=== PATIENT | female | born 1950 | race African-American/Black ===

== ENCOUNTER 2024-11-23 15:06 | Inpatient (IN) | payer MEDICARE, SELFPAY ==
[2024-11-23] VITALS (10 sets, daily range): BP systolic 123–164; BP diastolic 46–63; PULSE 91–103; RESP 17–24; TEMP 36.8–37.1; O2SAT 92–96
--- NOTE | ~2024-11-23 | XR_ITS ---
Portable chest x-ray Comparison: 11/30/2024 Clinical History: Pleural effusions Findings: Small left pleural effusion present. There is extensive hazy bibasilar and perihilar airsp micky disease bilaterally. Cardiomediastinal silhouette is stable. Bones and soft tissues are unremark able. Impression: Moderate pulmonary edema pattern versus bilateral pneumonia. Small left pleural effusion. Reviewed, dictated and finalized at [facility]. YSIS SPECIALIST Impression: Moderate pulmonary edema pattern versus bilateral pneumonia. Small left pleural effusion.
--- NOTE | ~2024-11-23 | XR_ITS ---
EXAMINATION: XR chest 1V portable Exam Date/Time: 11/23/2024 15:55 CUSTOMER SUPPORT TECHNICIAN HISTORY: Hypoxia, cough Comparison: None. RESULT: Lines, tubes, and devices: None. Lungs and pleura: Mild diffuse reticular opacities, mild cuffing, indistinct vessels. Segmental left medial lower lung airspace disease. Linear atelectasis/scar in the left lower lung. Cardiomediastinal silhouette: Unremarkable. Other: No acute osseous or upper abdominal finding. IMPRESSION: Segmental left lower lung atelectasis/consolidation, overlying a background of interstitial edema. Reviewed, dictated and finalized at location K. OMER SUPPORT TECHNICIAN
--- NOTE | ~2024-11-23 | XR_ITS ---
EXAMINATION: XR chest 1V portable DATE: 12/04/2024 05:54 INDICATION: Pneumonia. TECHNIQUE: A single frontal view of the chest was obtained. COMPARISON: Chest single view 12/01/2024, chest CT 11/27/2024 FINDINGS: There are airspace opacities in the mid and lower lung zones. No pleural effusion or pneumo thorax. The heart size is normal. IMPRESSION: 1. Airspace opacities in the mid and lower lung zones with improvement on the left, consistent with p neumonia. Reviewed, dictated and finalized at location A. /[employer]BN WEAPONS EQUIPMENT OPERATOR IMPRESSION: 1. Airspace opacities in the mid and lower lung zones with improvement on the l eft, consistent with pneumonia.
--- NOTE | ~2024-11-23 | XR_ITS ---
EXAMINATION: XR chest 1V portable DATE: 11/30/2024 10:58 INDICATION: Pneumonia. TECHNIQUE: A single frontal view of the chest was obtained. COMPARISON: Chest single view 11/26/2024, chest CT 11/27/2024 FINDINGS: There are airspace opacities in the mid and lower lung zones. There are small pleural effus ions. No pneumothorax. The heart size is normal. IMPRESSION: 1. Persistent airspace opacities in the mid and lower lung zones, consistent with pneumonia. 2. Stable small pleural effusions. Reviewed, dictated and finalized at location A. LE VALVE TESTER IMPRESSION: 1. Persistent airspace opacities in the mid and lower lung zones, consistent wi th pneumonia. 2. Stable small pleural effusions.
--- NOTE | ~2024-11-23 | US_ITS ---
EXAMINATION: US venous doppler [facility] DATE: 11/27/2024 09:59 INDICATION: Shortness of breath TECHNIQUE: Grayscale ultrasound images without and with compression and Doppler ultrasound images of the bilateral lower extremity veins were obtained. COMPARISON: None. FINDINGS: The visualized portions of right common femoral vein, profunda (deep) femoral vein, femoral vein, pop liteal vein, peroneal veins, posterior tibial veins, and greater saphenous vein outflow are patent. The visualized portions of left common femoral vein, profunda femoral vein, femoral vein, popliteal v ein, peroneal veins, posterior tibial veins, and greater saphenous vein outflow are patent. IMPRESSION: 1. No deep venous thrombosis. Reviewed, dictated and finalized at location A. T SALES MANAGER
--- NOTE | ~2024-11-23 | XR_ITS ---
XR chest 1V portable 11/26/2024 07:12 Indication: Pneumonia. Influenza. Shortness of breath. Procedure: AP portable chest Comparison: 11/23/2024 Findings: Heart size normal. Bilateral airspace disease is present which has progressed. Small pleura l effusions. No pneumothorax. Impression: 1: Extensive bilateral airspace disease has progressed, most likely edema versus pneumonia. Reviewed, dictated and finalized at location A. ATTENDANT Impression: 1: Extensive bilateral airspace disease has progressed, most likely edema versu s pneumonia.
--- NOTE | ~2024-11-23 | CT_ITS ---
CT diagnostic chest wo con Ordering provider: Devin Hayden MD History: 74 years Female with . CHF vs pneumonia . Comparison: None. Technique: CT chest without IV contrast. FINDINGS: VISUALIZED THORACIC INLET: Normal. MEDIASTINUM: Aorta/coronary arteries: Mild atheromatous disease. Heart/other: The heart is not enlarged. Lymph nodes: Lymphadenopathy is seen in the mediastinum with largest right paratracheal lymph node me asures 1.7 cm. Prevascular lymph nodes are noted with the largest measures 1.4 cm. Calcified subcarin al lymph nodes are noted. LUNGS: Bilateral basal pneumonia with pleural effusion more on the left side. Right upper lobe pneumo meghan is also noted. Focal pneumonia also seen in the middle lobe and lingula. No pulmonary nodules or masses. No pneumothorax. VISUALIZED UPPER ABDOMEN: Small sliding hiatus hernia. Left kidney cyst. Otherwise, the visualized up per abdomen is normal. MUSCULOSKELETAL: Soft tissues: The superficial soft tissues are normal. Bones: Age appropriate degenerative changes of the spine. Loss of volume of T12 which is most likely chronic. IMPRESSION: 1. Bilateral pneumonia involving the lower lobes, right upper lobe, middle lobe and lingula. 2. Mediastinal lymphadenopathy. 3. Bilateral pleural effusion. Reviewed, dictated and finalized at location A. ROAD SHOP INSPECTOR IMPRESSION: 1. Bilateral pneumonia involving the lower lobes, right upper lobe, middle lob e and lingula. 2. Mediastinal lymphadenopathy. 3. Bilateral pleural effusion.
--- NOTE | 2024-11-23 15:44 | ECG_ITS ---
Test Date: 2024-11-23 16:32:17 Measurements Intervals [place] Rate: 99 P: 46 AL: 163 QRS: -14 QRSD: 101 T: 86 QT: 317 QTc: 408 Interpretive Statements SINUS RHYTHM POSSIBLE LEFT ATRIAL ENLARGEMENT POSSIBLE ANTERIOR MYOCARDIAL INFARCTION , OF INDETERMINATE AGE CONSIDER INFERIOR INFARCT, AGE INDETERMINATE BORDERLINE ST-T WAVE ABNORMALITY- HIGH LATERAL LEADS ABNORMAL ECG No previous ECG available for comparison Electronically Signed On 11-23-2024 16:38:36 TECHNICAL OPERATIONS SPECIALIST by Eliseo Mahmood D.O.
[2024-11-23 16:03] LABS: Hematocrit 29.3 % (37.0-47.0); Hemoglobin 9.7 g/dL (12.0-15.0); Mean Corpuscular HGB Conc 33.1 g/dl (32-36); Mean Corpuscular Hemoglobin 30.4 pg (26-34); Mean Corpuscular Volume 91.8 fl (80-100); Mean Platelet Volume 11.4 fl (7.4-10.4); Platelet Count Result 165 k/mm3 (150-375); Red Blood Count 3.19 M/mm3 (4.2-5.4); Red Cell Distribution Width 12.7 % (11.5-14.5); White Blood Count 7.4 K/mm3 (4.5-10.0)
[2024-11-23] MEDS: IPRATROPIUM 0.5 MG/ALBUTEROL SULFATE 2.5 MG AMPUL.NEB 3 ML INHALATION (16:05)
[2024-11-23 16:10] LABS: Alveolar/Arterial O2 Gradient 163.3 mmHg; Base Excess ABG 2.6 mEq/l (+/-2.0); Fractional Inspired Oxygen 36 %; Oxygen Content ABG 16.6 %vol (16.0-22.0); Oxygen Saturation ABG 92.4 % (95.0-100.0); Oxyhemoglobin 90.3 % THb (90.0-100.0); PCO2 ABG 31.7 mmHg (35.0-45.0); PO2 ABG 56.6 mmHg (80.0-100.0); PO2 FiO2 Ratio Arterial Blood 1.57 %; Total Hemoglobin 13.1 g/dL (12.0-18.0)
[2024-11-23 16:11] LABS: Device NASAL CANNULA; Modified Allen's Test Pass; Site Drawn LEFT RADIAL; pH ABG 7.514 (7.350-7.450)
[2024-11-23 16:21] LABS: Alanine Aminotransferase 14 U/L (6-35); Albumin Level 3.6 g/dL (3.5-5.1); Alkaline Phosphatase 71 U/L (38-126); Anion Gap 13 mmol/L (4-12); Aspartate Amino Transferase 25 U/L (14-36); Bilirubin,Total 1.7 mg/dL (0.2-1.3); Blood Urea Nitrogen 32 mg/dL (7-17); Calcium 9.5 mg/dL (8.4-10.2); Carbon Dioxide 27 mmol/L (22-30); Chloride 87 mmol/L (98-107); Estimated CRCL calculation 31 ml/min; Estimated Glomerular Filt Rate 35; Glucose 392 mg/dL (65-110); Magnesium 1.7 mg/dL (1.6-2.3); Potassium 3.7 mmol/L (3.4-5.0); Sodium 127 mmol/L (137-145)
[2024-11-23 16:22] LABS: Lactic Acid Reflex 2.2 mmol/L (0.7-2.0)
[2024-11-23 16:25] LABS: Band Neutrophils Percent 7 % (0-6); Lymphocytes Absolute Manual 0.51 K/mm3 (1.1-4.5); Monocytes Absolute Manual 0.44 K/mm3 (0.1-0.90); Monocytes Percent Manual 6 % (3-9); Neutrophils Absolute Manual 6.43 K/mm3 (1.7-7.2); Neutrophils Percent Manual 80 % (46-73); Platelet Estimate Adequate (Adequate); Schistocytes None Seen; Total Cells Counted 100
[2024-11-23 16:33] LABS: NT Pro B Type Natriuretic Pept 237 pg/mL (19.9-100); Troponin I < 0.012 ng/mL (0.000-0.034)
[2024-11-23 16:44] LABS: Influenza A QL RT-PCR Positive (Negative); Influenza B QL RT-PCR Negative (Negative); RSV RNA, RT-PCR Negative (Negative); SARS-CoV-2 RNA PCR Negative (Negative)
--- NOTE | 2024-11-23 16:51 | ED_ITS ---
HPI - General Adult General Chief complaint: Shortness of Breath/Dyspnea Stated complaint: dyspnea Time Seen by Provider: 11/23/24 15:33 History of Present Illness HPI narrative: Patient 74-year-old female who presents emergency department chief complaint of shortness of breath. Patient had coughing congestion for the last week patient also has history diabetes and reports that she has had difficulty with her blood sugars being elevated. Patient was found to be hypoxic at Urgent Care started on oxygen and was transferred by EMS to our facility. Related Data Allergies Allergy/AdvReac Type Severity Reaction Status Date / Time No Known Allergies Allergy Verified 11/23/24 15:47 Review of Systems 2 Review of Systems: A 10 system review of systems was completed on the patient and is negative except for what is stated in the HPI. Nursing and ancillary documentation was reviewed. Exam 2 Narrative: GENERAL: Well-appearing, well-nourished, and in no acute distress. HEAD: Normocephalic, atraumatic. EYES: PERRLA and EOMI. ENT: Nares clear, no rhinorrhea or epistaxis. Mucous membranes moist. NECK: Supple. CHEST: Clear to auscultation. No respiratory distress. HEART: Regular rate and rhythm. No murmur heard. Normal peripheral pulses. ABDOMEN: Soft, nontender, nondistended, normal active bowel sounds. EXTREMITIES: Normal range of motion. No edema. SKIN: Warm, dry, no rash. NEURO: No focal deficits. Alert and oriented x3. PSYCH: Normal mood and affect. Course Vital Signs Vital signs: Vital Signs Temperature 37.1 C 11/23/24 15:21 Pulse Rate 91 11/23/24 15:21 Respiratory Rate 17 11/23/24 15:21 Blood Pressure 123/46 L 11/23/24 15:21 Pulse Oximetry 93 11/23/24 15:21 Temperature 37.1 C 11/23/24 15:21 Pulse Rate 100 11/23/24 16:15 Respiratory Rate 24 H 11/23/24 16:15 Blood Pressure 123/46 L 11/23/24 15:21 Pulse Oximetry 95 11/23/24 16:05 Oxygen Delivery Nasal Cannula 11/23/24 16:05 Oxygen Flow Rate 4 11/23/24 16:05 Fraction of Inspired Oxygen 36 11/23/24 16:05 Medical Decision Making [facility] Narrative Medical decision making narrative: Differential diagnosis includes pneumonia, influenza, COVID, RSV The patient was alkalotic on her blood gas and her PO2 was 56.6 on 4 L nasal cannula electrolytes showed a creatinine 1.48 patient did also have a mild abdomen blood sugar at 392 lactate was 2.2 troponin was negative BNP was 237 the patient was positive for influenza Chest x-ray did show evidence of infiltrate Blood cultures were obtained the patient started on Rocephin Zithromax the patient received IV fluids and the patient was started on Tamiflu and patient will be admitted to the hospitalist service Vital Signs Vital Signs: Vital Signs Temperature 37.1 C 11/23/24 15:21 Pulse Rate 91 11/23/24 15:21 Respiratory Rate 17 11/23/24 15:21 Blood Pressure 123/46 L 11/23/24 15:21 Pulse Oximetry 93 11/23/24 15:21 Temperature 37.1 C 11/23/24 15:21 Pulse Rate 100 11/23/24 16:15 Respiratory Rate 24 H 11/23/24 16:15 Blood Pressure 123/46 L 11/23/24 15:21 Pulse Oximetry 95 11/23/24 16:05 Oxygen Delivery Nasal Cannula 11/23/24 16:05 Oxygen Flow Rate 4 11/23/24 16:05 Fraction of Inspired Oxygen 36 11/23/24 16:05 Lab Data 11/23/24 15:57 11/23/24 15:57 Labs: Lab Results 11/23/24 Range/Units 15:57 WBC 7.4 (4.5-10.0) K/mm3 RBC 3.19 L (4.2-5.4) M/mm3 Hgb 9.7 L (12.0-15.0) g/dL Hct 29.3 L (37.0-47.0) % MCV 91.8 (80-100) fl MCH 30.4 (26-34) pg MCHC 33.1 (32-36) g/dl RDW 12.7 (11.5-14.5) % Plt Count 165 (150-375) k/mm3 MPV 11.4 H (7.4-10.4) fl Immature Gran % (Auto) Not Reportable Neut % (Auto) Not Reportable Lymph % (Auto) Not Reportable [place] % (Auto) Not Reportable Eos % (Auto) Not Reportable Baso % (Auto) Not Reportable Lymph # (Auto) Not Reportable [place] # (Auto) Not Reportable Eos # (Auto) Not Reportable Baso # (Auto) Not Reportable Abs Immat Gran (auto) Not Reportable Absolute Neuts (auto) Not Reportable Absolute Nucleated RBC Not Reportable Total Counted 100 Neutrophils % (Manual) 80 H (46-73) % Band Neutrophils % 7 H (0-6) % Lymphocytes % (Manual) 7.0 L (18-44) % Monocytes % (Manual) 6 (3-9) % Nucleated RBC % Not Reportable Abs Neuts (Manual) 6.43 (1.7-7.2) K/mm3 Abs Lymphs (Manual) 0.51 L (1.1-4.5) K/mm3 Abs Monocytes (Manual) 0.44 (0.1-0.90) K/mm3 Platelet Estimate Adequate (Adequate) Schistocytes None seen Sodium 127 L (137-145) mmol/L Potassium 3.7 (3.4-5.0) mmol/L Chloride 87 L (98-107) mmol/L Carbon Dioxide 27 (22-30) mmol/L Anion Gap 13 H (4-12) mmol/L BUN 32 H (7-17) mg/dL Creatinine 1.48 H (0.7-1.0) mg/dL Estim Creat Clear Calc 31 ml/min Estimated GFR 35 L (59 - ) Glucose 392 H (65-110) mg/dL Lactic Acid 2.2 H (0.7-2.0) mmol/L Calcium 9.5 (8.4-10.2) mg/dL Magnesium 1.7 (1.6-2.3) mg/dL Total Bilirubin 1.7 H (0.2-1.3) mg/dL AST 25 (14-36) U/L ALT 14 (6-35) U/L Alkaline Phosphatase 71 (38-126) U/L Troponin I < 0.012 (0.000-0.034) ng/mL NT-Pro-B Natriuret Pep 237 H (19.9-100) pg/mL Total Protein 7.0 (6.3-8.2) g/dL Albumin 3.6 (3.5-5.1) g/dL Procalcitonin Pending Influenza A (RT-PCR) Positive A (Negative) Influenza B (RT-PCR) Negative (Negative) RSV (RT-PCR) Negative (Negative) SARS-CoV-2 RNA (RT-PCR) Negative (Negative) ABG Data ABG results: 11/23/24 16:03 Puncture Site Left radial ABG pH 7.514 H* ABG pCO2 31.7 L ABG pO2 56.6 L ABG PO2/FiO2 Ratio 1.57 ABG HCO3 25.0 ABG O2 Saturation 92.4 L ABG O2 Content 16.6 ABG Base Excess 2.6 A-a Gradient 163.3 Oxyhemoglobin 90.3 Total Hemoglobin 13.1 O2 Delivery Device Nasal cannula O2 Liters/Min 4.0 FiO2 36 Discharge Plan Discharge Clinical Impression: Acute hypoxemic respiratory failure, Pneumonia, Influenza, Acute hyperglycemia, Acute kidney injury Patient Disposition: Still a Patient Condition: Stable Patient Language: [place] Follow-up/Referrals: PHYSICIAN NOT ON STAFF,NONSTAFF [Primary Care Provider] - Time of Disposition: 16:54
[2024-11-23 16:54] LABS: Procalcitonin 12.8 ng/mL
[2024-11-23 17:28] LABS: Add Urine Microscopic? YES; Appearance Urine Turbid (Clear); Bacteria Urine 1+ /hpf; Bilirubin Urine Negative (Negative); Blood Urine 2+ (Negative); Color Urine Dark Yellow (Yellow); Glucose Urine UA 3+ mg/dL (Negative); Ketones Urine Negative (Negative); Leukocyte Esterase Ur Negative LEU/UL (Negative); Need Manual Microscopic Reviewed; Nitrate Urine Negative (Negative); Protein Urine 3+ mg/dL (Negative); RBC Urine 0-2 /hpf (0-2); Specific Grav Ur 1.027 (1.001-1.035); Squamous Epithelial Cell Urine Moderate /hpf (Few); WBC Urine 0-5 /hpf (0-3); pH Urine 5.5 (5.0-9.0)
--- OUTSIDE RECORDS SUMMARY | 2024-11-23 17:42 | XMS_ITS | Patient Health Summary ---
Author Organization [facility] Address [address] [address] Care Team Providers Care Scoring Machine Operator Name Role Phone Feliberto Padilla DO Primary Care Provider [phone] Jojo Rea MD Unavailable [phone] Note from [facility],non-owned Affiliates and Associated Physician Practices is amultiple site organization consisting of ambulatory clinics and hospital sitesin [place], [place], [place] and [place]. This disclosure is being madepursuant to the Care Everywhere program and may not contain all information available regarding this patient. Last updated 18.[facility] [employer] Allergies No known active allergies Medications * Be aware that medications may not be up to date on this document. Alwaysverify current medications with the patient. * sitagliptin-metformin (JANUMET) 50-1000 MG tablet Take 1 Tab by mouth 2 times daily with breakfast and dinner. * lovastatin (MEVACOR) 40 MG tablet Take 40 mg by mouth once daily. * Insulin Detemir (LEVEMIR FLEXPEN SC) 85 Units once daily * FREESTYLE INSULINX TEST test strip(Started 06/10/2017) TEST TID 1 refill left * losartan-hydroCHLOROthiazide (HYZAAR) 100-25 MG tablet(Started 07/26/2017) TK 1 T PO QD 1 refill left * TRULICITY 1.5 MG/0.5ML injection(Started 03/11/2018) INJECT ONE PEN SUBCUTANEOUSLY WEEKLY 2 refills left * B-D UF III MINI PEN NEEDLES 31G X 5 MM needle(Started 12/09/2017) USE DIRECTED WITH INSULIN ADMINISTRATION Active Problems Problem Noted Date Diagnosed Date Abnormal mammogram 09/08/2013 Social History Tobacco Use Types Packs/Day Years Used Date Smoking Tobacco: Never Smokeless Tobacco: Never Alcohol Use Standard Drinks/Week Comments No 0 (1 standard drink = 0.6 oz pur e alcohol) Sex and Gender Information Value Date Recorded Sex Assigned at Not on file Gender Identity Not on file Sexual Orientation Not on file Last Filed Vital Signs Vital Sign Reading Time Taken Comments Blood Pressure 148/65 03/26/2018 3:42 PM CDT Pulse 77 01/19/2011 12:04 PM CDT Temperature 36.5 C (97.7 F) 01/19/2011 11:54 AM CDT Respiratory Rate 20 01/19/2011 12:04 PM CDT Oxygen Saturation 94% 01/19/2011 12:04 PM CDT Inhaled Oxygen Concentration - - Weight 93 kg (205 lb) 03/26/2018 3:42 PM CDT Height 162.6 cm (5' 4 ) 03/26/2018 3:42 PM CDT Body Mass Index 35.19 03/26/2018 3:42 PM CDT Procedures * MAMMO LEFT POST CLIP OR WIRE W ZACHARY(Performed 07/02/2023) Performed for Abnormal mammogram * MAMMO STEREOTACTIC LEFT BIOPSY(Performed 07/02/2023) Performed for Breast calcifications on mammogram * PATHOLOGY TISSUE EXAM (STL)(Performed 07/02/2023) Performed for Breast calcifications on mammogram * MAMMO LEFT DIAGNOSTIC W ZACHARY(Performed 06/27/2023) Performed for Abnormal mammogram * MAMMO BILAT SCREENING W ZACHARY(Performed 05/16/2023) Performed for Encounter for screening mammogram for malignant neoplasm of breast * MAMMO BILAT SCREENING W ZACHARY(Performed 09/06/2021) Performed for Encounter for screening mammogram for breast cancer * MAMMO BILAT SCREENING(Performed 09/05/2020) Performed for Encounter for screening mammogram for malignant neoplasm of breast * MAMMO BILAT SCREENING(Performed 01/26/2019) Performed for Screening mammogram, encounter for * MAMMO BILAT SCREENING(Performed 11/19/2017) Performed for Encounter for screening mammogram for breast cancer * MAMMO RIGHT DIAGNOSTIC(Performed 09/03/2017) Performed for Abnormal mammogram * MAMMO BILAT SCREENING(Performed 11/19/2016) Performed for Visit for screening mammogram * MAMMO BILAT SCREENING(Performed 11/09/2015) Performed for Visit for screening mammogram * MAMMO BILAT SCREENING(Performed 10/04/2014) Performed for Other screening mammogram * MAMMO LEFT DIAGNOSTIC(Performed 03/08/2014) Performed for Abnormal mammogram * MAMMOGRAPHY ORDER(Performed 08/25/2012) * ENDOSCOPY, COLON, SCREENING(Performed 01/19/2011) Results * MAMMO LEFT POST CLIP OR WIRE W ZACHARY (07/02/2023 11:47 AM CDT) Anatomical Region Laterality Modality Breast Left Mammography 07/02/2023 12:5 4 PM CDT Narrative 07/02/2023 12:54 PM CDT Please see the stereotactic guided biopsy report of the same date. > Interpreting Provider: Vanessa Edwards MD on 07/02/2023 12:54 PM Feliberto Padilla DO MAMMO ORDERABLES * MAMMO STEREOTACTIC LEFT BIOPSY (07/02/2023 10:36 AM CDT) Anatomical Region Laterality Modality Breast Left Mammography 07/02/2023 11:0 2 AM CDT Addenda Addendum by Vanessa Edwards MD on 07/05/2023 9:03 AM CDT Pathology is focal columnar cell change and microcalcifications. No evidence of atypia or malignancy. The pathology is benign and concordant with the imaging assessment. Annual screening mammography is recommended. Nurse Aura Valentine discussed the results and recommendations with the patient via telephone on 07/03/2023. > Interpreting Provider: Vanessa Edwards MD on 07/05/2023 9:01 AM Impressions 07/02/2023 11:36 AM CDT : Successful stereotactic core biopsy of calcifications in the upper outer left breast. A clip was placed at the site of biopsy. Multiple samples were sent to pathology. Report will be addended when pathology results are available for imaging/pathology concordance. Follow-up recommendations based on pathology report will be given in the addendum. > Interpreting Provider: Vanessa Edwards MD on 07/02/2023 11:36 AM Narrative 07/02/2023 11:36 AM CDT STEREOTACTIC GUIDED CORE BIOPSY - LEFT BREAST - clip placed LEFT BREAST POST-BIOPSY MAMMOGRAM DATE: 07/02/2023 HISTORY: 73-year-old referred for one site stereotactic guided biopsy of calcifications. COMPARISON: Left diagnostic mammography 06/27/2023. TECHNIQUE: The procedure was explained in detail to the patient, all questions were answered, and written informed consent was obtained. COVID consent also obtained. A pre-procedure time-out was performed using two patient identifiers, confirming patient identity and procedure to be performed. The correct side was marked. Using sterile technique, local anesthesia was achieved with lidocaine with epinephrine. Under stereotactic guidance via an approach from superior, a 10G vacuum-assisted biopsy device was used to obtain multiple core biopsies of the calcifications in the upper outer quadrant of the left breast; specimens were sent to pathology. Specimen radiograph confirms the presence of the calcifications in the tissue specimens. A mini cork clip was subsequently placed at the site of biopsy. The needle was then removed and hemostasis achieved. Post-procedure mammography demonstrates solar manufacturer's representative sampling of the calcifications and accurate deployment of the clip. There was minimal blood loss. The patient tolerated the procedure well with no immediate complications and was discharged to home with the standard post-core biopsy instruction sheet. Feliberto Padilla DO MAMMO ORDERABLES * PATHOLOGY TISSUE EXAM (STL) (07/02/2023 10:24 AM CDT) Case Report Surgical Pathology Report Case: [id number] Authorizing Provider: Feliberto Padilla DO Collected: 07/02/2023 10:24 AM Ordering Location: [facility] Received: 07/02/2023 01:48 PM [facility] Pathologist: Jose Guillen MD Specimen: Breast Core Biopsy, Calcifications, likely DCIS 07/03/2023 10:55 AM CDT [facility] Final Diagnosis Left breast, core biopsy: -- Focal columnar cell change and microcalcifications 07/03/2023 10:55 AM CDT [facility] Clinical History Calcifications, likely DCIS 07/03/2023 10:55 AM CDT [facility] Gross Description Received in formalin labeled with patient's name and left breast core biopsy fragments of yellow-swan soft tissue measuring 1 x 1 x 0.2 cm in aggregate. Submitted entirely in cassette A1. Specimen placed in formalin at 1031, July 02, 2023. The cold ischemic time is 7 minutes. 07/03/2023 10:55 AM CDT [facility] Microscopic Description Sections of the left breast core biopsy reveal fragments of breast tissue with focal columnar cell change and microcalcifications. There is no evidence of atypia or malignancy. 07/03/2023 10:55 AM CDT [facility] Disclaimer All histochemical and/or immunohistochemical results are interpreted with controls that demonstrate appropriate staining reactions before reporting results. Note on use of immunocytochemistry reagents: This test was developed and its performance characteristic determined by [facility], Department of Laboratory Medicine. It has not been cleared or approved by the U.S. Food and Drug Administration (FDA). The FDA has determined that such clearance or approval is not necessary. The test is used for clinical purpose. It should not be regarded as investigational or for research. This laboratory is certified to perform high complexity testing. The performance characteristics of the IHC/ALTAF assays have been validated on formalin-fixed paraffin embedded tissues only. The assays have not been validated on decalcified tissues. Results should be interpreted with caution. 07/03/2023 10:55 AM CDT [facility] Embedded Images 07/03/2023 10:55 AM CDT [facility] Pathology/Cytolo gy SPECIMEN FROM BREAST OBTAINED BY CORE NEEDLE BIOPSY / Unknown 07/02/2023 10:24 AM CDT 07/02/2023 1:48 PM CDT Feliberto Padilla DO LAB - PATHOLOGY/CYTO LOGY ORDERABLES Performing Organization Address City/State/[facility] Co de Phone Number [facility] [address] [place] [address] * (ABNORMAL) MAMMO LEFT DIAGNOSTIC W ZACHARY (06/27/2023 1:38 PM CDT) Anatomical Region Laterality Modality Breast Left Mammography 06/27/2023 1:43 PM CDT Impressions 06/27/2023 2:54 PM CDT :Indeterminate microcalcifications are seen in the left upper outer quadrant with the largest cluster measuring 6 mm. Stereotactic biopsy of these calcifications is recommended for tissue diagnosis. These results have been discussed with the patient by Dr. Selena Call. OVERALL FINAL ASSESSMENT: BI-RADS Category 4C: Suspicious. High suspicion for malignancy. Dr. Call discussed the above findings and recommendations with the patient. She will be scheduled to return to the [facility] for biopsy. > Interpreting Provider: Selena Call MD on 06/27/2023 2:54 PM Narrative 06/27/2023 2:54 PM CDT EXAMINATION: DIGITAL MAMMO LEFT DIAGNOSTIC W ZACHARY DATE: 06/27/2023 HISTORY: Abnormal screening mammogram. Recent screening mammogram showed microcalcifications in the upper outer quadrant of the left breast and focal asymmetry in the lower outer quadrant of the left breast. COMPARISON: 05/16/2023, 09/06/2021 TECHNIQUE: Full field digital mammographic views of the left breast were performed, including computer aided detection (CAD) and digital the left breast breast tomosynthesis (DBT). BREAST PARENCHYMAL COMPOSITION:Category A: The breasts are almost entirely fatty. MAMMOGRAM FINDINGS: Additional views reveal complete effacement of the asymmetry in the lower outer quadrant of the left breast. Additional magnification views reveal persistent clustered microcalcifications in the upper outer quadrant. The largest cluster measures approximately 6 mm without associated mass or architectural distortion. Some of the microcalcifications appear to be in a linear distribution. There are other sparse microcalcifications within the same segment of tissue. Feliberto Padilla DO MAMMO ORDERABLES * MAMMO BILAT SCREENING W ZACHARY (05/16/2023 9:58 AM CDT) Only the most recent of2 resultswithin the time period is included. Anatomical Region Laterality Modality Breast Bilateral Mammography 05/16/2023 11:2 6 AM CDT Narrative 05/16/2023 11:33 AM CDT EXAMINATION: Digital screening mammogram. Low-dose full-field digital breast tomosynthesis examination was performed with synthetic 2D images. Computer assisted detection was utilized. DATE: 05/16/2023 9:58 AM PRIOR: 09/06/2021 and prior mammograms dating back to 2016. BREAST PARENCHYMAL DENSITY: The breasts are almost entirely fatty. FINDINGS: Questioned calcifications in the upper outer anterior left breast. Questioned architectural distortion in the lower outer left breast at middle to posterior depth. No suspicious masses, areas of architectural distortion or microcalcifications are evident on synthetic 2D mammogram or tomosynthesis images of the right breast. ASSESSMENT: BIRADS Category 0: Incomplete - Needs additional imaging evaluation. RECOMMENDATION: Left breast diagnostic mammography and possible targeted ultrasound. > Interpreting Provider: Vanessa Edwards MD on 05/16/2023 11:33 AM Feliberto Padilla DO MAMMO ORDERABLES * MAMMO SCREENING DIGITAL IMAGE BILAT G0202 (09/05/2020 10:16 AM [facility]) Only the most recent of6 resultswithin the time period is included. Anatomical Region Laterality Modality Breast Bilateral Mammography 09/05/2020 11:0 0 AM [facility] Narrative 09/05/2020 11:30 AM [facility] DIGITAL BILATERAL SCREENING MAMMOGRAMS WITH CAD AND 3-D TOMOSYNTHESIS DATE: 09/05/2020, 9:42 AM PREVIOUS EXAM DATE: 01/26/2019, 11/19/2017 INDICATION: Screening TECHNIQUE: Bilateral craniocaudad (CC) and mediolateral oblique (MLO) views. Images were interpreted with the aid of CAD. 3-D tomosynthesis images were performed. TECHNOLOGIST: Vanessa Hickman, RT (R) (M) TISSUE DENSITY: Predominantly fatty. FINDINGS: Benign calcifications are seen in each breast. There is no mass nor microcalcification nor worrisome finding. ASSESSMENT: (BI-RADS 1) Negative. RECOMMENDATIONS: Continued annual screening mammography The above findings should be correlated with physical examination. A relatively nonspecific study should not preclude additional evaluation if suspicious findings are present clinically. An [employer]. [facility] Breast Centers utilize 9[employer] as a reminder system to notify patients of their next recommended mammograms. Edited by Lynsey Rodriguez on 09/05/2020 11:02 AM *Reading Radiologist: Callie Person on 09/05/2020 at 11:30 AM Feliberto Padilla DO MAMMO ORDERABLES * MAMMO DIAG DIRECT DIGITAL IMAGE UNIL RIGHT G0206 (09/03/2017 9:52 AM [facility]) Anatomical Region Laterality Modality Right Mammography 09/03/2017 9:56 AM [facility]PERATIONS [facility] Narrative 09/03/2017 10:25 AM [facility]ATIONS [facility] DIGITAL UNILATERAL RIGHT DIAGNOSTIC MAMMOGRAMS WITH CAD AND 3-D TOMOSYNTHESIS DATE: 09/03/2017 9:04 AM PREVIOUS EXAM DATE: 11/19/2016, 11/09/2015. INDICATION: Breast pain. TECHNIQUE: Bilateral craniocaudad (CC) and mediolateral oblique (MLO) views. Images were interpreted with the aid of CAD. 3-D tomosynthesis images were performed. TECHNOLOGIST: Vanessa Hickman, RT(R)(M) TISSUE DENSITY: Predominantly fatty. FINDINGS: There is no discrete abnormality. There is no mass nor microcalcification or significant new finding. There is no explanation for this patient's breast pain. These benign findings were shared with the patient, in person. ASSESSMENT: (BI-RADS category 2) Benign findings. RECOMMENDATIONS: Continued annual screening mammography. The above findings should be correlated with physical examination. A relatively nonspecific study should not preclude additional evaluation if suspicious findings are present clinically. An [employer] [facility]. [facility] Breast [facility] utilizes [employer] as a reminder system to notify patients of their next recommended mammograms. Edited by Nadine Avila on 09/03/2017 10:10 AM Raquel Piedra DO MAMMO ORDERABLES * MAMMO DIAG DIRECT DIGITAL IMAGE UNIL LEFT (03/08/2014 9:56 AM CDT) Anatomical Region Laterality Modality Left Mammography 03/08/2014 10:3 3 AM CDT Narrative 03/08/2014 11:26 AM CDT DIGITAL LEFT DIAGNOSTIC MAMMOGRAM WITH CAD DATE: 03/08/2014. PREVIOUS EXAM DATE: 09/03/2013 outside films from [facility]. INDICATION: Short-term followup microcalcifications left breast. TECHNIQUE: Left craniocaudad (CC) and mediolateral oblique (MLO), magnification views left breast CC and MLO. CAD was utilized. TECHNOLOGIST: Marilia Arevalo, RT (R)(M) TISSUE DENSITY: Average. FINDINGS: Biopsy clip is again demonstrated in the left breast. Microcalcifications in the left upper outer breast are taking on an increasingly spherical distribution consistent with calcification of an oil cyst. No suspicious new findings are seen. ASSESSMENT: (BI-RADS 2) Benign finding. RECOMMENDATIONS: Continue screening mammography on schedule. The above findings should be correlated with physical examination. A relatively nonspecific study should not preclude additional evaluation if suspicious findings are present clinically. An [employer] [facility] Breast Centers utilize EPIC as a reminder system to notify patients of their next recommended mammogram. Edited by Lynsey Rodriguez on 03/08/2014 10:43 AM Procedure Note Amarilys Paul MD - 03/08/2014 DIGITAL LEFT DIAGNOSTIC MAMMOGRAM WITH CAD DATE: 03/08/2014. PREVIOUS EXAM DATE: 09/03/2013 outside films from [facility]. INDICATION: Short-term followup microcalcifications left breast. TECHNIQUE: Left craniocaudad (CC) and mediolateral oblique (MLO), magnification views left breast CC and MLO. CAD was utilized. TECHNOLOGIST: Marilia Arevalo, (R)(M) TISSUE DENSITY: Average. FINDINGS: Biopsy clip is again demonstrated in the left breast. Microcalcifications in the left upper outer breast are taking on an increasingly spherical distribution consistent with calcification of an oil cyst. No suspicious new findings are seen. ASSESSMENT: (BI-RADS 2) Benign finding. RECOMMENDATIONS: Continue screening mammography on schedule. The above findings should be correlated with physical examination. A relatively nonspecific study should not preclude additional evaluation if suspicious findings are present clinically. An [employer] [facility] Breast Centers utilize EPIC as a reminder system to notify patients of their next recommended mammogram. Edited by Lynsey Rodriguez on 03/08/2014 10:43 AM Norma Carrera DO MAMMO ORDERABLES * MAMMOGRAPHY ORDER (08/25/2012) Anatomical Region Laterality Modality Other Norma W Bunting DO MAMMO ORDERABLES * ENDOSCOPY, COLON, SCREENING (01/19/2011) Coretta Morley MD GI PROCEDURE ORD ERABLES Care Teams Scoring Machine Operator Relationship Specialty Start Date End Date Feliberto Padilla DO [address] [address] PCP - General 01/19/11 Jojo Rea MD [address] [address] Referring Physician Obstetrics and Gynecology 09/08/13
--- OUTSIDE RECORDS SUMMARY | 2024-11-23 17:42 | XMS_ITS | Encounter Summary ---
Author Organization [facility] Address [address] [place] [address] Care Team Providers Care Evp Operations Name Role Phone Feliberto Padilla DO Primary Care Provider [phone] Jojo Rea MD Unavailable [phone] Encounter Details Date Type Department Care Team (Late st Contact Info) Description 09/08/2013 SS Outpatient Visit EXTERNAL NON-[facility] DEPT Norma Carrera DO [address] [facility] [address] [place] [id number] Social History Tobacco Use Types Packs/Day Years Used Date Smoking Tobacco: Never Smokeless Tobacco: Never Alcohol Use Standard Drinks/Week Comments No 0 (1 standard drink = 0.6 oz pur e alcohol) Sex and Gender Information Value Date Recorded Sex Assigned at Not on file Gender Identity Not on file Sexual Orientation Not on file documented as of this encounter Plan of Treatment Not on file documented as of this encounter Visit Diagnoses Not on filedocumented in this encounter Care Teams Evp Operations Relationship Specialty Start Date End Date Feliberto Padilla DO [address] [address] PCP - General 01/19/11 Jojo Rea MD [address] [address] Referring Physician Obstetrics and Gynecology 09/08/13 documented as of this encounter
--- OUTSIDE RECORDS SUMMARY | 2024-11-23 17:42 | XMS_ITS | Clinical Summary ---
Author Organization [facility] Address [address] [place] [address] Care Team Providers Care Cap Coverer Name Role Phone Feliberto Padilla DO Primary Care Provider [phone] Jojo Rea MD Unavailable [phone] Source Comments [facility],non-owned Affiliates and Associated Physician Practices is amultiple site organization consisting of ambulatory clinics and hospital sitesin [place], [place], [place]. This disclosure is being madepursuant to the Care Everywhere program and may not contain all information available regarding this patient. Last updated 18.[facility] Allergies No known active allergies Medications * Be aware that medications may not be up to date on this document. Alwaysverify current medications with the patient. Medication Sig Dispensed Refills Start Date End Date Status sitagliptin-metfor min (JANUMET) 50-1000 MG tablet Take 1 Tab by mouth 2 times daily with breakfast and dinner. Active lovastatin (MEVACOR) 40 MG tablet Take 40 mg by mouth once daily. Active Insulin Detemir (LEVEMIR FLEXPEN SC) 85 Units once daily Activ e FREESTYLE INSULINX TEST test strip TEST TID 1 06/10/2017 Active losartan-hydroCHLO ROthiazide (HYZAAR) 100-25 MG tablet TK 1 T PO QD 1 07/26/2017 Active TRULICITY 1.5 MG/0.5ML injection INJECT ONE PEN SUBCUTANEOUSLY WEEKLY 2 03/11/2018 Active B-D UF III MINI PEN NEEDLES 31G X 5 MM needle USE DIRECTED WITH INSULIN ADMINISTRATION 0 12/09/2017 Activ e Active Problems Problem Noted Date Diagnosed Date Abnormal mammogram 09/08/2013 Family History Medical History Relation Name Comments Cancer - Colon Father Diabetes Mother complications Cancer - Breast Other 1st cousin-m other's side Multiple Sclerosis Sister 2 Relation Name Status Comments Brother (Age 1979) Father Mother Other Sister 1 (Age 2008) MS Sister 2 Social History Tobacco Use Types Packs/Day Years [...] Mass Index 35.19 03/26/2018 3:42 PM CDT Plan of Treatment Health Maintenance Due Date Last Done Comments COLOGUARD (AGES 45-75) - COLON CA SCREENING 1950 CT COLONOGRAPHY - COLON CA SCREENING 1950 FIT - COLON CA SCREENING 1950 FLEX SIG - COLON CA SCREENING 1950 HEPATITIS C SCREENING 05/15/1969 DTAP/TDAP/TD VACCINES (1 - Tdap) 1970 PNEUMOCOCCAL VACCINE 50+ (1 of 1 - PCV) 2001 ZOSTER VACCINE (1 of 2) 2001 COLON MONITORING 01/19/2021 01/19/2011 COLONOSCOPY - COLON CA SCREENING 01/19/2021 01/19/2011 Colorectal Cancer Screening 01/19/2021 COVID-19 VACCINE ( season) 2024 08/07/2021, 11/11/2020 INFLUENZA VACCINE (#1) 2024 DEPRESSION SCREENING 09/30/2024 MEDICARE AWV CALENDAR YEAR 2024 MAMMOGRAM 05/16/2025 05/16/2023, 12/0 04/2021, 09/05/2020, Additional history exists Respiratory Syncytial Virus (RSV) Vaccine Pt: or over 60 yrs (1 - 1-dose 75+ series) 2026 BONE DENSITY TESTING Completed 07/08/2008 (Done Outside Per Report) HEPATITIS B VACCINE Aged Out No longe r eligible based on patient's age to complete this topic HIB VACCINE Aged Out No longer eligi ble based on patient's age to complete this topic HPV VACCINE Aged Out No longer eligi ble based on patient's age to complete this topic MENINGOCOCCAL (Group B) VACCINE Aged Out No longer eligible based on patient's age to complete this topic MENINGOCOCCAL VACCINE Aged Out No ramona kirsten eligible based on patient's age to complete this topic Procedures Procedure Name Priority Date/Time Associated Diagnosis Comments MAMMO BILAT SCREENING W ZACHARY Routine 05/16/2023 9:58 AM CDT Encounter for screening mammogram for malignant neoplasm of breast ENDOSCOPY, COLON, SCREENING Routine 01/19/2011 from Last 3 Months or Most Recently Relevant to Health Maintenance Results * MAMMO BILAT SCREENING W ZACHARY (05/16/2023 9:58 AM CDT) Anatomical Region Laterality Modality Breast Bilateral Mammography [...] AM Feliberto Padilla DO MAMMO ORDERABLES * ENDOSCOPY, COLON, SCREENING (01/19/2011) Coretta Morley MD GI PROCEDURE ORD ERABLES from Last 3 Months or Most Recently Relevant to Health Maintenance Care Teams Cap Coverer Relationship Specialty Start Date End Date Felibreto Padilla DO [address] [facility] [address] [place] [address] PCP - General 01/19/11 Jojo Rea MD [address] [place] [address] [address] [place] [address] Referring Physician Obstetrics and Gynecology 09/08/13
--- OUTSIDE RECORDS SUMMARY | 2024-11-23 17:42 | XMS_ITS | Referral Summary ---
Author Organization [facility] [employer] Address [address] [place] [address] Care Team Providers Care Stonemason Helper Name Role Phone Feliberto Padilla DO Primary Care Provider [phone] Jojo Rea MD Unavailable [phone] Source Comments [facility],non-owned Affiliates and Associated Physician Practices is amultiple site organization consisting of ambulatory clinics and hospital sitesin [place], [place], [place] and [place]. This disclosure is being madepursuant to the Care Everywhere program and may not contain all information available regarding this patient. Last updated 18.[facility] [employer] Allergies No known active allergies Medications * [...] 03/26/2018 3:42 PM CDT Plan of Treatment Not on file Procedures Procedure Name Priority Date/Time Associated Diagnosis [...] or Most Recently Relevant to Health Maintenance Insurance Payer Benefit Plan / Group Subscriber ID Effective Dates Phone Address Type MEDICARE MEDICARE PART A ONLY [id number] Effective for all dates [address] [place] [address] Medicare MEDICARE MEDICARE PART A ONLY [id number] 04/30/2016-Pres ent [id number] [address] [place] [address] Medicare [employer] UHC CHOICE/SELECT /CHOICE PLUS/ALL PAYORS [id number] Effective for all dates [address] [address] [place] [address] O [facility] MANAGED MEDICARE ADV [facility] COMPLETE CHOICE MEDICARE ADV PPO [id number] 03/30/2021-Pres ent [address] [address] [place] [address] Medicare-Man aged Care [place]ANS [place]AST [id number] 07/02/2023-Pre sent [phone] [address] [place] [address] /Michael pus [employer] OUT OF STATE PPO [id number] Effective for all dates [address] [place] [address] PPO Care Teams Stonemason Helper Relationship Specialty Start Date End Date Feliberto Padilla DO [address] [place] [address] PCP - General 01/19/11 Jojo Rea MD [address] [place] [address] Referring Physician Obstetrics and Gynecology 09/08/13
[2024-11-23] MEDS: SODIUM CHLORIDE 0.9% IV 1,000 ML 999 ML IV CONT (17:46)
[2024-11-23] MEDS: OSELTAMIVIR PHOSPHATE 75 MG CAPSULE PO (17:47)
[2024-11-23] MEDS: AZITHROMYCIN 500 MG/NS 250 ML 500 MG/250 ML BAG 250 MG IVPB (18:27)
--- OUTSIDE RECORDS SUMMARY | 2024-11-23 18:33 | XMS_ITS | Encounter Summary ---
Author Organization [facility] Address [address] [place] [address] Care Team Providers Care Avionics Systems Integration Specialist Name Role Phone Feliberto Padilla DO Primary Care Provider [phone] Jojo Rea MD Unavailable [phone] Encounter Details Date Type Department Care Team (Late st Contact Info) Description 09/08/2013 SS Outpatient Visit EXTERNAL NON-[facility] Norma Carrera DO [address] [facility] [address] [place] [id number] Social History Tobacco Use Types Packs/Day Years [...] on filedocumented in this encounter Care Teams Avionics Systems Integration Specialist Relationship Specialty Start Date End Date Feliberto Padilla DO [address] [address] PCP - General 01/19/11 Jojo Rea MD [address] [address] Referring Physician Obstetrics and Gynecology 09/08/13 documented as of this encounter
--- OUTSIDE RECORDS SUMMARY | 2024-11-23 18:33 | XMS_ITS | Patient Health Summary ---
Author Organization [facility] Address [address] [place] [address] Care Team Providers Care Complaint Investigator Name Role Phone Feliberto Padilla DO Primary Care Provider [phone] Jojo Rea MD Unavailable [phone] Note from [facility][note 2],non-owned Affiliates and Associated Physician Practices is amultiple site organization consisting of ambulatory clinics and hospital sitesin [place], [place], [place] and [place]. This disclosure is being madepursuant to the Care Everywhere program and may not contain all information available regarding this patient. Last updated 18.[facility] [employer] Allergies No known active allergies Medications * [...] removed and hemostasis achieved. Post-procedure mammography demonstrates sales representative electric service sampling of the calcifications and accurate deployment of the clip. There was minimal blood loss. The patient tolerated the procedure well with no immediate complications and was discharged to home with the standard post-core biopsy instruction sheet. Feliberto Padilla DO MAMMO ORDERABLES * PATHOLOGY TISSUE EXAM (STL) (07/02/2023 10:24 AM CDT) Case Report Surgical Pathology Report Case: [id number] Authorizing Provider: Feliberto Padilla DO Collected: 07/02/2023 10:24 AM Ordering Location: [facility] Received: 07/02/2023 01:48 PM [facility] Pathologist: Jose Guillen MD Specimen: Breast Core [...] is 7 minutes. 07/03/2023 10:55 AM CDT [facility] Microscopic Description Sections of the left breast core biopsy reveal fragments of breast tissue with focal columnar cell change and microcalcifications. There is no evidence of atypia or malignancy. 07/03/2023 10:55 AM CDT [facility] Disclaimer All histochemical and/or immunohistochemical results are interpreted with controls that demonstrate appropriate staining reactions before reporting results. Note on use of immunocytochemistry reagents: This test was developed and its performance characteristic determined by [facility], Department of Laboratory Medicine. It [...] interpreted with caution. 07/03/2023 10:55 AM CDT [facility] Embedded Images 07/03/2023 10:55 AM CDT [facility] Pathology/Cytolo gy SPECIMEN FROM BREAST OBTAINED BY CORE NEEDLE BIOPSY / Unknown 07/02/2023 10:24 AM CDT 07/02/2023 1:48 PM CDT Feliberto Padilla DO LAB - PATHOLOGY/CYTO LOGY ORDERABLES Performing Organization Address City/State/[facility] Co de Phone Number [facility] [address] [place] [address] * (ABNORMAL) MAMMO LEFT DIAGNOSTIC [...] be scheduled to return to the Breast [facility] for biopsy. > Interpreting Provider: [...] DIGITAL IMAGE BILAT [id number] (09/05/2020 10:16 AM MANAGER EMBALMER FUNERAL DIRECTOR) Only the most recent of6 resultswithin the time period is included. Anatomical Region Laterality Modality Breast Bilateral Mammography 09/05/2020 11:0 0 AM MANAGER EMBALMER FUNERAL DIRECTOR Narrative 09/05/2020 11:30 AM MANAGER EMBALMER FUNERAL DIRECTOR DIGITAL BILATERAL SCREENING MAMMOGRAMS WITH CAD AND [...] if suspicious findings are present clinically. An [employer] [place] [employer]. [facility] utilize [employer] as a reminder system to notify patients of their next recommended mammograms. Edited by Lynsey Rodriguez on 09/05/2020 11:02 AM *Reading Radiologist: Callie Person on 09/05/2020 at 11:30 AM Feliberto Padilla DO MAMMO ORDERABLES * MAMMO DIAG DIRECT DIGITAL IMAGE UNIL RIGHT [id number] (09/03/2017 9:52 AM MANAGER EMBALMER FUNERAL DIRECTOR) Anatomical Region Laterality Modality Right Mammography 09/03/2017 9:56 AM MANAGER EMBALMER FUNERAL DIRECTOR Narrative 09/03/2017 10:25 AM MANAGER EMBALMER FUNERAL DIRECTOR DIGITAL UNILATERAL RIGHT DIAGNOSTIC MAMMOGRAMS WITH CAD [...] if suspicious findings are present clinically. An [place] [employer]ified [employer]. [facility] Breast [facility] utilizes [employer] as a reminder system to notify patients [...] PREVIOUS EXAM DATE: 09/03/2013 outside films from [facility]. INDICATION: Short-term followup microcalcifications left breast. TECHNIQUE: [...] if suspicious findings are present clinically. An [place] [employer] [facility] utilize [employer] as a reminder system to notify patients of their next recommended mammogram. Edited by Lynsey Rodriguez on 03/08/2014 10:43 AM Procedure Note Amarilys Paul MD - 03/08/2014 DIGITAL LEFT DIAGNOSTIC MAMMOGRAM WITH CAD DATE: 03/08/2014. PREVIOUS EXAM DATE: 09/03/2013 outside films from [facility]. INDICATION: Short-term followup microcalcifications left breast. TECHNIQUE: [...] if suspicious findings are present clinically. An [place] [employer] [facility] utilize [employer] as a reminder system to notify patients of their next recommended mammogram. Edited by Lynsey Rodriguez on 03/08/2014 10:43 AM Norma Carrera DO MAMMO ORDERABLES * MAMMOGRAPHY ORDER (08/25/2012) Anatomical Region Laterality Modality Other Norma W Bunting DO MAMMO ORDERABLES * ENDOSCOPY, COLON, SCREENING (01/19/2011) Coretta Morley MD GI PROCEDURE ORD ERABLES Care Teams Complaint Investigator Relationship Specialty Start Date End Date Feliberto Padilla DO [address] [address] PCP - General 01/19/11 Jojo Rea MD [address] [address] Referring Physician Obstetrics and Gynecology 09/08/13
--- OUTSIDE RECORDS SUMMARY | 2024-11-23 18:33 | XMS_ITS | Clinical Summary ---
Author Organization [facility] [employer] Address [address] [facility] [address] [place] [address] Care Team Providers Care Shipping And Receiving Specialist Name Role Phone Feliberto Padilla DO Primary Care Provider [phone] Jojo Rea MD Unavailable [phone] Source Comments [facility],non-owned Affiliates and Associated Physician Practices is amultiple site organization consisting of ambulatory clinics and hospital sitesin [place], [place], [place] and [place]. This disclosure is being madepursuant to the Care Everywhere program and may not contain all information available regarding this patient. Last updated 18.[facility] [employer] Allergies No known active allergies Medications * [...] Recently Relevant to Health Maintenance Care Teams Shipping And Receiving Specialist Relationship Specialty Start Date End Date Feliberto Padilla DO [address] [facility] [address] [place] [address] PCP - General 01/19/11 Jojo Rea MD [address] [place] [address] [address] [place] [address] Referring Physician Obstetrics and Gynecology 09/08/13
--- OUTSIDE RECORDS SUMMARY | 2024-11-23 18:33 | XMS_ITS | Referral Summary ---
Author Organization [facility] [employer] Address [address] [facility] [place] [address] Care Team Providers Care System Operation Superintendent Name Role Phone Feliberto Padilla DO Primary Care Provider [phone] Jojo Rea MD Unavailable Source Comments [facility],non-owned Affiliates and Associated Physician Practices is amultiple site organization consisting of ambulatory clinics and hospital sitesin [place], [place], [place] and [place]. This disclosure is being madepursuant to the Care Everywhere program and may not contain all information available regarding this patient. Last updated 18.[facility] [employer] Allergies No known active allergies Medications * [...] Recently Relevant to Health Maintenance Care Teams System Operation Superintendent Relationship Specialty Start Date End Date Feliberto Padilla DO [address] [place] [address] PCP - General 01/19/11 Jojo Rea MD [address] [place] [address] Referring Physician Obstetrics and Gynecology 09/08/13
[2024-11-23 19:01] LABS: Reflex Lactic Acid Yes or No Add Lactic
[2024-11-23 19:36] LABS: Troponin I < 0.012 ng/mL (0.000-0.034)
[2024-11-23 20:12] LABS: Lactic Acid 2.1 mmol/L (0.7-2.0)
--- NOTE | 2024-11-23 21:00 | PM.IMHP ---
H&P: HPI History of Present Illness Date/Time: 11/23/24 21:00 Chief Complaint: Shortness of breath and hypoxia. Narrative: This is a 74-year-old female with insulin-dependent diabetes, hypertension, and hyperlipidemia who presented to the emergency care from a local urgent care for evaluation of shortness of breath and hypoxia. The patient provides the following history. She has not felt well for about a week with symptoms to include a nonproductive cough, sore throat, congestion, and shortness of breath. Chest x-ray at urgent care showed evidence of pneumonia. She was referred to the emergency department as she was found to be hypoxic with an SpO2 of 70% on room air. She denies chest pain, pleuritic pain, nausea, vomiting, diarrhea, lower extremity edema, and calf pain. In the ED: She was afebrile on arrival with an SpO2 of 93% on 4 L. labs are significant for WBC count of 7.4 with 7% bands, hemoglobin 9.7, sodium 127, chloride 87, BUN 32, creatinine 1.48, lactic acid 2.2, BUN 32, creatinine 1.48, glucose 392, proBNP 237, procalcitonin 12.8. Urinalysis was positive for 3+ protein, 3+ glucose, 2+ blood, 1+ bacteria. She tested positive for influenza A. Chest x-ray showed segmental left lower lung atelectasis/consolidation with an overlying background of interstitial edema. She was started on azithromycin, ceftriaxone, and oseltamivir and she is being admitted in this setting for further treatment. Review of Systems Review of Systems: 12 systems were reviewed and are negative except for as per HPI. [facility] Past Medical History Medical History (Updated 11/23/24 @ 22:56 by Isi Trejo PA-C) Hyperlipidemia Hypertension Insulin dependent diabetes mellitus Surgical History Surgical History (Updated 11/23/24 @ 22:56 by Isi Trejo PA-C) History of bilateral cataract extraction Family History Family History Father Colon cancer Mother Cerebrovascular accident Diabetes mellitus Son Hypertension Social History Social History (Updated 11/23/24 @ 22:57 by Isi Trejo PA-C) Social History: Surrogate medical decision maker: Denis Barbosa, son ([phone]). Code status: FULL CODE. Smoking status: Former smoker Alcohol intake: never Substance use: never Do You Feel Safe in your Home?: Yes Lack of Transportation: No Lack of Food: Never True Current Housing: I Have Housing Concerned About Future Housing: No Difficulty Paying Gas/Electric Bills: No Difficulty Paying for Meds: No Currently Unemployed: No Education: Bachelor's Degree Difficulty w/ Childcare or Family Care: No Additional living arrangements comments: Lives in her own home in [place]. Additional occupation/education comments: Retired but still works part-time for the [employer] in [place]. Spiritual care concerns: No Meds Home Medications and Allergies Home Medications ?Medication ?Instructions ?Recorded ?Confirmed ?Type ergocalciferol (vitamin D2) 1,250 1,250 mcg PO B8LYUSH 11/23/24 11/23/24 History mcg (50,000 unit) capsule insulin glargine 100 unit/mL 65 unit subcut QPM 11/23/24 11/23/24 History subcutaneous solution (Lantus U-100 Insulin) linagliptin 5 mg tablet (Tradjenta) 5 mg PO QAM 11/23/24 11/23/24 History losartan 100 1 tablet PO DAILY 11/23/24 11/23/24 History mg-hydrochlorothiazide 25 mg tablet (Hyzaar) lovastatin 40 mg tablet 40 mg PO DAILY 11/23/24 11/23/24 History metformin 500 mg tablet 500 mg PO BID 11/23/24 11/23/24 History Allergies Allergy/AdvReac Type Severity Reaction Status Date / Time No Known Allergies Allergy Verified 11/23/24 15:47 Vital Signs Vital Signs - 24 hr 11/23/24 15:21 11/23/24 15:44 11/23/24 15:46 Temperature 98.7 F Pulse Rate 91 94 Respiratory Rate 17 Blood Pressure 123/46 L Pulse Oximetry 93 95 Oxygen Delivery Nasal Cannula Oxygen Flow Rate 4 Fraction of Inspired Oxygen 11/23/24 16:05 11/23/24 16:05 11/23/24 16:15 Temperature Pulse Rate 91 100 Respiratory Rate 24 H 24 H Blood Pressure Pulse Oximetry 95 Oxygen Delivery Nasal Cannula Oxygen Flow Rate 4 Fraction of Inspired Oxygen 36 11/23/24 18:28 11/23/24 20:56 Temperature Pulse Rate 103 H 96 Respiratory Rate 20 21 H Blood Pressure 155/60 H 149/58 H Pulse Oximetry 95 96 Oxygen Delivery Oxygen Flow Rate Fraction of Inspired Oxygen Exam Narrative: General: Mildly ill-appearing female sitting up in bed in no acute distress. Weight: 81 kg. BMI: 30.7. HEENT: PERRL, EOMI. Sclera anicteric. Tacky mucous membranes. Oropharynx mildly edematous. No exudate. Neck: Supple. No JVD. Respiratory: Respirations are nonlabored. She is currently on 4 L nasal cannula. Coarse lung sounds heard at the bases, more so on the left. Cardiovascular: Regular rate and rhythm with S1-S2. Gastrointestinal: Abdomen is soft, nontender, and nondistended with positive bowel sounds. Skin: Warm and dry. No rash or lesions on limited exam. Extremities: No cyanosis, clubbing, or edema. Radial and pedal pulses intact. Negative Arian sign bilaterally. No palpable knots or cords. Neurological: Alert. Cranial nerves 2-12 are grossly intact. No gross focal deficits to casual conversation. Psychiatric: Pleasant and cooperative with normal mood and affect. Judgment and insight intact. H&P: Results Labs Labs: Short CBC 11/23/24 Range/Units 15:57 WBC 7.4 (4.5-10.0) K/mm3 Hgb 9.7 L (12.0-15.0) g/dL Hct 29.3 L (37.0-47.0) % Plt Count 165 (150-375) k/mm3 BMP 11/23/24 15:57 Sodium 127 L Potassium 3.7 Chloride 87 L Carbon Dioxide 27 BUN 32 H Creatinine 1.48 H Glucose 392 H Calcium 9.5 Cardiac Enzymes 11/23/24 11/23/24 Range/Units 15:57 19:03 Troponin I < 0.012 < 0.012 (0.000-0.034) ng/mL Liver Function 11/23/24 Range/Units 15:57 Total Bilirubin 1.7 H (0.2-1.3) mg/dL AST 25 (14-36) U/L ALT 14 (6-35) U/L Alkaline Phosphatase 71 (38-126) U/L Albumin 3.6 (3.5-5.1) g/dL Urine 11/23/24 Range/Units 17:01 Urine Color Dark yellow (Yellow) Urine Appearance Turbid H (Clear) Urine pH 5.5 (5.0-9.0) Ur Specific [place] 1.027 (1.001-1.035) Urine Protein 3+ H (Negative) mg/dL Urine Glucose (UA) 3+ H (Negative) mg/dL Impressions Chest X-Ray 11/23/24 16:03 IMPRESSION: Segmental left lower lung atelectasis/consolidation, overlying a background of interstitial edema. Assessment and Plan Assessment and plan (1) Influenza A: Code(s): J10.1 - Influenza due to other identified influenza virus with other respiratory manifestations Status: Acute (2) Pneumonia: Code(s): J18.9 - Pneumonia, unspecified organism Status: Acute (3) Acute hypoxic respiratory failure: Code(s): J96.01 - Acute respiratory failure with hypoxia Status: Acute (4) Acute kidney injury: Code(s): N17.9 - Acute kidney failure, unspecified Status: Acute (5) Insulin dependent diabetes mellitus: Status: Acute (6) Hypertension: Code(s): I10 - Essential (primary) hypertension Status: Acute Plan The patient presented to the emergency department from urgent care for evaluation after she was found to have pneumonia and hypoxia as detailed in HPI. Labs, imaging, EKG, and all reports were personally reviewed. She tested positive for influenza A and has been started on oseltamivir. X-ray shows finding of pneumonia in the left lower lobe and she has been started on antibiotics to cover bacterial pneumonia as her procalcitonin is 12.8. Continue scheduled bronchodilators. Sputum culture and MRSA nasal screen have been ordered. Wean oxygen as tolerated. Creatinine is elevated and she denies history of kidney disease thus presumably this is an acute kidney injury, likely due to decreased oral intake and dehydration. She will be hydrated overnight and if her renal function does not improve by morning, further workup can be pursued. Continue basal insulin. Initiate sliding scale insulin, Accu-Cheks, and hypoglycemic protocol. Check hemoglobin A1c. Blood pressures were reviewed and they are stable. The rest of her home medications will be reviewed and resumed as appropriate. Findings and treatment plan were discussed with the patient. Questions were solicited and answered to satisfaction. The patient's medical management will be taken over by the hospitalist team in a.m. Quality VTE Prophylaxis VTE prophylaxis: pharmacologic ordered The patient has been admitted under observation status. Hospitalist [facility] Advance Care Plan I have confirmed that the patient's Advanced Care Plan is present, code status is documented, or surrogate decision maker is listed in patient medical record.: Yes Medication Reconciliation I have utilized all available resources to obtain, update and review the patients current medications (includes all prescriptions, OTC, herbals, cannabis, and nutritional supplements).: Yes
[2024-11-23 21:45] LABS: Glucose Point of Care 374 mg/dl (65-105)
--- NOTE | 2024-11-23 21:45 | ADMGEN ---
This patient, Katheryn Barbosa, was admitted to Medical Room 252-. Patient/family oriented to hospital policies and general routines including ID bracelet, bed and alarms, visiting hours, pain management, procedures, bathroom and other care routines, personal items, smoking policy, room service/diet, and visiting hours. Information on how to activate the Rapid Response Team has been discussed. Patient/Family are encouraged to report perceived risks to care and to ask questions if they do not understand what they are told or what they should do.
[2024-11-23] MEDS: SODIUM CHLORIDE 0.9% IV 1,000 ML 125 ML IV CONT (21:56)
[2024-11-23] MEDS: VANCOMYCIN 1,250 MG/NS 250 ML 1,250 MG/250 ML BAG 166.67 MG IVPB (23:30)
[2024-11-23 23:35] LABS: MRSA (PCR) NOT DETECTED (NOT DETECTE)
[2024-11-24] VITALS (31 sets, daily range): BP systolic 83–144; BP diastolic 54–62; PULSE 80–188; RESP 16–20; TEMP 36.2–37.2; O2SAT 86–98
[2024-11-24 00:01] LABS: Strep Group A RT-PCR DETECTED (Negative)
[2024-11-24 02:24] LABS: Hemoglobin A1C 8.4 % (<5.7)
[2024-11-24 06:06] LABS: Hematocrit 28.3 % (37.0-47.0); Hemoglobin 9.2 g/dL (12.0-15.0); Mean Corpuscular HGB Conc 32.5 g/dl (32-36); Mean Corpuscular Hemoglobin 30.7 pg (26-34); Mean Corpuscular Volume 94.3 fl (80-100); Mean Platelet Volume 11.4 fl (7.4-10.4); Platelet Count Result 175 k/mm3 (150-375); Red Cell Distribution Width 12.8 % (11.5-14.5); White Blood Count 8.4 K/mm3 (4.5-10.0)
[2024-11-24 06:19] LABS: Alanine Aminotransferase 15 U/L (6-35); Albumin Level 3.4 g/dL (3.5-5.1); Alkaline Phosphatase 78 U/L (38-126); Anion Gap 12 mmol/L (4-12); Aspartate Amino Transferase 24 U/L (14-36); Bilirubin,Total 1.3 mg/dL (0.2-1.3); Blood Urea Nitrogen 30 mg/dL (7-17); Calcium 9.2 mg/dL (8.4-10.2); Carbon Dioxide 24 mmol/L (22-30); Chloride 93 mmol/L (98-107); Estimated CRCL calculation 32 ml/min; Estimated Glomerular Filt Rate 35; Glucose 318 mg/dL (65-110); Magnesium 1.9 mg/dL (1.6-2.3); Potassium 3.7 mmol/L (3.4-5.0); Sodium 129 mmol/L (137-145)
[2024-11-24 06:49] LABS: Thyroid Stimulating Hormone Reflex 0.479 uIU/mL (0.465-4.68)
[2024-11-24] MEDS: SODIUM CHLORIDE 0.9% IV 1,000 ML 100 ML IV CONT ×2 (07:13→20:09)
--- NOTE | 2024-11-24 07:39 | PM.IMPN ---
Progress Note: A&P Assessment and Plan (1) Acute hypoxic respiratory failure: Code(s): J96.01 - Acute respiratory failure with hypoxia Status: Acute Assessment and Plan: Patient sent to ED from urgent care for pneumonia with hypoxia spo2 70% on RA. In the ED spo2 93% on 4L NC. - Oxygen supplementation: 4L NC, baseline RA - Suspected cause: cocurrent pneumonia and flu - ABG on 4L NC showing respiratory alkalosis: pH 7.514, pCO2 31.7, pO2 56.6, HCO3 25 - Chest XR: Segmental left lower lung atelectasis/consolidation, overlying a background of interstitial edema. (2) Pneumonia: Code(s): J18.9 - Pneumonia, unspecified organism Status: Acute Assessment and Plan: - Chest XR: Segmental left lower lung atelectasis/consolidation, overlying a background of interstitial edema. - WBC WNL however procal 12.8, being treated for bacterial pneumonia - started on CAP tx: azithromycin ceftriaxone - Oxygen supplementation: 4L NC, baseline RA. Wean oxygen as tolerated. - Viral PCR: Flu - Sputum culture ordered - Legionella, mycoplasma, and pneumococcal ordered - MRSA negative - Continue scheduled bronchodilators. - Monitor vital signs, I&Os, neuro status and patient is a fall risk - Follow WBC, serum electrolytes, temperature curves and cultures (3) Influenza A: Code(s): J10.1 - Influenza due to other identified influenza virus with other respiratory manifestations Status: Acute Assessment and Plan: Viral panel: Flu A Tamiflu 11/23-11/28 (4) Acute kidney injury: Code(s): N17.9 - Acute kidney failure, unspecified Status: Acute Assessment and Plan: BUN/Cr 32/1.48 on admission, unknown baseline Denies history of kidney disease thus presumably this is an acute kidney injury, likely due to decreased oral intake and dehydration. - BUN/Cr 30/1.45 on am labs - NS 100 ml/hr - Holding losartan-HCTZ for FE, resume when appropriate - Renally dose medications - Avoid nephrotoxic medications - Monitor I/O (5) Insulin dependent diabetes mellitus: Status: Acute Assessment and Plan: Patient states that she has not taken her lantus 65 units in over week as she has not been eating. Will decrease her lantus to 30 units and continue to monitor and adjust according to glucose levels. - hypoglycemia protocol - POC blood glucose ACHS - home medication - lantus 65 units, tradjenta 5 mg, metformin 500 mg BID - correct regimen ordered - lantus 30 units, januvia, and SSI - A1C 8.4 (6) Hypertension: Code(s): I10 - Essential (primary) hypertension Status: Acute Assessment and Plan: chronic - losartan-HCTZ on hold for FE, resume when appropriate - blood pressures remain stable, continue to monitor Time Spent With Patient Time with patient: 25 - 35 minutes Subjective Date/time seen: 11/24/24 07:39 Interval history: 74-year-old female with insulin-dependent diabetes, hypertension, and hyperlipidemia who presented to the emergency care from a local urgent care for evaluation of shortness of breath and hypoxia. Patient is pleasant lying in bed. She states that her shortness of breath has slightly improved and continues to endorse an intermittently productive cough. She has no other complaints denying chest pain, palpitations, nausea / vomiting, no abdominal pain. Review of Systems Review of Systems: All systems reviewed & are unremarkable except as noted in HPI and below Exam Narrative: AF HR 93 RR 16 SPo2 98 4L NC BP 124/59 General: female in no acute respiratory distress who is nontoxic appearing, lying semi recumbent in bed. HEENT: Normocephalic. Atraumatic. Extraocular movement intact. Sclera clear and anicteric.No facial asymmetry. Chest: Lungs are coarse crackles to auscultation bilaterally, improves slightly with cough. No wheezes. CV: Heart was regular rate and rhythm. S1-S2. No murmurs, gallops, or rubs. Abd: Abdomen was soft. Nontender. Nondistended. Positive bowel sounds. No organomegaly or masses. Ext: No clubbing, cyanosis, or edema. 2+ DP pulses bilaterally. Neuro: Patient is alert. Speech is clear. Objective Data Vital Signs Vital Signs: Vital Signs - 24 hr 11/23/24 15:21 11/23/24 15:44 11/23/24 15:46 Temperature 98.7 F Pulse Rate 91 94 Respiratory Rate 17 Blood Pressure 123/46 L Pulse Oximetry 93 95 Oxygen Delivery Nasal Cannula Oxygen Flow Rate 4 Fraction of Inspired Oxygen 11/23/24 16:05 11/23/24 16:05 11/23/24 16:15 Temperature Pulse Rate 91 100 Respiratory Rate 24 H 24 H Blood Pressure Pulse Oximetry 95 Oxygen Delivery Nasal Cannula Oxygen Flow Rate 4 Fraction of Inspired Oxygen 36 11/23/24 18:28 11/23/24 20:56 11/23/24 21:30 Temperature 98.2 F Pulse Rate 103 H 96 100 Respiratory Rate 20 21 H 20 Blood Pressure 155/60 H 149/58 H 164/63 H Pulse Oximetry 95 96 92 Oxygen Delivery Oxygen Flow Rate Fraction of Inspired Oxygen 11/23/24 21:41 11/23/24 21:45 11/24/24 00:00 Temperature Pulse Rate 96 89 Respiratory Rate Blood Pressure Pulse Oximetry 92 Oxygen Delivery Nasal Cannula Oxygen Flow Rate 4 Fraction of Inspired Oxygen 11/24/24 04:00 11/24/24 05:11 Temperature 98.9 F Pulse Rate 88 89 Respiratory Rate 20 Blood Pressure 139/59 L Pulse Oximetry 98 Oxygen Delivery Oxygen Flow Rate Fraction of Inspired Oxygen Intake/Output Intake/Output: Intake & Output 11/21/24 11/22/24 11/23/24 11/24/24 23:59 23:59 23:59 23:59 Intake Total 1445.8 1344.2 Balance 1445.8 1344.2 Meds/Results Medications: Active Medications Generic Name Dose Route Start Last Admin Trade Name Freq PRN Reason Stop Dose Admin Acetaminophen 650 mg 11/23/24 16:54 Acetaminophen 325 Mg Tablet PO Q4H PRN Mild Pain (1-3) or Fever Albuterol/Ipratropium 3 ml 11/23/24 20:00 Ipratropium 0.5 Mg/Albuterol Sulfate 2.5 Mg Ampul.Neb 3 Ml INHALATION Q6HRT [facility] Benzocaine 1 lozenge 11/23/24 21:50 Benzocaine/Menthol (*Bkc) 18 Ea Lozenge PO PRN PRN Sore Throat Dextrose 12.5 gm 11/23/24 22:59 Dextrose 50% 25 Gm/50 Ml Syringe IV PUSH PRN PRN Hypoglycemia Protocol Enoxaparin Sodium 40 mg 11/24/24 09:00 Enoxaparin 40 Mg/0.4 Ml Syringe SUB-Q DAILY SUZI Glucagon 1 mg 11/23/24 22:59 Glucagon For Inj 1 Mg Vial IM PRN PRN Hypoglycemia Protocol Glucose 15 gm 11/23/24 22:59 Glucose Oral Gel 15 Gm Of Glucse In 37.5 Gm Tube PO PRN PRN Hypoglycemia Protocol Azithromycin 500 mg in 250 mls @ 250 mls/hr 11/24/24 12:00 Zithromax IVPB Q24H SUZI Ceftriaxone Sodium 1 gm in 50 mls @ 100 mls/hr 11/24/24 12:00 Rocephin 1 Gm/Ns 50 Ml IVPB Q24H SUZI Sodium Chloride 1,000 mls @ 100 mls/hr 11/23/24 16:55 11/24/24 07:13 Normal Saline Iv IV CONT 100 mls/hr .Q10H SUZI Administration Dextrose 1,000 mls @ 100 mls/hr 11/23/24 22:59 Dextrose 5% 1,000 Ml IVPB PRN PRN Hypoglycemia Protocol Insulin Aspart 3 - 6 units 11/24/24 08:00 Insulin Aspart (*Bkc) 100 Units/Ml SUB-Q TIDWM [facility] Protocol Insulin Aspart 1 - 3 units 11/24/24 21:00 Insulin Aspart (*Bkc) 100 Units/Ml SUB-Q HS [facility] Protocol Insulin Glargine 65 units 11/24/24 18:00 Insulin Glargine (*Bkc) 100 Units/Ml SUB-Q QPM [facility] Lovastatin 40 mg 11/24/24 09:00 Lovastatin 20 Mg Tablet PO DAILY [facility] Oseltamivir Phosphate 30 mg 11/23/24 21:00 11/23/24 21:46 Oseltamivir Phosphate 30 Mg Capsule PO 11/28/24 20:59 Not Given Q12HR [facility] Sitagliptin Phosphate 100 mg 11/24/24 09:00 Sitagliptin Phosphate 100 Mg Tablet PO QAM [facility] Vancomycin HCl 1 each 11/23/24 23:11 Vancomycin For Acute Kidney Injury IVPB PRN PRN Vancomycin Protocol Radiology Results: ITS Impressions Chest X-Ray 11/23/24 16:03 IMPRESSION: Segmental left lower lung atelectasis/consolidation, overlying a background of interstitial edema. Labs Labs: Laboratory Results - last 24 hr 11/23/24 11/23/24 11/23/24 15:57 16:03 17:01 WBC 7.4 RBC 3.19 L Hgb 9.7 L Hct 29.3 L MCV 91.8 MCH 30.4 MCHC 33.1 RDW 12.7 Plt Count 165 MPV 11.4 H Immature Gran % (Auto) Not Reportable Neut % (Auto) Not Reportable Lymph % (Auto) Not Reportable Jack % (Auto) Not Reportable Eos % (Auto) Not Reportable Baso % (Auto) Not Reportable Lymph # (Auto) Not Reportable Jack # (Auto) Not Reportable Eos # (Auto) Not Reportable Baso # (Auto) Not Reportable Abs Immat Gran (auto) Not Reportable Absolute Neuts (auto) Not Reportable Absolute Nucleated RBC Not Reportable Total Counted 100 Neutrophils % (Manual) 80 H Band Neutrophils % 7 H Lymphocytes % (Manual) 7.0 L Monocytes % (Manual) 6 Nucleated RBC % Not Reportable Abs Neuts (Manual) 6.43 Abs Lymphs (Manual) 0.51 L Abs Monocytes (Manual) 0.44 Platelet Estimate Adequate Schistocytes None seen Puncture Site Left radial ABG pH 7.514 H* ABG pCO2 31.7 L ABG pO2 56.6 L ABG PO2/FiO2 Ratio 1.57 ABG HCO3 25.0 ABG O2 Saturation 92.4 L ABG O2 Content 16.6 ABG Base Excess 2.6 A-a Gradient 163.3 Oxyhemoglobin 90.3 Total Hemoglobin 13.1 O2 Delivery Device Nasal cannula O2 Liters/Min 4.0 FiO2 36 Sodium 127 L Potassium 3.7 Chloride 87 L Carbon Dioxide 27 Anion Gap 13 H BUN 32 H Creatinine 1.48 H Estim Creat Clear Calc 31 Estimated GFR 35 L Glucose 392 H POC Capillary Glucose Hemoglobin A1c 8.4 H Lactic Acid 2.2 H Calcium 9.5 Magnesium 1.7 Total Bilirubin 1.7 H AST 25 ALT 14 Alkaline Phosphatase 71 Troponin I < 0.012 NT-Pro-B Natriuret Pep 237 H Total Protein 7.0 Albumin 3.6 Procalcitonin 12.8 TSH (Reflex) Urine Color Dark yellow Urine Appearance Turbid H Urine pH 5.5 Ur Specific [place] 1.027 Urine Protein 3+ H Urine Glucose (UA) 3+ H Urine Ketones Negative Ur Blood (Man) 2+ H Urine Nitrate Negative Urine Bilirubin Negative Urine Urobilinogen 1.0 Add Ur Microanalysis Reviewed Leukocyte Esterase Rfl Negative Urine RBC 0-2 Urine WBC 0-5 Ur Squamous Epith Cells Moderate Urine Bacteria 1+ H Urine Casts 3-5 Nasal MRSA (PCR) Influenza A (RT-PCR) Positive A Influenza B (RT-PCR) Negative RSV (RT-PCR) Negative SARS-CoV-2 RNA (RT-PCR) Negative Group A Strep (PCR) 11/23/24 11/23/24 11/23/24 19:03 19:14 21:36 WBC RBC Hgb Hct MCV MCH MCHC RDW Plt Count MPV Immature Gran % (Auto) Neut % (Auto) Lymph % (Auto) Jack % (Auto) Eos % (Auto) Baso % (Auto) Lymph # (Auto) Jack # (Auto) Eos # (Auto) Baso # (Auto) Abs Immat Gran (auto) Absolute Neuts (auto) Absolute Nucleated RBC Total Counted Neutrophils % (Manual) Band Neutrophils % Lymphocytes % (Manual) Monocytes % (Manual) Nucleated RBC % Abs Neuts (Manual) Abs Lymphs (Manual) Abs Monocytes (Manual) Platelet Estimate Schistocytes Puncture Site ABG pH ABG pCO2 ABG pO2 ABG PO2/FiO2 Ratio ABG HCO3 ABG O2 Saturation ABG O2 Content ABG Base Excess A-a Gradient Oxyhemoglobin Total Hemoglobin O2 Delivery Device O2 Liters/Min FiO2 Sodium Potassium Chloride Carbon Dioxide Anion Gap BUN Creatinine Estim Creat Clear Calc Estimated GFR Glucose POC Capillary Glucose 374 H Hemoglobin A1c Lactic Acid 2.1 H Calcium Magnesium Total Bilirubin AST ALT Alkaline Phosphatase Troponin I < 0.012 NT-Pro-B Natriuret Pep Total Protein Albumin Procalcitonin TSH (Reflex) Urine Color Urine Appearance Urine pH Ur Specific [place] Urine Protein Urine Glucose (UA) Urine Ketones Ur Blood (Man) Urine Nitrate Urine Bilirubin Urine Urobilinogen Add Ur Microanalysis Leukocyte Esterase Rfl Urine RBC Urine WBC Ur Squamous Epith Cells Urine Bacteria Urine Casts Nasal MRSA (PCR) Influenza A (RT-PCR) Influenza B (RT-PCR) RSV (RT-PCR) SARS-CoV-2 RNA (RT-PCR) Group A Strep (PCR) 11/23/24 11/23/24 11/24/24 22:01 23:34 05:12 WBC 8.4 RBC 3.00 L Hgb 9.2 L Hct 28.3 L MCV 94.3 MCH 30.7 MCHC 32.5 RDW 12.8 Plt Count 175 MPV 11.4 H Immature Gran % (Auto) Neut % (Auto) Lymph % (Auto) Jack % (Auto) Eos % (Auto) Baso % (Auto) Lymph # (Auto) Jack # (Auto) Eos # (Auto) Baso # (Auto) Abs Immat Gran (auto) Absolute Neuts (auto) Absolute Nucleated RBC Total Counted Neutrophils % (Manual) Band Neutrophils % Lymphocytes % (Manual) Monocytes % (Manual) Nucleated RBC % Abs Neuts (Manual) Abs Lymphs (Manual) Abs Monocytes (Manual) Platelet Estimate Schistocytes Puncture Site ABG pH ABG pCO2 ABG pO2 ABG PO2/FiO2 Ratio ABG HCO3 ABG O2 Saturation ABG O2 Content ABG Base Excess A-a Gradient Oxyhemoglobin Total Hemoglobin O2 Delivery Device O2 Liters/Min FiO2 Sodium 129 L Potassium 3.7 Chloride 93 L Carbon Dioxide 24 Anion Gap 12 BUN 30 H Creatinine 1.45 H Estim Creat Clear Calc 32 Estimated GFR 35 L Glucose 318 H POC Capillary Glucose Hemoglobin A1c Lactic Acid Calcium 9.2 Magnesium 1.9 Total Bilirubin 1.3 AST 24 ALT 15 Alkaline Phosphatase 78 Troponin I NT-Pro-B Natriuret Pep Total Protein 7.0 Albumin 3.4 L Procalcitonin TSH (Reflex) 0.479 Urine Color Urine Appearance Urine pH Ur Specific [place] Urine Protein Urine Glucose (UA) Urine Ketones Ur Blood (Man) Urine Nitrate Urine Bilirubin Urine Urobilinogen Add Ur Microanalysis Leukocyte Esterase Rfl Urine RBC Urine WBC Ur Squamous Epith Cells Urine Bacteria Urine Casts Nasal MRSA (PCR) Not detected Influenza A (RT-PCR) Influenza B (RT-PCR) RSV (RT-PCR) SARS-CoV-2 RNA (RT-PCR) Group A Strep (PCR) Detected A Quality VTE Prophylaxis VTE prophylaxis: pharmacologic ordered
[2024-11-24] MEDS: LOVASTATIN 20 MG TABLET 40 MG PO (08:28)
[2024-11-24] MEDS: OSELTAMIVIR PHOSPHATE 30 MG CAPSULE PO ×2 (08:29→20:08)
[2024-11-24] MEDS: SITagliptin PHOSPHATE 100 MG TABLET PO (08:29)
[2024-11-24] MEDS: ENOXAPARIN 40 MG/0.4 ML SYRINGE SUB-Q (08:31)
[2024-11-24 08:50] LABS: Glucose Point of Care 297 mg/dl (65-105)
[2024-11-24] MEDS: IPRATROPIUM 0.5 MG/ALBUTEROL SULFATE 2.5 MG AMPUL.NEB 3 ML INHALATION ×3 (09:08→21:05)
[2024-11-24] MEDS: INSULIN ASPART (*BKC) 100 UNITS/ML SUB-Q ×4 (09:15→20:14)
[2024-11-24] MEDS: AZITHROMYCIN 500 MG/NS 250 ML 500 MG/250 ML BAG 250 MG IVPB (11:10)
[2024-11-24 11:52] LABS: Glucose Point of Care 288 mg/dl (65-105)
[2024-11-24 17:19] LABS: Glucose Point of Care 255 mg/dl (65-105)
[2024-11-24] MEDS: INSULIN GLARGINE (*BKC) 100 UNITS/ML 30 UNITS SUB-Q (17:35)
[2024-11-24 20:27] LABS: Glucose Point of Care 309 mg/dl (65-105)
--- NOTE | 2024-11-24 21:58 | ECG_ITS ---
Test Date: 2024-11-24 22:04:17 Measurements Intervals [place] Rate: 191 P: 0 IN: 0 QRS: -42 QRSD: 133 T: 146 QT: 254 QTc: 453 Interpretive Statements WIDE COMPLEX TACHYCARDIA, PROBABLY SUPRAVENTRICULAR TACHYCARDIA LEFT AXIS DEVIATION LEFT BUNDLE BRANCH BLOCK BASELINE WANDER- II, III ABNORMAL ECG Compared to ECG 11/23/2024 16:32:17 Left-axis deviation now present Left bundle-branch block now present Sinus rhythm no longer present Electronically Signed On 11-25-2024 06:59:38 SENIOR LINUX ADMINISTRATOR by Eliseo Mahmood D.O.
[2024-11-24] MEDS: METOPROLOL TARTRATE INJ 5 MG/5 ML VIAL IV PUSH ×3 (22:10→22:30)
--- NOTE | 2024-11-24 22:18 | ECG_ITS ---
Test Date: 2024-11-24 22:27:27 Measurements Intervals [place] Rate: 145 P: 0 LA: 0 QRS: -24 QRSD: 117 T: 120 QT: 287 QTc: 447 Interpretive Statements SUPRAVENTRICULAR TACHYCARDIA POSSIBLE ANTERIOR MYOCARDIAL INFARCTION , OF INDETERMINATE AGE BORDERLINE ST-T WAVE ABNORMALITY- HIGH LATERAL LEADS BASELINE WANDER- I, AVR, AVL, AVF, V1, V4-V6 ABNORMAL ECG Compared to ECG 11/24/2024 22:26:39 No significant changes Electronically Signed On 11-25-2024 07:02:00 CHARGE ACCOUNT CLERK by Eliseo Mahmood D.O.
[2024-11-24 22:24] LABS: Glucose Point of Care 254 mg/dl (65-105)
--- NOTE | 2024-11-24 22:25 | ECG_ITS ---
Test Date: 2024-11-24 22:25:26 Measurements Intervals [place] Rate: 145 P: 0 MS: 0 QRS: -20 QRSD: 110 T: 106 QT: 277 QTc: 431 Interpretive Statements SUPRAVENTRICULAR TACHYCARDIA INTRAVENTRICULAR CONDUCTION DELAY POSSIBLE ANTERIOR MYOCARDIAL INFARCTION , OF INDETERMINATE AGE BORDERLINE ST-T WAVE ABNORMALITY- HIGH LATERAL LEADS BASELINE ARTIFACT- II, III, AVR, AVL, AVF, V1 ABNORMAL ECG Compared to ECG 11/24/2024 22:24:43 NO SIGNIFICANT CHANGE Electronically Signed On 11-25-2024 10:13:55 GUT PULLER by Eliseo Mahmood D.O.
--- NOTE | 2024-11-24 22:26 | ECG_ITS ---
Test Date: 2024-11-24 22:26:39 Measurements Intervals [place] Rate: 145 P: 0 ID: 0 QRS: -22 QRSD: 126 T: 105 QT: 280 QTc: 436 Interpretive Statements SUPRAVENTRICULAR TACHYCARDIA INTRAVENTRICULAR CONDUCTION DELAY CONSIDER ANTERIOR INFARCT, AGE INDETERMINATE CONSIDER INFERIOR INFARCT, AGE INDETERMINATE BORDERLINE ST-T WAVE ABNORMALITY- HIGH LATERAL LEADS BASELINE ARTIFACT- I, II, AVR, AVL, AVF ABNORMAL ECG Compared to ECG 11/24/2024 22:25:26 NO SIGNIFICANT CHANGE Electronically Signed On 11-25-2024 10:17:16 MILK RECEIVER TANK TRUCK by Eliseo Mahmood D.O.
--- NOTE | 2024-11-24 22:26 | PM.EVENT ---
Event Note Event Note Event Note: Rapid Response: The patient had just received a DuoNeb at 2100 when she developed significant tachycardia at 2158. HR on telemetry in the 180s. EKG obtained and appears to be a wide complex tachycardia versus SVT. Patient in no respiratory distress and mentating at baseline. Slight reduction in O2 saturation on 4L, 86-89%. Placed on 6L high-flow nasal cannula with improvement to 90-95%. Given metoprolol 5 IV x3 with reduction in rate to the 140s -> 80s. Patient is now converted into NSR, repeat EKG. Exchange DuoNeb for Xopenex/Atrovent. Patient Exam: , female, nontoxic appearance. Faint expiratory wheeze and mild tachypnea. No peripheral edema. HR irregular and tachycardic, no murmur. A&O x4. Critical Care Time: I personally spent 35 minutes of direct patient care including (but not limited to) the physical examination, decision-making, bedside evaluation, review of medical records, review of labs and imaging, discussion with nursing staff and other providers for collaborative, critical care management of this patient.
--- NOTE | 2024-11-24 23:10 | ECG_ITS ---
Test Date: 2024-11-24 22:24:43 Measurements Intervals [place] Rate: 144 P: 0 MD: 0 QRS: -24 QRSD: 138 T: 101 QT: 282 QTc: 438 Interpretive Statements SUPRAVENTRICULAR TACHYCARDIA INTRAVENTRICULAR CONDUCTION DELAY [130+ ms QRS DURATION] POSSIBLE ANTERIOR MYOCARDIAL INFARCTION , OF INDETERMINATE AGE CONSIDER INFERIOR INFARCT, AGE INDETERMINATE BORDERLINE ST-T WAVE ABNORMALITY- HIGH LATERAL LEADS BASELINE WANDER- I, II, III, AVL, AVF ABNORMAL ECG Compared to ECG 11/24/2024 22:04:17 Left-axis deviation no longer present Left bundle-branch block no longer present Electronically Signed On 11-25-2024 07:03:41 RESIDENTIAL SOLAR CONSULTANT by Eliseo Mahmood D.O.
[2024-11-25] VITALS (16 sets, daily range): BP systolic 114–171; BP diastolic 53–78; PULSE 80–98; RESP 18–20; TEMP 36.6–37; O2SAT 90–97
[2024-11-25] MEDS: IPRATROPIUM BR 0.02% INH SOLN 0.5 MG/2.5 ML VIAL INHALATION ×4 (02:20→20:33)
[2024-11-25] MEDS: LEVALBUTEROL NEB 1.25 MG/3 ML INHALATION ×4 (02:20→20:33)
[2024-11-25 04:29] LABS: Vancomycin Random < 5.0 ug/mL (10-20)
[2024-11-25] MEDS: VANCOMYCIN 1,250 MG/NS 250 ML 1,250 MG/250 ML BAG 166.67 MG IVPB (05:43)
[2024-11-25 06:24] LABS: Hematocrit 23.8 % (37.0-47.0); Hemoglobin 7.7 g/dL (12.0-15.0); Mean Corpuscular HGB Conc 32.4 g/dl (32-36); Mean Corpuscular Hemoglobin 30.2 pg (26-34); Mean Corpuscular Volume 93.3 fl (80-100); Mean Platelet Volume 10.9 fl (7.4-10.4); Platelet Count Result 179 k/mm3 (150-375); Red Blood Count 2.55 M/mm3 (4.2-5.4); Red Cell Distribution Width 12.9 % (11.5-14.5); White Blood Count 11.8 K/mm3 (4.5-10.0)
[2024-11-25 06:42] LABS: Anion Gap 9 mmol/L (4-12); Blood Urea Nitrogen 26 mg/dL (7-17); Calcium 8.5 mg/dL (8.4-10.2); Carbon Dioxide 25 mmol/L (22-30); Chloride 98 mmol/L (98-107); Estimated CRCL calculation 33 ml/min; Estimated Glomerular Filt Rate 37; Glucose 220 mg/dL (65-110); Potassium 3.3 mmol/L (3.4-5.0); Sodium 132 mmol/L (137-145)
[2024-11-25 08:11] LABS: Glucose Point of Care 222 mg/dl (65-105)
--- NOTE | 2024-11-25 08:38 | PM.IMPN ---
Progress Note: A&P Assessment and Plan (1) Acute hypoxic respiratory failure: Code(s): J96.01 - Acute respiratory failure with hypoxia Status: Acute Assessment and Plan: Patient sent to ED from urgent care for pneumonia with hypoxia spo2 70% on RA. In the ED spo2 93% on 4L NC. - Oxygen supplementation: 4L NC, baseline RA - Suspected cause: cocurrent pneumonia and flu - ABG on 4L NC showing respiratory alkalosis: pH 7.514, pCO2 31.7, pO2 56.6, HCO3 25 - Chest XR: Segmental left lower lung atelectasis/consolidation, overlying a background of interstitial edema. (2) Pneumonia: Code(s): J18.9 - Pneumonia, unspecified organism Status: Acute Assessment and Plan: - Chest XR: Segmental left lower lung atelectasis/consolidation, overlying a background of interstitial edema. - WBC WNL however procal 12.8, being treated for bacterial pneumonia - started on CAP tx: azithromycin ceftriaxone - Oxygen supplementation: 4L NC, baseline RA. Wean oxygen as tolerated. - Viral PCR: Flu - Sputum culture ordered - Legionella, mycoplasma, and pneumococcal ordered - MRSA negative - Continue scheduled bronchodilators. - Monitor vital signs, I&Os, neuro status and patient is a fall risk - Follow WBC, serum electrolytes, temperature curves and cultures (3) Influenza A: Code(s): J10.1 - Influenza due to other identified influenza virus with other respiratory manifestations Status: Acute Assessment and Plan: Viral panel: Flu A Tamiflu 11/23-11/28 (4) Acute kidney injury: Code(s): N17.9 - Acute kidney failure, unspecified Status: Acute Assessment and Plan: BUN/Cr 32/1.48 on admission, unknown baseline Denies history of kidney disease thus presumably this is an acute kidney injury, likely due to decreased oral intake and dehydration. - BUN/Cr 30/1.45 on am labs - NS 100 ml/hr - Holding losartan-HCTZ for FE, resume when appropriate - Renally dose medications - Avoid nephrotoxic medications - Monitor I/O (5) Insulin dependent diabetes mellitus: Status: Acute Assessment and Plan: Patient states that she has not taken her lantus 65 units in over week as she has not been eating. Will decrease her lantus to 30 units and continue to monitor and adjust according to glucose levels. - hypoglycemia protocol - POC blood glucose ACHS - home medication - lantus 65 units, tradjenta 5 mg, metformin 500 mg BID - correct regimen ordered - lantus 30 units, januvia, and SSI - A1C 8.4 (6) Hypertension: Code(s): I10 - Essential (primary) hypertension Status: Acute Assessment and Plan: chronic - losartan-HCTZ on hold for FE, resume when appropriate - blood pressures remain stable, continue to monitor 114/53 (7) Bacteremia: Code(s): R78.81 - Bacteremia Status: Acute Assessment and Plan: positive BC-group A streptococcus discussed with pharm ID- will continue ceftriaxone but increase dose to 2 gm Time Spent With Patient Time with patient: 25 - 35 minutes Subjective Date/time seen: 11/25/24 08:38 Interval history: 74-year-old female with insulin-dependent diabetes, hypertension, and hyperlipidemia who presented to the emergency care from a local urgent care for evaluation of shortness of breath and hypoxia. Assuming care- pt is seen and examined. shortness of breath has slightly improved and continues to endorse an intermittently productive cough. She has no other complaints denying chest pain, palpitations, nausea / vomiting, no abdominal pain. Review of Systems Review of Systems: 12 systems were reviewed and are negative except for as per HPI. All systems reviewed & are unremarkable except as noted in HPI and below Exam Narrative: AF HR 93 RR 16 SPo2 98 4L NC BP 124/59 General: female in no acute respiratory distress who is nontoxic appearing, lying semi recumbent in bed. HEENT: Normocephalic. Atraumatic. Extraocular movement intact. Sclera clear and anicteric.No facial asymmetry. Chest: Lungs are coarse crackles to auscultation bilaterally, improves slightly with cough. No wheezes. CV: Heart was regular rate and rhythm. S1-S2. No murmurs, gallops, or rubs. Abd: Abdomen was soft. Nontender. Nondistended. Positive bowel sounds. No organomegaly or masses. Ext: No clubbing, cyanosis, or edema. 2+ DP pulses bilaterally. Neuro: Patient is alert. Speech is clear. Objective Data Vital Signs Vital Signs: Vital Signs - 24 hr 11/24/24 09:13 11/24/24 09:13 11/24/24 09:22 Temperature Pulse Rate 90 91 Respiratory Rate 20 20 Blood Pressure Pulse Oximetry 91 Oxygen Delivery Oxygen Flow Rate 11/24/24 12:00 11/24/24 13:33 11/24/24 13:46 Temperature Pulse Rate 91 94 95 Respiratory Rate 20 20 Blood Pressure Pulse Oximetry Oxygen Delivery Oxygen Flow Rate 11/24/24 14:00 11/24/24 16:00 11/24/24 20:00 Temperature 98.5 F Pulse Rate 100 88 Respiratory Rate 16 Blood Pressure 130/58 L Pulse Oximetry 94 95 Oxygen Delivery Nasal Cannula Oxygen Flow Rate 3 11/24/24 20:00 11/24/24 20:08 11/24/24 21:05 Temperature 98.3 F Pulse Rate 97 98 88 Respiratory Rate 20 20 Blood Pressure 144/62 H Pulse Oximetry 90 Oxygen Delivery Oxygen Flow Rate 11/24/24 21:15 11/24/24 21:19 11/24/24 21:53 Temperature Pulse Rate 96 132 H Respiratory Rate 20 Blood Pressure Pulse Oximetry 86 L Oxygen Delivery Nasal Cannula Oxygen Flow Rate 3 11/24/24 21:58 11/24/24 22:00 11/24/24 22:05 Temperature Pulse Rate 180 H 188 H 185 H Respiratory Rate Blood Pressure 98/54 L 83/58 L Pulse Oximetry 89 L Oxygen Delivery Nasal Cannula Oxygen Flow Rate 4 11/24/24 22:10 11/24/24 22:13 11/24/24 22:15 Temperature Pulse Rate 180 H 146 H Respiratory Rate Blood Pressure 95/60 L Pulse Oximetry 93 Oxygen Delivery High Flow Nasal Cannula Oxygen Flow Rate 10 11/24/24 22:15 11/24/24 22:19 11/24/24 22:29 Temperature Pulse Rate 144 H 144 H 145 H Respiratory Rate Blood Pressure 97/60 L 94/56 L Pulse Oximetry Oxygen Delivery Oxygen Flow Rate 11/24/24 22:30 11/24/24 22:35 11/24/24 22:40 Temperature Pulse Rate 145 H 142 H 142 H Respiratory Rate Blood Pressure 92/58 L 89/62 L Pulse Oximetry Oxygen Delivery Oxygen Flow Rate 11/24/24 22:54 11/24/24 23:02 11/25/24 00:00 Temperature Pulse Rate 80 83 Respiratory Rate Blood Pressure 137/58 L Pulse Oximetry Oxygen Delivery Oxygen Flow Rate 11/25/24 02:20 11/25/24 02:40 11/25/24 04:00 Temperature Pulse Rate 84 86 85 Respiratory Rate 20 20 Blood Pressure Pulse Oximetry Oxygen Delivery Oxygen Flow Rate 11/25/24 04:37 11/25/24 08:10 11/25/24 08:10 Temperature 97.8 F Pulse Rate 90 87 Respiratory Rate 18 20 Blood Pressure 129/55 L Pulse Oximetry 95 95 Oxygen Delivery High Flow Nasal Cannula Oxygen Flow Rate 6 11/25/24 08:20 Temperature Pulse Rate 86 Respiratory Rate 20 Blood Pressure Pulse Oximetry Oxygen Delivery Oxygen Flow Rate Intake/Output Intake/Output: Intake & Output 11/22/24 11/23/24 11/24/24 11/25/24 23:59 23:59 23:59 23:59 Intake Total 1445.8 3711.2 370 Balance 1445.8 3711.2 370 Meds/Results Medications: Active Medications Generic Name Dose Route Start Last Admin Trade Name Freq PRN Reason Stop Dose Admin Acetaminophen 650 mg 11/23/24 16:54 Acetaminophen 325 Mg Tablet PO Q4H PRN Mild Pain (1-3) or Fever Benzocaine 1 lozenge 11/23/24 21:50 Benzocaine/Menthol (*Bkc) 18 Ea Lozenge PO PRN PRN Sore Throat Dextrose 12.5 gm 11/23/24 22:59 Dextrose 50% 25 Gm/50 Ml Syringe IV PUSH PRN PRN Hypoglycemia Protocol Enoxaparin Sodium 40 mg 11/24/24 09:00 11/24/24 08:31 Enoxaparin 40 Mg/0.4 Ml Syringe SUB-Q 40 mg DAILY SUZI Administration Glucagon 1 mg 11/23/24 22:59 Glucagon For Inj 1 Mg Vial IM PRN PRN Hypoglycemia Protocol Glucose 15 gm 11/23/24 22:59 Glucose Oral Gel 15 Gm Of Glucse In 37.5 Gm Tube PO PRN PRN Hypoglycemia Protocol Azithromycin 500 mg in 250 mls @ 250 mls/hr 11/24/24 12:00 11/24/24 12:10 Zithromax IVPB Infused Q24H SUZI Infusion Ceftriaxone Sodium 1 gm in 50 mls @ 100 mls/hr 11/24/24 12:00 11/24/24 11:39 Rocephin 1 Gm/Ns 50 Ml IVPB Infused Q24H SUZI Infusion Sodium Chloride 1,000 mls @ 100 mls/hr 11/23/24 16:55 11/24/24 20:09 Normal Saline Iv IV CONT 100 mls/hr .Q10H SUZI Administration Dextrose 1,000 mls @ 100 mls/hr 11/23/24 22:59 Dextrose 5% 1,000 Ml IVPB PRN PRN Hypoglycemia Protocol Insulin Aspart 3 - 6 units 11/24/24 08:00 11/24/24 17:32 Insulin Aspart (*Bkc) 100 Units/Ml SUB-Q 4 units TIDWM SUZI Administration Protocol Insulin Aspart 1 - 3 units 11/24/24 21:00 11/24/24 20:14 Insulin Aspart (*Bkc) 100 Units/Ml SUB-Q 2 units HS SUZI Administration Protocol Insulin Glargine 30 units 11/24/24 18:00 11/24/24 17:35 Insulin Glargine (*Bkc) 100 Units/Ml SUB-Q 30 units QPM SUZI Administration Ipratropium [place] 0.5 mg 11/25/24 00:00 11/25/24 08:08 Ipratropium Br 0.02% Inh Soln 0.5 Mg/2.5 Ml Vial INHALATION 0.5 mg Q4HRT SUZI Administration Levalbuterol HCl 1.25 mg 11/25/24 02:00 11/25/24 08:07 Levalbuterol Neb 1.25 Mg/3 Ml INHALATION 1.25 mg Q6HRT SUZI Administration Lovastatin 40 mg 11/24/24 09:00 11/24/24 08:28 Lovastatin 20 Mg Tablet PO 40 mg DAILY SUZI Administration Oseltamivir Phosphate 30 mg 11/23/24 21:00 11/24/24 20:08 Oseltamivir Phosphate 30 Mg Capsule PO 11/28/24 20:59 30 mg Q12HR SUZI Administration Sitagliptin Phosphate 100 mg 11/24/24 09:00 11/24/24 08:29 Sitagliptin Phosphate 100 Mg Tablet PO 100 mg QAM SUZI Administration Vancomycin HCl 1 each 11/24/24 16:51 Vancomycin For Acute Kidney Injury IVPB PRN PRN Vancomycin Protocol Radiology Results: ITS Impressions Chest X-Ray 11/23/24 16:03 IMPRESSION: Segmental left lower lung atelectasis/consolidation, overlying a background of interstitial edema. Labs Labs: Laboratory Results - last 24 hr 11/24/24 11/24/24 11/24/24 08:46 11:42 17:09 WBC RBC Hgb Hct MCV MCH MCHC RDW Plt Count MPV Sodium Potassium Chloride Carbon Dioxide Anion Gap BUN Creatinine Estim Creat Clear Calc Estimated GFR Glucose POC Capillary Glucose 297 H 288 H 255 H Calcium Random Vancomycin 11/24/24 11/24/24 11/25/24 20:10 22:02 00:36 WBC RBC Hgb Hct MCV MCH MCHC RDW Plt Count MPV Sodium Potassium Chloride Carbon Dioxide Anion Gap BUN Creatinine Estim Creat Clear Calc Estimated GFR Glucose POC Capillary Glucose 309 H 254 H Calcium Random Vancomycin < 5.0 L 11/25/24 11/25/24 05:37 08:08 WBC 11.8 H RBC 2.55 L Hgb 7.7 L Hct 23.8 L MCV 93.3 MCH 30.2 MCHC 32.4 RDW 12.9 Plt Count 179 MPV 10.9 H Sodium 132 L Potassium 3.3 L Chloride 98 Carbon Dioxide 25 Anion Gap 9 BUN 26 H Creatinine 1.41 H Estim Creat Clear Calc 33 Estimated GFR 37 L Glucose 220 H POC Capillary Glucose 222 H Calcium 8.5 Random Vancomycin Quality VTE Prophylaxis VTE prophylaxis: pharmacologic ordered
[2024-11-25] MEDS: POTASSIUM CHLORIDE 20 MEQ PACKET (FOR LIQUID) 40 MEQ PO (09:23)
[2024-11-25] MEDS: ENOXAPARIN 40 MG/0.4 ML SYRINGE SUB-Q (09:25)
[2024-11-25] MEDS: SITagliptin PHOSPHATE 100 MG TABLET PO (09:25)
[2024-11-25] MEDS: OSELTAMIVIR PHOSPHATE 30 MG CAPSULE PO ×2 (09:25→20:17)
[2024-11-25] MEDS: LOVASTATIN 20 MG TABLET 40 MG PO (09:25)
[2024-11-25] MEDS: INSULIN ASPART (*BKC) 100 UNITS/ML SUB-Q ×4 (09:26→20:21)
[2024-11-25] MEDS: SODIUM CHLORIDE 0.9% IV 1,000 ML 100 ML IV CONT ×2 (11:45→23:37)
[2024-11-25] MEDS: AZITHROMYCIN 500 MG/NS 250 ML 500 MG/250 ML BAG 250 MG IVPB (11:46)
[2024-11-25 11:56] LABS: Glucose Point of Care 205 mg/dl (65-105)
[2024-11-25 17:14] LABS: Glucose Point of Care 205 mg/dl (65-105)
[2024-11-25] MEDS: INSULIN GLARGINE (*BKC) 100 UNITS/ML 30 UNITS SUB-Q (17:29)
[2024-11-25 20:29] LABS: Glucose Point of Care 201 mg/dl (65-105)
[2024-11-26] VITALS (17 sets, daily range): BP systolic 129–163; BP diastolic 51–67; PULSE 90–196; RESP 18–30; TEMP 36.8–37.5; O2SAT 93–97
[2024-11-26] MEDS: LEVALBUTEROL NEB 1.25 MG/3 ML INHALATION ×4 (02:15→22:35)
[2024-11-26] MEDS: IPRATROPIUM BR 0.02% INH SOLN 0.5 MG/2.5 ML VIAL INHALATION ×4 (02:15→22:34)
[2024-11-26] MEDS: WATER FOR IRRIGATION, STERILE 1,000 ML BOTTLE 1000 ML (05:46)
[2024-11-26 05:56] LABS: Hematocrit 25.4 % (37.0-47.0); Hemoglobin 8.2 g/dL (12.0-15.0); Mean Corpuscular HGB Conc 32.3 g/dl (32-36); Mean Corpuscular Hemoglobin 30.5 pg (26-34); Mean Corpuscular Volume 94.4 fl (80-100); Mean Platelet Volume 10.6 fl (7.4-10.4); Platelet Count Result 215 k/mm3 (150-375); Red Blood Count 2.69 M/mm3 (4.2-5.4); Red Cell Distribution Width 13.1 % (11.5-14.5); White Blood Count 15.5 K/mm3 (4.5-10.0)
[2024-11-26 06:12] LABS: Anion Gap 7 mmol/L (4-12); Blood Urea Nitrogen 17 mg/dL (7-17); Calcium 8.9 mg/dL (8.4-10.2); Carbon Dioxide 25 mmol/L (22-30); Chloride 102 mmol/L (98-107); Estimated CRCL calculation 40 ml/min; Estimated Glomerular Filt Rate 44; Glucose 151 mg/dL (65-110); Potassium 3.4 mmol/L (3.4-5.0); Sodium 134 mmol/L (137-145)
[2024-11-26 06:51] LABS: NT Pro B Type Natriuretic Pept 1080 pg/mL (19.9-100); Troponin I 0.051 ng/mL (0.000-0.034)
[2024-11-26 07:59] LABS: Glucose Point of Care 169 mg/dl (65-105)
[2024-11-26] MEDS: cefTRIAXone 2 GM/NS 100 ML 2 GM/100 ML BAG IVPB (08:33)
[2024-11-26] MEDS: ENOXAPARIN 40 MG/0.4 ML SYRINGE SUB-Q (08:37)
[2024-11-26] MEDS: OSELTAMIVIR PHOSPHATE 30 MG CAPSULE PO ×2 (08:37→20:06)
[2024-11-26] MEDS: SITagliptin PHOSPHATE 100 MG TABLET PO (08:38)
[2024-11-26] MEDS: POTASSIUM CHLORIDE 20 MEQ PACKET (FOR LIQUID) 40 MEQ PO (08:38)
[2024-11-26] MEDS: AZITHROMYCIN 250 MG TABLET 500 MG PO (08:38)
[2024-11-26] MEDS: LOVASTATIN 20 MG TABLET 40 MG PO (08:43)
[2024-11-26 12:09] LABS: Glucose Point of Care 228 mg/dl (65-105)
[2024-11-26] MEDS: INSULIN ASPART (*BKC) 100 UNITS/ML SUB-Q (12:16)
[2024-11-26 13:48] LABS: Pneumococcal Antigen Urine NOT DETECTED
--- NOTE | 2024-11-26 15:25 | PM.IMPN ---
Progress Note: A&P Assessment and Plan (1) Acute hypoxic respiratory failure: Code(s): J96.01 - Acute respiratory failure with hypoxia Status: Acute Assessment and Plan: Patient sent to ED from urgent care for pneumonia with hypoxia spo2 70% on RA. In the ED spo2 93% on 4L NC. - Oxygen supplementation: 4L NC, baseline RA - Suspected cause: cocurrent pneumonia and flu - ABG on 4L NC showing respiratory alkalosis: pH 7.514, pCO2 31.7, pO2 56.6, HCO3 25 - Chest XR: Segmental left lower lung atelectasis/consolidation, overlying a background of interstitial edema. 11/26 consulted pulm for further recommendations. (2) Pneumonia: Code(s): J18.9 - Pneumonia, unspecified organism Status: Acute Assessment and Plan: - Chest XR: Segmental left lower lung atelectasis/consolidation, overlying a background of interstitial edema. - WBC WNL however procal 12.8, being treated for bacterial pneumonia - started on CAP tx: azithromycin ceftriaxone - Oxygen supplementation: 4L NC, baseline RA. Wean oxygen as tolerated. - Viral PCR: Flu - Sputum culture ordered - Legionella, mycoplasma, and pneumococcal ordered - MRSA negative - Continue scheduled bronchodilators. - Monitor vital signs, I&Os, neuro status and patient is a fall risk - Follow WBC, serum electrolytes, temperature curves and cultures 11/25 ceftriaxone dose is adjsted to 2 gm will repeat BC-ordered (3) Influenza A: Code(s): J10.1 - Influenza due to other identified influenza virus with other respiratory manifestations Status: Acute Assessment and Plan: Viral panel: Flu A Tamiflu 11/23-11/28 (4) Acute kidney injury: Code(s): N17.9 - Acute kidney failure, unspecified Status: Acute Assessment and Plan: BUN/Cr 32/1.48 on admission, unknown baseline Denies history of kidney disease thus presumably this is an acute kidney injury, likely due to decreased oral intake and dehydration. - BUN/Cr 30/1.45 on am labs - NS 100 ml/hr - Holding losartan-HCTZ for FE, resume when appropriate - Renally dose medications - Avoid nephrotoxic medications - Monitor I/O (5) Insulin dependent diabetes mellitus: Status: Acute Assessment and Plan: Patient states that she has not taken her lantus 65 units in over week as she has not been eating. Will decrease her lantus to 30 units and continue to monitor and adjust according to glucose levels. - hypoglycemia protocol - POC blood glucose ACHS - home medication - lantus 65 units, tradjenta 5 mg, metformin 500 mg BID - correct regimen ordered - lantus 30 units, januvia, and SSI - A1C 8.4 (6) Hypertension: Code(s): I10 - Essential (primary) hypertension Status: Acute Assessment and Plan: chronic - losartan-HCTZ on hold for FE, resume when appropriate - blood pressures remain stable, continue to monitor 114/53 (7) Bacteremia: Code(s): R78.81 - Bacteremia Status: Acute Assessment and Plan: positive BC-group A streptococcus discussed with pharm ID- will continue ceftriaxone but increase dose to 2 gm Time Spent With Patient Time with patient: 25 - 35 minutes Subjective Date/time seen: 11/26/24 15:25 Interval history: 74-year-old female with insulin-dependent diabetes, hypertension, and hyperlipidemia who presented to the emergency care from a local urgent care for evaluation of shortness of breath and hypoxia. Assuming care- pt is seen and examined. shortness of breath has slightly improved and continues to endorse an intermittently productive cough. She has no other complaints denying chest pain, palpitations, nausea / vomiting, no abdominal pain. 11/26- pt is seen and examined. she is pleasant. Resp at the bedside- doing breathing tx. Review of Systems Review of Systems: 12 systems were reviewed and are negative except for as per HPI. All systems reviewed & are unremarkable except as noted in HPI and below Exam Narrative: AF HR 95 RR 18 SPo2 98 4L NC BP 129/51 General: female in no acute respiratory distress who is nontoxic appearing, lying semi recumbent in bed. HEENT: Normocephalic. Atraumatic. Extraocular movement intact. Sclera clear and anicteric.No facial asymmetry. Chest: Lungs are coarse crackles to auscultation bilaterally, improves slightly with cough. No wheezes. CV: Heart was regular rate and rhythm. S1-S2. No murmurs, gallops, or rubs. Abd: Abdomen was soft. Nontender. Nondistended. Positive bowel sounds. No organomegaly or masses. Ext: No clubbing, cyanosis, or edema. 2+ DP pulses bilaterally. Neuro: Patient is alert. Speech is clear. Objective Data Vital Signs Vital Signs: Vital Signs - 24 hr 11/25/24 16:00 11/25/24 20:00 11/25/24 20:00 Temperature Pulse Rate 88 98 Respiratory Rate Blood Pressure Pulse Oximetry 92 Oxygen Delivery High Flow Nasal Cannula Oxygen Flow Rate 6 11/25/24 20:17 11/25/24 20:33 11/25/24 20:33 Temperature 98.6 F Pulse Rate 97 96 Respiratory Rate 20 20 Blood Pressure 171/78 H Pulse Oximetry 90 93 Oxygen Delivery High Flow Nasal Cannula Oxygen Flow Rate 6 11/25/24 20:43 11/26/24 00:00 11/26/24 04:00 Temperature Pulse Rate 93 113 H 103 H Respiratory Rate 20 Blood Pressure Pulse Oximetry Oxygen Delivery Oxygen Flow Rate 11/26/24 05:30 11/26/24 06:00 11/26/24 07:43 Temperature 98.2 F Pulse Rate 102 H 90 Respiratory Rate 20 20 Blood Pressure 136/56 L Pulse Oximetry 93 95 Oxygen Delivery High Flow Therapy with Na Oxygen Flow Rate 7 11/26/24 08:03 11/26/24 08:38 11/26/24 08:38 Temperature Pulse Rate 99 99 Respiratory Rate 20 Blood Pressure Pulse Oximetry 95 Oxygen Delivery High Flow Therapy with Na Oxygen Flow Rate 6 11/26/24 12:01 11/26/24 14:00 Temperature 98.6 F Pulse Rate 99 95 Respiratory Rate 18 Blood Pressure 129/51 L Pulse Oximetry 93 Oxygen Delivery Oxygen Flow Rate Intake/Output Intake/Output: Intake & Output 11/23/24 11/24/24 11/25/24 11/26/24 23:59 23:59 23:59 23:59 Intake Total 1445.8 3711.2 3750 583 Balance 1445.8 3711.2 3750 583 Meds/Results Medications: Active Medications Generic Name Dose Route Start Last Admin Trade Name Freq PRN Reason Stop Dose Admin Acetaminophen 650 mg 11/23/24 16:54 Acetaminophen 325 Mg Tablet PO Q4H PRN Mild Pain (1-3) or Fever Azithromycin 500 mg 11/26/24 09:00 11/26/24 08:38 Azithromycin 250 Mg Tablet PO 11/27/24 09:01 500 mg DAILY SUZI Administration Benzocaine 1 lozenge 11/23/24 21:50 Benzocaine/Menthol (*Bkc) 18 Ea Lozenge PO PRN PRN Sore Throat Dextrose 12.5 gm 11/23/24 22:59 Dextrose 50% 25 Gm/50 Ml Syringe IV PUSH PRN PRN Hypoglycemia Protocol Enoxaparin Sodium 40 mg 11/24/24 09:00 11/26/24 08:37 Enoxaparin 40 Mg/0.4 Ml Syringe SUB-Q 40 mg DAILY SUZI Administration Glucagon 1 mg 11/23/24 22:59 Glucagon For Inj 1 Mg Vial IM PRN PRN Hypoglycemia Protocol Glucose 15 gm 11/23/24 22:59 Glucose Oral Gel 15 Gm Of Glucse In 37.5 Gm Tube PO PRN PRN Hypoglycemia Protocol Dextrose 1,000 mls @ 100 mls/hr 11/23/24 22:59 Dextrose 5% 1,000 Ml IVPB PRN PRN Hypoglycemia Protocol Ceftriaxone Sodium 2 gm in 100 mls @ 200 mls/hr 11/26/24 09:00 11/26/24 09:03 Rocephin 2 Gm/Ns 100 Ml IVPB Infused Q24H SUZI Infusion Insulin Aspart 3 - 6 units 11/24/24 08:00 11/26/24 12:16 Insulin Aspart (*Bkc) 100 Units/Ml SUB-Q 3 units TIDWM SUZI Administration Protocol Insulin Aspart 1 - 3 units 11/24/24 21:00 11/25/24 20:21 Insulin Aspart (*Bkc) 100 Units/Ml SUB-Q 1 units HS SZUI Administration Protocol Insulin Glargine 30 units 11/24/24 18:00 11/25/24 17:29 Insulin Glargine (*Bkc) 100 Units/Ml SUB-Q 30 units QPM SUZI Administration Ipratropium [place] 0.5 mg 11/25/24 00:00 11/26/24 07:43 Ipratropium Br 0.02% Inh Soln 0.5 Mg/2.5 Ml Vial INHALATION 0.5 mg Q4HRT SUZI Administration Levalbuterol HCl 1.25 mg 11/25/24 02:00 11/26/24 07:43 Levalbuterol Neb 1.25 Mg/3 Ml INHALATION 1.25 mg Q6HRT SUZI Administration Lovastatin 40 mg 11/24/24 09:00 11/26/24 08:43 Lovastatin 20 Mg Tablet PO 40 mg DAILY SUZI Administration Oseltamivir Phosphate 30 mg 11/23/24 21:00 11/26/24 08:37 Oseltamivir Phosphate 30 Mg Capsule PO 11/28/24 20:59 30 mg Q12HR SUZI Administration Potassium Chloride 40 meq 11/25/24 09:00 11/26/24 08:38 Potassium Chloride 20 Meq Packet (For Liquid) PO 12/01/24 09:00 40 meq DAILY SUZI Administration Sitagliptin Phosphate 100 mg 11/24/24 09:00 11/26/24 08:38 Sitagliptin Phosphate 100 Mg Tablet PO 100 mg QAM SUZI Administration Radiology Results: ITS Impressions Chest X-Ray 11/26/24 07:14 Impression: 1: Extensive bilateral airspace disease has progressed, most likely edema versus pneumonia. Labs Labs: Laboratory Results - last 24 hr 11/24/24 11/25/24 11/25/24 05:08 17:00 20:19 WBC RBC Hgb Hct MCV MCH MCHC RDW Plt Count MPV Sodium Potassium Chloride Carbon Dioxide Anion Gap BUN Creatinine Estim Creat Clear Calc Estimated GFR Glucose POC Capillary Glucose 205 H 201 H Calcium Troponin I NT-Pro-B Natriuret Pep Urine Pneumococcal Ag Not detected 11/26/24 11/26/24 11/26/24 05:29 07:53 12:01 WBC 15.5 H RBC 2.69 L Hgb 8.2 L Hct 25.4 L MCV 94.4 MCH 30.5 MCHC 32.3 RDW 13.1 Plt Count 215 MPV 10.6 H Sodium 134 L Potassium 3.4 Chloride 102 Carbon Dioxide 25 Anion Gap 7 BUN 17 Creatinine 1.20 H Estim Creat Clear Calc 40 Estimated GFR 44 L Glucose 151 H POC Capillary Glucose 169 H 228 H Calcium 8.9 Troponin I 0.051 H* NT-Pro-B Natriuret Pep 1080 H Urine Pneumococcal Ag Quality VTE Prophylaxis VTE prophylaxis: pharmacologic ordered
--- NOTE | 2024-11-26 16:17 | P.CONCA_ITS ---
Assessment and Plan Assessment and plan (1) SVT (supraventricular tachycardia): Code(s): I47.10 - Supraventricular tachycardia, unspecified Status: Acute Assessment and Plan: EKG shows SVT- AVNRT This is most likely precipitated by ongoing penumonia Patient is currently asymptomatic from the tachycardia Recommend TTE when HR<90 Recommend metoprolol 25 mg PO BID if HR remains>120bpm TSH borderline normal. Check free T3 and T4 Check and replace electrolytes to keep K>4 and Mg>2 (2) Hypertension: Code(s): I10 - Essential (primary) hypertension Status: Acute Assessment and Plan: Target BP<120/80 Continue losartan and hydrochlorothiazide (3) Hyperlipidemia: Code(s): E78.5 - Hyperlipidemia, unspecified Status: Acute Assessment and Plan: Continue statin (4) Insulin dependent diabetes mellitus: Status: Acute Assessment and Plan: Management Clinic (5) Acute kidney injury: Code(s): N17.9 - Acute kidney failure, unspecified Status: Acute Assessment and Plan: Management per primary team (6) Influenza A: Code(s): J10.1 - Influenza due to other identified influenza virus with other respiratory manifestations Status: Acute Assessment and Plan: Management per primary (7) Acute hypoxemic respiratory failure: Code(s): J96.01 - Acute respiratory failure with hypoxia Status: Acute Assessment and Plan: Supplemental oxygen (8) Pneumonia: Code(s): J18.9 - Pneumonia, unspecified organism Status: Acute Assessment and Plan: Management per primary (9) Elevated troponin: Code(s): R79.89 - Other specified abnormal findings of blood chemistry Status: Acute Assessment and Plan: Most likely secondary to SVT No chest pain Recommend trend troponin to peak EKG prn for chest pain Start Asa 81 mg daily Recommend outpatient stress test when she recovers from her acute illness History of Present Illness History of Present Illness Consult date/time: 11/26/24 16:17 Reason For Visit: PNEUMONONIA,ACUTE KINDEY INJURY,INFLUENZA,ACUTE HY Narrative: 74-year-old female past medical history of hyperlipidemia, hypertension, insulin-dependent diabetes mellitus who presented with CC of shortness of breath, cough, sore throat, congestion and was noted to be hypoxic. She is being treated for Influenza A pneumonia and hypoxic respiratory failure secondary to this. She was noted to have SVT with elevated troponin and cardiology was consulted for recommendations. She reports some shortness of breath and is on supplemental oxygen. Patient denies any chest pain, dizziness, lightheadedness, presyncope, syncope, leg swelling, recent weight gain, PND, orthopnea, nausea, emesis, abdominal pain, headache, focal weakness. Review of Systems 2 Review of Systems: Complete review of systems was performed and negative other than those mentioned in HPI [facility] Past Medical History Medical History (Updated 11/26/24 @ 17:09 by Honey Arrieta MD) Hyperlipidemia Hypertension Insulin dependent diabetes mellitus Surgical History Surgical History (Updated 11/23/24 @ 22:56 by Isi Trjeo PA-C) History of bilateral cataract extraction Family History Family History Father Colon cancer Mother Cerebrovascular accident Diabetes mellitus Son Hypertension Social History Social History (Updated 11/23/24 @ 22:57 by Isi Trejo PA-C) Social History: Surrogate medical decision maker: Denis Barbosa, son ([phone]). Code status: FULL CODE. Smoking status: Former smoker Alcohol intake: never Substance use: never Do You Feel Safe in your Home?: Yes Lack of Transportation: No Lack of Food: Never True Current Housing: I Have Housing Concerned About Future Housing: No Difficulty Paying Gas/Electric Bills: No Difficulty Paying for Meds: No Currently Unemployed: No Education: Bachelor's Degree Difficulty w/ Childcare or Family Care: No Additional living arrangements comments: Lives in her own home in [place]. Additional occupation/education comments: Retired but still works part-time for the [employer] in [place]. Spiritual care concerns: No Meds Home Medications and Allergies Home Medications ?Medication ?Instructions ?Recorded ?Confirmed ?Type ergocalciferol (vitamin D2) 1,250 1,250 mcg PO [id number] 11/23/24 11/23/24 History mcg (50,000 unit) capsule insulin glargine 100 unit/mL 65 unit subcut QPM 11/23/24 11/23/24 History subcutaneous solution (Lantus U-100 Insulin) linagliptin 5 mg tablet (Tradjenta) 5 mg PO QAM 11/23/24 11/23/24 History losartan 100 1 tablet PO DAILY 11/23/24 11/23/24 History mg-hydrochlorothiazide 25 mg tablet (Hyzaar) lovastatin 40 mg tablet 40 mg PO DAILY 11/23/24 11/23/24 History metformin 500 mg tablet 500 mg PO BID 11/23/24 11/23/24 History Allergies Allergy/AdvReac Type Severity Reaction Status Date / Time No Known Allergies Allergy Verified 11/23/24 15:47 Vital Signs Vital Signs - 24 hr 11/25/24 20:00 11/25/24 20:00 11/25/24 20:17 Temperature 37.0 C Pulse Rate 98 97 Respiratory Rate 20 Blood Pressure 171/78 H Pulse Oximetry 92 90 Oxygen Delivery High Flow Nasal Cannula Oxygen Flow Rate 6 11/25/24 20:33 11/25/24 20:33 11/25/24 20:43 Temperature Pulse Rate 96 93 Respiratory Rate 20 20 Blood Pressure Pulse Oximetry 93 Oxygen Delivery High Flow Nasal Cannula Oxygen Flow Rate 6 11/26/24 00:00 11/26/24 04:00 11/26/24 05:30 Temperature Pulse Rate 113 H 103 H Respiratory Rate Blood Pressure Pulse Oximetry 93 Oxygen Delivery High Flow Therapy with Na Oxygen Flow Rate 7 11/26/24 06:00 11/26/24 07:43 11/26/24 08:03 Temperature 36.8 C Pulse Rate 102 H 90 99 Respiratory Rate 20 20 Blood Pressure 136/56 L Pulse Oximetry 95 Oxygen Delivery Oxygen Flow Rate 11/26/24 08:38 11/26/24 08:38 11/26/24 12:01 Temperature Pulse Rate 99 99 Respiratory Rate 20 Blood Pressure Pulse Oximetry 95 Oxygen Delivery High Flow Therapy with Na Oxygen Flow Rate 6 11/26/24 14:00 11/26/24 15:35 11/26/24 15:35 Temperature 37.0 C Pulse Rate 95 90 Respiratory Rate 18 30 H Blood Pressure 129/51 L Pulse Oximetry 93 93 Oxygen Delivery High Flow Nasal Cannula Oxygen Flow Rate 6 11/26/24 16:04 Temperature Pulse Rate 99 Respiratory Rate Blood Pressure Pulse Oximetry Oxygen Delivery Oxygen Flow Rate Exam 2 Narrative: General: Alert oriented x3, no acute distress Neck: Supple, no JVD Chest: Bilaterally clear to auscultation, no rales or rhonchi Cardiac: S1, S2 +, tachycardic, regular rhythm, no murmurs or rubs Extremities: No pedal edema, no skin rash Neurologic: Alert and oriented x3, no focal neurological deficits Results Labs and Meds 11/26/24 05:29 11/26/24 05:29 Lab results: Cardiac Enzymes 11/26/24 Range/Units 05:29 Troponin I 0.051 H* (0.000-0.034) ng/mL CBC 11/26/24 Range/Units 05:29 WBC 15.5 H (4.5-10.0) K/mm3 RBC 2.69 L (4.2-5.4) M/mm3 Hgb 8.2 L (12.0-15.0) g/dL Hct 25.4 L (37.0-47.0) % Plt Count 215 (150-375) k/mm3 Comprehensive Metabolic Panel 11/26/24 Range/Units 05:29 Sodium 134 L (137-145) mmol/L Potassium 3.4 (3.4-5.0) mmol/L Chloride 102 (98-107) mmol/L Carbon Dioxide 25 (22-30) mmol/L BUN 17 (7-17) mg/dL Creatinine 1.20 H (0.7-1.0) mg/dL Glucose 151 H (65-110) mg/dL Calcium 8.9 (8.4-10.2) mg/dL Intake and Output 11/26/24 11/26/24 11/26/24 07:59 15:59 23:59 Intake Total 125 458 Balance 125 458 Intake: IV 100 cefTRIAXone 2 GM/NS 100 ML 2 gm 100 In 100 ml @ 200 mls/hr IVPB Q24H [facility] Rx#:[id number] Oral 125 358 Other: # Unmeasured Voids 1 1 Number of Bowel Movements Today 1 Patient Weight 11/26/24 23:59 Weight 86.3 kg
[2024-11-26 17:17] LABS: Glucose Point of Care 173 mg/dl (65-105)
[2024-11-26] MEDS: INSULIN GLARGINE (*BKC) 100 UNITS/ML 30 UNITS SUB-Q (17:27)
[2024-11-26 17:59] LABS: Mycoplasma IgM Antibody Titer 55 U/mL
--- NOTE | 2024-11-26 23:06 | ECG_ITS ---
Test Date: 2024-11-26 23:11:42 Measurements Intervals [place] Rate: 159 P: 0 KS: 0 QRS: -44 QRSD: 121 T: 141 QT: 297 QTc: 483 Interpretive Statements SUPRAVENTRICULAR TACHYCARDIA LEFT AXIS DEVIATION LEFT BUNDLE BRANCH BLOCK BASELINE WANDER- V6 ABNORMAL ECG Compared to ECG 11/24/2024 22:27:27 LEFT BUNDLE BRANCH BLOCK NOW PRESENT Electronically Signed On 11-27-2024 07:05:07 ENERGY RATER by Eliseo Mahmood D.O.
[2024-11-26] MEDS: METOPROLOL TARTRATE INJ 5 MG/5 ML VIAL IV PUSH (23:14)
[2024-11-26] MEDS: METOPROLOL TARTRATE INJ 5 MG/5 ML VIAL (23:15)
[2024-11-26 23:38] LABS: Glucose Point of Care 171 mg/dl (65-105)
[2024-11-27] VITALS (18 sets, daily range): BP systolic 147–171; BP diastolic 70–80; PULSE 78–102; RESP 18–20; TEMP 36.6–36.9; O2SAT 88–100
--- NOTE | 2024-11-27 | ECHO_ITS ---
Patient Info Name: Katheryn Barbosa Age: 74 years : 1950 Gender: Female Ht: 64 in Wt: 185 lbs BSA: 1.98 m2 HR: 102 bpm BP: 149 / 70 mmHg Heart Rhythm: Sinus Rhythm Technical Quality: Good Exam Date: 11/27/2024 9:47 AM Exam Location: Echo Lab Patient Status: Inpatient Admit Date: 11/24/2024 Staff Ordering Physician: Honey Arrieta MD (tima/bassam) Finished Cloth Examiner: Lainey Sim RDCS Attending Provider: Pradip Reyez MD Exam Type: CA echo doppler color flow Study Info Indications - SVT Complete two-dimensional, color flow and Doppler transthoracic echocardiogram is performed. Summary 1. Complete two-dimensional, color flow and Doppler transthoracic echocardiogram is performed. 2. Mild concentric LVH with preserved systolic function and grade 1 diastolic noncompliance. 3. Mild mitral annular calcification. 4. No valvular dysfunction. 5. Trileaflet aortic valve with mild sclerosis and well maintained leaflet excursion. Left Ventricle Left ventricular chamber dimension is normal. Left ventricular systolic function is normal, estimated at 55-60%. There is mild concentric increased left ventricular wall thickness. The left ventricular diastolic function is grade I diastolic dysfunction. Right Ventricle Right ventricular chamber dimension is normal. Left Atria Left atrial chamber dimension is normal. Right Atria Right atrial chamber dimension is normal. Aortic Valve The aortic valve is trileaflet. There is mild aortic valve sclerosis. Pulmonic Valve The pulmonic valve is not well visualized. Mitral Valve The mitral valve has normal leaflets. Tricuspid Valve The tricuspid valve leaflets are normal. Pericardium/Pleural The pericardium appears normal. Aorta The aortic root size at the sinus of Valsalva is normal. Left Ventricular Outflow Tract Name Value Normal LVOT 2D LVOT Diameter 2.1 cm LVOT Doppler LVOT Peak Velocity 96 cm/s LVOT Peak Gradient 4 mmHg LVOT Mean Gradient 2 mmHg LVOT VTI 20 cm LVOT VTI/AV VTI Ratio 0.7 LVOT Stroke Volume 65 ml LVOT CO 5.7 l/min LVOT CI 2.9 l/min/m2 Pulmonic Valve Name Value Normal PV Doppler PV Peak Velocity 77 cm/s PV Peak Gradient 2 mmHg Mitral Valve Name Value Normal MV Doppler MV Decel [place] 272 cm/s2 MV PHT 57 ms MV Area (PHT) 3.9 cm2 4.0-5.0 MV Diastolic Function MV E Peak Velocity 53 cm/s MV A Peak Velocity 114 cm/s MV E/A 0.5 MV Decel Time 196 ms MV Annular TDI MV Septal e' Velocity 5.3 cm/s >=8.0 MV E/e' (Septal) 10.0 <=8.0 MV Lateral e' Velocity 7.0 cm/s >=10.0 MV E/e' (Lateral) 7.6 <=8.0 MV e' Average 6.15 MV E/e' (Average) 8.8 Tricuspid Valve Name Value Normal TV Regurgitation Doppler TR Peak Velocity 312 cm/s TR Peak Gradient 26 mmHg TV Annular TDI TV Lateral Lynsey s' Velocity 11.1 cm/s 9.5-18.7 Aortic Valve Name Value Normal AV Doppler AV Peak Velocity 131 cm/s AV Peak Gradient 7 mmHg AV Mean Gradient 4 mmHg AV VTI 27 cm AV Area (Cont Eq VTI) 2.4 cm2 >=3.0 AV Area (Cont Eq Gerardo) 2.4 cm2 AV V1/V2 Ratio 0.73 AV Regurgitation 2D LVOT Area 3.3 cm2 Ventricles Name Value Normal LV Dimensions 2D/MM IVS Diastolic Thickness (2D) 1.2 cm 0.6-1.0 LVID Diastole (2D) 4.3 cm 3.8-5.2 LVIW Diastolic Thickness (2D) 1.0 cm 0.6-0.9 LVID Systole (2D) 2.7 cm 2.2-3.5 LVOT Diameter 2.1 cm LV Mass (2D Cubed) 158.80 g 67.00-162.00 LV Mass Index (2D Cubed) 80 g/m2 43-95 Relative Wall Thickness (2D) 0.46 LV Fractional Shortening/Ejection Fraction 2D/MM LV Fractional Shortening (2D) 38 % 27-45 LV EF (2D Teicholz) 69 % 54-74 LV Diastolic Volume (4C MOD) 102 ml LV EF (4C MOD) 52 % LV Diastolic Volume (2C MOD) 140 ml LV EF (2C MOD) 59 % LV Diastolic Volume (BP MOD) 128 ml 46-106 LV Diastolic Volume Index (BP MOD) 65 ml/m2 29-61 LV Systolic Volume (BP MOD) 62 ml 14-42 LV Systolic Volume Index (BP MOD) 32 ml/m2 8-24 LV EF (BP MOD) 51 % 54-74 LV Diastolic Length (4C) 8.1 cm LV Systolic Length (4C) 6.6 cm LV Stroke Volume (4C MOD) 57 ml Atria Name Value Normal LA Dimensions LA Volume (4C A-L) 66 ml LA Volume (BP A-L) 67 ml RA Dimensions RA Area (4C) 13.6 cm2 <=18.0 Report Signatures
[2024-11-27] MEDS: METOPROLOL SUCCINATE EXT REL 25 MG TABCR PO ×2 (00:05→08:52)
--- NOTE | 2024-11-27 05:11 | PC.NURSE ---
patient noted in sustainded svt at 2250 after breathing tx. asymptomatic. notified jesus gordillo and orders recevied to call a rapid. dr cesar responded and ekg obatined. lopressor 2.5 mg ivp x2 converted rythym to sr with rate 80-90. started on lopressor xl po.
[2024-11-27 05:23] LABS: Hematocrit 24.5 % (37.0-47.0); Hemoglobin 7.7 g/dL (12.0-15.0); Mean Corpuscular HGB Conc 31.4 g/dl (32-36); Mean Corpuscular Hemoglobin 29.5 pg (26-34); Mean Corpuscular Volume 93.9 fl (80-100); Platelet Count Result 250 k/mm3 (150-375); Red Blood Count 2.61 M/mm3 (4.2-5.4); White Blood Count 17.9 K/mm3 (4.5-10.0)
[2024-11-27 05:42] LABS: Anion Gap 8 mmol/L (4-12); Blood Urea Nitrogen 16 mg/dL (7-17); Calcium 9.1 mg/dL (8.4-10.2); Carbon Dioxide 26 mmol/L (22-30); Chloride 101 mmol/L (98-107); Estimated CRCL calculation 39 ml/min; Estimated Glomerular Filt Rate 44; Glucose 128 mg/dL (65-110); Potassium 3.6 mmol/L (3.4-5.0); Sodium 135 mmol/L (137-145)
--- NOTE | 2024-11-27 07:21 | PCRCNOTE ---
0200 updraft not given due to patient's HR increasing into the 190's following her 1999 updraft treatment.
[2024-11-27] MEDS: IPRATROPIUM BR 0.02% INH SOLN 0.5 MG/2.5 ML VIAL INHALATION ×4 (08:21→20:32)
[2024-11-27] MEDS: LEVALBUTEROL NEB 1.25 MG/3 ML INHALATION ×3 (08:21→20:32)
[2024-11-27 08:34] LABS: Glucose Point of Care 114 mg/dl (65-105)
[2024-11-27] MEDS: OSELTAMIVIR PHOSPHATE 30 MG CAPSULE PO ×2 (08:52→21:14)
[2024-11-27] MEDS: AZITHROMYCIN 250 MG TABLET 500 MG PO (08:52)
[2024-11-27] MEDS: LOVASTATIN 20 MG TABLET 40 MG PO (08:53)
[2024-11-27] MEDS: ENOXAPARIN 40 MG/0.4 ML SYRINGE SUB-Q (08:53)
[2024-11-27] MEDS: POTASSIUM CHLORIDE 20 MEQ PACKET (FOR LIQUID) 40 MEQ PO (08:53)
[2024-11-27] MEDS: SITagliptin PHOSPHATE 100 MG TABLET PO (08:54)
[2024-11-27] MEDS: cefTRIAXone 2 GM/NS 100 ML 2 GM/100 ML BAG IVPB (08:54)
--- NOTE | 2024-11-27 08:57 | P.CONPL_ITS ---
Assessment and Plan Assessment and plan (1) Acute hypoxemic respiratory failure: Code(s): J96.01 - Acute respiratory failure with hypoxia Status: Acute Assessment and Plan: This 74-year-old female presented with an acute respiratory illness that had persisted for several days prior to this hospitalization. Diagnostic studies have indicated influenza A, with a possible lower respiratory tract infection due to either the virus itself or a bacterial co-infection following the influenza. Her chest X-ray reveals bilateral infiltrates and small pleural effusions, which are suggestive of possible pulmonary edema. Notably, the patient was recently evaluated by Cardiology Services for supraventricular tachycardia, and her BNP levels have increased since the initial testing upon admission. She has no prior history of lung disease and is currently receiving treatment with Tamiflu, ceftriaxone, and DVT prophylaxis. Plan: We will proceed with a chest CT scan without contrast to assess for congestive heart failure versus pneumonia. Additionally, a study of the lower extremities will be conducted to exclude DVT. (2) Pneumonia: Code(s): J18.9 - Pneumonia, unspecified organism Status: Acute (3) SVT (supraventricular tachycardia): Code(s): I47.10 - Supraventricular tachycardia, unspecified Status: Acute (4) Influenza A: Code(s): J10.1 - Influenza due to other identified influenza virus with other respiratory manifestations Status: Acute History of Present Illness History of Present Illness Consult date: 11/27/24 Chief complaint: PNEUMONONIA,ACUTE KINDEY INJURY,INFLUENZA,ACUTE HY Narrative: This 74-year-old female with insulin-dependent diabetes mellitus, hypertension, and hyperlipidemia presented with shortness of breath. According to her history, she had been feeling unwell for about a week before coming to the hospital, experiencing symptoms such as a nonproductive cough, sore throat, congestion, and shortness of breath. She was initially assessed at an urgent care center, where she was diagnosed with pneumonia and hypoxemia, with an oxygen saturation level around 70% on room air. The patient reportedly denied experiencing chest pain, nausea, vomiting, or pedal edema. Upon evaluation in the emergency room, she was found to have bilateral infiltrates and tested positive for influenza A. She is currently being treated with Tamiflu and antibiotics for a possible co- infection. Additionally, she was found to have supraventricular tachycardia and was evaluated by Cardiology Services. She currently requires high FiO2 but does not exhibit significant cough, wheezing, chest pain, or hemoptysis. Today's chest X-ray is more suggestive of pulmonary edema, although pneumonia remains a possibility. She also has small pleural effusions bilaterally. Creatinine going down. Review of Systems 2 Review of Systems: All systems reviewed & are unremarkable except as noted in HPI and below (HPI and below) [facility] Past Medical History Medical History (Updated 11/26/24 @ 17:09 by Honey Arrieta MD) Hyperlipidemia Hypertension Insulin dependent diabetes mellitus Surgical History Surgical History (Updated 11/23/24 @ 22:56 by Isi Trejo PA-C) History of bilateral cataract extraction Family History Family History Father Colon cancer Mother Cerebrovascular accident Diabetes mellitus Son Hypertension Social History Social History (Updated 11/23/24 @ 22:57 by Isi Trejo PA-C) Social History: Surrogate medical decision maker: Denis Barbosa, son ([phone]). Code status: FULL CODE. Smoking status: Former smoker Alcohol intake: never Substance use: never Do You Feel Safe in your Home?: Yes Lack of Transportation: No Lack of Food: Never True Current Housing: I Have Housing Concerned About Future Housing: No Difficulty Paying Gas/Electric Bills: No Difficulty Paying for Meds: No Currently Unemployed: No Education: Bachelor's Degree Difficulty w/ Childcare or Family Care: No Additional living arrangements comments: Lives in her own home in [place]. Additional occupation/education comments: Retired but still works part-time for the [employer] in [place]. Spiritual care concerns: No Meds Home Medications and Allergies Home Medications ?Medication ?Instructions ?Recorded ?Confirmed ?Type ergocalciferol (vitamin D2) 1,250 1,250 mcg PO [id number] 11/23/24 11/23/24 History mcg (50,000 unit) capsule insulin glargine 100 unit/mL 65 unit subcut QPM 11/23/24 11/23/24 History subcutaneous solution (Lantus U-100 Insulin) linagliptin 5 mg tablet (Tradjenta) 5 mg PO QAM 11/23/24 11/23/24 History losartan 100 1 tablet PO DAILY 11/23/24 11/23/24 History mg-hydrochlorothiazide 25 mg tablet (Hyzaar) lovastatin 40 mg tablet 40 mg PO DAILY 11/23/24 11/23/24 History metformin 500 mg tablet 500 mg PO BID 11/23/24 11/23/24 History Allergies Allergy/AdvReac Type Severity Reaction Status Date / Time No Known Allergies Allergy Verified 11/23/24 15:47 Vital Signs Vital Signs - 24 hr 11/26/24 12:01 11/26/24 14:00 11/26/24 15:35 Temperature 37.0 C Pulse Rate 99 95 Respiratory Rate 18 Blood Pressure 129/51 L Pulse Oximetry 93 93 Oxygen Delivery High Flow Nasal Cannula Oxygen Flow Rate 6 Fraction of Inspired Oxygen 11/26/24 15:35 11/26/24 16:04 11/26/24 19:59 Temperature 37.5 C Pulse Rate 90 99 98 Respiratory Rate 30 H 20 Blood Pressure 163/67 H Pulse Oximetry 97 Oxygen Delivery Oxygen Flow Rate Fraction of Inspired Oxygen 11/26/24 20:00 11/26/24 20:00 11/26/24 22:35 Temperature Pulse Rate 92 98 96 Respiratory Rate 26 H 28 H Blood Pressure Pulse Oximetry 96 Oxygen Delivery High Flow Nasal Cannula Oxygen Flow Rate 2 Fraction of Inspired Oxygen 36 11/26/24 22:38 11/26/24 22:46 11/26/24 22:52 Temperature Pulse Rate 96 92 196 H Respiratory Rate 26 H Blood Pressure Pulse Oximetry 96 95 Oxygen Delivery High Flow Nasal Cannula High Flow Nasal Cannula Oxygen Flow Rate 6 6 Fraction of Inspired Oxygen 11/27/24 00:00 11/27/24 03:39 11/27/24 04:00 Temperature 36.9 C Pulse Rate 96 101 H 95 Respiratory Rate 20 Blood Pressure 165/74 H Pulse Oximetry 90 Oxygen Delivery Oxygen Flow Rate Fraction of Inspired Oxygen 11/27/24 07:30 11/27/24 08:21 11/27/24 08:21 Temperature 36.6 C Pulse Rate 102 H 89 89 Respiratory Rate 18 20 20 Blood Pressure 149/70 H Pulse Oximetry 89 L 93 Oxygen Delivery High Flow Therapy with Na Oxygen Flow Rate 40 Fraction of Inspired Oxygen 88 11/27/24 08:38 11/27/24 08:52 Temperature Pulse Rate 86 96 Respiratory Rate 20 Blood Pressure Pulse Oximetry Oxygen Delivery Oxygen Flow Rate Fraction of Inspired Oxygen Exam 2 Narrative: GENERAL APPEARANCE: Well developed, well nourished, alert and cooperative, and appears to be in in mild respiratory distress while on supplemental oxygen SKIN: Inspection of the skin reveals no rashes, ulcerations or petechiae. HEENT: Sclerae anicteric and conjunctivae pink and moist. Extraocular movements were intact and pupils were equal, round, and reactive to light. The oral mucosa, hard and soft palate, tongue and posterior pharynx were normal. NECK: Supple. There was no thyroid enlargement, and no tenderness, or masses were felt. CHEST: Normal AP diameter and normal contour without any kyphoscoliosis. LUNGS: Crackles at bases bilaterally, no wheezing CARDIAC: There was a regular rate and rhythm without any murmurs, gallops, rubs. ABDOMEN: Soft and nontender with normal bowel sounds. There was no organomegaly. LYMPH NODES: No lymphadenopathy was appreciated in the neck EXTREMITIES: No cyanosis, clubbing or edema. NEUROLOGIC: Alert and oriented x 3. Normal affect. Results Laboratory Findings 11/27/24 04:53 11/27/24 04:53 ABG, PT/INR, D-dimer: ABG ABG pH 7.514 (7.350-7.450) H* 11/23/24 16:03 ABG pCO2 31.7 mmHg (35.0-45.0) L 11/23/24 16:03 ABG pO2 56.6 mmHg (80.0-100.0) L 11/23/24 16:03 ABG O2 Saturation 92.4 % (95.0-100.0) L 11/23/24 16:03 Abnormal lab findings: Abnormal Labs 11/23/24 11/23/24 11/23/24 15:57 16:03 17:01 WBC RBC 3.19 L Hgb 9.7 L Hct 29.3 L MCHC MPV 11.4 H Neutrophils % (Manual) 80 H Band Neutrophils % 7 H Lymphocytes % (Manual) 7.0 L Abs Lymphs (Manual) 0.51 L ABG pH 7.514 H* ABG pCO2 31.7 L ABG pO2 56.6 L ABG O2 Saturation 92.4 L Sodium 127 L Potassium Chloride 87 L Anion Gap 13 H BUN 32 H Creatinine 1.48 H Estimated GFR 35 L Glucose 392 H POC Capillary Glucose Hemoglobin A1c 8.4 H Lactic Acid 2.2 H Total Bilirubin 1.7 H Troponin I NT-Pro-B Natriuret Pep 237 H Albumin Urine Appearance Turbid H Urine Protein 3+ H Urine Glucose (UA) 3+ H Ur Blood (Man) 2+ H Urine Bacteria 1+ H Random Vancomycin Influenza A (RT-PCR) Positive A Group A Strep (PCR) 11/23/24 11/23/24 11/23/24 19:14 21:36 23:34 WBC RBC Hgb Hct MCHC MPV Neutrophils % (Manual) Band Neutrophils % Lymphocytes % (Manual) Abs Lymphs (Manual) ABG pH ABG pCO2 ABG pO2 ABG O2 Saturation Sodium Potassium Chloride Anion Gap BUN Creatinine Estimated GFR Glucose POC Capillary Glucose 374 H Hemoglobin A1c Lactic Acid 2.1 H Total Bilirubin Troponin I NT-Pro-B Natriuret Pep Albumin Urine Appearance Urine Protein Urine Glucose (UA) Ur Blood (Man) Urine Bacteria Random Vancomycin Influenza A (RT-PCR) Group A Strep (PCR) Detected A 11/24/24 11/24/24 11/24/24 05:12 08:46 11:42 WBC RBC 3.00 L Hgb 9.2 L Hct 28.3 L MCHC MPV 11.4 H Neutrophils % (Manual) Band Neutrophils % Lymphocytes % (Manual) Abs Lymphs (Manual) ABG pH ABG pCO2 ABG pO2 ABG O2 Saturation Sodium 129 L Potassium Chloride 93 L Anion Gap BUN 30 H Creatinine 1.45 H Estimated GFR 35 L Glucose 318 H POC Capillary Glucose 297 H 288 H Hemoglobin A1c Lactic Acid Total Bilirubin Troponin I NT-Pro-B Natriuret Pep Albumin 3.4 L Urine Appearance Urine Protein Urine Glucose (UA) Ur Blood (Man) Urine Bacteria Random Vancomycin Influenza A (RT-PCR) Group A Strep (PCR) 11/24/24 11/24/24 11/24/24 17:09 20:10 22:02 WBC RBC Hgb Hct MCHC MPV Neutrophils % (Manual) Band Neutrophils % Lymphocytes % (Manual) Abs Lymphs (Manual) ABG pH ABG pCO2 ABG pO2 ABG O2 Saturation Sodium Potassium Chloride Anion Gap BUN Creatinine Estimated GFR Glucose POC Capillary Glucose 255 H 309 H 254 H Hemoglobin A1c Lactic Acid Total Bilirubin Troponin I NT-Pro-B Natriuret Pep Albumin Urine Appearance Urine Protein Urine Glucose (UA) Ur Blood (Man) Urine Bacteria Random Vancomycin Influenza A (RT-PCR) Group A Strep (PCR) 11/25/24 11/25/24 11/25/24 00:36 05:37 08:08 WBC 11.8 H RBC 2.55 L Hgb 7.7 L Hct 23.8 L MCHC MPV 10.9 H Neutrophils % (Manual) Band Neutrophils % Lymphocytes % (Manual) Abs Lymphs (Manual) ABG pH ABG pCO2 ABG pO2 ABG O2 Saturation Sodium 132 L Potassium 3.3 L Chloride Anion Gap BUN 26 H Creatinine 1.41 H Estimated GFR 37 L Glucose 220 H POC Capillary Glucose 222 H Hemoglobin A1c Lactic Acid Total Bilirubin Troponin I NT-Pro-B Natriuret Pep Albumin Urine Appearance Urine Protein Urine Glucose (UA) Ur Blood (Man) Urine Bacteria Random Vancomycin < 5.0 L Influenza A (RT-PCR) Group A Strep (PCR) 11/25/24 11/25/24 11/25/24 11:53 17:00 20:19 WBC RBC Hgb Hct MCHC MPV Neutrophils % (Manual) Band Neutrophils % Lymphocytes % (Manual) Abs Lymphs (Manual) ABG pH ABG pCO2 ABG pO2 ABG O2 Saturation Sodium Potassium Chloride Anion Gap BUN Creatinine Estimated GFR Glucose POC Capillary Glucose 205 H 205 H 201 H Hemoglobin A1c Lactic Acid Total Bilirubin Troponin I NT-Pro-B Natriuret Pep Albumin Urine Appearance Urine Protein Urine Glucose (UA) Ur Blood (Man) Urine Bacteria Random Vancomycin Influenza A (RT-PCR) Group A Strep (PCR) 11/26/24 11/26/24 11/26/24 05:29 07:53 12:01 WBC 15.5 H RBC 2.69 L Hgb 8.2 L Hct 25.4 L MCHC MPV 10.6 H Neutrophils % (Manual) Band Neutrophils % Lymphocytes % (Manual) Abs Lymphs (Manual) ABG pH ABG pCO2 ABG pO2 ABG O2 Saturation Sodium 134 L Potassium Chloride Anion Gap BUN Creatinine 1.20 H Estimated GFR 44 L Glucose 151 H POC Capillary Glucose 169 H 228 H Hemoglobin A1c Lactic Acid Total Bilirubin Troponin I 0.051 H* NT-Pro-B Natriuret Pep 1080 H Albumin Urine Appearance Urine Protein Urine Glucose (UA) Ur Blood (Man) Urine Bacteria Random Vancomycin Influenza A (RT-PCR) Group A Strep (PCR) 11/26/24 11/26/24 11/27/24 17:03 19:58 04:53 WBC 17.9 H RBC 2.61 L Hgb 7.7 L Hct 24.5 L MCHC 31.4 L MPV Neutrophils % (Manual) Band Neutrophils % Lymphocytes % (Manual) Abs Lymphs (Manual) ABG pH ABG pCO2 ABG pO2 ABG O2 Saturation Sodium 135 L Potassium Chloride Anion Gap BUN Creatinine 1.19 H Estimated GFR 44 L Glucose 128 H POC Capillary Glucose 173 H 171 H Hemoglobin A1c Lactic Acid Total Bilirubin Troponin I NT-Pro-B Natriuret Pep Albumin Urine Appearance Urine Protein Urine Glucose (UA) Ur Blood (Man) Urine Bacteria Random Vancomycin Influenza A (RT-PCR) Group A Strep (PCR) 11/27/24 08:29 WBC RBC Hgb Hct MCHC MPV Neutrophils % (Manual) Band Neutrophils % Lymphocytes % (Manual) Abs Lymphs (Manual) ABG pH ABG pCO2 ABG pO2 ABG O2 Saturation Sodium Potassium Chloride Anion Gap BUN Creatinine Estimated GFR Glucose POC Capillary Glucose 114 H Hemoglobin A1c Lactic Acid Total Bilirubin Troponin I NT-Pro-B Natriuret Pep Albumin Urine Appearance Urine Protein Urine Glucose (UA) Ur Blood (Man) Urine Bacteria Random Vancomycin Influenza A (RT-PCR) Group A Strep (PCR)
--- NOTE | 2024-11-27 09:17 | P.PNIM_ITS ---
Progress Note: A&P Assessment and Plan (1) Acute hypoxic respiratory failure: Code(s): J96.01 - Acute respiratory failure with hypoxia Status: Acute Assessment and Plan: Patient sent to ED from urgent care for pneumonia with hypoxia spo2 70% on RA. In the ED spo2 93% on 4L NC. - Oxygen supplementation: 4L NC, baseline RA - Suspected cause: cocurrent pneumonia and flu - ABG on 4L NC showing respiratory alkalosis: pH 7.514, pCO2 31.7, pO2 56.6, HCO3 25 - Chest XR: Segmental left lower lung atelectasis/consolidation, overlying a background of interstitial edema. 11/26 consulted pulm for further recommendations. (2) Pneumonia: Code(s): J18.9 - Pneumonia, unspecified organism Status: Acute Assessment and Plan: - Chest XR: Segmental left lower lung atelectasis/consolidation, overlying a background of interstitial edema. - WBC WNL however procal 12.8, being treated for bacterial pneumonia - started on CAP tx: azithromycin ceftriaxone - Oxygen supplementation: 4L NC, baseline RA. Wean oxygen as tolerated. - Viral PCR: Flu - Sputum culture ordered - Legionella, mycoplasma, and pneumococcal ordered - MRSA negative - Continue scheduled bronchodilators. - Monitor vital signs, I&Os, neuro status and patient is a fall risk - Follow WBC, serum electrolytes, temperature curves and cultures 11/25 ceftriaxone dose is adjsted to 2 gm will repeat BC-ordered 11/26- wbc worsening. still requiring oxygen. waiting for pulm recommendation but will change antibiotics to cefepime (3) Influenza A: Code(s): J10.1 - Influenza due to other identified influenza virus with other respiratory manifestations Status: Acute Assessment and Plan: Viral panel: Flu A Tamiflu 11/23-11/28 (4) Acute kidney injury: Code(s): N17.9 - Acute kidney failure, unspecified Status: Acute Assessment and Plan: BUN/Cr 32/1.48 on admission, unknown baseline Denies history of kidney disease thus presumably this is an acute kidney injury, likely due to decreased oral intake and dehydration. - BUN/Cr 30/1.45 on am labs - NS 100 ml/hr - Holding losartan-HCTZ for FE, resume when appropriate - Renally dose medications - Avoid nephrotoxic medications - Monitor I/O (5) Insulin dependent diabetes mellitus: Status: Acute Assessment and Plan: Patient states that she has not taken her lantus 65 units in over week as she has not been eating. Will decrease her lantus to 30 units and continue to monitor and adjust according to glucose levels. - hypoglycemia protocol - POC blood glucose ACHS - home medication - lantus 65 units, tradjenta 5 mg, metformin 500 mg BID - correct regimen ordered - lantus 30 units, januvia, and SSI - A1C 8.4 (6) Hypertension: Code(s): I10 - Essential (primary) hypertension Status: Acute Assessment and Plan: chronic - losartan-HCTZ on hold for FE, resume when appropriate - blood pressures remain stable, continue to monitor 114/53 (7) Bacteremia: Code(s): R78.81 - Bacteremia Status: Acute Assessment and Plan: positive BC-group A streptococcus discussed with pharm ID- will continue ceftriaxone but increase dose to 2 gm Subjective Date/time seen: 11/27/24 09:17 Interval history: 74-year-old female with insulin-dependent diabetes, hypertension, and hyperlipidemia who presented to the emergency care from a local urgent care for evaluation of shortness of breath and hypoxia. Assuming care- pt is seen and examined. shortness of breath has slightly improved and continues to endorse an inte rmittently productive cough. She has no other complaints denying chest pain, palpitations, nausea / vomiting, no abdominal pain. 11/26- pt is seen and examined. she is pleasant. Resp at the bedside- doing breathing tx. 11/27 seen and examined. dialysis access today and dialysis. Review of Systems Review of Systems: 12 systems were reviewed and are negativ e except for as per HPI. All systems reviewed & are unremarkable except as noted in HPI and below Exam Narrative: AF HR 95 RR 18 SPo2 98 4L NC BP 129/51 General: female in no acute respiratory distress who is nontoxic appearing, lying semi recumbent in bed. HEENT: Normocephalic. Atraumatic. Extraocular movement intact. Sclera clear and anicteric.No facial asymmetry. Chest: Lungs are coarse crackles to auscultation bilaterally, improves slightly with cough. No wheezes. CV: Heart was regular rate and rhythm. S1-S2. No murmurs, gallops, or rubs. Abd: Abdomen was soft. Nontender. Nondistended. Positive bowel sounds. No organomegaly or masses. Ext: No clubbing, cyanosis, or edema. 2+ DP pulses bilaterally. Neuro: Patient is alert. Speech is clear. Objective Data Vital Signs Vital Signs: Vital Signs - 24 hr 11/26/24 12:01 11/26/24 14:00 11/26/24 15:35 Temperature 98.6 F Pulse Rate 99 95 Respiratory Rate 18 Blood Pressure 129/51 L Pulse Oximetry 93 93 Oxygen Delivery High Flow Nasal Cannula Oxygen Flow Rate 6 Fraction of Inspired Oxygen 11/26/24 15:35 11/26/24 16:04 11/26/24 19:59 Temperature 99.5 F Pulse Rate 90 99 98 Respiratory Rate 30 H 20 Blood Pressure 163/67 H Pulse Oximetry 97 Oxygen Delivery Oxygen Flow Rate Fraction of Inspired Oxygen 11/26/24 20:00 11/26/24 20:00 11/26/24 22:35 Temperature Pulse Rate 92 98 96 Respiratory Rate 26 H 28 H Blood Pressure Pulse Oximetry 96 Oxygen Delivery High Flow Nasal Cannula Oxygen Flow Rate 2 Fraction of Inspired Oxygen 36 11/26/24 22:38 11/26/24 22:46 11/26/24 22:52 Temperature Pulse Rate 96 92 196 H Respiratory Rate 26 H Blood Pressure Pulse Oximetry 96 95 Oxygen Delivery High Flow Nasal Cannula High Flow Nasal Cannula Oxygen Flow Rate 6 6 Fraction of Inspired Oxygen 11/27/24 00:00 11/27/24 03:39 11/27/24 04:00 Temperature 98.4 F Pulse Rate 96 101 H 95 Respiratory Rate 20 Blood Pressure 165/74 H Pulse Oximetry 90 Oxygen Delivery Oxygen Flow Rate Fraction of Inspired Oxygen 11/27/24 07:30 11/27/24 08:21 11/27/24 08:21 Temperature 97.8 F Pulse Rate 102 H 89 89 Respiratory Rate 18 20 20 Blood Pressure 149/70 H Pulse Oximetry 89 L 93 Oxygen Delivery High Flow Therapy with Na Oxygen Flow Rate 40 Fraction of Inspired Oxygen 88 11/27/24 08:38 11/27/24 08:52 Temperature Pulse Rate 86 96 Respiratory Rate 20 Blood Pressure Pulse Oximetry Oxygen Delivery Oxygen Flow Rate Fraction of Inspired Oxygen Intake/Output Intake/Output: Intake & Output 11/24/24 11/25/24 11/26/24 11/27/24 23:59 23:59 23:59 23:59 Intake Total 3711.2 3750 938 390 Balance 3711.2 3750 938 390 Meds/Results Medications: Active Medications Generic Name Dose Route Start Last Admin Trade Name Freq PRN Reason Stop Dose Admin Acetaminophen 650 mg 11/23/24 16:54 Acetaminophen 325 Mg Tablet PO Q4H PRN Mild Pain (1-3) or Fever Benzocaine 1 lozenge 11/23/24 21:50 Benzocaine/Menthol (*Bkc) 18 Ea Lozenge PO PRN PRN Sore Throat Dextrose 12.5 gm 11/23/24 22:59 Dextrose 50% 25 Gm/50 Ml Syringe IV PUSH PRN PRN Hypoglycemia Protocol Enoxaparin Sodium 40 mg 11/24/24 09:00 11/27/24 08:53 Enoxaparin 40 Mg/0.4 Ml Syringe SUB-Q 40 mg DAILY SUZI Administration Glucagon 1 mg 11/23/24 22:59 Glucagon For Inj 1 Mg Vial IM PRN PRN Hypoglycemia Protocol Glucose 15 gm 11/23/24 22:59 Glucose Oral Gel 15 Gm Of Glucse In 37.5 Gm Tube PO PRN PRN Hypoglycemia Protocol Dextrose 1,000 mls @ 100 mls/hr 11/23/24 22:59 Dextrose 5% 1,000 Ml IVPB PRN PRN Hypoglycemia Protocol Piperacillin/Tazobactam/Dextrose 3.375 gm in 50 mls @ 100 mls/hr 11/27/24 10:00 Zosyn 3.375 Gm/Ns 50 Ml IVPB Q6H SUZI Insulin Aspart 3 - 6 units 11/24/24 08:00 11/27/24 08:48 Insulin Aspart (*Bkc) 100 Units/Ml SUB-Q Not Given TIDWM [facility] Protocol Insulin Aspart 1 - 3 units 11/24/24 21:00 11/26/24 20:08 Insulin Aspart (*Bkc) 100 Units/Ml SUB-Q Not Given HS [facility] Protocol Insulin Glargine 30 units 11/24/24 18:00 11/26/24 17:27 Insulin Glargine (*Bkc) 100 Units/Ml SUB-Q 30 units QPM SUZI Administration Ipratropium Pelican 0.5 mg 11/25/24 00:00 11/27/24 08:21 Ipratropium Br 0.02% Inh Soln 0.5 Mg/2.5 Ml Vial INHALATION 0.5 mg Q4HRT SUZI Administration Levalbuterol HCl 1.25 mg 11/25/24 02:00 11/27/24 08:21 Levalbuterol Neb 1.25 Mg/3 Ml INHALATION 1.25 mg Q6HRT SUZI Administration Lovastatin 40 mg 11/24/24 09:00 11/27/24 08:53 Lovastatin 20 Mg Tablet PO 40 mg DAILY SUZI Administration Metoprolol Succinate 25 mg 11/27/24 09:00 11/27/24 08:52 Metoprolol Succinate Ext Rel 25 Mg Tabcr PO 25 mg QAM SUZI Administration Oseltamivir Phosphate 30 mg 11/23/24 21:00 11/27/24 08:52 Oseltamivir Phosphate 30 Mg Capsule PO 11/28/24 20:59 30 mg Q12HR SUZI Administration Perflutren Lipid Microsphere 0 ml 11/27/24 07:56 Perflutren Lipid Microspheres 1.5 Ml Vial Diluted To 10 Ml Total Volume IV PUSH 11/30/24 07:57 ONCE PRN adequate visualization Protocol Potassium Chloride 40 meq 11/25/24 09:00 11/27/24 08:53 Potassium Chloride 20 Meq Packet (For Liquid) PO 12/01/24 09:00 40 meq DAILY SUZI Administration Sitagliptin Phosphate 100 mg 11/24/24 09:00 11/27/24 08:54 Sitagliptin Phosphate 100 Mg Tablet PO 100 mg QAM SUZI Administration Radiology Results: ITS Impressions Chest X-Ray 11/26/24 07:14 Impression: 1: Extensive bilateral airspace disease has progressed, most likely edema versus pneumonia. Labs Labs: Laboratory Results - last 24 hr 11/24/24 11/24/24 11/26/24 05:08 05:12 12:01 WBC RBC Hgb Hct MCV MCH MCHC RDW Plt Count MPV Sodium Potassium Chloride Carbon Dioxide Anion Gap BUN Creatinine Estim Creat Clear Calc Estimated GFR Glucose POC Capillary Glucose 228 H Calcium Mycoplasma pneumon IgM 55 Urine Pneumococcal Ag Not detected 11/26/24 11/26/24 11/27/24 17:03 19:58 04:53 WBC 17.9 H RBC 2.61 L Hgb 7.7 L Hct 24.5 L MCV 93.9 MCH 29.5 MCHC 31.4 L RDW 13.0 Plt Count 250 MPV 10.0 Sodium 135 L Potassium 3.6 Chloride 101 Carbon Dioxide 26 Anion Gap 8 BUN 16 Creatinine 1.19 H Estim Creat Clear Calc 39 Estimated GFR 44 L Glucose 128 H POC Capillary Glucose 173 H 171 H Calcium 9.1 Mycoplasma pneumon IgM Urine Pneumococcal Ag 11/27/24 08:29 WBC RBC Hgb Hct MCV MCH MCHC RDW Plt Count MPV Sodium Potassium Chloride Carbon Dioxide Anion Gap BUN Creatinine Estim Creat Clear Calc Estimated GFR Glucose POC Capillary Glucose 114 H Calcium Mycoplasma pneumon IgM Urine Pneumococcal Ag Quality VTE Prophylaxis VTE prophylaxis: pharmacologic ordered
[2024-11-27 11:37] LABS: Glucose Point of Care 123 mg/dl (65-105)
[2024-11-27] MEDS: VANCOMYCIN 2,000 MG/NS 500 ML 2,000 MG/500 ML BAG 250 MG IVPB (11:40)
[2024-11-27 16:48] LABS: Glucose Point of Care 137 mg/dl (65-105)
[2024-11-27] MEDS: INSULIN GLARGINE (*BKC) 100 UNITS/ML 30 UNITS SUB-Q (17:26)
--- NOTE | 2024-11-27 17:38 | PC.NURSE ---
On 11/27/24, the student, Chencho Bender, provided care and completed [facility] documentation on this patient. I have reviewed the student's documentation and agree with the findings.
[2024-11-27 22:30] LABS: Glucose Point of Care 137 mg/dl (65-105)
[2024-11-28] VITALS (22 sets, daily range): BP systolic 100–155; BP diastolic 34–79; PULSE 78–195; RESP 20–32; TEMP 36.8–37.7; O2SAT 92–100
[2024-11-28] MEDS: METOPROLOL TARTRATE INJ 5 MG/5 ML VIAL (01:14)
[2024-11-28] MEDS: METOPROLOL TARTRATE INJ 5 MG/5 ML VIAL 2.5 MG IV PUSH (01:24)
[2024-11-28 05:33] LABS: Hematocrit 23.3 % (37.0-47.0); Hemoglobin 7.4 g/dL (12.0-15.0); Mean Corpuscular HGB Conc 31.8 g/dl (32-36); Mean Corpuscular Volume 94.3 fl (80-100); Mean Platelet Volume 9.9 fl (7.4-10.4); Platelet Count Result 300 k/mm3 (150-375); Red Blood Count 2.47 M/mm3 (4.2-5.4); Red Cell Distribution Width 13.2 % (11.5-14.5); White Blood Count 21.1 K/mm3 (4.5-10.0)
[2024-11-28 05:47] LABS: Anion Gap 7 mmol/L (4-12); Blood Urea Nitrogen 18 mg/dL (7-17); Calcium 9.3 mg/dL (8.4-10.2); Carbon Dioxide 24 mmol/L (22-30); Chloride 103 mmol/L (98-107); Estimated CRCL calculation 41 ml/min; Estimated Glomerular Filt Rate 47; Glucose 100 mg/dL (65-110); Potassium 3.9 mmol/L (3.4-5.0); Sodium 134 mmol/L (137-145)
--- NOTE | 2024-11-28 08:38 | P.PNIM_ITS ---
Progress Note: A&P Assessment and Plan (1) Acute hypoxic respiratory failure: Code(s): J96.01 - Acute respiratory failure with hypoxia Status: Acute Assessment and Plan: Patient sent to ED from urgent care for pneumonia with hypoxia spo2 70% on RA. In the ED spo2 93% on 4L NC. - Oxygen supplementation: 4L NC, baseline RA - Suspected cause: cocurrent pneumonia and flu - ABG on 4L NC showing respiratory alkalosis: pH 7.514, pCO2 31.7, pO2 56.6, HCO3 25 - Chest XR: Segmental left lower lung atelectasis/consolidation, overlying a background of interstitial edema. 11/26 consulted pulm for further recommendations. 11/27 chest xray-possible pulm edema CT without contrast was ordered- to r/o pneumonia vs chf 11/28- pulm following. able to titrate oxygen requirments down- 50l, fio2 72%. continue tx. ambulate as able, IS. (2) Pneumonia: Code(s): J18.9 - Pneumonia, unspecified organism Status: Acute Assessment and Plan: - Chest XR: Segmental left lower lung atelectasis/consolidation, overlying a background of interstitial edema. - WBC WNL however procal 12.8, being treated for bacterial pneumonia - started on CAP tx: azithromycin ceftriaxone - Oxygen supplementation: 4L NC, baseline RA. Wean oxygen as tolerated. - Viral PCR: Flu - Sputum culture ordered - Legionella, mycoplasma, and pneumococcal ordered - MRSA negative - Continue scheduled bronchodilators. - Monitor vital signs, I&Os, neuro status and patient is a fall risk - Follow WBC, serum electrolytes, temperature curves and cultures 11/25 ceftriaxone dose is adjsted to 2 gm will repeat BC-ordered 11/26- wbc worsening. still requiring oxygen. waiting for pulm recommendation but will change antibiotics to cefepime 11/28- continue cefepime. will stop vanc as mRSA negative (3) Influenza A: Code(s): J10.1 - Influenza due to other identified influenza virus with other respiratory manifestations Status: Acute Assessment and Plan: Viral panel: Flu A Tamiflu 11/23-11/28 (4) Acute kidney injury: Code(s): N17.9 - Acute kidney failure, unspecified Status: Acute Assessment and Plan: BUN/Cr 32/1.48 on admission, unknown baseline Denies history of kidney disease thus presumably this is an acute kidney injury, likely due to decreased oral intake and dehydration. - BUN/Cr 30/1.45 on am labs - NS 100 ml/hr - Holding losartan-HCTZ for FE, resume when appropriate - Renally dose medications - Avoid nephrotoxic medications - Monitor I/O (5) Insulin dependent diabetes mellitus: Status: Acute Assessment and Plan: Patient states that she has not taken her lantus 65 units in over week as she has not been eating. Will decrease her lantus to 30 units and continue to monitor and adjust according to glucose levels. - hypoglycemia protocol - POC blood glucose ACHS - home medication - lantus 65 units, tradjenta 5 mg, metformin 500 mg BID - correct regimen ordered - lantus 30 units, januvia, and SSI - A1C 8.4 (6) Hypertension: Code(s): I10 - Essential (primary) hypertension Status: Acute Assessment and Plan: chronic - losartan-HCTZ on hold for FE, resume when appropriate - blood pressures remain stable, continue to monitor (7) Bacteremia: Code(s): R78.81 - Bacteremia Status: Acute Assessment and Plan: positive BC-group A streptococcus discussed with pharm ID- will continue ceftriaxone but increase dose to 2 gm 11/27- switched to cefepime , initially vanc was added but stopped as pt mrsa negative (8) SVT (supraventricular tachycardia): Code(s): I47.10 - Supraventricular tachycardia, unspecified Status: Acute Assessment and Plan: card was consulted metoprolol added card following- appreciate recommendations (9) Elevated troponin: Code(s): R79.89 - Other specified abnormal findings of blood chemistry Status: Acute Assessment and Plan: see above (10) Pleural effusion: Code(s): J90 - Pleural effusion, not elsewhere classified Status: Acute Assessment and Plan: ulm edema/effusion vs pneumonia vs chf chest xray was done ct chest 11/27 IMPRESSION: 1. Bilateral pneumonia involving the lower lobes, right upper lobe, middle lobe and lingula. 2. Mediastinal lymphadenopathy. 3. Bilateral pleural effusion. ECho was done on 11/27- EF 55-60%, Summary 1. Complete two-dimensional, color flow and Doppler transthoracic echocardiogram is performed. 2. Mild concentric LVH with preserved systolic function and grade 1 diastolic noncompliance. 3. Mild mitral annular calcification. 4. No valvular dysfunction. 5. Trileaflet aortic valve with mild sclerosis and well maintained leaflet excursion. -added lasix 40 mg IV- monitor closely I/O and kidney function - cardiology following- appreciate recommendations Time Spent With Patient Time with patient: Greater than 35 minutes Subjective Date/time seen: 11/28/24 08:38 Interval history: 74-year-old female with insulin-dependent diabetes, hypertension, and hyperlipidemia who presented to the emergency care from a local urgent care for evaluation of shortness of breath and hypoxia. Assuming care- pt is seen and examined. shortness of breath has slightly improved and continues to endorse an intermittently productive cough. She has no other complaints denying chest pain, palpitations, nausea / vomiting, no abdominal pain. 11/26- pt is seen and examined. she is pleasant. Resp at the bedside- doing abdirahman athing tx. 11/27 seen and examined. pulm was consulted, cardiology following as BNP increased, tachy. remains on high flow 50l, fio2 73%. 11/28 able to titrate her oxygen down a little. she is resting at the time of an exam. denies any pain, wants to do breathing tx as needed as they make her feel weird . Review of Systems Review of Systems: 12 systems were reviewed and are negativ e except for as per HPI. All systems reviewed & are unremarkable except as noted in HPI and below Exam Narrative: General: pleasant. highflow oxygen on HEENT: Normocephalic. Atraumatic. Extraocular movement intact. Sclera clear and anicteric.No facial asymmetry. Chest: Lungs are coarse crackles to auscultation bilaterally, improves slightly with cough. No wheezes. CV: Heart was regular rate and rhythm. S1-S2. No murmurs, gallops, or rubs. Abd: Abdomen was soft. Nontender. Nondistended. Positive bowel sounds. No organomegaly or masses. Ext: No clubbing, cyanosis, or edema. 2+ DP pulses bilaterally. Neuro: Patient is alert. Speech is clear. Const: General: comfortable Objective Data Vital Signs Vital Signs: Vital Signs - 24 hr 11/27/24 08:52 11/27/24 12:00 11/27/24 12:24 Temperature 97.9 F Pulse Rate 96 78 79 Respiratory Rate 20 Blood Pressure 149/79 H Pulse Oximetry 100 Oxygen Delivery Oxygen Flow Rate Fraction of Inspired Oxygen 11/27/24 14:00 11/27/24 15:27 11/27/24 16:00 Temperature 98.5 F Pulse Rate 97 87 83 Respiratory Rate 20 20 Blood Pressure 147/80 H Pulse Oximetry 100 Oxygen Delivery Oxygen Flow Rate Fraction of Inspired Oxygen 11/27/24 19:53 11/27/24 19:55 11/27/24 20:00 Temperature 98.4 F Pulse Rate 91 83 86 Respiratory Rate 20 20 Blood Pressure 171/76 H Pulse Oximetry 94 100 Oxygen Delivery High Flow Therapy with Na Oxygen Flow Rate 9 Fraction of Inspired Oxygen 88 11/27/24 20:15 11/27/24 20:32 11/28/24 00:00 Temperature Pulse Rate 89 83 90 Respiratory Rate 20 20 Blood Pressure Pulse Oximetry 91 Oxygen Delivery High Flow Therapy with Na Oxygen Flow Rate 50 Fraction of Inspired Oxygen 88 11/28/24 01:10 11/28/24 02:19 11/28/24 04:00 Temperature 98.6 F Pulse Rate 195 H 99 90 Respiratory Rate 30 H Blood Pressure 100/67 Pulse Oximetry 95 92 Oxygen Delivery High Flow Therapy with Na Oxygen Flow Rate 50 Fraction of Inspired Oxygen 82 11/28/24 05:12 11/28/24 07:51 Temperature 98.2 F Pulse Rate 95 Respiratory Rate 20 Blood Pressure 153/75 H Pulse Oximetry 96 97 Oxygen Delivery High Flow Therapy with Na Oxygen Flow Rate 50 Fraction of Inspired Oxygen 73 Intake/Output Intake/Output: Intake & Output 11/25/24 11/26/24 11/27/24 11/28/24 23:59 23:59 23:59 23:59 Intake Total 3750 938 987 190 Output Total 1 Balance 3750 938 986 190 Meds/Results Medications: Active Medications Generic Name Dose Route Start Last Admin Trade Name Freq PRN Reason Stop Dose Admin Acetaminophen 650 mg 11/23/24 16:54 Acetaminophen 325 Mg Tablet PO Q4H PRN Mild Pain (1-3) or Fever Benzocaine 1 lozenge 11/23/24 21:50 Benzocaine/Menthol (*Bkc) 18 Ea Lozenge PO PRN PRN Sore Throat Dextrose 12.5 gm 11/23/24 22:59 Dextrose 50% 25 Gm/50 Ml Syringe IV PUSH PRN PRN Hypoglycemia Protocol Enoxaparin Sodium 40 mg 11/24/24 09:00 11/27/24 08:53 Enoxaparin 40 Mg/0.4 Ml Syringe SUB-Q 40 mg DAILY SUZI Administration Furosemide 40 mg 11/28/24 09:00 Furosemide Inj 40 Mg/4 Ml Vial IV PUSH DAILY SUZI Glucagon 1 mg 11/23/24 22:59 Glucagon For Inj 1 Mg Vial IM PRN PRN Hypoglycemia Protocol Glucose 15 gm 11/23/24 22:59 Glucose Oral Gel 15 Gm Of Glucse In 37.5 Gm Tube PO PRN PRN Hypoglycemia Protocol Dextrose 1,000 mls @ 100 mls/hr 11/23/24 22:59 Dextrose 5% 1,000 Ml IVPB PRN PRN Hypoglycemia Protocol Vancomycin HCl 1,500 mg in 500 mls @ 250 mls/hr 11/28/24 11:00 Vancomycin 1,500 Mg/Ns 500 Ml IVPB Q24H SUZI Insulin Aspart 3 - 6 units 11/24/24 08:00 11/27/24 16:55 Insulin Aspart (*Bkc) 100 Units/Ml SUB-Q Not Given TIDWM [facility] Protocol Insulin Aspart 1 - 3 units 11/24/24 21:00 11/27/24 22:57 Insulin Aspart (*Bkc) 100 Units/Ml SUB-Q Not Given HS [facility] Protocol Insulin Glargine 30 units 11/24/24 18:00 11/27/24 17:26 Insulin Glargine (*Bkc) 100 Units/Ml SUB-Q 30 units QPM SUZI Administration Ipratropium Vandiver 0.5 mg 11/25/24 00:00 11/28/24 07:51 Ipratropium Br 0.02% Inh Soln 0.5 Mg/2.5 Ml Vial INHALATION Not Given Q4HRT SUZI Levalbuterol HCl 1.25 mg 11/25/24 02:00 11/28/24 02:26 Levalbuterol Neb 1.25 Mg/3 Ml INHALATION Not Given Q6HRT [facility] Lovastatin 40 mg 11/24/24 09:00 11/27/24 08:53 Lovastatin 20 Mg Tablet PO 40 mg DAILY SUZI Administration Metoprolol Succinate 25 mg 11/27/24 09:00 11/27/24 08:52 Metoprolol Succinate Ext Rel 25 Mg Tabcr PO 25 mg QAM SUZI Administration Oseltamivir Phosphate 30 mg 11/23/24 21:00 11/27/24 21:14 Oseltamivir Phosphate 30 Mg Capsule PO 11/28/24 20:59 30 mg Q12HR SUZI Administration Perflutren Lipid Microsphere 0 ml 11/27/24 07:56 Perflutren Lipid Microspheres 1.5 Ml Vial Diluted To 10 Ml Total Volume IV PUSH 11/30/24 07:57 ONCE PRN adequate visualization Protocol Potassium Chloride 40 meq 11/25/24 09:00 11/27/24 08:53 Potassium Chloride 20 Meq Packet (For Liquid) PO 12/01/24 09:00 40 meq DAILY SUZI Administration Radiology Results: ITS Impressions Chest X-Ray 11/26/24 07:14 Impression: 1: Extensive bilateral airspace disease has progressed, most likely edema versus pneumonia. Venous Doppler Study 11/27/24 10:00 IMPRESSION: 1. No deep venous thrombosis. Chest CT 11/27/24 19:14 IMPRESSION: 1. Bilateral pneumonia involving the lower lobes, right upper lobe, middle lobe and lingula. 2. Mediastinal lymphadenopathy. 3. Bilateral pleural effusion. Labs Labs: Laboratory Results - last 24 hr 11/27/24 11/27/24 11/27/24 11:34 16:45 19:57 WBC RBC Hgb Hct MCV MCH MCHC RDW Plt Count MPV Sodium Potassium Chloride Carbon Dioxide Anion Gap BUN Creatinine Estim Creat Clear Calc Estimated GFR Glucose POC Capillary Glucose 123 H 137 H 137 H Calcium 11/28/24 05:18 WBC 21.1 H RBC 2.47 L Hgb 7.4 L Hct 23.3 L MCV 94.3 MCH 30.0 MCHC 31.8 L RDW 13.2 Plt Count 300 MPV 9.9 Sodium 134 L Potassium 3.9 Chloride 103 Carbon Dioxide 24 Anion Gap 7 BUN 18 H Creatinine 1.14 H Estim Creat Clear Calc 41 Estimated GFR 47 L Glucose 100 POC Capillary Glucose Calcium 9.3 Quality VTE Prophylaxis VTE prophylaxis: pharmacologic ordered
[2024-11-28 08:48] LABS: Glucose Point of Care 79 mg/dl (65-105)
[2024-11-28] MEDS: METOPROLOL SUCCINATE EXT REL 25 MG TABCR PO (08:59)
[2024-11-28] MEDS: OSELTAMIVIR PHOSPHATE 30 MG CAPSULE PO (08:59)
[2024-11-28] MEDS: POTASSIUM CHLORIDE 20 MEQ PACKET (FOR LIQUID) 40 MEQ PO (09:09)
[2024-11-28] MEDS: LOVASTATIN 20 MG TABLET 40 MG PO (09:09)
[2024-11-28] MEDS: ENOXAPARIN 40 MG/0.4 ML SYRINGE SUB-Q (09:10)
[2024-11-28] MEDS: FUROSEMIDE INJ 40 MG/4 ML VIAL IV PUSH (10:38)
[2024-11-28 12:29] LABS: Glucose Point of Care 118 mg/dl (65-105)
--- NOTE | 2024-11-28 16:52 | ECG_ITS ---
Test Date: 2024-11-28 17:16:37 Measurements Intervals [place] Rate: 186 P: 0 LA: 0 QRS: -43 QRSD: 120 T: 136 QT: 257 QTc: 452 Interpretive Statements WIDE COMPLEX TACHYCARDIA, PROBABLY SUPRAVENTRICULAR TACHYCARDIA LEFT AXIS DEVIATION LEFT BUNDLE BRANCH BLOCK BASELINE ARTIFACT- I, II, AVR, AVL, V1-V2 ABNORMAL ECG Compared to ECG 11/26/2024 23:11:42 HEART RATE HAS INCREASED Electronically Signed On 11-28-2024 19:00:37 [employer]ED [employer] by Eliseo Mahmood D.O.
--- NOTE | 2024-11-28 17:22 | PM.EVENT ---
Event Note Event Note Event Note: Called to the room for a 74yo patient with DM, HTN and HLD for rapid heart rate. Patient was admitted for SOB and found to have Influenza A, bacterial PNA, Group A Strep bacteremia and acute respiratory failure. Patient currently on HFNC. CT chest yesterday showing multilobar PNA. Echo showing EF 55-60% and Grade 1 diastolic dysfunction. She has been having runs of wide complex tachycardia c/w SVT since hospitalized. She was started on metoprolol. Cardiology was consulted and are following. Lasix started today with good UOP per RN. Called this evening due to recurrent elevated HR. Not on scheduled bronchodilators. TSH normal. Patient has been tachypenic which began earlier today. She denies chest pain or palpatations. BP 122/79. RR 32. HR 170. Appears comfortable but with elevated RR. Coarse BS. Tachycardic, regular. Abd soft. No pedal edema. EKG showing wide complex tachycardia with HR 186. Possible lateral ischemia. Suspect SVT - No benefit with Valsalva or carotid massaage. Plan to move to IMU. Re-consult Cardiology. Metoprolol 5mg IV x1 while waiting for bed to be ready. Update: patient converted to NSR upon arrival to IMU. Monitor closely on tele. Keep in IMU due to her resp failure. Critical Care Time: I personally spent 40 minutes of direct patient care including (but not limited to) the physical examination, decision-making, bedside evaluation, review of medical records, review of labs and imaging, discussion with nursing staff and other providers for collaborative, critical care management of this patient.
[2024-11-28 17:23] LABS: Glucose Point of Care 142 mg/dl (65-105)
--- NOTE | 2024-11-28 17:29 | PC.NURSE ---
This patient, Katheryn Barbosa, was transferred to IMU 231 on 11/28/24 at 1729 Personal belongings sent with patient. Report given to OPAL Harden. Appropriate documentation sent with patient.
--- NOTE | 2024-11-28 17:30 | PC.NURSE ---
[address] Varghese because pt was in SVT with HR 160s. STAT EKG per Dr. Varghese. OPAL Buenrostro came to evaluate pt along with Dr. Varghese. EKG taken and handed to Dr. Varghese. Dr. Varghese ordered IVP Metoprolol 5mg and transfer to IMU. OPAL Buenrostro administered Metoprolol 5mg IVP. Transferred pt to IMU 231 and gave bedside report to OPAL Harden. Pt HR converted back to 80-90s.
[2024-11-28] MEDS: METOPROLOL TARTRATE INJ 5 MG/5 ML VIAL IV PUSH (17:31)
--- NOTE | 2024-11-28 17:32 | PC.NURSE ---
securities vault supervisor called and told me to see 252, patient on airvo 50L 72% with heart rate 180-190s. I arrived to room and noticed patient had respirations in high 30's, patient tried to vagal down to decrease heart rate with no success. Dr. Varghese at bedside, EKG performed and handed to Dr. Varghese. Dr. Varghese ordered 5mg IVP lopressor and move to IMU, I gave the IVP lopressor [facility]
--- NOTE | 2024-11-28 18:11 | PC.NURSE ---
This patient, Katheryn Barbosa, was received from [facility] on 11/28/24 at 1729. Patient/family oriented to unit policies and routines. Assessment completed and documented. Pt resting in bed with no complaints or concerns at this time. Bed in locked position, head of bed elevated and call light is in reach. Will continue to monitor. Teresa Claire RN
[2024-11-28] MEDS: INSULIN GLARGINE (*BKC) 100 UNITS/ML 30 UNITS SUB-Q (19:25)
[2024-11-28 20:29] LABS: Legionella pneumophila Ag Ur NOT DETECTED
[2024-11-28 20:42] LABS: Glucose Point of Care 177 mg/dl (65-105)
[2024-11-29] VITALS (16 sets, daily range): BP systolic 122–153; BP diastolic 53–58; PULSE 81–98; RESP 12–32; TEMP 36.5–38.1; O2SAT 91–97
[2024-11-29 05:01] LABS: Hematocrit 22.4 % (37.0-47.0); Hemoglobin 7.4 g/dL (12.0-15.0); Mean Corpuscular Hemoglobin 31.6 pg (26-34); Mean Corpuscular Volume 95.7 fl (80-100); Mean Platelet Volume 9.9 fl (7.4-10.4); Platelet Count Result 361 k/mm3 (150-375); Red Blood Count 2.34 M/mm3 (4.2-5.4); Red Cell Distribution Width 13.4 % (11.5-14.5); White Blood Count 21.1 K/mm3 (4.5-10.0)
[2024-11-29 05:22] LABS: Glucose 99 mg/dL (65-110); Potassium 3.9 mmol/L (3.4-5.0); Sodium 135 mmol/L (137-145)
[2024-11-29 05:23] LABS: Anion Gap 8 mmol/L (4-12); Blood Urea Nitrogen 20 mg/dL (7-17); Calcium 9.2 mg/dL (8.4-10.2); Carbon Dioxide 27 mmol/L (22-30); Chloride 100 mmol/L (98-107); Estimated CRCL calculation 37 ml/min; Estimated Glomerular Filt Rate 41
[2024-11-29 05:32] LABS: CRP 22.5 mg/dL (<1.0)
[2024-11-29 08:12] LABS: Glucose Point of Care 86 mg/dl (65-105)
[2024-11-29] MEDS: ENOXAPARIN 40 MG/0.4 ML SYRINGE SUB-Q (08:32)
[2024-11-29] MEDS: METOPROLOL SUCCINATE EXT REL 25 MG TABCR PO (08:32)
[2024-11-29] MEDS: POTASSIUM CHLORIDE 20 MEQ PACKET (FOR LIQUID) 40 MEQ PO (08:32)
[2024-11-29] MEDS: FUROSEMIDE INJ 40 MG/4 ML VIAL IV PUSH (08:33)
[2024-11-29] MEDS: LOVASTATIN 20 MG TABLET 40 MG PO (08:50)
--- NOTE | 2024-11-29 08:59 | P.PNIM_ITS ---
Progress Note: A&P Assessment and Plan (1) Acute hypoxic respiratory failure: Code(s): J96.01 - Acute respiratory failure with hypoxia Status: Acute Assessment and Plan: Patient sent to ED from urgent care for pneumonia with hypoxia spo2 70% on RA. In the ED spo2 93% on 4L NC. - Oxygen supplementation: 4L NC, baseline RA - Suspected cause: cocurrent pneumonia and flu - ABG on 4L NC showing respiratory alkalosis: pH 7.514, pCO2 31.7, pO2 56.6, HCO3 25 - Chest XR: Segmental left lower lung atelectasis/consolidation, overlying a background of interstitial edema. 11/26 consulted pulm for further recommendations. 11/27 chest xray-possible pulm edema CT without contrast was ordered- to r/o pneumonia vs chf 11/28- pulm following. able to titrate oxygen requirements down- 50l, fio2 72%. continue tx. ambulate as able, IS. 11/29 moved to IMU last night for rapid heart rate (2) Pneumonia: Code(s): J18.9 - Pneumonia, unspecified organism Status: Acute Assessment and Plan: - Chest XR: Segmental left lower lung atelectasis/consolidation, overlying a background of interstitial edema. - WBC WNL however procal 12.8, being treated for bacterial pneumonia - started on CAP tx: azithromycin ceftriaxone - Oxygen supplementation: 4L NC, baseline RA. Wean oxygen as tolerated. - Viral PCR: Flu - Sputum culture ordered - Legionella, mycoplasma, and pneumococcal ordered - MRSA negative - Continue scheduled bronchodilators. - Monitor vital signs, I&Os, neuro status and patient is a fall risk - Follow WBC, serum electrolytes, temperature curves and cultures 11/25 ceftriaxone dose is adjsted to 2 gm will repeat BC-ordered 11/26- wbc worsening. still requiring oxygen. waiting for pulm recommendation but will change antibiotics to cefepime 11/28- continue cefepime. will stop vanc as mRSA negative 11/29- noted antibiotic fell out of [facility] for some reason- cefepime re ordered. WBC stable this am. pulm following (3) Influenza A: Code(s): J10.1 - Influenza due to other identified influenza virus with other respiratory manifestations Status: Acute Assessment and Plan: Viral panel: Flu A Tamiflu 11/23-11/28 completed treatment (4) Acute kidney injury: Code(s): N17.9 - Acute kidney failure, unspecified Status: Acute Assessment and Plan: BUN/Cr 32/1.48 on admission, unknown baseline Denies history of kidney disease thus presumably this is an acute kidney injury, likely due to decreased oral intake and dehydration. - BUN/Cr 30/1.45 on am labs - NS 100 ml/hr - Holding losartan-HCTZ for FE, resume when appropriate - Renally dose medications - Avoid nephrotoxic medications - Monitor I/O - lasix was started last night for christo pleural effusion with reported good output (not charted) (5) Insulin dependent diabetes mellitus: Status: Acute Assessment and Plan: Patient states that she has not taken her lantus 65 units in over week as she hyman s not been eating. Will decrease her lantus to 30 units and continue to monitor and adjust according to glucose levels. - hypoglycemia protocol - POC blood glucose ACHS - home medication - lantus 65 units, tradjenta 5 mg, metformin 500 mg BID - correct regimen ordered - lantus 30 units, januvia, and SSI - A1C 8.4 (6) Hypertension: Code(s): I10 - Essential (primary) hypertension Status: Acute Assessment and Plan: chronic - losartan-HCTZ on hold for FE, resume when appropriate - blood pressures remain stable, continue to monitor (7) Bacteremia: Code(s): R78.81 - Bacteremia Status: Acute Assessment and Plan: positive BC-group A streptococcus discussed with pharm ID- will continue ceftriaxone but increase dose to 2 gm - switched to cefepime , initially vanc was added but stopped as pt mrsa negative continue cefepime-renally dosed per pharmacy WBC stable- peaked at 21.1 for last two days (8) SVT (supraventricular tachycardia): Code(s): I47.10 - Supraventricular tachycardia, unspecified Status: Acute Assessment and Plan: card was consulted metoprolol added card following- appreciate recommendations 3/2- last night had sustained episode of rapid heart rate- converted back to NSR with IV metoprolol 5 mg Moved to IMU for close monitoring (9) Elevated troponin: Code(s): R79.89 - Other specified abnormal findings of blood chemistry Status: Acute Assessment and Plan: see above (10) Pleural effusion: Code(s): J90 - Pleural effusion, not elsewhere classified Status: Acute Assessment and Plan: ulm edema/effusion vs pneumonia vs chf chest xray was done ct chest 11/27 IMPRESSION: 1. Bilateral pneumonia involving the lower lobes, right upper lobe, middle lobe and lingula. 2. Mediastinal lymphadenopathy. 3. Bilateral pleural effusion. ECho was done on 11/27- EF 55-60%, Summary 1. Complete two-dimensional, color flow and Doppler transthoracic echocardiogram is performed. 2. Mild concentric LVH with preserved systolic function and grade 1 diastolic noncompliance. 3. Mild mitral annular calcification. 4. No valvular dysfunction. 5. Trileaflet aortic valve with mild sclerosis and well maintained leaflet excursion. -added lasix 40 mg IV- monitor closely I/O and kidney function - cardiology following- appreciate recommendations Time Spent With Patient Time with patient: Greater than 35 minutes Subjective Date/time seen: 11/29/24 08:59 Interval history: 74-year-old female with insulin-dependent diabetes, hypertension, and hyperlipidemia who presented to the emergency care from a local urgent care for evaluation of shortness of breath and hypoxia. Assuming care- pt is seen and examined. shortness of breath has slightly improved and continues to endorse an intermittently productive cough. She has no other complaints denying chest pain, palpitations, nausea / vomiting, no abdominal pain. 11/26- pt is seen and examined. she is pleasant. Resp at the bedside- doing breathing tx. 11/27 seen and examined. pulm was consulted, cardiology following as BNP increased, tachy. remains on high flow 50l, fio2 73%. 11/28 able to titrate her oxygen down a little. she is resting at the time of an exam. denies any pain, wants to do breathing tx as needed as they make her feel weird . 11/29- transferred to IMU last night for rapid heart rate. See cross cover note from Dr Varghese. EKG stat was completed, Metoprolol 5 mg IV push- [pt converted to nsr. Cardiology was re consulted. Noted that antibiotic fell out of [facility] this am? reordered. WBC remains stable this morning. HR in 90's. BP stable Review of Systems Review of Systems: All systems reviewed & are unremarkable except as noted in HPI and below Exam Narrative: General: pleasant. highflow oxygen on HEENT: Normocephalic. Atraumatic. Extraocular movement intact. Sclera clear and anicteric.No facial asymmetry. Chest: Lungs are coarse crackles to auscultation bilaterally, improves slightly with cough. No wheezes. CV: Heart was regular rate and rhythm. S1-S2. No murmurs, gallops, or rubs. Abd: Abdomen was soft. Nontender. Nondistended. Positive bowel sounds. No organomegaly or masses. Ext: No clubbing, cyanosis, or edema. 2+ DP pulses bilaterally. Neuro: Patient is alert. Speech is clear. Const: General: comfortable Objective Data Vital Signs Vital Signs: Vital Signs - 24 hr 11/28/24 09:10 11/28/24 12:00 11/28/24 13:54 Temperature Pulse Rate 78 Respiratory Rate Blood Pressure Pulse Oximetry 93 92 Oxygen Delivery High Flow Therapy with Na High Flow Therapy with Na Oxygen Flow Rate 50 50 Fraction of Inspired Oxygen 72 72 11/28/24 14:00 11/28/24 16:00 11/28/24 17:00 Temperature 98.2 F Pulse Rate 94 100 170 H Respiratory Rate 32 H 32 H Blood Pressure 106/34 L 122/79 Pulse Oximetry 100 98 Oxygen Delivery Oxygen Flow Rate Fraction of Inspired Oxygen 11/28/24 17:31 11/28/24 17:32 11/28/24 18:00 Temperature Pulse Rate 191 H 91 95 Respiratory Rate Blood Pressure Pulse Oximetry Oxygen Delivery Oxygen Flow Rate Fraction of Inspired Oxygen 11/28/24 18:14 11/28/24 18:20 11/28/24 20:00 Temperature 99.4 F 99.9 F H Pulse Rate 96 96 92 Respiratory Rate 20 20 20 Blood Pressure 139/52 L 155/62 H Pulse Oximetry 95 95 93 Oxygen Delivery High Flow Therapy with Na Oxygen Flow Rate 50 Fraction of Inspired Oxygen 11/28/24 20:00 11/28/24 20:00 11/28/24 22:00 Temperature Pulse Rate 88 83 Respiratory Rate Blood Pressure Pulse Oximetry 95 Oxygen Delivery High Flow Therapy with Na Oxygen Flow Rate 50 Fraction of Inspired Oxygen 70 11/28/24 23:46 11/29/24 00:00 11/29/24 00:00 Temperature 99.1 F Pulse Rate 88 82 Respiratory Rate 20 Blood Pressure 127/62 Pulse Oximetry 96 97 Oxygen Delivery High Flow Therapy with Na Oxygen Flow Rate 50 Fraction of Inspired Oxygen 70 11/29/24 02:00 11/29/24 03:42 11/29/24 04:00 Temperature 100.5 F H Pulse Rate 90 95 Respiratory Rate 20 Blood Pressure 134/53 L Pulse Oximetry 93 94 Oxygen Delivery High Flow Therapy with Na Oxygen Flow Rate 50 Fraction of Inspired Oxygen 63 11/29/24 04:00 11/29/24 07:44 11/29/24 08:00 Temperature 98.3 F Pulse Rate 93 98 Respiratory Rate 12 Blood Pressure 142/53 H Pulse Oximetry 92 93 Oxygen Delivery High Flow Therapy with Na Oxygen Flow Rate 50 Fraction of Inspired Oxygen 70 11/29/24 08:32 Temperature Pulse Rate 95 Respiratory Rate Blood Pressure Pulse Oximetry Oxygen Delivery Oxygen Flow Rate Fraction of Inspired Oxygen Intake/Output Intake/Output: Intake & Output 11/26/24 11/27/24 11/28/24 11/29/24 23:59 23:59 23:59 23:59 Intake Total 833 152 7770 120 Output Total 1 Balance 326 950 6943 120 Meds/Results Medications: Active Medications Generic Name Dose Route Start Last Admin Trade Name Freq PRN Reason Stop Dose Admin Acetaminophen 650 mg 11/23/24 16:54 Acetaminophen 325 Mg Tablet PO Q4H PRN Mild Pain (1-3) or Fever Benzocaine 1 lozenge 11/23/24 21:50 Benzocaine/Menthol (*Bkc) 18 Ea Lozenge PO PRN PRN Sore Throat Dextrose 12.5 gm 11/23/24 22:59 Dextrose 50% 25 Gm/50 Ml Syringe IV PUSH PRN PRN Hypoglycemia Protocol Enoxaparin Sodium 40 mg 11/24/24 09:00 11/29/24 08:32 Enoxaparin 40 Mg/0.4 Ml Syringe SUB-Q 40 mg DAILY SUZI Administration Furosemide 40 mg 11/28/24 09:00 11/29/24 08:33 Furosemide Inj 40 Mg/4 Ml Vial IV PUSH 40 mg DAILY SUZI Administration Glucagon 1 mg 11/23/24 22:59 Glucagon For Inj 1 Mg Vial IM PRN PRN Hypoglycemia Protocol Glucose 15 gm 11/23/24 22:59 Glucose Oral Gel 15 Gm Of Glucse In 37.5 Gm Tube PO PRN PRN Hypoglycemia Protocol Dextrose 1,000 mls @ 100 mls/hr 11/23/24 22:59 Dextrose 5% 1,000 Ml IVPB PRN PRN Hypoglycemia Protocol Insulin Aspart 3 - 6 units 11/24/24 08:00 11/29/24 08:33 Insulin Aspart (*Bkc) 100 Units/Ml SUB-Q Not Given TIDWM [facility] Protocol Insulin Aspart 1 - 3 units 11/24/24 21:00 11/28/24 20:10 Insulin Aspart (*Bkc) 100 Units/Ml SUB-Q Not Given HS SUZI Protocol Insulin Glargine 30 units 11/24/24 18:00 11/28/24 19:25 Insulin Glargine (*Bkc) 100 Units/Ml SUB-Q 30 units QPM SUZI Administration Ipratropium [place] 0.5 mg 11/28/24 14:00 Ipratropium Br 0.02% Inh Soln 0.5 Mg/2.5 Ml Vial INHALATION Q4HRT PRN Wheezing Levalbuterol HCl 1.25 mg 11/28/24 14:00 Levalbuterol Neb 1.25 Mg/3 Ml INHALATION Q6HRT PRN Wheezing Lovastatin 40 mg 11/24/24 09:00 11/29/24 08:50 Lovastatin 20 Mg Tablet PO 40 mg DAILY SUZI Administration Metoprolol Succinate 25 mg 11/27/24 09:00 11/29/24 08:32 Metoprolol Succinate Ext Rel 25 Mg Tabcr PO 25 mg QAM SUZI Administration Perflutren Lipid Microsphere 0 ml 11/27/24 07:56 Perflutren Lipid Microspheres 1.5 Ml Vial Diluted To 10 Ml Total Volume IV PUSH 11/30/24 07:57 ONCE PRN adequate visualization Protocol Potassium Chloride 40 meq 11/25/24 09:00 11/29/24 08:32 Potassium Chloride 20 Meq Packet (For Liquid) PO 12/01/24 09:00 40 meq DAILY SUZI Administration Radiology Results: ITS Impressions Chest X-Ray 11/26/24 07:14 Impression: 1: Extensive bilateral airspace disease has progressed, most likely edema versus pneumonia. Venous Doppler Study 11/27/24 10:00 IMPRESSION: 1. No deep venous thrombosis. Chest CT 11/27/24 19:14 IMPRESSION: 1. Bilateral pneumonia involving the lower lobes, right upper lobe, middle lobe and lingula. 2. Mediastinal lymphadenopathy. 3. Bilateral pleural effusion. Labs Labs: Laboratory Results - last 24 hr 11/24/24 11/28/24 11/28/24 05:08 12:10 17:10 WBC RBC Hgb Hct MCV MCH MCHC RDW Plt Count MPV Sodium Potassium Chloride Carbon Dioxide Anion Gap BUN Creatinine Estim Creat Clear Calc Estimated GFR Glucose POC Capillary Glucose 118 H 142 H Calcium C-Reactive Protein Ur L.pneumophila Ag Not detected 11/28/24 11/29/24 11/29/24 19:40 04:55 07:45 WBC 21.1 H RBC 2.34 L Hgb 7.4 L Hct 22.4 L MCV 95.7 MCH 31.6 D MCHC 33.0 RDW 13.4 Plt Count 361 MPV 9.9 Sodium 135 L Potassium 3.9 Chloride 100 Carbon Dioxide 27 Anion Gap 8 BUN 20 H Creatinine 1.28 H Estim Creat Clear Calc 37 Estimated GFR 41 L Glucose 99 POC Capillary Glucose 177 H 86 Calcium 9.2 C-Reactive Protein 22.5 H Ur L.pneumophila Ag Quality VTE Prophylaxis VTE prophylaxis: pharmacologic ordered
[2024-11-29] MEDS: CEFEPIME 2 GM/NS 50 ML 2 GM/50 ML BAG IVPB ×2 (10:11→21:19)
[2024-11-29 10:55] LABS: Erythrocyte Sedimentation Rate > 140 mm/hr (0-20)
[2024-11-29 10:58] LABS: Free T4 Free Thyroxine 1.53 ng/dL (0.78-2.19)
[2024-11-29 12:04] LABS: Glucose Point of Care 159 mg/dl (65-105)
[2024-11-29 16:53] LABS: Glucose Point of Care 162 mg/dl (65-105)
[2024-11-29] MEDS: INSULIN GLARGINE (*BKC) 100 UNITS/ML 30 UNITS SUB-Q (17:25)
--- NOTE | 2024-11-29 18:20 | PM.PNPUL ---
Progress Note: A&P Assessment and Plan (1) Acute hypoxemic respiratory failure: Code(s): J96.01 - Acute respiratory failure with hypoxia Status: Acute Assessment and Plan: This 74-year-old female presented with an acute respiratory illness that had persisted for several days prior to this hospitalization. Diagnostic studies have indicated influenza A, with a possible lower respiratory tract infection due to either the virus itself or a bacterial co-infection following the influenza. Her chest X-ray reveals bilateral infiltrates and small pleural effusions, which are suggestive of possible pulmonary edema. Notably, the patient was recently evaluated by Cardiology Services for supraventricular tachycardia, and her BNP levels have increased since the initial testing upon admission. She has no prior history of lung disease and is currently receiving treatment with Tamiflu, ceftriaxone, and DVT prophylaxis. (2) Pneumonia: Code(s): J18.9 - Pneumonia, unspecified organism Status: Acute Assessment and Plan: On treatment with azithromycin ceftriaxone (3) SVT (supraventricular tachycardia): Code(s): I47.10 - Supraventricular tachycardia, unspecified Status: Acute Assessment and Plan: (4) Influenza A: Code(s): J10.1 - Influenza due to other identified influenza virus with other respiratory manifestations Status: Acute Assessment and Plan: Completed Tamiflu November 28. Plan plan: Trazodone 50 mg p.r.n. insomnia. She has not had much sleep. Continue O2, on high-flow 70 L a minute, 50%; sat 96%, bronchodilators. CXR tomorrow. Follow infiltrates. Subjective Date/time seen: 11/29/24 Interval history: 11/29/24; 74 year old female was transferred to IMU from November 28 evening for rapid heart rate. Was admitted 11/27 with bibasilar pneumonia, chest CT Nov 27 confirmed. She is alert, has not been sleeping much. Coughs but is not able to expectorate secretions. Her WBC is increasing daily, today 21.1, same as yesterday. She is currently on treatment with a Zithromax and ceftriaxone. This episode follows influenza a with bacterial pneumonia. She also has A positive blood culture with group a strep. Procalcitonin elevated 12.8. 11/27/24, new consult; 74-year-old female with insulin-dependent diabetes mellitus, hypertension, and hyperlipidemia presented with shortness of breath. According to her history, she had been feeling unwell for about a week before coming to the hospital, experiencing symptoms such as a nonproductive cough, sore throat, congestion, and shortness of breath. She was initially assessed at an urgent care center, where she was diagnosed with pneumonia and hypoxemia, with an oxygen saturation level around 70% on room air. The patient reportedly denied experiencing chest pain, nausea, vomiting, or pedal edema. Upon evaluation in the emergency room, she was found to have bilateral infiltrates and tested positive for influenza A. She is currently being treated with Tamiflu and antibiotics for a possible co-infection. Additionally, she was found to have supraventricular tachycardia and was evaluated by Cardiology Services. She currently requires high FiO2 but does not exhibit significant cough, wheezing, chest pain, or hemoptysis. Today's chest X-ray is more suggestive of pulmonary edema, although pneumonia remains a possibility. She also has small pleural effusions bilaterally. Creatinine going down. DATA * 11/27/[address] : IMPRESSION: 1. Bilateral pneumonia involving the lower lobes, right upper lobe, middle lobe and lingula. 2. Mediastinal lymphadenopathy. 3. Bilateral pleural effusion. I personally looked at the images yesterday; today, the images do not feel like loading. She has significant dense infiltrates both bases and mid right lung. * 11/27 venous dopplers : negative for DVT * November 29 - WBC 21.1; BUN 20, creat 1.28, * (+) Group A strep throat swab and blood culture- Review of Systems Review of Systems: All systems reviewed & are unremarkable except as noted in HPI and below Exam Narrative: GEN: Alert, oriented, not in distress. High flow nasal cannula 50% and 70 liters/minute saturation 96%, high enough that weaning is possible HEENT: pupils are equal, EOMI, symmetrical face NECK: Trachea is midline CHEST: Equal air entry, symmetric excursion, coarse crackles left mid lung field CV: Regular S1S2 no m/g/r ABD : (+) bowel sounds Extremities : no clubbing, cyanosis, or edema PSYCH: normal thought and speech Objective Data Vital Signs Vital Signs: Vital Signs - 24 hr 11/28/24 00:00 11/28/24 01:10 11/28/24 02:19 Temperature 37.0 C Pulse Rate 90 195 H 99 Respiratory Rate 30 H Blood Pressure 100/67 Pulse Oximetry 95 92 Oxygen Delivery High Flow Therapy with Na Oxygen Flow Rate 50 Fraction of Inspired Oxygen 82 11/28/24 04:00 11/28/24 05:12 11/28/24 07:51 Temperature 36.8 C Pulse Rate 90 95 Respiratory Rate 20 Blood Pressure 153/75 H Pulse Oximetry 96 97 Oxygen Delivery High Flow Therapy with Na Oxygen Flow Rate 50 Fraction of Inspired Oxygen 73 11/28/24 08:00 11/28/24 08:59 11/28/24 09:10 Temperature Pulse Rate 93 88 Respiratory Rate Blood Pressure Pulse Oximetry 93 Oxygen Delivery High Flow Therapy with Na Oxygen Flow Rate 50 Fraction of Inspired Oxygen 72 11/28/24 12:00 11/28/24 13:54 11/28/24 14:00 Temperature 36.8 C Pulse Rate 78 94 Respiratory Rate 32 H Blood Pressure 106/34 L Pulse Oximetry 92 100 Oxygen Delivery High Flow Therapy with Na Oxygen Flow Rate 50 Fraction of Inspired Oxygen 72 11/28/24 16:00 11/28/24 17:00 11/28/24 17:31 Temperature Pulse Rate 100 170 H 191 H Respiratory Rate 32 H Blood Pressure 122/79 Pulse Oximetry 98 Oxygen Delivery Oxygen Flow Rate Fraction of Inspired Oxygen 11/28/24 17:32 11/28/24 18:00 11/28/24 18:14 Temperature Pulse Rate 91 95 96 Respiratory Rate 20 Blood Pressure Pulse Oximetry 95 Oxygen Delivery High Flow Therapy with Na Oxygen Flow Rate 50 Fraction of Inspired Oxygen 11/28/24 18:20 11/28/24 20:00 Temperature 37.4 C 37.7 C H Pulse Rate 96 92 Respiratory Rate 20 20 Blood Pressure 139/52 L 155/62 H Pulse Oximetry 95 93 Oxygen Delivery Oxygen Flow Rate Fraction of Inspired Oxygen Intake/Output Intake/Output: Intake & Output 11/25/24 11/26/24 11/27/24 11/28/24 23:59 23:59 23:59 23:59 Intake Total 3750 979 522 1760 Output Total 1 Balance 3750 141 026 4535 Meds/Results Medications: Active Medications Generic Name Dose Route Start Last Admin Trade Name Freq PRN Reason Stop Dose Admin Acetaminophen 650 mg 11/23/24 16:54 Acetaminophen 325 Mg Tablet PO Q4H PRN Mild Pain (1-3) or Fever Benzocaine 1 lozenge 11/23/24 21:50 Benzocaine/Menthol (*Bkc) 18 Ea Lozenge PO PRN PRN Sore Throat Dextrose 12.5 gm 11/23/24 22:59 Dextrose 50% 25 Gm/50 Ml Syringe IV PUSH PRN PRN Hypoglycemia Protocol Enoxaparin Sodium 40 mg 11/24/24 09:00 11/28/24 09:10 Enoxaparin 40 Mg/0.4 Ml Syringe SUB-Q 40 mg DAILY SUZI Administration Furosemide 40 mg 11/28/24 09:00 11/28/24 10:38 Furosemide Inj 40 Mg/4 Ml Vial IV PUSH 40 mg DAILY SUZI Administration Glucagon 1 mg 11/23/24 22:59 Glucagon For Inj 1 Mg Vial IM PRN PRN Hypoglycemia Protocol Glucose 15 gm 11/23/24 22:59 Glucose Oral Gel 15 Gm Of Glucse In 37.5 Gm Tube PO PRN PRN Hypoglycemia Protocol Dextrose 1,000 mls @ 100 mls/hr 11/23/24 22:59 Dextrose 5% 1,000 Ml IVPB PRN PRN Hypoglycemia Protocol Insulin Aspart 3 - 6 units 11/24/24 08:00 11/28/24 17:10 Insulin Aspart (*Bkc) 100 Units/Ml SUB-Q Not Given TIDWM [facility] Protocol Insulin Aspart 1 - 3 units 11/24/24 21:00 11/28/24 20:10 Insulin Aspart (*Bkc) 100 Units/Ml SUB-Q Not Given HS [facility] Protocol Insulin Glargine 30 units 11/24/24 18:00 11/28/24 19:25 Insulin Glargine (*Bkc) 100 Units/Ml SUB-Q 30 units QPM SUZI Administration Ipratropium [place] 0.5 mg 11/28/24 14:00 Ipratropium Br 0.02% Inh Soln 0.5 Mg/2.5 Ml Vial INHALATION Q4HRT PRN Wheezing Levalbuterol HCl 1.25 mg 11/28/24 14:00 Levalbuterol Neb 1.25 Mg/3 Ml INHALATION Q6HRT PRN Wheezing Lovastatin 40 mg 11/24/24 09:00 11/28/24 09:09 Lovastatin 20 Mg Tablet PO 40 mg DAILY SUZI Administration Metoprolol Succinate 25 mg 11/27/24 09:00 11/28/24 08:59 Metoprolol Succinate Ext Rel 25 Mg Tabcr PO 25 mg QAM SUZI Administration Perflutren Lipid Microsphere 0 ml 11/27/24 07:56 Perflutren Lipid Microspheres 1.5 Ml Vial Diluted To 10 Ml Total Volume IV PUSH 11/30/24 07:57 ONCE PRN adequate visualization Protocol Potassium Chloride 40 meq 11/25/24 09:00 11/28/24 09:09 Potassium Chloride 20 Meq Packet (For Liquid) PO 12/01/24 09:00 40 meq DAILY SUZI Administration Radiology Results: ITS Impressions Chest X-Ray 11/26/24 07:14 Impression: 1: Extensive bilateral airspace disease has progressed, most likely edema versus pneumonia. Venous Doppler Study 11/27/24 10:00 IMPRESSION: 1. No deep venous thrombosis. Chest CT 11/27/24 19:14 IMPRESSION: 1. Bilateral pneumonia involving the lower lobes, right upper lobe, middle lobe and lingula. 2. Mediastinal lymphadenopathy. 3. Bilateral pleural effusion. Labs Labs: Laboratory Results - last 24 hr 11/24/24 11/27/24 11/28/24 05:08 19:57 05:18 WBC 21.1 H RBC 2.47 L Hgb 7.4 L Hct 23.3 L MCV 94.3 MCH 30.0 MCHC 31.8 L RDW 13.2 Plt Count 300 MPV 9.9 Sodium 134 L Potassium 3.9 Chloride 103 Carbon Dioxide 24 Anion Gap 7 BUN 18 H Creatinine 1.14 H Estim Creat Clear Calc 41 Estimated GFR 47 L Glucose 100 POC Capillary Glucose 137 H Calcium 9.3 Ur L.pneumophila Ag Not detected 11/28/24 11/28/24 11/28/24 08:38 12:10 17:10 WBC RBC Hgb Hct MCV MCH MCHC RDW Plt Count MPV Sodium Potassium Chloride Carbon Dioxide Anion Gap BUN Creatinine Estim Creat Clear Calc Estimated GFR Glucose POC Capillary Glucose 79 118 H 142 H Calcium Ur L.pneumophila Ag 11/28/24 19:40 WBC RBC Hgb Hct MCV MCH MCHC RDW Plt Count MPV Sodium Potassium Chloride Carbon Dioxide Anion Gap BUN Creatinine Estim Creat Clear Calc Estimated GFR Glucose POC Capillary Glucose 177 H Calcium Ur L.pneumophila Ag
[2024-11-29] MEDS: traZODone HCL 50 MG TABLET PO (21:19)
[2024-11-29 21:29] LABS: Glucose Point of Care 213 mg/dl (65-105)
[2024-11-30] VITALS (25 sets, daily range): BP systolic 116–148; BP diastolic 45–87; PULSE 75–95; RESP 16–24; TEMP 36.3–37; O2SAT 93–100
[2024-11-30 08:24] LABS: Glucose Point of Care 69 mg/dl (65-105)
[2024-11-30] MEDS: ENOXAPARIN 40 MG/0.4 ML SYRINGE SUB-Q (09:00)
[2024-11-30] MEDS: METOPROLOL SUCCINATE EXT REL 25 MG TABCR PO (09:00)
[2024-11-30] MEDS: LOVASTATIN 20 MG TABLET 40 MG PO (09:00)
[2024-11-30] MEDS: FUROSEMIDE INJ 40 MG/4 ML VIAL IV PUSH (09:02)
[2024-11-30] MEDS: CEFEPIME 2 GM/NS 50 ML 2 GM/50 ML BAG IVPB ×2 (09:03→22:00)
--- NOTE | 2024-11-30 10:02 | PM.IMPN ---
Progress Note: A&P Assessment and Plan (1) Anemia: Code(s): D64.9 - Anemia, unspecified Status: Acute Assessment and Plan: acute on chronic likely due to CKD No signs of acute bleeding / transfuse 1 unit RBCs, repeat H&H after Q 12 IR H&H Transfuse for hemoglobin less than 7 or symptomatic Anemia workup Stool Occult blood pending (2) Acute hypoxic respiratory failure: Code(s): J96.01 - Acute respiratory failure with hypoxia Status: Acute Assessment and Plan: Patient sent to ED from urgent care for pneumonia with hypoxia spo2 70% on RA. In the ED spo2 93% on 4L NC. baseline RA - ABG on 4L NC showing respiratory alkalosis: pH 7.514, pCO2 31.7, pO2 56.6, HCO3 25 - Chest XR: Segmental left lower lung atelectasis/consolidation, overlying a background of interstitial edema. Blood cultures pending Sputum cultures pending 11/26 consulted pulm for further recommendations. 11/27 chest xray-possible pulm edema CT without contrast was ordered- to r/o pneumonia vs chf 11/28- pulm following. able to titrate oxygen requirements down- 50l, fio2 72%. continue tx. ambulate as able, IS. 11/29 moved to IMU for wide complex tachycardia rate 186 (3) Pneumonia: Code(s): J18.9 - Pneumonia, unspecified organism Status: Acute Assessment and Plan: - Chest XR: Segmental left lower lung atelectasis/consolidation, overlying a background of interstitial edema. - WBC WNL however procal 12.8, being treated for bacterial pneumonia - started on CAP tx: azithromycin ceftriaxone - Oxygen supplementation: 4L NC, baseline RA. Wean oxygen as tolerated. - Viral PCR: Flu - Sputum culture ordered - Legionella, mycoplasma, and pneumococcal ordered - MRSA negative - Continue scheduled bronchodilators. - Monitor vital signs, I&Os, neuro status and patient is a fall risk - Follow WBC, serum electrolytes, temperature curves and cultures 11/25 ceftriaxone dose is adjsted to 2 gm 11/26 blood cultures no growth today 11/26- wbc worsening. still requiring oxygen. waiting for pulm recommendation but will change antibiotics to cefepime 11/28- continue cefepime. will stop vanc as mRSA negative 11/29- noted antibiotic fell out of mars for some reason- cefepime re ordered. (4) Bacteremia: Code(s): R78.81 - Bacteremia Status: Acute Assessment and Plan: positive BC-group A streptococcus discussed with pharm ID- will continue ceftriaxone but increase dose to 2 gm - switched to cefepime , initially vanc was added but stopped as pt mrsa negative continue cefepime-renally dosed per pharmacy WBC stable- peaked at 21.1 for last two days 11/26 blood cultures no growth today (5) SVT (supraventricular tachycardia): Code(s): I47.10 - Supraventricular tachycardia, unspecified Status: Acute Assessment and Plan: 11/29- last night had sustained episode of rapid heart rate- converted back to NSR with IV metoprolol 5 mg Moved to IMU for close monitoring card was consulted metoprolol added (6) Acute kidney injury: Code(s): N17.9 - Acute kidney failure, unspecified Status: Acute Assessment and Plan: BUN/Cr 32/1.48 on admission, unknown baseline Denies history of kidney disease thus presumably this is an acute kidney injury, likely due to decreased oral intake and dehydration. - BUN/Cr 30/1.45 on am labs - NS 100 ml/hr - Holding losartan-HCTZ for FE, resume when appropriate - Renally dose medications - Avoid nephrotoxic medications - Monitor I/O - lasix was started last night for christo pleural effusion with reported good output (not charted) (7) Insulin dependent diabetes mellitus: Status: Acute Assessment and Plan: Patient states that she has not taken her lantus 65 units in over week as she has not been eating. Will decrease her lantus to 30 units and continue to monitor and adjust according to glucose levels. - hypoglycemia protocol - POC blood glucose ACHS - home medication - lantus 65 units, tradjenta 5 mg, metformin 500 mg BID - correct regimen ordered - lantus 30 units, januvia, and SSI - A1C 8.4 (8) Influenza A: Code(s): J10.1 - Influenza due to other identified influenza virus with other respiratory manifestations Status: Acute Assessment and Plan: Viral panel: Flu A Tamiflu 11/23-11/28 completed treatment (9) Hypertension: Code(s): I10 - Essential (primary) hypertension Status: Acute Assessment and Plan: chronic - losartan-HCTZ on hold for FE, resume when appropriate - blood pressures remain stable, continue to monitor (10) Elevated troponin: Code(s): R79.89 - Other specified abnormal findings of blood chemistry Status: Acute Assessment and Plan: see above (11) Pleural effusion: Code(s): J90 - Pleural effusion, not elsewhere classified Status: Acute Assessment and Plan: ulm edema/effusion vs pneumonia vs chf chest xray was done ct chest 11/27 IMPRESSION: 1. Bilateral pneumonia involving the lower lobes, right upper lobe, middle lobe and lingula. 2. Mediastinal lymphadenopathy. 3. Bilateral pleural effusion. ECho was done on 11/27- EF 55-60%, Summary 1. Complete two-dimensional, color flow and Doppler transthoracic echocardiogram is performed. 2. Mild concentric LVH with preserved systolic function and grade 1 diastolic noncompliance. 3. Mild mitral annular calcification. 4. No valvular dysfunction. 5. Trileaflet aortic valve with mild sclerosis and well maintained leaflet excursion. -added lasix 40 mg IV- monitor closely I/O and kidney function - cardiology following- appreciate recommendations Time Spent With Patient Time with patient: Greater than 35 minutes Subjective Date/time seen: 11/30/24 10:02 Interval history: 74 year old female was transferred to IMU from November 28 evening for rapid heart rate. Was admitted 11/27 with bibasilar pneumonia, chest CT Nov 27 confirmed. coughs but is not able to expectorate secretions. Patient complains of a earache, states that her breathing is about the same as yesterday Review of Systems Review of Systems: 12 systems were reviewed and are negative except for as per HPI. All systems reviewed & are unremarkable except as noted in HPI and below Exam Narrative: General: well appearing, appears stated age. HEENT: normocephalic, atraumatic. Mucous membranes moist. EOMI, PERRLA, bilateral sclera anicteric, no conjunctival injection. Neck supple without JVD, lymphadenopathy, or bruit. Respiratory: clear to ascultation bilaterally. No rales/rhonic/wheezes. Cardiovascular: Regular rate and rhythm, normal S1-S2 upon ascultation. No murmurs, rubs, or clicks. PMI is nondisplaced, capillary refill less than 3 second. Abdomen: Soft, round, no pulsatile masses, nondistended and nontender. No rebound, no guarding. No CVA tenderness, no hepatosplenomegaly. Bowel sounds present to all four quadrants. No high pitch or tinkling sounds, resonant to percussion. Extremities: No cyanosis, clubbing,. Pulses are palpable 2/2. Active ROM to all four extremities. 1+ edema hands Neuro: Alert and orientated x 4. PERRLA. Cranial nerves 2-12 intact without focal deficit. Skin: Warm, dry, and intact, without rash, erythema, or lesion. Psych: pleasant, cooperative, normal speech, normal affect, no hallucinations, no dysarthia High-flow oxygen Objective Data Vital Signs Vital Signs: Vital Signs - 24 hr 11/29/24 11:25 11/29/24 12:00 11/29/24 12:00 Temperature 98.0 F Pulse Rate 86 Respiratory Rate 32 H Blood Pressure 122/58 L Pulse Oximetry 95 96 97 Oxygen Delivery High Flow Therapy with Na High Flow Therapy with Na Oxygen Flow Rate 50 50 Fraction of Inspired Oxygen 60 73 11/29/24 12:00 11/29/24 14:00 11/29/24 16:00 Temperature Pulse Rate 91 92 Respiratory Rate Blood Pressure Pulse Oximetry 96 Oxygen Delivery High Flow Therapy with Na Oxygen Flow Rate 50 Fraction of Inspired Oxygen 73 11/29/24 16:00 11/29/24 16:00 11/29/24 18:00 Temperature 99.2 F Pulse Rate 89 86 97 Respiratory Rate 20 Blood Pressure 134/56 L Pulse Oximetry 97 Oxygen Delivery Oxygen Flow Rate Fraction of Inspired Oxygen 11/29/24 20:00 11/29/24 20:00 11/29/24 20:00 Temperature 97.7 F Pulse Rate 88 86 Respiratory Rate 26 H Blood Pressure 153/54 H Pulse Oximetry 91 93 Oxygen Delivery High Flow Therapy with Na Oxygen Flow Rate 50 Fraction of Inspired Oxygen 60 11/29/24 20:29 11/29/24 22:00 11/30/24 00:00 Temperature 98.5 F Pulse Rate 92 90 Respiratory Rate 22 H Blood Pressure 135/87 Pulse Oximetry 93 94 Oxygen Delivery High Flow Therapy with Na Oxygen Flow Rate 50 Fraction of Inspired Oxygen 60 11/30/24 00:00 11/30/24 00:00 11/30/24 01:55 Temperature Pulse Rate 75 87 Respiratory Rate Blood Pressure Pulse Oximetry 96 Oxygen Delivery High Flow Therapy with Na Oxygen Flow Rate 50 Fraction of Inspired Oxygen 60 11/30/24 04:00 11/30/24 04:00 11/30/24 04:00 Temperature 98.1 F Pulse Rate 87 92 Respiratory Rate 20 Blood Pressure 126/64 Pulse Oximetry 95 98 Oxygen Delivery High Flow Therapy with Na Oxygen Flow Rate 50 Fraction of Inspired Oxygen 60 11/30/24 05:59 11/30/24 08:00 11/30/24 08:30 Temperature 98.2 F Pulse Rate 85 91 Respiratory Rate 20 Blood Pressure 142/52 H Pulse Oximetry 95 93 Oxygen Delivery High Flow Therapy with Na Oxygen Flow Rate 50 Fraction of Inspired Oxygen 60 11/30/24 09:00 Temperature Pulse Rate 94 Respiratory Rate Blood Pressure Pulse Oximetry Oxygen Delivery Oxygen Flow Rate Fraction of Inspired Oxygen Intake/Output Intake/Output: Intake & Output 11/27/24 11/28/24 11/29/24 11/30/24 23:59 23:59 23:59 23:59 Intake Total 987 1050 1000 250 Output Total 1 901 Balance 986 1050 99 250 Meds/Results Medications: Active Medications Generic Name Dose Route Start Last Admin Trade Name Freq PRN Reason Stop Dose Admin Acetaminophen 650 mg 11/23/24 16:54 Acetaminophen 325 Mg Tablet PO Q4H PRN Mild Pain (1-3) or Fever Benzocaine 1 lozenge 11/23/24 21:50 Benzocaine/Menthol (*Bkc) 18 Ea Lozenge PO PRN PRN Sore Throat Dextrose 12.5 gm 11/23/24 22:59 Dextrose 50% 25 Gm/50 Ml Syringe IV PUSH PRN PRN Hypoglycemia Protocol Enoxaparin Sodium 40 mg 11/24/24 09:00 11/29/24 08:32 Enoxaparin 40 Mg/0.4 Ml Syringe SUB-Q 40 mg DAILY SUZI Administration Furosemide 40 mg 11/28/24 09:00 11/30/24 09:02 Furosemide Inj 40 Mg/4 Ml Vial IV PUSH 40 mg DAILY SUZI Administration Glucagon 1 mg 11/23/24 22:59 Glucagon For Inj 1 Mg Vial IM PRN PRN Hypoglycemia Protocol Glucose 15 gm 11/23/24 22:59 Glucose Oral Gel 15 Gm Of Glucse In 37.5 Gm Tube PO PRN PRN Hypoglycemia Protocol Dextrose 1,000 mls @ 100 mls/hr 11/23/24 22:59 Dextrose 5% 1,000 Ml IVPB PRN PRN Hypoglycemia Protocol Cefepime HCl 2 gm in 50 mls @ 100 mls/hr 11/29/24 09:00 11/30/24 09:03 Maxipime 2 Gm/Ns 50 Ml IVPB 100 mls/hr Q12HR SUZI Administration Insulin Aspart 3 - 6 units 11/24/24 08:00 11/29/24 17:24 Insulin Aspart (*Bkc) 100 Units/Ml SUB-Q Not Given TIDWM SUZI Protocol Insulin Aspart 1 - 3 units 11/24/24 21:00 11/29/24 21:20 Insulin Aspart (*Bkc) 100 Units/Ml SUB-Q Not Given HS SUZI Protocol Insulin Glargine 30 units 11/24/24 18:00 11/29/24 17:25 Insulin Glargine (*Bkc) 100 Units/Ml SUB-Q 30 units QPM SUZI Administration Ipratropium [place] 0.5 mg 11/28/24 14:00 Ipratropium Br 0.02% Inh Soln 0.5 Mg/2.5 Ml Vial INHALATION Q4HRT PRN Wheezing Levalbuterol HCl 1.25 mg 11/28/24 14:00 Levalbuterol Neb 1.25 Mg/3 Ml INHALATION Q6HRT PRN Wheezing Lovastatin 40 mg 11/24/24 09:00 11/30/24 09:00 Lovastatin 20 Mg Tablet PO 40 mg DAILY SUZI Administration Metoprolol Succinate 25 mg 11/27/24 09:00 11/30/24 09:00 Metoprolol Succinate Ext Rel 25 Mg Tabcr PO 25 mg QAM SUZI Administration Potassium Chloride 40 meq 11/25/24 09:00 11/29/24 08:32 Potassium Chloride 20 Meq Packet (For Liquid) PO 12/01/24 09:00 40 meq DAILY SUZI Administration Trazodone HCl 50 mg 11/29/24 18:53 11/29/24 21:19 Trazodone Hcl 50 Mg Tablet PO 50 mg HS PRN Administration Insomnia Radiology Results: ITS Impressions Chest X-Ray 11/26/24 07:14 Impression: 1: Extensive bilateral airspace disease has progressed, most likely edema versus pneumonia. Venous Doppler Study 11/27/24 10:00 IMPRESSION: 1. No deep venous thrombosis. Chest CT 11/27/24 19:14 IMPRESSION: 1. Bilateral pneumonia involving the lower lobes, right upper lobe, middle lobe and lingula. 2. Mediastinal lymphadenopathy. 3. Bilateral pleural effusion. Labs Labs: Laboratory Results - last 24 hr 11/29/24 11/29/24 11/29/24 10:03 11:47 15:54 ESR > 140 H POC Capillary Glucose 159 H 162 H Free T4 1.53 Free T3 pg/mL 2.20 L 11/29/24 11/30/24 20:50 07:47 ESR POC Capillary Glucose 213 H 69 Free T4 Free T3 pg/mL Quality VTE Prophylaxis VTE prophylaxis: pharmacologic ordered If No VTE Prophylaxis Answer both mechanical and pharmacologic: Reason no pharmacologic proph: medical contraindication active bleeding/bleeding risk
--- NOTE | 2024-11-30 10:07 | P.PNPL_ITS ---
Progress Note: A&P Assessment and Plan (1) Acute hypoxemic respiratory failure: Code(s): J96.01 - Acute respiratory failure with hypoxia Status: Acute Assessment and Plan: This 74-year-old female presented with an acute respiratory illness that had persisted for several days prior to this hospitalization. Diagnostic studies have indicated influenza A, with a possible lower respiratory tract infection due to either the virus itself or a bacterial co-infection following the influenza. Her chest X-ray reveals bilateral infiltrates and small pleural effusions, which are suggestive of possible pulmonary edema. Notably, the patient was recently evaluated by Cardiology Services for supraventricular tachycardia, and her BNP levels have increased since the initial testing upon admission. Chest CT showed bilateral lower lobe consolidation as well as infiltrate with air bronchograms and small pleural effusions favoring bilateral pneumonia more so than pulmonary edema. The patient is currently on high-flow nasal cannula with no significant complaints such as shortness of breath fever chills hemoptysis or wheezing.. She does not look septic. Plan: Will repeat chest x-ray CRP and CBC as last WBC was elevated over 20,000. Added doxycycline IV to current regimen. Add incentive spirometry. (2) Pneumonia: Code(s): J18.9 - Pneumonia, unspecified organism Status: Acute (3) Pleural effusion: Code(s): J90 - Pleural effusion, not elsewhere classified Status: Acute (4) Influenza A: Code(s): J10.1 - Influenza due to other identified influenza virus with other respiratory manifestations Status: Acute Subjective Date/time seen: 11/30/24 10:07 Interval history: Patient stated she is doing better. She has mild cough no sputum production no shortness of breath while in bed no fever chills hemoptysis no wheezing no lower extremity edema. She received treatment with cefepime for post viral bacterial coinfection. She still receiving supplemental oxygen via nasal cannula at relatively high FiO2. Review of Systems Review of Systems: All systems reviewed & are unremarkable except as noted in HPI and below (HPI and below) Exam Narrative: GENERAL APPEARANCE: Well developed, well nourished, alert and cooperative, and appears to be in in mild respiratory distress while on supplemental oxygen SKIN: Inspection of the skin reveals no rashes, ulcerations or petechiae. HEENT: Sclerae anicteric and conjunctivae pink and moist. Extraocular movements were intact and pupils were equal, round, and reactive to light. The oral mucosa, hard and soft palate, tongue and posterior pharynx were normal. NECK: Supple. There was no thyroid enlargement, and no tenderness, or masses were felt. CHEST: Normal AP diameter and normal contour without any kyphoscoliosis. LUNGS: Crackles at bases bilaterally, no wheezing CARDIAC: There was a regular rate and rhythm without any murmurs, gallops, rubs. ABDOMEN: Soft and nontender with normal bowel sounds. There was no organomegaly. LYMPH NODES: No lymphadenopathy was appreciated in the neck EXTREMITIES: No cyanosis, clubbing or edema. NEUROLOGIC: Alert and oriented x 3. Normal affect. Objective Data Vital Signs Vital Signs: Vital Signs - 24 hr 11/29/24 11:25 11/29/24 12:00 11/29/24 12:00 Temperature 36.7 C Pulse Rate 86 Respiratory Rate 32 H Blood Pressure 122/58 L Pulse Oximetry 95 96 97 Oxygen Delivery High Flow Therapy with Na High Flow Therapy with Na Oxygen Flow Rate 50 50 Fraction of Inspired Oxygen 60 73 11/29/24 12:00 11/29/24 14:00 11/29/24 16:00 Temperature Pulse Rate 91 92 Respiratory Rate Blood Pressure Pulse Oximetry 96 Oxygen Delivery High Flow Therapy with Na Oxygen Flow Rate 50 Fraction of Inspired Oxygen 73 11/29/24 16:00 11/29/24 16:00 11/29/24 18:00 Temperature 37.3 C Pulse Rate 89 86 97 Respiratory Rate 20 Blood Pressure 134/56 L Pulse Oximetry 97 Oxygen Delivery Oxygen Flow Rate Fraction of Inspired Oxygen 11/29/24 20:00 11/29/24 20:00 11/29/24 20:00 Temperature 36.5 C Pulse Rate 88 86 Respiratory Rate 26 H Blood Pressure 153/54 H Pulse Oximetry 91 93 Oxygen Delivery High Flow Therapy with Na Oxygen Flow Rate 50 Fraction of Inspired Oxygen 60 11/29/24 20:29 11/29/24 22:00 11/30/24 00:00 Temperature 36.9 C Pulse Rate 92 90 Respiratory Rate 22 H Blood Pressure 135/87 Pulse Oximetry 93 94 Oxygen Delivery High Flow Therapy with Na Oxygen Flow Rate 50 Fraction of Inspired Oxygen 60 11/30/24 00:00 11/30/24 00:00 11/30/24 01:55 Temperature Pulse Rate 75 87 Respiratory Rate Blood Pressure Pulse Oximetry 96 Oxygen Delivery High Flow Therapy with Na Oxygen Flow Rate 50 Fraction of Inspired Oxygen 60 11/30/24 04:00 11/30/24 04:00 11/30/24 04:00 Temperature 36.7 C Pulse Rate 87 92 Respiratory Rate 20 Blood Pressure 126/64 Pulse Oximetry 95 98 Oxygen Delivery High Flow Therapy with Na Oxygen Flow Rate 50 Fraction of Inspired Oxygen 60 11/30/24 05:59 11/30/24 08:00 11/30/24 08:30 Temperature 36.8 C Pulse Rate 85 91 Respiratory Rate 20 Blood Pressure 142/52 H Pulse Oximetry 95 93 Oxygen Delivery High Flow Therapy with Na Oxygen Flow Rate 50 Fraction of Inspired Oxygen 60 11/30/24 09:00 Temperature Pulse Rate 94 Respiratory Rate Blood Pressure Pulse Oximetry Oxygen Delivery Oxygen Flow Rate Fraction of Inspired Oxygen Intake/Output Intake/Output: Intake & Output 11/27/24 11/28/24 11/29/24 11/30/24 23:59 23:59 23:59 23:59 Intake Total 987 1050 1000 250 Output Total 1 901 Balance 986 1050 99 250 Meds/Results Medications: Active Medications Generic Name Dose Route Start Last Admin Trade Name Freq PRN Reason Stop Dose Admin Acetaminophen 650 mg 11/23/24 16:54 Acetaminophen 325 Mg Tablet PO Q4H PRN Mild Pain (1-3) or Fever Benzocaine 1 lozenge 11/23/24 21:50 Benzocaine/Menthol (*Bkc) 18 Ea Lozenge PO PRN PRN Sore Throat Dextrose 12.5 gm 11/23/24 22:59 Dextrose 50% 25 Gm/50 Ml Syringe IV PUSH PRN PRN Hypoglycemia Protocol Enoxaparin Sodium 40 mg 11/24/24 09:00 11/29/24 08:32 Enoxaparin 40 Mg/0.4 Ml Syringe SUB-Q 40 mg DAILY SUZI Administration Furosemide 40 mg 11/28/24 09:00 11/30/24 09:02 Furosemide Inj 40 Mg/4 Ml Vial IV PUSH 40 mg DAILY SUZI Administration Glucagon 1 mg 11/23/24 22:59 Glucagon For Inj 1 Mg Vial IM PRN PRN Hypoglycemia Protocol Glucose 15 gm 11/23/24 22:59 Glucose Oral Gel 15 Gm Of Glucse In 37.5 Gm Tube PO PRN PRN Hypoglycemia Protocol Dextrose 1,000 mls @ 100 mls/hr 11/23/24 22:59 Dextrose 5% 1,000 Ml IVPB PRN PRN Hypoglycemia Protocol Cefepime HCl 2 gm in 50 mls @ 100 mls/hr 11/29/24 09:00 11/30/24 09:03 Maxipime 2 Gm/Ns 50 Ml IVPB 100 mls/hr Q12HR SUZI Administration Doxycycline Hyclate 100 mg in 100 mls @ 100 mls/hr 11/30/24 10:05 Vibramycin 100 Mg/Ns 100 Ml IVPB Q12HR SUZI Insulin Aspart 3 - 6 units 11/24/24 08:00 11/29/24 17:24 Insulin Aspart (*Bkc) 100 Units/Ml SUB-Q Not Given TIDWM [facility] Protocol Insulin Aspart 1 - 3 units 11/24/24 21:00 11/29/24 21:20 Insulin Aspart (*Bkc) 100 Units/Ml SUB-Q Not Given HS [facility] Protocol Insulin Glargine 30 units 11/24/24 18:00 11/29/24 17:25 Insulin Glargine (*Bkc) 100 Units/Ml SUB-Q 30 units QPM SUZI Administration Ipratropium [place] 0.5 mg 11/28/24 14:00 Ipratropium Br 0.02% Inh Soln 0.5 Mg/2.5 Ml Vial INHALATION Q4HRT PRN Wheezing Levalbuterol HCl 1.25 mg 11/28/24 14:00 Levalbuterol Neb 1.25 Mg/3 Ml INHALATION Q6HRT PRN Wheezing Lovastatin 40 mg 11/24/24 09:00 11/30/24 09:00 Lovastatin 20 Mg Tablet PO 40 mg DAILY SUZI Administration Metoprolol Succinate 25 mg 11/27/24 09:00 11/30/24 09:00 Metoprolol Succinate Ext Rel 25 Mg Tabcr PO 25 mg QAM SUZI Administration Potassium Chloride 40 meq 11/25/24 09:00 11/29/24 08:32 Potassium Chloride 20 Meq Packet (For Liquid) PO 12/01/24 09:00 40 meq DAILY SUZI Administration Trazodone HCl 50 mg 11/29/24 18:53 11/29/24 21:19 Trazodone Hcl 50 Mg Tablet PO 50 mg HS PRN Administration Insomnia Radiology Results: ITS Impressions Chest X-Ray 11/26/24 07:14 Impression: 1: Extensive bilateral airspace disease has progressed, most likely edema versus pneumonia. Venous Doppler Study 11/27/24 10:00 IMPRESSION: 1. No deep venous thrombosis. Chest CT 11/27/24 19:14 IMPRESSION: 1. Bilateral pneumonia involving the lower lobes, right upper lobe, middle lobe and lingula. 2. Mediastinal lymphadenopathy. 3. Bilateral pleural effusion. Labs Labs: Laboratory Results - last 24 hr 11/29/24 11/29/24 11/29/24 10:03 11:47 15:54 ESR > 140 H POC Capillary Glucose 159 H 162 H Free T4 1.53 Free T3 pg/mL 2.20 L 11/29/24 11/30/24 20:50 07:47 ESR POC Capillary Glucose 213 H 69 Free T4 Free T3 pg/mL
[2024-11-30 10:23] LABS: Basophils Absolute Auto 0.1 K/mm3 (0.0-0.1); Basophils Percent Auto 0.2 % (0.2-1.2); Eosinophils Percent Auto 0.1 % (0-4.4); Hematocrit 22.2 % (37.0-47.0); Immature Granulocyte Absolute 0.93 K/mm3 (0.00-0.031); Immature Granulocyte Percent A 4.3 % (0-0.5); Lymphocytes Percent Auto 7.8 % (18.3-44.2); Mean Corpuscular HGB Conc 31.1 g/dl (32-36); Mean Corpuscular Volume 96.5 fl (80-100); Mean Platelet Volume 9.9 fl (7.4-10.4); Monocytes Absolute Auto 0.7 K/mm3 (0.1-0.6); Monocytes Percent Auto 3.3 % (2.6-8.5); Neutrophils Absolute Auto 18.2 K/mm3 (1.3-6.7); Neutrophils Percent Auto 84.3 % (45.5-73.1); Platelet Count Result 511 k/mm3 (150-375); Red Cell Distribution Width 13.4 % (11.5-14.5); White Blood Count 21.7 K/mm3 (4.5-10.0)
[2024-11-30] MEDS: POTASSIUM CHLORIDE 20 MEQ PACKET (FOR LIQUID) 40 MEQ PO (10:30)
[2024-11-30 10:31] LABS: Anion Gap 11 mmol/L (4-12); Blood Urea Nitrogen 22 mg/dL (7-17); Calcium 9.1 mg/dL (8.4-10.2); Carbon Dioxide 23 mmol/L (22-30); Chloride 99 mmol/L (98-107); Estimated CRCL calculation 39 ml/min; Estimated Glomerular Filt Rate 44; Glucose 120 mg/dL (65-110); Potassium 4.4 mmol/L (3.4-5.0); Sodium 133 mmol/L (137-145)
[2024-11-30 10:46] LABS: Hemoglobin 6.9 g/dL (12.0-15.0)
[2024-11-30 10:49] LABS: Hypochromasia 1+; Platelet Estimate Slightly Increased (Adequate); Schistocytes None Seen
[2024-11-30 11:33] LABS: CRP 22.4 mg/dL (<1.0)
[2024-11-30] MEDS: IPRATROPIUM BR 0.02% INH SOLN 0.5 MG/2.5 ML VIAL INHALATION (12:10)
[2024-11-30 12:17] LABS: Glucose Point of Care 104 mg/dl (65-105)
[2024-11-30 16:43] LABS: Glucose Point of Care 87 mg/dl (65-105)
[2024-11-30] MEDS: guaiFENesin/DEXTROMETHORPHAN 10 ML UDC PO ×3 (17:06→21:58)
[2024-11-30] MEDS: SODIUM CHLORIDE 0.9% IV 250 ML 30 ML IV CONT (17:07)
[2024-11-30] MEDS: INSULIN GLARGINE (*BKC) 100 UNITS/ML 30 UNITS SUB-Q (18:45)
[2024-11-30 19:12] LABS: Iron 34 ug/dL (37-170)
[2024-11-30 19:42] LABS: Percent Iron Saturation 20 % (20-50)
[2024-11-30] MEDS: levoFLOXacin 750 MG/D5W 150 ML 750 MG/150 ML BAG 100 MG IVPB (20:17)
[2024-11-30 20:59] LABS: Glucose Point of Care 144 mg/dl (65-105)
[2024-11-30 21:47] LABS: Ferritin > 2000.00 ng/mL (11.1-264)
[2024-11-30] MEDS: traZODone HCL 50 MG TABLET PO (21:58)
[2024-11-30 22:56] LABS: Hematocrit 22.1 % (37.0-47.0); Hemoglobin 7.2 g/dL (12.0-15.0)
[2024-11-30 23:50] LABS: Folic Acid 10.3 ng/mL (2.76->20)
[2024-12-01] VITALS (20 sets, daily range): BP systolic 108–134; BP diastolic 47–83; PULSE 75–97; RESP 18–22; TEMP 36.4–36.8; O2SAT 91–98
[2024-12-01 08:08] LABS: Glucose Point of Care 108 mg/dl (65-105)
[2024-12-01 08:22] LABS: Basophils Percent Auto 0.2 % (0.2-1.2); Eosinophils Percent Auto 0.2 % (0-4.4); Hematocrit 22.5 % (37.0-47.0); Hemoglobin 7.1 g/dL (12.0-15.0); Immature Granulocyte Absolute 0.56 K/mm3 (0.00-0.031); Lymphocytes Absolute Auto 1.91 K/mm3 (0.9-3.2); Lymphocytes Percent Auto 10.2 % (18.3-44.2); Mean Corpuscular HGB Conc 31.6 g/dl (32-36); Mean Corpuscular Hemoglobin 29.8 pg (26-34); Mean Corpuscular Volume 94.5 fl (80-100); Mean Platelet Volume 9.5 fl (7.4-10.4); Monocytes Absolute Auto 0.8 K/mm3 (0.1-0.6); Monocytes Percent Auto 4.4 % (2.6-8.5); Neutrophils Absolute Auto 15.4 K/mm3 (1.3-6.7); Platelet Count Result 497 k/mm3 (150-375); Red Blood Count 2.38 M/mm3 (4.2-5.4); Red Cell Distribution Width 15.8 % (11.5-14.5); White Blood Count 18.7 K/mm3 (4.5-10.0)
[2024-12-01] MEDS: LOSARTAN POTASSIUM 100 MG TABLET PO (08:44)
[2024-12-01] MEDS: hydroCHLOROthiazide 25 MG TABLET PO (08:45)
[2024-12-01] MEDS: LOVASTATIN 20 MG TABLET 40 MG PO (08:45)
[2024-12-01] MEDS: METOPROLOL SUCCINATE EXT REL 25 MG TABCR PO (08:45)
[2024-12-01] MEDS: FUROSEMIDE INJ 40 MG/4 ML VIAL IV PUSH (08:45)
[2024-12-01] MEDS: POTASSIUM CHLORIDE 20 MEQ PACKET (FOR LIQUID) 40 MEQ PO (08:46)
[2024-12-01] MEDS: CEFEPIME 2 GM/NS 50 ML 2 GM/50 ML BAG IVPB ×2 (08:47→21:53)
[2024-12-01] MEDS: guaiFENesin/DEXTROMETHORPHAN 10 ML UDC PO ×4 (08:47→21:52)
--- NOTE | 2024-12-01 08:59 | PCNWS ---
Weekly nutritional screen. Patient is tolerating current heart healthy diet with adequate intake 50-75%. No weight loss reported. No nutritional recommendations at this time.
--- NOTE | 2024-12-01 09:04 | PM.PNPUL ---
Progress Note: A&P Assessment and Plan (1) Acute hypoxemic respiratory failure: Code(s): J96.01 - Acute respiratory failure with hypoxia Status: Acute Assessment and Plan: This 74-year-old female presented with an acute respiratory illness that had persisted for several days prior to this hospitalization. Diagnostic studies have indicated influenza A, with a possible lower respiratory tract infection due to either the virus itself or a bacterial co-infection following the influenza. Her chest X-ray reveals bilateral infiltrates and small pleural effusions, which are suggestive of possible pulmonary edema. Notably, the patient was recently evaluated by Cardiology Services for supraventricular tachycardia, and her BNP levels have increased since the initial testing upon admission. Chest CT showed bilateral lower lobe consolidation as well as infiltrate with air bronchograms and small pleural effusions favoring bilateral pneumonia more so than pulmonary edema. The patient is currently on high-flow nasal cannula with no significant complaints such as shortness of breath fever chills hemoptysis or wheezing.. She does not look septic. Over the past 24 hours, her respiratory status has remained essentially unchanged. She continues to use a high-flow nasal cannula and is experiencing some cough but is not able to expectorate phlegm. A chest X-ray shows bilateral infiltrates, with pleural effusions appearing essentially unchanged. The white blood cell count is trending down with the ongoing treatment of cefepime and levofloxacin. Plan: Continue with the current regimen. Encourage the patient to get out of bed and sit in a chair. Add nebulized albuterol every 6 hours as needed for chest congestion. I will continue to follow the patient in collaboration with you. (2) Pneumonia: Code(s): J18.9 - Pneumonia, unspecified organism Status: Acute (3) Pleural effusion: Code(s): J90 - Pleural effusion, not elsewhere classified Status: Acute (4) Influenza A: Code(s): J10.1 - Influenza due to other identified influenza virus with other respiratory manifestations Status: Acute Subjective Date/time seen: 12/01/24 09:04 Interval history: Patient has no significant new respiratory complaints. Cough is now wet; has not been able to cough up any phlegm though. She has no fever chills hemoptysis or worsening of her shortness of breath. She remains on high-flow nasal cannula. Sitting on bed-edge, does not look septic. Review of Systems Review of Systems: All systems reviewed & are unremarkable except as noted in HPI and below (HPI and below) Exam Narrative: GENERAL APPEARANCE: Well developed, well nourished, alert and cooperative, and appears to be in in mild respiratory distress while on supplemental oxygen SKIN: Inspection of the skin reveals no rashes, ulcerations or petechiae. HEENT: Sclerae anicteric and conjunctivae pink and moist. Extraocular movements were intact and pupils were equal, round, and reactive to light. The oral mucosa, hard and soft palate, tongue and posterior pharynx were normal. NECK: Supple. There was no thyroid enlargement, and no tenderness, or masses were felt. CHEST: Normal AP diameter and normal contour without any kyphoscoliosis. LUNGS: Crackles at bases bilaterally, no wheezing CARDIAC: There was a regular rate and rhythm without any murmurs, gallops, rubs. ABDOMEN: Soft and nontender with normal bowel sounds. There was no organomegaly. LYMPH NODES: No lymphadenopathy was appreciated in the neck EXTREMITIES: No cyanosis, clubbing or edema. NEUROLOGIC: Alert and oriented x 3. Normal affect. Objective Data Vital Signs Vital Signs: Vital Signs - 24 hr 11/30/24 10:00 11/30/24 12:00 11/30/24 12:00 Temperature 36.8 C Pulse Rate 82 86 Respiratory Rate 20 Blood Pressure 121/45 L Pulse Oximetry 97 96 Oxygen Delivery High Flow Therapy with Na Oxygen Flow Rate 50 Fraction of Inspired Oxygen 60 11/30/24 12:00 11/30/24 12:10 11/30/24 12:10 Temperature Pulse Rate 84 90 Respiratory Rate 20 Blood Pressure Pulse Oximetry 94 Oxygen Delivery High Flow Therapy with Na Oxygen Flow Rate 50 Fraction of Inspired Oxygen 60 11/30/24 12:19 11/30/24 14:00 11/30/24 14:31 Temperature Pulse Rate 95 90 Respiratory Rate 20 Blood Pressure Pulse Oximetry 93 Oxygen Delivery High Flow Therapy with Na Oxygen Flow Rate 50 Fraction of Inspired Oxygen 60 11/30/24 16:00 11/30/24 16:00 11/30/24 16:00 Temperature 36.8 C Pulse Rate 87 87 Respiratory Rate 20 Blood Pressure 141/65 H Pulse Oximetry 100 96 Oxygen Delivery High Flow Therapy with Na Oxygen Flow Rate 50 Fraction of Inspired Oxygen 60 11/30/24 16:55 11/30/24 17:13 11/30/24 17:36 Temperature 36.8 C 36.7 C Pulse Rate 87 84 Respiratory Rate 20 16 Blood Pressure 141/65 H 144/66 H Pulse Oximetry 100 99 94 Oxygen Delivery High Flow Therapy with Na Oxygen Flow Rate 50 Fraction of Inspired Oxygen 60 11/30/24 17:58 11/30/24 18:13 11/30/24 19:13 Temperature 36.8 C 36.7 C Pulse Rate 84 88 85 Respiratory Rate 24 H 20 Blood Pressure 134/46 L 148/55 H Pulse Oximetry 100 98 Oxygen Delivery Oxygen Flow Rate Fraction of Inspired Oxygen 11/30/24 19:26 11/30/24 20:00 11/30/24 20:00 Temperature 36.8 C 37.0 C Pulse Rate 92 92 Respiratory Rate 16 16 Blood Pressure 140/64 129/62 Pulse Oximetry 99 98 96 Oxygen Delivery High Flow Therapy with Na Oxygen Flow Rate 45 Fraction of Inspired Oxygen 50 11/30/24 20:00 11/30/24 20:32 11/30/24 22:00 Temperature Pulse Rate 89 86 Respiratory Rate Blood Pressure Pulse Oximetry 98 Oxygen Delivery High Flow Therapy with Na Oxygen Flow Rate 50 Fraction of Inspired Oxygen 60 11/30/24 23:57 12/01/24 00:00 12/01/24 00:00 Temperature 36.3 C L Pulse Rate 88 88 91 Respiratory Rate 20 20 Blood Pressure 116/52 L Pulse Oximetry 96 96 Oxygen Delivery High Flow Therapy with Na Oxygen Flow Rate 45 Fraction of Inspired Oxygen 50 12/01/24 01:30 12/01/24 02:00 12/01/24 03:10 Temperature Pulse Rate 87 Respiratory Rate Blood Pressure Pulse Oximetry 97 95 Oxygen Delivery High Flow Therapy with Na High Flow Therapy with Na Oxygen Flow Rate 40 35 Fraction of Inspired Oxygen 50 35 12/01/24 04:00 12/01/24 04:00 12/01/24 04:00 Temperature 36.8 C Pulse Rate 95 97 Respiratory Rate 22 H Blood Pressure 133/83 Pulse Oximetry 94 94 Oxygen Delivery High Flow Therapy with Na Oxygen Flow Rate 45 Fraction of Inspired Oxygen 50 12/01/24 06:00 12/01/24 07:39 12/01/24 08:45 Temperature 36.7 C Pulse Rate 75 90 88 Respiratory Rate 20 Blood Pressure 134/48 L Pulse Oximetry 94 Oxygen Delivery Oxygen Flow Rate Fraction of Inspired Oxygen Intake/Output Intake/Output: Intake & Output 03/0111/29/24 11/30/24 12/01/24 23:59 23:59 23:59 23:59 Intake Total 1050 1000 1580 120 Output Total 901 1000 175 Balance 1050 99 580 -55 Meds/Results Medications: Active Medications Generic Name Dose Route Start Last Admin Trade Name Freq PRN Reason Stop Dose Admin Acetaminophen 650 mg 11/23/24 16:54 Acetaminophen 325 Mg Tablet PO Q4H PRN Mild Pain (1-3) or Fever Benzocaine 1 lozenge 11/23/24 21:50 Benzocaine/Menthol (*Bkc) 18 Ea Lozenge PO PRN PRN Sore Throat Dextrose 12.5 gm 11/23/24 22:59 Dextrose 50% 25 Gm/50 Ml Syringe IV PUSH PRN PRN Hypoglycemia Protocol Enoxaparin Sodium 40 mg 11/24/24 09:00 11/30/24 09:00 Enoxaparin 40 Mg/0.4 Ml Syringe SUB-Q 40 mg DAILY SUZI Administration Furosemide 40 mg 11/28/24 09:00 12/01/24 08:45 Furosemide Inj 40 Mg/4 Ml Vial IV PUSH 40 mg DAILY SUZI Administration Glucagon 1 mg 11/23/24 22:59 Glucagon For Inj 1 Mg Vial IM PRN PRN Hypoglycemia Protocol Glucose 15 gm 11/23/24 22:59 Glucose Oral Gel 15 Gm Of Glucse In 37.5 Gm Tube PO PRN PRN Hypoglycemia Protocol Guaifenesin/Dextromethorphan 10 ml 11/30/24 13:00 12/01/24 08:47 Guaifenesin/Dextromethorphan 10 Ml Udc PO 10 ml Q4HR SUZI Administration Hydrochlorothiazide 25 mg 12/01/24 09:00 12/01/24 08:45 Hydrochlorothiazide 25 Mg Tablet PO 25 mg QAM SUZI Administration Dextrose 1,000 mls @ 100 mls/hr 11/23/24 22:59 Dextrose 5% 1,000 Ml IVPB PRN PRN Hypoglycemia Protocol Cefepime HCl 2 gm in 50 mls @ 100 mls/hr 11/29/24 09:00 12/01/24 08:47 Maxipime 2 Gm/Ns 50 Ml IVPB 100 mls/hr Q12HR SUZI Administration Levofloxacin/Dextrose 750 mg in 150 mls @ 100 mls/hr 11/30/24 20:00 11/30/24 21:47 Levaquin 750 Mg/D5w 150 Ml IVPB Infused Q[facility]H [facility] Infusion Insulin Aspart 3 - 6 units 11/24/24 08:00 11/30/24 17:05 Insulin Aspart (*Bkc) 100 Units/Ml SUB-Q Not Given TIDWM [facility] Protocol Insulin Aspart 1 - 3 units 11/24/24 21:00 11/30/24 20:32 Insulin Aspart (*Bkc) 100 Units/Ml SUB-Q Not Given HS [facility] Protocol Insulin Glargine 30 units 11/24/24 18:00 11/30/24 18:45 Insulin Glargine (*Bkc) 100 Units/Ml SUB-Q 30 units QPM SUZI Administration Ipratropium [place] 0.5 mg 11/30/24 12:19 Ipratropium Br 0.02% Inh Soln 0.5 Mg/2.5 Ml Vial INHALATION Q4HRT PRN Wheezing Levalbuterol HCl 1.25 mg 11/28/24 14:00 Levalbuterol Neb 1.25 Mg/3 Ml INHALATION Q6HRT PRN Wheezing Losartan Potassium 100 mg 12/01/24 09:00 12/01/24 08:44 Losartan Potassium 100 Mg Tablet PO 100 mg DAILY SUZI Administration Lovastatin 40 mg 11/24/24 09:00 12/01/24 08:45 Lovastatin 20 Mg Tablet PO 40 mg DAILY SUZI Administration Metoprolol Succinate 25 mg 11/27/24 09:00 12/01/24 08:45 Metoprolol Succinate Ext Rel 25 Mg Tabcr PO 25 mg QAM SUZI Administration Trazodone HCl 50 mg 11/29/24 18:53 11/30/24 21:58 Trazodone Hcl 50 Mg Tablet PO 50 mg HS PRN Administration Insomnia Radiology Results: ITS Impressions Venous Doppler Study 11/27/24 10:00 IMPRESSION: 1. No deep venous thrombosis. Chest CT 11/27/24 19:14 IMPRESSION: 1. Bilateral pneumonia involving the lower lobes, right upper lobe, middle lobe and lingula. 2. Mediastinal lymphadenopathy. 3. Bilateral pleural effusion. Chest X-Ray 12/01/24 06:21 Impression: Moderate pulmonary edema pattern versus bilateral pneumonia. Small left pleural effusion. Labs Labs: Laboratory Results - last 24 hr 11/30/24 11/30/24 11/30/24 10:06 10:09 12:03 WBC 21.7 H RBC 2.30 L Hgb 6.9 L* Hct 22.2 L MCV 96.5 MCH 30.0 D MCHC 31.1 L RDW 13.4 Plt Count 511 H MPV 9.9 Immature Gran % (Auto) 4.3 H Neut % (Auto) 84.3 H Lymph % (Auto) 7.8 L [place] % (Auto) 3.3 Eos % (Auto) 0.1 Baso % (Auto) 0.2 Lymph # (Auto) 1.70 [place] # (Auto) 0.7 H Eos # (Auto) 0.0 Baso # (Auto) 0.1 Abs Immat Gran (auto) 0.93 H Absolute Neuts (auto) 18.2 H Absolute Nucleated RBC 0.000 Band Neutrophils % Not Reportable Nucleated RBC % 0.0 Platelet Estimate Slightly increased Hypochromasia 1+ Schistocytes None seen Sodium 133 L Potassium 4.4 Chloride 99 Carbon Dioxide 23 Anion Gap 11 BUN 22 H Creatinine 1.20 H Estim Creat Clear Calc 39 Estimated GFR 44 L Glucose 120 H POC Capillary Glucose 104 Calcium 9.1 Iron 34 L TIBC 174 L % Saturation 20 Ferritin > 2000.00 H C-Reactive Protein 22.4 H Vitamin B12 821.0 Folate 10.3 Blood Type Antibody Screen Crossmatch 11/30/24 11/30/24 11/30/24 13:13 16:36 20:31 WBC RBC Hgb Hct MCV MCH MCHC RDW Plt Count MPV Immature Gran % (Auto) Neut % (Auto) Lymph % (Auto) [place] % (Auto) Eos % (Auto) Baso % (Auto) Lymph # (Auto) [place] # (Auto) Eos # (Auto) Baso # (Auto) Abs Immat Gran (auto) Absolute Neuts (auto) Absolute Nucleated RBC Band Neutrophils % Nucleated RBC % Platelet Estimate Hypochromasia Schistocytes Sodium Potassium Chloride Carbon Dioxide Anion Gap BUN Creatinine Estim Creat Clear Calc Estimated GFR Glucose POC Capillary Glucose 87 144 H Calcium Iron TIBC % Saturation Ferritin C-Reactive Protein Vitamin B12 Folate Blood Type O Positive Antibody Screen Negative Crossmatch See Detail 11/30/24 12/01/24 12/01/24 22:46 07:41 08:07 WBC 18.7 H RBC 2.38 L Hgb 7.2 L 7.1 L Hct 22.1 L 22.5 L MCV 94.5 MCH 29.8 MCHC 31.6 L RDW 15.8 H Plt Count 497 H MPV 9.5 Immature Gran % (Auto) 3.0 H Neut % (Auto) 82.0 H Lymph % (Auto) 10.2 L [place] % (Auto) 4.4 Eos % (Auto) 0.2 Baso % (Auto) 0.2 Lymph # (Auto) 1.91 [place] # (Auto) 0.8 H Eos # (Auto) 0.0 Baso # (Auto) 0.0 Abs Immat Gran (auto) 0.56 H Absolute Neuts (auto) 15.4 H Absolute Nucleated RBC 0.000 Band Neutrophils % Nucleated RBC % 0.0 Platelet Estimate Hypochromasia Schistocytes Sodium Potassium Chloride Carbon Dioxide Anion Gap BUN Creatinine Estim Creat Clear Calc Estimated GFR Glucose POC Capillary Glucose 108 H Calcium Iron TIBC % Saturation Ferritin C-Reactive Protein Vitamin B12 Folate Blood Type Antibody Screen Crossmatch
--- NOTE | 2024-12-01 09:32 | PM.IMPN ---
Progress Note: A&P Assessment and Plan (1) Anemia: Code(s): D64.9 - Anemia, unspecified Status: Acute Assessment and Plan: acute on chronic likely due to CKD No signs of acute bleeding 3/3 transfuse 1 unit RBCs, repeat H&H after Q 12 H&H Transfuse for hemoglobin less than 7 or symptomatic Anemia workup Stool Occult blood pending No known cause at this time for hemoglobin to be trending down (2) Acute hypoxic respiratory failure: Code(s): J96.01 - Acute respiratory failure with hypoxia Status: Acute Assessment and Plan: Improving Patient sent to ED from urgent care for pneumonia with hypoxia spo2 70% on RA. In the ED spo2 93% on 4L NC. baseline RA - ABG on 4L NC showing respiratory alkalosis: pH 7.514, pCO2 31.7, pO2 56.6, HCO3 25 - Chest XR: Segmental left lower lung atelectasis/consolidation, overlying a background of interstitial edema. Blood cultures pending Sputum cultures pending 11/26 consulted pulm for further recommendations. 11/27 chest xray-possible pulm edema CT without contrast was ordered- to r/o pneumonia vs chf 11/28- pulm following. able to titrate oxygen requirements down- 50l, fio2 72%. continue tx. ambulate as able, IS. 11/29 moved to IMU for wide complex tachycardia rate 186 11/30 patient changed to Levaquin 12/01 chest x-ray shows increasing edema versus pneumonia, improving with change in antibiotics (3) Pneumonia: Code(s): J18.9 - Pneumonia, unspecified organism Status: Acute Assessment and Plan: - Chest XR: Segmental left lower lung atelectasis/consolidation, overlying a background of interstitial edema. - WBC WNL however procal 12.8, being treated for bacterial pneumonia - started on CAP tx: azithromycin ceftriaxone - Oxygen supplementation: 4L NC, baseline RA. Wean oxygen as tolerated. - Viral PCR: Flu - Sputum culture ordered - Legionella, mycoplasma, and pneumococcal ordered - MRSA negative - Continue scheduled bronchodilators. - Monitor vital signs, I&Os, neuro status and patient is a fall risk - Follow WBC, serum electrolytes, temperature curves and cultures 11/25 ceftriaxone dose is adjsted to 2 gm 11/26 blood cultures no growth today 11/26- wbc worsening. still requiring oxygen. waiting for pulm recommendation but will change antibiotics to cefepime 11/28- continue cefepime. will stop vanc as mRSA negative 11/29- noted antibiotic fell out of mars for some reason- cefepime re ordered. 11/30 patient changes Levaquin (4) Bacteremia: Code(s): R78.81 - Bacteremia Status: Acute Assessment and Plan: positive BC-group A streptococcus discussed with pharm ID- will continue ceftriaxone but increase dose to 2 gm - switched to cefepime , initially vanc was added but stopped as pt mrsa negative continue cefepime-renally dosed per pharmacy Leukocytosis trending down 11/26 blood cultures no growth today (5) SVT (supraventricular tachycardia): Code(s): I47.10 - Supraventricular tachycardia, unspecified Status: Acute Assessment and Plan: Resolved 11/29- last night had sustained episode of rapid heart rate- converted back to NSR with IV metoprolol 5 mg Moved to IMU for close monitoring card was consulted metoprolol added (6) Acute kidney injury: Code(s): N17.9 - Acute kidney failure, unspecified Status: Acute Assessment and Plan: BUN/Cr 32/1.48 on admission, unknown baseline Denies history of kidney disease thus presumably this is an acute kidney injury, likely due to decreased oral intake and dehydration. - BUN/Cr 30/1.45 on am labs - NS 100 ml/hr - Holding losartan-HCTZ for FE, resume when appropriate - Renally dose medications - Avoid nephrotoxic medications - Monitor I/O - lasix was started last night for christo pleural effusion (7) Insulin dependent diabetes mellitus: Status: Acute Assessment and Plan: Patient states that she has not taken her lantus 65 units in over week as she has not been eating. Will decrease her lantus to 30 units and continue to monitor and adjust according to glucose levels. - hypoglycemia protocol - POC blood glucose ACHS - home medication - lantus 65 units, tradjenta 5 mg, metformin 500 mg BID - correct regimen ordered - lantus 30 units, januvia, and SSI - A1C 8.4 (8) Influenza A: Code(s): J10.1 - Influenza due to other identified influenza virus with other respiratory manifestations Status: Acute Assessment and Plan: Viral panel: Flu A Tamiflu 11/23-11/28 completed treatment (9) Hypertension: Code(s): I10 - Essential (primary) hypertension Status: Acute Assessment and Plan: chronic - losartan-HCTZ on hold for FE, resume when appropriate - blood pressures remain stable, continue to monitor (10) Elevated troponin: Code(s): R79.89 - Other specified abnormal findings of blood chemistry Status: Acute Assessment and Plan: see above, likely due to hypoxia (11) Pleural effusion: Code(s): J90 - Pleural effusion, not elsewhere classified Status: Acute Assessment and Plan: ulm edema/effusion vs pneumonia vs chf chest xray was done ct chest 11/27 IMPRESSION: 1. Bilateral pneumonia involving the lower lobes, right upper lobe, middle lobe and lingula. 2. Mediastinal lymphadenopathy. 3. Bilateral pleural effusion. ECho was done on 11/27- EF 55-60%, Summary 1. Complete two-dimensional, color flow and Doppler transthoracic echocardiogram is performed. 2. Mild concentric LVH with preserved systolic function and grade 1 diastolic noncompliance. 3. Mild mitral annular calcification. 4. No valvular dysfunction. 5. Trileaflet aortic valve with mild sclerosis and well maintained leaflet excursion. -added lasix 40 mg IV- monitor closely I/O and kidney function - cardiology following- appreciate recommendations Time Spent With Patient Time with patient: Greater than 35 minutes Subjective Date/time seen: 12/01/24 09:32 Interval history: 74 year old female was transferred to IMU from November 1st evening for rapid heart rate. Was admitted 11/27 with bibasilar pneumonia, chest CT Nov 27 confirmed. coughs but is not able to expectorate secretions. Patient's hemoglobin was 6.9 yesterday was transfuse 1 unit RBCs repeat hemoglobin was 7.2, patient has no signs of active bleeding may benefit from a CT scan Patient switch to Levaquin yesterday per pulmonology is recommendations, improvement leukocytosis this morning Patient after a new hemoglobin with stable, no blood seen in urine or stool by ANGIO TECHNOLOGIST, CT deferred at this time Review of Systems Review of Systems: 12 systems were reviewed and are negative except for as per HPI. All systems reviewed & are unremarkable except as noted in HPI and below Exam Narrative: General: well appearing, appears stated age. HEENT: normocephalic, atraumatic. Mucous membranes moist. EOMI, PERRLA, bilateral sclera anicteric, no conjunctival injection. Neck supple without JVD, lymphadenopathy, or bruit. Respiratory: clear to ascultation bilaterally. No rales/rhonic/wheezes. Cardiovascular: Regular rate and rhythm, normal S1-S2 upon ascultation. No murmurs, rubs, or clicks. PMI is nondisplaced, capillary refill less than 3 second. Abdomen: Soft, round, no pulsatile masses, nondistended and nontender. No rebound, no guarding. No CVA tenderness, no hepatosplenomegaly. Bowel sounds present to all four quadrants. No high pitch or tinkling sounds, resonant to percussion. Extremities: No cyanosis, clubbing,. Pulses are palpable 2/2. Active ROM to all four extremities. 1+ edema hands Neuro: Alert and orientated x 4. PERRLA. Cranial nerves 2-12 intact without focal deficit. Skin: Warm, dry, and intact, without rash, erythema, or lesion. Psych: pleasant, cooperative, normal speech, normal affect, no hallucinations, no dysarthia High-flow oxygen Objective Data Vital Signs Vital Signs: Vital Signs - 24 hr 11/30/24 10:00 11/30/24 12:00 11/30/24 12:00 Temperature 98.3 F Pulse Rate 82 86 Respiratory Rate 20 Blood Pressure 121/45 L Pulse Oximetry 97 96 Oxygen Delivery High Flow Therapy with Na Oxygen Flow Rate 50 Fraction of Inspired Oxygen 60 11/30/24 12:00 11/30/24 12:10 11/30/24 12:10 Temperature Pulse Rate 84 90 Respiratory Rate 20 Blood Pressure Pulse Oximetry 94 Oxygen Delivery High Flow Therapy with Na Oxygen Flow Rate 50 Fraction of Inspired Oxygen 60 11/30/24 12:19 11/30/24 14:00 11/30/24 14:31 Temperature Pulse Rate 95 90 Respiratory Rate 20 Blood Pressure Pulse Oximetry 93 Oxygen Delivery High Flow Therapy with Na Oxygen Flow Rate 50 Fraction of Inspired Oxygen 60 11/30/24 16:00 11/30/24 16:00 11/30/24 16:00 Temperature 98.2 F Pulse Rate 87 87 Respiratory Rate 20 Blood Pressure 141/65 H Pulse Oximetry 100 96 Oxygen Delivery High Flow Therapy with Na Oxygen Flow Rate 50 Fraction of Inspired Oxygen 60 11/30/24 16:55 11/30/24 17:13 11/30/24 17:36 Temperature 98.2 F 98.1 F Pulse Rate 87 84 Respiratory Rate 20 16 Blood Pressure 141/65 H 144/66 H Pulse Oximetry 100 99 94 Oxygen Delivery High Flow Therapy with Na Oxygen Flow Rate 50 Fraction of Inspired Oxygen 60 11/30/24 17:58 11/30/24 18:13 11/30/24 19:13 Temperature 98.3 F 98.1 F Pulse Rate 84 88 85 Respiratory Rate 24 H 20 Blood Pressure 134/46 L 148/55 H Pulse Oximetry 100 98 Oxygen Delivery Oxygen Flow Rate Fraction of Inspired Oxygen 11/30/24 19:26 11/30/24 20:00 11/30/24 20:00 Temperature 98.2 F 98.6 F Pulse Rate 92 92 Respiratory Rate 16 16 Blood Pressure 140/64 129/62 Pulse Oximetry 99 98 96 Oxygen Delivery High Flow Therapy with Na Oxygen Flow Rate 45 Fraction of Inspired Oxygen 50 11/30/24 20:00 11/30/24 20:32 11/30/24 22:00 Temperature Pulse Rate 89 86 Respiratory Rate Blood Pressure Pulse Oximetry 98 Oxygen Delivery High Flow Therapy with Na Oxygen Flow Rate 50 Fraction of Inspired Oxygen 60 11/30/24 23:57 12/01/24 00:00 12/01/24 00:00 Temperature 97.4 F L Pulse Rate 88 88 91 Respiratory Rate 20 20 Blood Pressure 116/52 L Pulse Oximetry 96 96 Oxygen Delivery High Flow Therapy with Na Oxygen Flow Rate 45 Fraction of Inspired Oxygen 50 12/01/24 01:30 12/01/24 02:00 12/01/24 03:10 Temperature Pulse Rate 87 Respiratory Rate Blood Pressure Pulse Oximetry 97 95 Oxygen Delivery High Flow Therapy with Na High Flow Therapy with Na Oxygen Flow Rate 40 35 Fraction of Inspired Oxygen 50 35 12/01/24 04:00 12/01/24 04:00 12/01/24 04:00 Temperature 98.2 F Pulse Rate 95 97 Respiratory Rate 22 H Blood Pressure 133/83 Pulse Oximetry 94 94 Oxygen Delivery High Flow Therapy with Na Oxygen Flow Rate 45 Fraction of Inspired Oxygen 50 12/01/24 06:00 12/01/24 07:39 12/01/24 08:00 Temperature 98.1 F Pulse Rate 75 90 85 Respiratory Rate 20 22 H Blood Pressure 134/48 L Pulse Oximetry 94 91 Oxygen Delivery High Flow Therapy with Na Oxygen Flow Rate 35 Fraction of Inspired Oxygen 43 12/01/24 08:45 12/01/24 09:11 Temperature Pulse Rate 88 Respiratory Rate Blood Pressure Pulse Oximetry 93 Oxygen Delivery High Flow Therapy with Na Oxygen Flow Rate 35 Fraction of Inspired Oxygen 43 Intake/Output Intake/Output: Intake & Output 11/28/24 11/29/24 11/30/24 12/01/24 23:59 23:59 23:59 23:59 Intake Total 1050 1000 1580 120 Output Total 901 1000 175 Balance 1050 99 580 -55 Meds/Results Medications: Active Medications Generic Name Dose Route Start Last Admin Trade Name Freq PRN Reason Stop Dose Admin Acetaminophen 650 mg 11/23/24 16:54 Acetaminophen 325 Mg Tablet PO Q4H PRN Mild Pain (1-3) or Fever Albuterol 2.5 mg 12/01/24 09:10 Albuterol Sulfate Neb 2.5 Mg/3 Ml Inh INHALATION Q6HRT PRN Shortness Of Breath Benzocaine 1 lozenge 11/23/24 21:50 Benzocaine/Menthol (*Bkc) 18 Ea Lozenge PO PRN PRN Sore Throat Dextrose 12.5 gm 11/23/24 22:59 Dextrose 50% 25 Gm/50 Ml Syringe IV PUSH PRN PRN Hypoglycemia Protocol Enoxaparin Sodium 40 mg 11/24/24 09:00 11/30/24 09:00 Enoxaparin 40 Mg/0.4 Ml Syringe SUB-Q 40 mg DAILY SUZI Administration Furosemide 40 mg 11/28/24 09:00 12/01/24 08:45 Furosemide Inj 40 Mg/4 Ml Vial IV PUSH 40 mg DAILY SUZI Administration Glucagon 1 mg 11/23/24 22:59 Glucagon For Inj 1 Mg Vial IM PRN PRN Hypoglycemia Protocol Glucose 15 gm 11/23/24 22:59 Glucose Oral Gel 15 Gm Of Glucse In 37.5 Gm Tube PO PRN PRN Hypoglycemia Protocol Guaifenesin/Dextromethorphan 10 ml 11/30/24 13:00 12/01/24 08:47 Guaifenesin/Dextromethorphan 10 Ml Udc PO 10 ml Q4HR SUZI Administration Hydrochlorothiazide 25 mg 12/01/24 09:00 12/01/24 08:45 Hydrochlorothiazide 25 Mg Tablet PO 25 mg QAM SUZI Administration Dextrose 1,000 mls @ 100 mls/hr 11/23/24 22:59 Dextrose 5% 1,000 Ml IVPB PRN PRN Hypoglycemia Protocol Cefepime HCl 2 gm in 50 mls @ 100 mls/hr 11/29/24 09:00 12/01/24 08:47 Maxipime 2 Gm/Ns 50 Ml IVPB 100 mls/hr Q12HR SUZI Administration Levofloxacin/Dextrose 750 mg in 150 mls @ 100 mls/hr 11/30/24 20:00 11/30/24 21:47 Levaquin 750 Mg/D5w 150 Ml IVPB Infused Q48H SUZI Infusion Insulin Aspart 3 - 6 units 11/24/24 08:00 11/30/24 17:05 Insulin Aspart (*Bkc) 100 Units/Ml SUB-Q Not Given TID[facility] Protocol Insulin Aspart 1 - 3 units 11/24/24 21:00 11/30/24 20:32 Insulin Aspart (*Bkc) 100 Units/Ml SUB-Q Not Given HS SUZI Protocol Insulin Glargine 30 units 11/24/24 18:00 11/30/24 18:45 Insulin Glargine (*Bkc) 100 Units/Ml SUB-Q 30 units QPM SUZI Administration Ipratropium [place] 0.5 mg 11/30/24 12:19 Ipratropium Br 0.02% Inh Soln 0.5 Mg/2.5 Ml Vial INHALATION Q4HRT PRN Wheezing Levalbuterol HCl 1.25 mg 11/28/24 14:00 Levalbuterol Neb 1.25 Mg/3 Ml INHALATION Q6HRT PRN Wheezing Losartan Potassium 100 mg 12/01/24 09:00 12/01/24 08:44 Losartan Potassium 100 Mg Tablet PO 100 mg DAILY SUZI Administration Lovastatin 40 mg 11/24/24 09:00 12/01/24 08:45 Lovastatin 20 Mg Tablet PO 40 mg DAILY SUZI Administration Metoprolol Succinate 25 mg 11/27/24 09:00 12/01/24 08:45 Metoprolol Succinate Ext Rel 25 Mg Tabcr PO 25 mg QAM SUZI Administration Trazodone HCl 50 mg 11/29/24 18:53 11/30/24 21:58 Trazodone Hcl 50 Mg Tablet PO 50 mg HS PRN Administration Insomnia Radiology Results: ITS Impressions Venous Doppler Study 11/27/24 10:00 IMPRESSION: 1. No deep venous thrombosis. Chest CT 11/27/24 19:14 IMPRESSION: 1. Bilateral pneumonia involving the lower lobes, right upper lobe, middle lobe and lingula. 2. Mediastinal lymphadenopathy. 3. Bilateral pleural effusion. Chest X-Ray 12/01/24 06:21 Impression: Moderate pulmonary edema pattern versus bilateral pneumonia. Small left pleural effusion. Labs Labs: Laboratory Results - last 24 hr 11/30/24 11/30/24 11/30/24 10:06 10:09 12:03 WBC 21.7 H RBC 2.30 L Hgb 6.9 L* Hct 22.2 L MCV 96.5 MCH 30.0 D MCHC 31.1 L RDW 13.4 Plt Count 511 H MPV 9.9 Immature Gran % (Auto) 4.3 H Neut % (Auto) 84.3 H Lymph % (Auto) 7.8 L [place] % (Auto) 3.3 Eos % (Auto) 0.1 Baso % (Auto) 0.2 Lymph # (Auto) 1.70 [place] # (Auto) 0.7 H Eos # (Auto) 0.0 Baso # (Auto) 0.1 Abs Immat Gran (auto) 0.93 H Absolute Neuts (auto) 18.2 H Absolute Nucleated RBC 0.000 Band Neutrophils % Not Reportable Nucleated RBC % 0.0 Platelet Estimate Slightly increased Hypochromasia 1+ Schistocytes None seen Sodium 133 L Potassium 4.4 Chloride 99 Carbon Dioxide 23 Anion Gap 11 BUN 22 H Creatinine 1.20 H Estim Creat Clear Calc 39 Estimated GFR 44 L Glucose 120 H POC Capillary Glucose 104 Calcium 9.1 Iron 34 L TIBC 174 L % Saturation 20 Ferritin > 2000.00 H C-Reactive Protein 22.4 H Vitamin B12 821.0 Folate 10.3 Blood Type Antibody Screen Crossmatch 11/30/24 11/30/24 11/30/24 13:13 16:36 20:31 WBC RBC Hgb Hct MCV MCH MCHC RDW Plt Count MPV Immature Gran % (Auto) Neut % (Auto) Lymph % (Auto) [place] % (Auto) Eos % (Auto) Baso % (Auto) Lymph # (Auto) [place] # (Auto) Eos # (Auto) Baso # (Auto) Abs Immat Gran (auto) Absolute Neuts (auto) Absolute Nucleated RBC Band Neutrophils % Nucleated RBC % Platelet Estimate Hypochromasia Schistocytes Sodium Potassium Chloride Carbon Dioxide Anion Gap BUN Creatinine Estim Creat Clear Calc Estimated GFR Glucose POC Capillary Glucose 87 144 H Calcium Iron TIBC % Saturation Ferritin C-Reactive Protein Vitamin B12 Folate Blood Type O Positive Antibody Screen Negative Crossmatch See Detail 11/30/24 12/01/24 12/01/24 22:46 07:41 08:07 WBC 18.7 H RBC 2.38 L Hgb 7.2 L 7.1 L Hct 22.1 L 22.5 L MCV 94.5 MCH 29.8 MCHC 31.6 L RDW 15.8 H Plt Count 497 H MPV 9.5 Immature Gran % (Auto) 3.0 H Neut % (Auto) 82.0 H Lymph % (Auto) 10.2 L [place] % (Auto) 4.4 Eos % (Auto) 0.2 Baso % (Auto) 0.2 Lymph # (Auto) 1.91 [place] # (Auto) 0.8 H Eos # (Auto) 0.0 Baso # (Auto) 0.0 Abs Immat Gran (auto) 0.56 H Absolute Neuts (auto) 15.4 H Absolute Nucleated RBC 0.000 Band Neutrophils % Nucleated RBC % 0.0 Platelet Estimate Hypochromasia Schistocytes Sodium Potassium Chloride Carbon Dioxide Anion Gap BUN Creatinine Estim Creat Clear Calc Estimated GFR Glucose POC Capillary Glucose 108 H Calcium Iron TIBC % Saturation Ferritin C-Reactive Protein Vitamin B12 Folate Blood Type Antibody Screen Crossmatch Quality VTE Prophylaxis VTE prophylaxis: pharmacologic ordered
[2024-12-01 10:07] LABS: Anion Gap 9 mmol/L (4-12); Blood Urea Nitrogen 21 mg/dL (7-17); Calcium 8.6 mg/dL (8.4-10.2); Carbon Dioxide 25 mmol/L (22-30); Chloride 101 mmol/L (98-107); Estimated CRCL calculation 37 ml/min; Estimated Glomerular Filt Rate 42; Glucose 104 mg/dL (65-110); Potassium 4.4 mmol/L (3.4-5.0); Sodium 135 mmol/L (137-145)
[2024-12-01 11:58] LABS: Glucose Point of Care 217 mg/dl (65-105)
[2024-12-01] MEDS: INSULIN ASPART (*BKC) 100 UNITS/ML SUB-Q (12:33)
[2024-12-01 16:05] LABS: Hematocrit 22.8 % (37.0-47.0); Hemoglobin 7.3 g/dL (12.0-15.0)
[2024-12-01 16:27] LABS: Glucose Point of Care 144 mg/dl (65-105)
[2024-12-01] MEDS: INSULIN GLARGINE (*BKC) 100 UNITS/ML 30 UNITS SUB-Q (19:04)
[2024-12-01 21:46] LABS: Glucose Point of Care 190 mg/dl (65-105)
[2024-12-01] MEDS: traZODone HCL 50 MG TABLET PO (21:52)
[2024-12-02] VITALS (33 sets, daily range): BP systolic 83–135; BP diastolic 48–64; PULSE 69–170; RESP 16–24; TEMP 36.4–37; O2SAT 92–100
--- NOTE | 2024-12-02 04:45 | ECG_ITS ---
Test Date: 2024-12-02 04:49:41 Measurements Intervals [place] Rate: 165 P: 0 [place]: 0 QRS: -51 QRSD: 125 T: 139 QT: 299 QTc: 496 Interpretive Statements WIDE COMPLEX TACHYCARDIA, PROBABLY SUPRAVENTRICULAR TACHYCARDIA MARKED LEFT AXIS DEVIATION [QRS AXIS < -30] LEFT BUNDLE BRANCH BLOCK [120+ ms QRS DURATION, 80+ ms Q/S IN V1/V2, 85+ ms R IN I/aVL/V5/V6] Compared to ECG 11/28/2024 17:16:37 NO SIGNIFICANT CHANGES Electronically Signed On 12-02-2024 13:21:10 [employer]IOPHARMACIST by Livan Moise M.D.
[2024-12-02 04:55] LABS: Mean Corpuscular HGB Conc 31.4 g/dl (32-36); Mean Corpuscular Hemoglobin 29.9 pg (26-34); Mean Corpuscular Volume 95.2 fl (80-100); Mean Platelet Volume 9.6 fl (7.4-10.4); Platelet Count Result 581 k/mm3 (150-375); Red Blood Count 2.31 M/mm3 (4.2-5.4); White Blood Count 16.2 K/mm3 (4.5-10.0)
[2024-12-02 05:01] LABS: Hemoglobin 6.9 g/dL (12.0-15.0)
[2024-12-02] MEDS: METOPROLOL TARTRATE INJ 5 MG/5 ML VIAL (05:07)
[2024-12-02] MEDS: METOPROLOL TARTRATE INJ 5 MG/5 ML VIAL IV PUSH (05:08)
[2024-12-02 05:13] LABS: Anion Gap 8 mmol/L (4-12); Blood Urea Nitrogen 19 mg/dL (7-17); Calcium 8.9 mg/dL (8.4-10.2); Carbon Dioxide 28 mmol/L (22-30); Chloride 99 mmol/L (98-107); Estimated CRCL calculation 33 ml/min; Estimated Glomerular Filt Rate 36; Glucose 105 mg/dL (65-110); Potassium 4.3 mmol/L (3.4-5.0); Sodium 135 mmol/L (137-145)
--- NOTE | 2024-12-02 05:21 | ECG_ITS ---
Test Date: 2024-12-02 05:08:57 Measurements Intervals [place] Rate: 141 P: 0 [place]: 0 QRS: -23 QRSD: 106 T: 185 QT: 291 QTc: 446 Interpretive Statements SUPRA VENTRICULAR TACHYCARDIA WITH RAPID VENTRICULAR RESPONSE WITH ABERRANT CONDUCTION OR VENTRICULAR PREMATURE COMPLEXES LEFT BUNDLE BRANCH BLOCK Compared to ECG 12/02/2024 04:49:41 ABERRANT CONDUCTION OR VENTRICULAR PREMATURE COMPLEXES NOW PRESENT Electronically Signed On 12-02-2024 15:45:01 [employer] by Livan Moise M.D.
--- NOTE | 2024-12-02 06:17 | ECG_ITS ---
Test Date: 2024-12-02 06:58:24 Measurements Intervals [place] Rate: 94 P: 49 [place]: 181 QRS: -11 QRSD: 87 T: 74 QT: 380 QTc: 477 Interpretive Statements SINUS RHYTHM INCOMPLETE LEFT BUNDLE BRANCH BLOCK Compared to ECG 12/02/2024 05:08:57 SINUS RHYTHM NOW PRESENT Electronically Signed On 12-02-2024 15:46:04 [employer] by Livan Moise M.D.
--- NOTE | 2024-12-02 06:25 | PC.NURSE ---
At approximately 0540, pt went into a rapid heart rhythm. Staff obtained EKG, VS, and notified Dr. Mcdaniel of EKG changes. Order obtained for Metoprolol 5 mg IVP. Pt's heart rate slowed enough for repeat EKG to be performed to verify atrial tachycardia. Dr. Mcdaniel notified of rhythm and of critical hgb result. New order to transfuse one unit of PRBCs. Dr. Mcdaniel in IMU to evaluate pt. Pt converted to SR during evaluation. Dr. Mcdaniel made aware of SBP 80s. No new orders regarding BP at this time. Repeat EKG performed to verify rate.
[2024-12-02] MEDS: SODIUM CHLORIDE 0.9% IV 250 ML 30 ML IV CONT (06:28)
[2024-12-02] MEDS: TUBING, BLOOD PLUM PUMP TUBING 1 EACH XX (06:28)
[2024-12-02 06:47] LABS: Magnesium 1.7 mg/dL (1.6-2.3)
--- NOTE | 2024-12-02 07:09 | P.PNCROSS_ITS ---
Event Note Event Note Event Note: Nursing staff called around 05:00. Patient had went into a tachyarrhythmia. P atient initially appeared to be and as he. However patient been having intermittent episodes of tachycardia throughout hospital stay. It reportedly been a of days when she had had events. I was more suspicious of patient having AFib RVR given her rate of 160. Patient's blood pressure was stable in the 110 systolic. I Gave an order for a dose of IV Lopressor 5 mg. Patient's heart rate did slow down enough that an EKG was obtained that demonstrated the patient was actually in AFib RVR. Patient's heart rate did come down into the 120s to 130s. She did become symptomatic when she initially flipped into her rhythm stated that her heart felt like it was pounding. She denied any chest pain. She reports that her shortness of breath which has been ongoing during her admission is been slowly getting better over time. She has been a febrile. Her morning labs were drawn early due to her symptoms. Her white count had improved from prior but was still elevated. Her hemoglobin was mildly low at 6.9. It was a she likely had a unit of blood transfused on the 3rd with improvement in her hemoglobin up to 7.2 which had been stable for 48 hours. She had no obvious bleeding. Her potassium was normal. However I did ask for a magnesium to be added. I gave orders for magnesium supplementation the patient's magnesium was less than 2. Given her recurrent tachyarrhythmias I would prefer the patient's magnesium to be 2 or greater and potassium before greater. After the IV Lopressor patient's blood pressures as low as 83/57. As I was going to evaluate the patient for possible electrical cardioversion the patient spontaneously converted back to sinus rhythm. After the patient converted back to sinus rhythm her blood pressure improved to 115/51. He converted back to sinus rhythm around 06:30. EKG was performed to confirm sinus rhythm. Multiple EKGs personally reviewed. Patient is in no distress pleasant cooperative pulses are 2+ bilateral upper and lower extremities, regular rate and rhythm, anterior lung sounds the demonstrate mild decrease, no accessory muscle use. 2-3 second cap refill, no mottling, appropriate mentation, pleasant and cooperative. All questions were answered. 30 minute spent critical care activities. Due to a high probability of clinically significant, life threatening deterioration, the patient required my highest level of preparedness to intervene emergently and I personally spent this critical care time directly and personally managing the patient. This critical care time included obtaining a history; examining the patient; pulse oximetry; ordering and review of studies; arranging urgent treatment with development of a management plan; evaluation of patient's response to treatment; frequent reassessment; and discussions with oth er providers. It was exclusive of separately billable procedures and treating other patients and teaching time. Please see Assessment and Plan section and the rest of the note for further information on patient assessment and treatment.
[2024-12-02 07:46] LABS: Glucose Point of Care 147 mg/dl (65-105)
[2024-12-02] MEDS: FUROSEMIDE INJ 40 MG/4 ML VIAL IV PUSH (08:36)
[2024-12-02] MEDS: LOVASTATIN 20 MG TABLET 40 MG PO (08:37)
[2024-12-02] MEDS: LOSARTAN POTASSIUM 100 MG TABLET PO (08:37)
[2024-12-02] MEDS: CEFEPIME 2 GM/NS 50 ML 2 GM/50 ML BAG IVPB ×2 (08:37→22:27)
[2024-12-02] MEDS: guaiFENesin/DEXTROMETHORPHAN 10 ML UDC PO ×4 (08:37→22:27)
[2024-12-02] MEDS: hydroCHLOROthiazide 25 MG TABLET PO (08:37)
[2024-12-02] MEDS: METOPROLOL SUCCINATE EXT REL 25 MG TABCR PO (08:37)
[2024-12-02 09:06] LABS: Hematocrit 27.7 % (37.0-47.0); Hemoglobin 8.9 g/dL (12.0-15.0)
[2024-12-02] MEDS: MAGNESIUM SULF 4 GM/WATER100ML 4 GM/100 ML BAG IVPB (09:18)
--- NOTE | 2024-12-02 10:47 | PM.PNPUL ---
Progress Note: A&P Assessment and Plan (1) Acute hypoxemic respiratory failure: Code(s): J96.01 - Acute respiratory failure with hypoxia Status: Acute Assessment and Plan: This 74-year-old female presented with an acute respiratory illness persisting for several days before hospitalization, diagnosed as influenza A with a possible lower respiratory tract infection, either viral or bacterial in origin. Her chest X-ray shows bilateral infiltrates and small pleural effusions, suggesting possible pulmonary edema. She was recently evaluated by Cardiology Services for supraventricular tachycardia, and her BNP levels have increased since admission. A chest CT reveals bilateral lower lobe consolidation, infiltrate with air bronchograms, and small pleural effusions, indicating bilateral pneumonia more than pulmonary edema. She is on a high-flow nasal cannula and reports no significant complaints such as shortness of breath, fever, chills, hemoptysis, or wheezing, and she does not appear septic. The patient is receiving cefepime and levofloxacin for bilateral pneumonia following influenza infection. Urine testing for pneumococcal and Legionella antigens negative. Mycoplasma testing also negative. Over the past 48 hours, her respiratory status has remained largely unchanged. She continues on a high-flow nasal cannula, experiences some cough, but cannot expectorate phlegm. A chest X-ray shows unchanged bilateral infiltrates and pleural effusions. Her white blood cell count is trending down with ongoing treatment, with a further drop noted in today's testing. Last night, the patient developed supraventricular tachycardia. I discussed this with the hospitalist, who plans to consult Cardiology Services. We also discussed the acute anemia and the need for further workup to exclude hemolytic anemia, bone marrow suppression, and the less likely viral-associated hemophagocytic syndrome in the context of viral pneumonia. The hospitalist may request our glass washer to evaluate the patient. Plan: Continue with the current regimen. Encourage the patient to get out of bed and sit in a chair. Continue with nebulized short-acting bronchodilators on a p.r.n. basis. I will continue to follow the patient in collaboration with you. (2) Pneumonia: Code(s): J18.9 - Pneumonia, unspecified organism Status: Acute (3) Pleural effusion: Code(s): J90 - Pleural effusion, not elsewhere classified Status: Acute (4) Influenza A: Code(s): J10.1 - Influenza due to other identified influenza virus with other respiratory manifestations Status: Acute Subjective Date/time seen: 12/02/24 10:47 Interval history: Patient denied having new respiratory symptoms this a.m.. Her cough is now mostly dry and of mild intensity. She has no wheezing hemoptysis or change in shortness of breath. She remains on high-flow nasal cannula. Last night she went into SVT and received urgent treatment by the covering team. According to the cross cover note the patient was in supraventricular tachycardia but following treatment she converted back into normal sinus rhythm. 3 EKGs are available for review. Review of Systems Review of Systems: All systems reviewed & are unremarkable except as noted in HPI and below (HPI and below) Exam Narrative: GENERAL APPEARANCE: Well developed, well nourished, alert and cooperative, and appears to be in in mild respiratory distress while on supplemental oxygen SKIN: Inspection of the skin reveals no rashes, ulcerations or petechiae. HEENT: Sclerae anicteric and conjunctivae pink and moist. Extraocular movements were intact and pupils were equal, round, and reactive to light. The oral mucosa, hard and soft palate, tongue and posterior pharynx were normal. NECK: Supple. There was no thyroid enlargement, and no tenderness, or masses were felt. CHEST: Normal AP diameter and normal contour without any kyphoscoliosis. LUNGS: Crackles at bases bilaterally, no wheezing CARDIAC: There was a regular rate and rhythm without any murmurs, gallops, rubs. ABDOMEN: Soft and nontender with normal bowel sounds. There was no organomegaly. LYMPH NODES: No lymphadenopathy was appreciated in the neck EXTREMITIES: No cyanosis, clubbing or edema. NEUROLOGIC: Alert and oriented x 3. Normal affect. Objective Data Vital Signs Vital Signs: Vital Signs - 24 hr 12/01/24 11:34 12/01/24 12:00 12/01/24 12:00 Temperature 36.4 C Pulse Rate 82 87 86 Respiratory Rate 20 22 H Blood Pressure 125/47 L Pulse Oximetry 97 96 Oxygen Delivery High Flow Therapy with Na Oxygen Flow Rate 35 Fraction of Inspired Oxygen 43 12/01/24 14:00 12/01/24 16:00 12/01/24 16:00 Temperature 36.8 C Pulse Rate 84 86 Respiratory Rate 18 Blood Pressure 128/51 L Pulse Oximetry 98 95 Oxygen Delivery High Flow Therapy with Na Oxygen Flow Rate 35 Fraction of Inspired Oxygen 43 12/01/24 16:00 12/01/24 17:48 12/01/24 19:51 Temperature 36.4 C L Pulse Rate 86 86 89 Respiratory Rate 18 Blood Pressure 108/51 L Pulse Oximetry 96 Oxygen Delivery Oxygen Flow Rate Fraction of Inspired Oxygen 12/01/24 20:00 12/01/24 20:00 12/01/24 22:00 Temperature Pulse Rate 79 84 Respiratory Rate Blood Pressure Pulse Oximetry 96 Oxygen Delivery High Flow Therapy with Na Oxygen Flow Rate 35 Fraction of Inspired Oxygen 42 12/01/24 23:46 12/02/24 00:00 12/02/24 00:00 Temperature 36.6 C Pulse Rate 79 71 Respiratory Rate 18 Blood Pressure 132/52 L Pulse Oximetry 97 95 Oxygen Delivery High Flow Therapy with Na Oxygen Flow Rate 35 Fraction of Inspired Oxygen 42 12/02/24 02:00 12/02/24 03:40 12/02/24 04:00 Temperature 36.8 C Pulse Rate 75 86 Respiratory Rate 18 Blood Pressure 124/61 Pulse Oximetry 100 95 Oxygen Delivery High Flow Therapy with Na Oxygen Flow Rate 35 Fraction of Inspired Oxygen 42 12/02/24 04:00 12/02/24 05:04 12/02/24 05:07 Temperature Pulse Rate 85 170 H 170 H Respiratory Rate Blood Pressure 99/64 L Pulse Oximetry 92 Oxygen Delivery Oxygen Flow Rate Fraction of Inspired Oxygen 12/02/24 05:08 12/02/24 05:13 12/02/24 05:47 Temperature 36.8 C Pulse Rate 170 H 140 H 156 H Respiratory Rate 22 H Blood Pressure 88/61 L 83/57 L Pulse Oximetry 95 Oxygen Delivery Oxygen Flow Rate Fraction of Inspired Oxygen 12/02/24 06:00 12/02/24 06:03 12/02/24 06:35 Temperature 36.8 C Pulse Rate 156 H 151 H 90 Respiratory Rate 22 H Blood Pressure 87/60 L 115/51 L Pulse Oximetry 95 Oxygen Delivery Oxygen Flow Rate Fraction of Inspired Oxygen 12/02/24 07:03 12/02/24 07:03 12/02/24 08:00 Temperature 36.8 C 36.8 C Pulse Rate 95 95 Respiratory Rate 20 20 Blood Pressure 126/59 L 126/59 L Pulse Oximetry 95 95 95 Oxygen Delivery High Flow Therapy with Na Oxygen Flow Rate 35 Fraction of Inspired Oxygen 40 12/02/24 08:02 12/02/24 08:35 12/02/24 08:37 Temperature 37.0 C Pulse Rate 97 82 Respiratory Rate 24 H Blood Pressure 135/56 L Pulse Oximetry 96 96 Oxygen Delivery High Flow Nasal Cannula Oxygen Flow Rate 6 Fraction of Inspired Oxygen 12/02/24 08:44 12/02/24 09:03 12/02/24 09:25 Temperature Pulse Rate Respiratory Rate Blood Pressure Pulse Oximetry 95 96 96 Oxygen Delivery High Flow Nasal Cannula High Flow Nasal Cannula High Flow Nasal Cannula Oxygen Flow Rate 4 4 3 Fraction of Inspired Oxygen Intake/Output Intake/Output: Intake & Output 11/29/24 11/30/24 12/01/24 12/02/24 23:59 23:59 23:59 23:59 Intake Total 1000 1580 2040 465 Output Total 901 1000 1075 1900 Balance 99 [phone] -3305 Meds/Results Medications: Active Medications Generic Name Dose Route Start Last Admin Trade Name Freq PRN Reason Stop Dose Admin Acetaminophen 650 mg 11/23/24 16:54 Acetaminophen 325 Mg Tablet PO Q4H PRN Mild Pain (1-3) or Fever Albuterol 2.5 mg 12/01/24 09:10 Albuterol Sulfate Neb 2.5 Mg/3 Ml Inh INHALATION Q6HRT PRN Shortness Of Breath Benzocaine 1 lozenge 11/23/24 21:50 Benzocaine/Menthol (*Bkc) 18 Ea Lozenge PO PRN PRN Sore Throat Dextrose 12.5 gm 11/23/24 22:59 Dextrose 50% 25 Gm/50 Ml Syringe IV PUSH PRN PRN Hypoglycemia Protocol Enoxaparin Sodium 40 mg 11/24/24 09:00 11/30/24 09:00 Enoxaparin 40 Mg/0.4 Ml Syringe SUB-Q 40 mg DAILY SUZI Administration Glucagon 1 mg 11/23/24 22:59 Glucagon For Inj 1 Mg Vial IM PRN PRN Hypoglycemia Protocol Glucose 15 gm 11/23/24 22:59 Glucose Oral Gel 15 Gm Of Glucse In 37.5 Gm Tube PO PRN PRN Hypoglycemia Protocol Guaifenesin/Dextromethorphan 10 ml 11/30/24 13:00 12/02/24 08:37 Guaifenesin/Dextromethorphan 10 Ml Udc PO 10 ml Q4HR SUZI Administration Hydrochlorothiazide 25 mg 12/01/24 09:00 12/02/24 08:37 Hydrochlorothiazide 25 Mg Tablet PO 25 mg QAM SUZI Administration Dextrose 1,000 mls @ 100 mls/hr 11/23/24 22:59 Dextrose 5% 1,000 Ml IVPB PRN PRN Hypoglycemia Protocol Cefepime HCl 2 gm in 50 mls @ 100 mls/hr 11/29/24 09:00 12/02/24 08:37 Maxipime 2 Gm/Ns 50 Ml IVPB 100 mls/hr Q12HR SUZI Administration Levofloxacin/Dextrose 750 mg in 150 mls @ 100 mls/hr 11/30/24 20:00 11/30/24 21:47 Levaquin 750 Mg/D5w 150 Ml IVPB Infused Q48H SUZI Infusion Sodium Chloride 250 mls @ 30 mls/hr 12/02/24 05:18 12/02/24 06:28 Normal Saline Iv IV CONT 12/02/24 13:37 30 mls/hr .Q8H20M STA Administration Magnesium Sulfate 4 gm in 100 mls @ 25 mls/hr 12/02/24 06:56 12/02/24 09:18 Magnesium Sulf 4 Gm/[id number] IVPB 12/02/24 10:55 25 mls/hr ONCE ONE Administration Insulin Aspart 3 - 6 units 11/24/24 08:00 12/02/24 08:37 Insulin Aspart (*Bkc) 100 Units/Ml SUB-Q Not Given TID[facility] Protocol Insulin Aspart 1 - 3 units 11/24/24 21:00 12/01/24 21:53 Insulin Aspart (*Bkc) 100 Units/Ml SUB-Q Not Given HS [facility] Protocol Insulin Glargine 30 units 11/24/24 18:00 12/01/24 19:04 Insulin Glargine (*Bkc) 100 Units/Ml SUB-Q 30 units QPM SUZI Administration Ipratropium Bailey 0.5 mg 11/30/24 12:19 Ipratropium Br 0.02% Inh Soln 0.5 Mg/2.5 Ml Vial INHALATION Q4HRT PRN Wheezing Levalbuterol HCl 1.25 mg 11/28/24 14:00 Levalbuterol Neb 1.25 Mg/3 Ml INHALATION Q6HRT PRN Wheezing Losartan Potassium 100 mg 12/01/24 09:00 12/02/24 08:37 Losartan Potassium 100 Mg Tablet PO 100 mg DAILY SUZI Administration Lovastatin 40 mg 11/24/24 09:00 12/02/24 08:37 Lovastatin 20 Mg Tablet PO 40 mg DAILY SUZI Administration Metoprolol Succinate 25 mg 11/27/24 09:00 12/02/24 08:37 Metoprolol Succinate Ext Rel 25 Mg Tabcr PO 25 mg QAM SUZI Administration Trazodone HCl 50 mg 11/29/24 18:53 12/01/24 21:52 Trazodone Hcl 50 Mg Tablet PO 50 mg HS PRN Administration Insomnia Radiology Results: ITS Impressions Venous Doppler Study 11/27/24 10:00 IMPRESSION: 1. No deep venous thrombosis. Chest CT 11/27/24 19:14 IMPRESSION: 1. Bilateral pneumonia involving the lower lobes, right upper lobe, middle lobe and lingula. 2. Mediastinal lymphadenopathy. 3. Bilateral pleural effusion. Chest X-Ray 12/01/24 06:21 Impression: Moderate pulmonary edema pattern versus bilateral pneumonia. Small left pleural effusion. Labs Labs: Laboratory Results - last 24 hr 11/30/24 12/01/24 12/01/24 13:13 11:36 15:47 WBC RBC Hgb Hct MCV MCH MCHC RDW Plt Count MPV Sodium Potassium Chloride Carbon Dioxide Anion Gap BUN Creatinine Estim Creat Clear Calc Estimated GFR Glucose POC Capillary Glucose 217 H 144 H Calcium Magnesium Blood Type O Positive Antibody Screen Negative Crossmatch See Detail 12/01/24 12/01/24 12/02/24 15:53 21:43 03:59 WBC RBC Hgb 7.3 L Hct 22.8 L MCV MCH MCHC RDW Plt Count MPV Sodium Potassium Chloride Carbon Dioxide Anion Gap BUN Creatinine Estim Creat Clear Calc Estimated GFR Glucose POC Capillary Glucose 190 H Calcium Magnesium 1.7 Blood Type Antibody Screen Crossmatch 12/02/24 12/02/24 12/02/24 04:03 07:31 09:00 WBC 16.2 H RBC 2.31 L Hgb 6.9 L* 8.9 L Hct 22.0 L 27.7 L MCV 95.2 MCH 29.9 MCHC 31.4 L RDW 15.0 H Plt Count 581 H MPV 9.6 Sodium 135 L Potassium 4.3 Chloride 99 Carbon Dioxide 28 Anion Gap 8 BUN 19 H Creatinine 1.43 H Estim Creat Clear Calc 33 Estimated GFR 36 L Glucose 105 POC Capillary Glucose 147 H Calcium 8.9 Magnesium Blood Type Antibody Screen Crossmatch
[2024-12-02 11:41] LABS: Glucose Point of Care 213 mg/dl (65-105)
[2024-12-02] MEDS: INSULIN ASPART (*BKC) 100 UNITS/ML SUB-Q (12:08)
[2024-12-02 16:20] LABS: Glucose Point of Care 143 mg/dl (65-105)
[2024-12-02] MEDS: INSULIN GLARGINE (*BKC) 100 UNITS/ML 30 UNITS SUB-Q (16:57)
--- NOTE | 2024-12-02 17:30 | P.PNIM_ITS ---
Progress Note: A&P Assessment and Plan (1) Anemia: Code(s): D64.9 - Anemia, unspecified Status: Acute Assessment and Plan: acute on chronic likely due to CKD No signs of acute bleeding 3/3 transfuse 1 unit RBCs, repeat H&H after Q 12 H&H Transfuse for hemoglobin less than 7 or symptomatic Anemia workup Stool Occult blood pending No known cause at this time for hemoglobin to be trending down (2) Acute hypoxic respiratory failure: Code(s): J96.01 - Acute respiratory failure with hypoxia Status: Acute Assessment and Plan: Improving Patient sent to ED from urgent care for pneumonia with hypoxia spo2 70% on RA. In the ED spo2 93% on 4L NC. baseline RA - ABG on 4L NC showing respiratory alkalosis: pH 7.514, pCO2 31.7, pO2 56.6, HCO3 25 - Chest XR: Segmental left lower lung atelectasis/consolidation, overlying a background of interstitial edema. Blood cultures pending Sputum cultures pending 11/26 consulted pulm for further recommendations. 11/27 chest xray-possible pulm edema CT without contrast was ordered- to r/o pneumonia vs chf 11/28- pulm following. able to titrate oxygen requirements down- 50l, fio2 72%. continue tx. ambulate as able, IS. 11/29 moved to IMU for wide complex tachycardia rate 186 11/30 patient changed to Levaquin 12/01 chest x-ray shows increasing edema versus pneumonia, improving with change in antibiotics (3) Pneumonia: Code(s): J18.9 - Pneumonia, unspecified organism Status: Acute Assessment and Plan: - Chest XR: Segmental left lower lung atelectasis/consolidation, overlying a background of interstitial edema. - WBC WNL however procal 12.8, being treated for bacterial pneumonia - started on CAP tx: azithromycin ceftriaxone - Oxygen supplementation: 4L NC, baseline RA. Wean oxygen as tolerated. - Viral PCR: Flu - Sputum culture ordered - Legionella, mycoplasma, and pneumococcal ordered - MRSA negative - Continue scheduled bronchodilators. - Monitor vital signs, I&Os, neuro status and patient is a fall risk - Follow WBC, serum electrolytes, temperature curves and cultures 11/25 ceftriaxone dose is adjsted to 2 gm 11/26 blood cultures no growth today 11/26- wbc worsening. still requiring oxygen. waiting for pulm recommendation but will change antibiotics to cefepime 11/28- continue cefepime. will stop vanc as mRSA negative 11/29- noted antibiotic fell out of mars for some reason- cefepime re ordered. 11/30 patient changes Levaquin (4) Bacteremia: Code(s): R78.81 - Bacteremia Status: Acute Assessment and Plan: positive BC-group A streptococcus discussed with pharm ID- will continue ceftriaxone but increase dose to 2 gm - switched to cefepime , initially vanc was added but stopped as pt mrsa negative continue cefepime-renally dosed per pharmacy Leukocytosis trending down 11/26 blood cultures no growth today (5) SVT (supraventricular tachycardia): Code(s): I47.10 - Supraventricular tachycardia, unspecified Status: Acute Assessment and Plan: Resolved 11/29- last night had sustained episode of rapid heart rate- converted back to NSR with IV metoprolol 5 mg Moved to IMU for close monitoring card was consulted metoprolol added (6) Acute kidney injury: Code(s): N17.9 - Acute kidney failure, unspecified Status: Acute Assessment and Plan: BUN/Cr 32/1.48 on admission, unknown baseline Denies history of kidney disease thus presumably this is an acute kidney injury, likely due to decreased oral intake and dehydration. - BUN/Cr 30/1.45 on am labs - NS 100 ml/hr - Holding losartan-HCTZ for FE, resume when appropriate - Renally dose medications - Avoid nephrotoxic medications - Monitor I/O - lasix was started last night for christo pleural effusion (7) Insulin dependent diabetes mellitus: Status: Acute Assessment and Plan: Patient states that she has not taken her lantus 65 units in over week as she has not been eating. Will decrease her lantus to 30 units and continue to monitor and adjust according to glucose levels. - hypoglycemia protocol - POC blood glucose ACHS - home medication - lantus 65 units, tradjenta 5 mg, metformin 500 mg BID - correct regimen ordered - lantus 30 units, januvia, and SSI - A1C 8.4 (8) Influenza A: Code(s): J10.1 - Influenza due to other identified influenza virus with other respiratory manifestations Status: Acute Assessment and Plan: Viral panel: Flu A Tamiflu 11/23-11/28 completed treatment (9) Hypertension: Code(s): I10 - Essential (primary) hypertension Status: Acute Assessment and Plan: chronic - losartan-HCTZ on hold for FE, resume when appropriate - blood pressures remain stable, continue to monitor (10) Elevated troponin: Code(s): R79.89 - Other specified abnormal findings of blood chemistry Status: Acute Assessment and Plan: see above, likely due to hypoxia (11) Pleural effusion: Code(s): J90 - Pleural effusion, not elsewhere classified Status: Acute Assessment and Plan: ulm edema/effusion vs pneumonia vs chf chest xray was done ct chest 11/27 IMPRESSION: 1. Bilateral pneumonia involving the lower lobes, right upper lobe, middle lobe and lingula. 2. Mediastinal lymphadenopathy. 3. Bilateral pleural effusion. ECho was done on 11/27- EF 55-60%, Summary 1. Complete two-dimensional, color flow and Doppler transthoracic echocardiogram is performed. 2. Mild concentric LVH with preserved systolic function and grade 1 diastolic noncompliance. 3. Mild mitral annular calcification. 4. No valvular dysfunction. 5. Trileaflet aortic valve with mild sclerosis and well maintained leaflet excursion. -added lasix 40 mg IV- monitor closely I/O and kidney function - cardiology following- appreciate recommendations Plan 74 year old female was transferred to IMU from November 28 for rapid heart rate. Was admitted 11/27 with bibasilar pneumonia, chest CT Nov 27 confirmed. coughs but is not able to expectorate secretions. 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 Subjective Date/time seen: 12/02/24 17:30 Interval history: 74 year old female was transferred to IMU from November 28 evening for rapid heart rate. Was admitted 11/27 with bibasilar pneumonia, chest CT Nov 27 confirmed. coughs but is not able to expectorate secretions. 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 Review of Systems Review of Systems: 12 systems were reviewed and are negativ e except for as per HPI. All systems reviewed & are unremarkable except as noted in HPI and below Objective Data Vital Signs Vital Signs: Vital Signs - 24 hr 12/01/24 17:48 12/01/24 19:51 12/01/24 20:00 Temperature 36.4 C L Pulse Rate 86 89 Respiratory Rate 18 Blood Pressure 108/51 L Pulse Oximetry 96 96 Oxygen Delivery High Flow Therapy with Na Oxygen Flow Rate 35 Fraction of Inspired Oxygen 42 12/01/24 20:00 12/01/24 22:00 12/01/24 23:46 Temperature 36.6 C Pulse Rate 79 84 79 Respiratory Rate 18 Blood Pressure 132/52 L Pulse Oximetry 97 Oxygen Delivery Oxygen Flow Rate Fraction of Inspired Oxygen 12/02/24 00:00 12/02/24 00:00 12/02/24 02:00 Temperature Pulse Rate 71 75 Respiratory Rate Blood Pressure Pulse Oximetry 95 Oxygen Delivery High Flow Therapy with Na Oxygen Flow Rate 35 Fraction of Inspired Oxygen 42 12/02/24 03:40 12/02/24 04:00 12/02/24 04:00 Temperature 36.8 C Pulse Rate 86 85 Respiratory Rate 18 Blood Pressure 124/61 Pulse Oximetry 100 95 Oxygen Delivery High Flow Therapy with Na Oxygen Flow Rate 35 Fraction of Inspired Oxygen 42 12/02/24 05:04 12/02/24 05:07 12/02/24 05:08 Temperature Pulse Rate 170 H 170 H 170 H Respiratory Rate Blood Pressure 99/64 L Pulse Oximetry 92 Oxygen Delivery Oxygen Flow Rate Fraction of Inspired Oxygen 12/02/24 05:13 12/02/24 05:47 12/02/24 06:00 Temperature 36.8 C Pulse Rate 140 H 156 H 156 H Respiratory Rate 22 H Blood Pressure 88/61 L 83/57 L Pulse Oximetry 95 Oxygen Delivery Oxygen Flow Rate Fraction of Inspired Oxygen 12/02/24 06:03 12/02/24 06:35 12/02/24 07:03 Temperature 36.8 C 36.8 C Pulse Rate 151 H 90 95 Respiratory Rate 22 H 20 Blood Pressure 87/60 L 115/51 L 126/59 L Pulse Oximetry 95 95 Oxygen Delivery Oxygen Flow Rate Fraction of Inspired Oxygen 12/02/24 07:03 12/02/24 08:00 12/02/24 08:00 Temperature 36.8 C Pulse Rate 95 97 95 Respiratory Rate 20 24 H Blood Pressure 126/59 L Pulse Oximetry 95 96 Oxygen Delivery High Flow Therapy with Na Oxygen Flow Rate 35 Fraction of Inspired Oxygen 40 12/02/24 08:02 12/02/24 08:35 12/02/24 08:37 Temperature 37.0 C Pulse Rate 97 82 Respiratory Rate 24 H Blood Pressure 135/56 L Pulse Oximetry 96 96 Oxygen Delivery High Flow Nasal Cannula Oxygen Flow Rate 6 Fraction of Inspired Oxygen 12/02/24 08:44 12/02/24 09:03 12/02/24 09:25 Temperature Pulse Rate Respiratory Rate Blood Pressure Pulse Oximetry 95 96 96 Oxygen Delivery High Flow Nasal Cannula High Flow Nasal Cannula High Flow Nasal Cannula Oxygen Flow Rate 4 4 3 Fraction of Inspired Oxygen 12/02/24 10:00 12/02/24 11:20 12/02/24 12:00 Temperature 36.7 C Pulse Rate 101 H 76 76 Respiratory Rate 16 16 Blood Pressure 124/52 L Pulse Oximetry 94 95 Oxygen Delivery High Flow Therapy with Na Oxygen Flow Rate 2 Fraction of Inspired Oxygen 12/02/24 12:00 12/02/24 13:19 12/02/24 14:00 Temperature Pulse Rate 73 77 Respiratory Rate Blood Pressure Pulse Oximetry 95 Oxygen Delivery Nasal Cannula Oxygen Flow Rate 2 Fraction of Inspired Oxygen 12/02/24 15:36 12/02/24 16:00 12/02/24 16:00 Temperature 36.8 C Pulse Rate 74 77 76 Respiratory Rate 22 H 16 Blood Pressure 126/48 L Pulse Oximetry 95 95 Oxygen Delivery Nasal Cannula Oxygen Flow Rate 2 Fraction of Inspired Oxygen Intake/Output Intake/Output: Intake & Output 11/29/24 11/30/24 12/01/24 12/02/24 23:59 23:59 23:59 23:59 Intake Total 1000 1580 2040 1455 Output Total 901 1000 1075 5915 Balance 99 764 662 -7937 Meds/Results Medications: Active Medications Generic Name Dose Route Start Last Admin Trade Name Freq PRN Reason Stop Dose Admin Acetaminophen 650 mg 11/23/24 16:54 Acetaminophen 325 Mg Tablet PO Q4H PRN Mild Pain (1-3) or Fever Albuterol 2.5 mg 12/01/24 09:10 Albuterol Sulfate Neb 2.5 Mg/3 Ml Inh INHALATION Q6HRT PRN Shortness Of Breath Benzocaine 1 lozenge 11/23/24 21:50 Benzocaine/Menthol (*Bk) 18 Ea Lozenge PO PRN PRN Sore Throat Dextrose 12.5 gm 11/23/24 22:59 Dextrose 50% 25 Gm/50 Ml Syringe IV PUSH PRN PRN Hypoglycemia Protocol Enoxaparin Sodium 40 mg 11/24/24 09:00 11/30/24 09:00 Enoxaparin 40 Mg/0.4 Ml Syringe SUB-Q 40 mg DAILY SUZI Administration Glucagon 1 mg 11/23/24 22:59 Glucagon For Inj 1 Mg Vial IM PRN PRN Hypoglycemia Protocol Glucose 15 gm 11/23/24 22:59 Glucose Oral Gel 15 Gm Of Glucse In 37.5 Gm Tube PO PRN PRN Hypoglycemia Protocol Guaifenesin/Dextromethorphan 10 ml 11/30/24 13:00 12/02/24 16:57 Guaifenesin/Dextromethorphan 10 Ml Udc PO 10 ml Q4HR SUZI Administration Hydrochlorothiazide 25 mg 12/01/24 09:00 12/02/24 08:37 Hydrochlorothiazide 25 Mg Tablet PO 25 mg QAM SUZI Administration Dextrose 1,000 mls @ 100 mls/hr 11/23/24 22:59 Dextrose 5% 1,000 Ml IVPB PRN PRN Hypoglycemia Protocol Cefepime HCl 2 gm in 50 mls @ 100 mls/hr 11/29/24 09:00 12/02/24 09:07 Maxipime 2 Gm/Ns 50 Ml IVPB Infused Q12HR SUZI Infusion Levofloxacin/Dextrose 750 mg in 150 mls @ 100 mls/hr 11/30/24 20:00 11/30/24 21:47 Levaquin 750 Mg/D5w 150 Ml IVPB Infused Q48H [facility] Infusion Insulin Aspart 3 - 6 units 11/24/24 08:00 12/02/24 16:57 Insulin Aspart (*Bkc) 100 Units/Ml SUB-Q Not Given TIDWM [facility] Protocol Insulin Aspart 1 - 3 units 11/24/24 21:00 12/01/24 21:53 Insulin Aspart (*Bkc) 100 Units/Ml SUB-Q Not Given HS [facility] Protocol Insulin Glargine 30 units 11/24/24 18:00 12/02/24 16:57 Insulin Glargine (*Bkc) 100 Units/Ml SUB-Q 30 units QPM [facility] Administration Ipratropium [place] 0.5 mg 11/30/24 12:19 Ipratropium Br 0.02% Inh Soln 0.5 Mg/2.5 Ml Vial INHALATION Q4HRT PRN Wheezing Levalbuterol HCl 1.25 mg 11/28/24 14:00 Levalbuterol Neb 1.25 Mg/3 Ml INHALATION Q6HRT PRN Wheezing Losartan Potassium 100 mg 12/01/24 09:00 12/02/24 08:37 Losartan Potassium 100 Mg Tablet PO 100 mg DAILY SUZI Administration Lovastatin 40 mg 11/24/24 09:00 12/02/24 08:37 Lovastatin 20 Mg Tablet PO 40 mg DAILY SUZI Administration Metoprolol Succinate 25 mg 11/27/24 09:00 12/02/24 08:37 Metoprolol Succinate Ext Rel 25 Mg Tabcr PO 25 mg QAM [facility] Administration Trazodone HCl 50 mg 11/29/24 18:53 12/01/24 21:52 Trazodone Hcl 50 Mg Tablet PO 50 mg HS PRN Administration Insomnia Radiology Results: ITS Impressions Venous Doppler Study 11/27/24 10:00 IMPRESSION: 1. No deep venous thrombosis. Chest CT 11/27/24 19:14 IMPRESSION: 1. Bilateral pneumonia involving the lower lobes, right upper lobe, middle lobe and lingula. 2. Mediastinal lymphadenopathy. 3. Bilateral pleural effusion. Chest X-Ray 12/01/24 06:21 Impression: Moderate pulmonary edema pattern versus bilateral pneumonia. Small left pleural effusion. Labs Labs: Laboratory Results - last 24 hr 11/30/24 12/01/24 12/02/24 13:13 21:43 03:59 WBC RBC Hgb Hct MCV MCH MCHC RDW Plt Count MPV Sodium Potassium Chloride Carbon Dioxide Anion Gap BUN Creatinine Estim Creat Clear Calc Estimated GFR Glucose POC Capillary Glucose 190 H Calcium Magnesium 1.7 Blood Type O Positive Antibody Screen Negative Crossmatch See Detail 12/02/24 12/02/24 12/02/24 04:03 07:31 09:00 WBC 16.2 H RBC 2.31 L Hgb 6.9 L* 8.9 L Hct 22.0 L 27.7 L MCV 95.2 MCH 29.9 MCHC 31.4 L RDW 15.0 H Plt Count 581 H MPV 9.6 Sodium 135 L Potassium 4.3 Chloride 99 Carbon Dioxide 28 Anion Gap 8 BUN 19 H Creatinine 1.43 H Estim Creat Clear Calc 33 Estimated GFR 36 L Glucose 105 POC Capillary Glucose 147 H Calcium 8.9 Magnesium Blood Type Antibody Screen Crossmatch 12/02/24 12/02/24 11:19 15:40 WBC RBC Hgb Hct MCV MCH MCHC RDW Plt Count MPV Sodium Potassium Chloride Carbon Dioxide Anion Gap BUN Creatinine Estim Creat Clear Calc Estimated GFR Glucose POC Capillary Glucose 213 H 143 H Calcium Magnesium Blood Type Antibody Screen Crossmatch
[2024-12-02] MEDS: levoFLOXacin 750 MG/D5W 150 ML 750 MG/150 ML BAG 100 MG IVPB (20:41)
[2024-12-03] VITALS (18 sets, daily range): BP systolic 124–148; BP diastolic 46–71; PULSE 67–109; RESP 17–22; TEMP 36.7–37.3; O2SAT 91–98
[2024-12-03 05:00] LABS: Hematocrit 28.1 % (37.0-47.0); Hemoglobin 8.9 g/dL (12.0-15.0); Mean Corpuscular HGB Conc 31.7 g/dl (32-36); Mean Corpuscular Hemoglobin 29.4 pg (26-34); Mean Corpuscular Volume 92.7 fl (80-100); Mean Platelet Volume 9.2 fl (7.4-10.4); Platelet Count Result 640 k/mm3 (150-375); Red Blood Count 3.03 M/mm3 (4.2-5.4); Red Cell Distribution Width 15.6 % (11.5-14.5); White Blood Count 15.4 K/mm3 (4.5-10.0)
[2024-12-03] MEDS: guaiFENesin/DEXTROMETHORPHAN 10 ML UDC PO (06:10)
[2024-12-03 07:52] LABS: Glucose Point of Care 132 mg/dl (65-105)
[2024-12-03 08:06] LABS: Anion Gap 6 mmol/L (4-12); Blood Urea Nitrogen 21 mg/dL (7-17); Calcium 9.2 mg/dL (8.4-10.2); Carbon Dioxide 30 mmol/L (22-30); Chloride 99 mmol/L (98-107); Estimated CRCL calculation 30 ml/min; Estimated Glomerular Filt Rate 33; Glucose 126 mg/dL (65-110); Potassium 4.3 mmol/L (3.4-5.0); Sodium 135 mmol/L (137-145)
[2024-12-03] MEDS: LOVASTATIN 20 MG TABLET 40 MG PO (08:08)
[2024-12-03] MEDS: METOPROLOL SUCCINATE EXT REL 25 MG TABCR PO (08:08)
[2024-12-03] MEDS: hydroCHLOROthiazide 25 MG TABLET PO (08:08)
[2024-12-03] MEDS: CEFEPIME 2 GM/NS 50 ML 2 GM/50 ML BAG IVPB ×2 (08:08→20:42)
[2024-12-03] MEDS: LOSARTAN POTASSIUM 100 MG TABLET PO (08:08)
--- NOTE | 2024-12-03 09:39 | P.PNPL_ITS ---
Progress Note: A&P Assessment and Plan (1) Acute hypoxemic respiratory failure: Code(s): J96.01 - Acute respiratory failure with hypoxia Status: Acute Assessment and Plan: This 74-year-old female presented with an acute respiratory illness persisting for several days before hospitalization, diagnosed as influenza A with a possible lower respiratory tract infection, either viral or bacterial in origin. Her chest X-ray shows bilateral infiltrates and small pleural effusions, suggesting possible pulmonary edema. She was recently evaluated by Cardiology Services for supraventricular tachycardia, and her BNP levels have increased since admission. A chest CT reveals bilateral lower lobe consolidation, infiltrate with air bronchograms, and small pleural effusions, indicating bilateral pneumonia more than pulmonary edema. She is on a high-flow nasal cannula and reports no significant complaints such as shortness of breath, fever, chills, hemoptysis, or wheezing, and she does not appear septic. The patient is receiving cefepime and levofloxacin for bilateral pneumonia following influenza infection. Urine testing for pneumococcal and Legionella antigens negative. Mycoplasma testing also negative. Over the past 24 hours, her respiratory status has improved. Currently she is on low-flow nasal cannula complaining of only mild cough. Physical exam still showing crackles at bases posteriorly but no wheezing. Further drop in WBC noted. Plan: Continue with the current regimen. Chest x-ray in a.m. Encourage the patient to get out of bed and sit in a chair. Continue with nebulized short-acting bronchodilators on a p.r.n. basis. I will continue to follow the patient in collaboration with you. (2) Pneumonia: Code(s): J18.9 - Pneumonia, unspecified organism Status: Acute (3) Pleural effusion: Code(s): J90 - Pleural effusion, not elsewhere classified Status: Acute (4) Influenza A: Code(s): J10.1 - Influenza due to other identified influenza virus with other respiratory manifestations Status: Acute Subjective Date/time seen: 12/03/24 09:39 Interval history: Patient stated she is doing better. She has mild cough but no sputum production. No other respiratory symptoms. FiO2 significantly lower over the l ast 24 hours. Ambulating in room. Review of Systems Review of Systems: All systems reviewed & are unremarkable except as noted in HPI and below (HPI and below) Exam Narrative: GENERAL APPEARANCE: Well developed, well nourished, alert and cooperative, and appears to be in in mild respiratory distress while on supplemental oxygen SKIN: Inspection of the skin reveals no rashes, ulcerations or petechiae. HEENT: Sclerae anicteric and conjunctivae pink and moist. Extraocular movements were intact and pupils were equal, round, and reactive to light. The oral mucosa, hard and soft palate, tongue and posterior pharynx were normal. NECK: Supple. There was no thyroid enlargement, and no tenderness, or masses were felt. CHEST: Normal AP diameter and normal contour without any kyphoscoliosis. LUNGS: Crackles at bases bilaterally, no wheezing CARDIAC: There was a regular rate and rhythm without any murmurs, gallops, rubs. ABDOMEN: Soft and nontender with normal bowel sounds. There was no organomegaly. LYMPH NODES: No lymphadenopathy was appreciated in the neck EXTREMITIES: No cyanosis, clubbing or edema. NEUROLOGIC: Alert and oriented x 3. Normal affect. Objective Data Vital Signs Vital Signs: Vital Signs - 24 hr 12/02/24 10:00 12/02/24 11:20 12/02/24 12:00 Temperature 36.7 C Pulse Rate 101 H 76 76 Respiratory Rate 16 16 Blood Pressure 124/52 L Pulse Oximetry 94 95 Oxygen Delivery High Flow Therapy with Na Oxygen Flow Rate 2 12/02/24 12:00 12/02/24 13:19 12/02/24 14:00 Temperature Pulse Rate 73 77 Respiratory Rate Blood Pressure Pulse Oximetry 95 Oxygen Delivery Nasal Cannula Oxygen Flow Rate 2 12/02/24 15:36 12/02/24 16:00 12/02/24 16:00 Temperature 36.8 C Pulse Rate 74 77 76 Respiratory Rate 22 H 16 Blood Pressure 126/48 L Pulse Oximetry 95 95 Oxygen Delivery Nasal Cannula Oxygen Flow Rate 2 12/02/24 18:00 12/02/24 20:00 12/02/24 20:00 Temperature 36.4 C Pulse Rate 75 80 80 Respiratory Rate 18 18 Blood Pressure 131/56 L Pulse Oximetry 93 93 Oxygen Delivery Nasal Cannula Oxygen Flow Rate 2 12/02/24 21:00 12/02/24 21:54 12/02/24 23:45 Temperature 36.9 C Pulse Rate 69 79 75 Respiratory Rate 18 Blood Pressure 121/50 L Pulse Oximetry 94 Oxygen Delivery Oxygen Flow Rate 12/02/24 23:57 12/02/24 23:57 12/03/24 02:00 Temperature Pulse Rate 77 75 67 Respiratory Rate 18 Blood Pressure Pulse Oximetry 96 Oxygen Delivery Nasal Cannula Oxygen Flow Rate 1 12/03/24 03:17 12/03/24 03:18 12/03/24 04:00 Temperature 36.8 C Pulse Rate 71 71 85 Respiratory Rate 18 17 Blood Pressure 148/71 H Pulse Oximetry 96 98 Oxygen Delivery Nasal Cannula Oxygen Flow Rate 1 12/03/24 06:00 12/03/24 07:53 12/03/24 08:00 Temperature 36.8 C Pulse Rate 75 88 77 Respiratory Rate 22 H 22 H Blood Pressure 125/55 L Pulse Oximetry 92 92 Oxygen Delivery Nasal Cannula Oxygen Flow Rate 2 12/03/24 08:00 12/03/24 08:08 12/03/24 08:15 Temperature Pulse Rate 72 77 Respiratory Rate Blood Pressure Pulse Oximetry 96 Oxygen Delivery Room Air Oxygen Flow Rate Intake/Output Intake/Output: Intake & Output 11/30/24 12/01/24 12/02/24 12/03/24 23:59 23:59 23:59 23:59 Intake Total 1580 2040 1895.0 120 Output Total 1000 1075 3125 Balance 580 965 -1230.0 120 Meds/Results Medications: Active Medications Generic Name Dose Route Start Last Admin Trade Name Freq PRN Reason Stop Dose Admin Acetaminophen 650 mg 11/23/24 16:54 Acetaminophen 325 Mg Tablet PO Q4H PRN Mild Pain (1-3) or Fever Albuterol 2.5 mg 12/01/24 09:10 Albuterol Sulfate Neb 2.5 Mg/3 Ml Inh INHALATION Q6HRT PRN Shortness Of Breath Benzocaine 1 lozenge 11/23/24 21:50 Benzocaine/Menthol (*Bkc) 18 Ea Lozenge PO PRN PRN Sore Throat Dextrose 12.5 gm 11/23/24 22:59 Dextrose 50% 25 Gm/50 Ml Syringe IV PUSH PRN PRN Hypoglycemia Protocol Enoxaparin Sodium 40 mg 11/24/24 09:00 11/30/24 09:00 Enoxaparin 40 Mg/0.4 Ml Syringe SUB-Q 40 mg DAILY SUZI Administration Glucagon 1 mg 11/23/24 22:59 Glucagon For Inj 1 Mg Vial IM PRN PRN Hypoglycemia Protocol Glucose 15 gm 11/23/24 22:59 Glucose Oral Gel 15 Gm Of Glucse In 37.5 Gm Tube PO PRN PRN Hypoglycemia Protocol Guaifenesin/Dextromethorphan 10 ml 11/30/24 13:00 12/03/24 06:10 Guaifenesin/Dextromethorphan 10 Ml Udc PO 10 ml Q4HR SUZI Administration Hydrochlorothiazide 25 mg 12/01/24 09:00 12/03/24 08:08 Hydrochlorothiazide 25 Mg Tablet PO 25 mg QAM SUZI Administration Dextrose 1,000 mls @ 100 mls/hr 11/23/24 22:59 Dextrose 5% 1,000 Ml IVPB PRN PRN Hypoglycemia Protocol Cefepime HCl 2 gm in 50 mls @ 100 mls/hr 11/29/24 09:00 12/03/24 08:08 Maxipime 2 Gm/Ns 50 Ml IVPB 12/05/24 21:29 100 mls/hr Q12HR SUZI Administration Levofloxacin/Dextrose 750 mg in 150 mls @ 100 mls/hr 11/30/24 20:00 12/02/24 22:28 Levaquin 750 Mg/D5w 150 Ml IVPB 12/06/24 21:29 Infused Q48H SUZI Infusion Insulin Aspart 3 - 6 units 11/24/24 08:00 12/03/24 08:14 Insulin Aspart (*Bkc) 100 Units/Ml SUB-Q Not Given TIDWM [facility] Protocol Insulin Aspart 1 - 3 units 11/24/24 21:00 12/02/24 20:37 Insulin Aspart (*Bkc) 100 Units/Ml SUB-Q Not Given HS [facility] Protocol Insulin Glargine 30 units 11/24/24 18:00 12/02/24 16:57 Insulin Glargine (*Bkc) 100 Units/Ml SUB-Q 30 units QPM SUZI Administration Ipratropium [place] 0.5 mg 11/30/24 12:19 Ipratropium Br 0.02% Inh Soln 0.5 Mg/2.5 Ml Vial INHALATION Q4HRT PRN Wheezing Levalbuterol HCl 1.25 mg 11/28/24 14:00 Levalbuterol Neb 1.25 Mg/3 Ml INHALATION Q6HRT PRN Wheezing Losartan Potassium 100 mg 12/01/24 09:00 12/03/24 08:08 Losartan Potassium 100 Mg Tablet PO 100 mg DAILY SUZI Administration Lovastatin 40 mg 11/24/24 09:00 12/03/24 08:08 Lovastatin 20 Mg Tablet PO 40 mg DAILY SUZI Administration Metoprolol Succinate 25 mg 11/27/24 09:00 12/03/24 08:08 Metoprolol Succinate Ext Rel 25 Mg Tabcr PO 25 mg QAM SUZI Administration Trazodone HCl 50 mg 11/29/24 18:53 12/01/24 21:52 Trazodone Hcl 50 Mg Tablet PO 50 mg HS PRN Administration Insomnia Radiology Results: ITS Impressions Venous Doppler Study 11/27/24 10:00 IMPRESSION: 1. No deep venous thrombosis. Chest CT 11/27/24 19:14 IMPRESSION: 1. Bilateral pneumonia involving the lower lobes, right upper lobe, middle lobe and lingula. 2. Mediastinal lymphadenopathy. 3. Bilateral pleural effusion. Chest X-Ray 12/01/24 06:21 Impression: Moderate pulmonary edema pattern versus bilateral pneumonia. Small left pleural effusion. Labs Labs: Laboratory Results - last 24 hr 12/02/24 12/02/24 12/03/24 11:19 15:40 03:48 WBC 15.4 H RBC 3.03 L Hgb 8.9 L Hct 28.1 L MCV 92.7 MCH 29.4 MCHC 31.7 L RDW 15.6 H Plt Count 640 H MPV 9.2 Sodium 135 L Potassium 4.3 Chloride 99 Carbon Dioxide 30 Anion Gap 6 BUN 21 H Creatinine 1.53 H Estim Creat Clear Calc 30 Estimated GFR 33 L Glucose 126 H POC Capillary Glucose 213 H 143 H Calcium 9.2 12/03/24 07:15 WBC RBC Hgb Hct MCV MCH MCHC RDW Plt Count MPV Sodium Potassium Chloride Carbon Dioxide Anion Gap BUN Creatinine Estim Creat Clear Calc Estimated GFR Glucose POC Capillary Glucose 132 H Calcium
[2024-12-03 11:36] LABS: Glucose Point of Care 221 mg/dl (65-105)
[2024-12-03] MEDS: INSULIN ASPART (*BKC) 100 UNITS/ML SUB-Q (13:02)
[2024-12-03 16:40] LABS: Glucose Point of Care 155 mg/dl (65-105)
[2024-12-03] MEDS: INSULIN GLARGINE (*BKC) 100 UNITS/ML 30 UNITS SUB-Q (16:55)
--- NOTE | 2024-12-03 17:38 | PM.IMPN ---
Progress Note: A&P Assessment and Plan (1) Anemia: Code(s): D64.9 - Anemia, unspecified Status: Acute Assessment and Plan: acute on chronic likely due to CKD No signs of acute bleeding 3/3 transfuse 1 unit RBCs, repeat H&H after Q 12 H&H Transfuse for hemoglobin less than 7 or symptomatic Anemia workup Stool Occult blood pending No known cause at this time for hemoglobin to be trending down (2) Acute hypoxic respiratory failure: Code(s): J96.01 - Acute respiratory failure with hypoxia Status: Acute Assessment and Plan: Improving Patient sent to ED from urgent care for pneumonia with hypoxia spo2 70% on RA. In the ED spo2 93% on 4L NC. baseline RA - ABG on 4L NC showing respiratory alkalosis: pH 7.514, pCO2 31.7, pO2 56.6, HCO3 25 - Chest XR: Segmental left lower lung atelectasis/consolidation, overlying a background of interstitial edema. Blood cultures pending Sputum cultures pending 11/26 consulted pulm for further recommendations. 11/27 chest xray-possible pulm edema CT without contrast was ordered- to r/o pneumonia vs chf 11/28- pulm following. able to titrate oxygen requirements down- 50l, fio2 72%. continue tx. ambulate as able, IS. 11/29 moved to IMU for wide complex tachycardia rate 186 11/30 patient changed to Levaquin 12/01 chest x-ray shows increasing edema versus pneumonia, improving with change in antibiotics (3) Pneumonia: Code(s): J18.9 - Pneumonia, unspecified organism Status: Acute Assessment and Plan: - Chest XR: Segmental left lower lung atelectasis/consolidation, overlying a background of interstitial edema. - WBC WNL however procal 12.8, being treated for bacterial pneumonia - started on CAP tx: azithromycin ceftriaxone - Oxygen supplementation: 4L NC, baseline RA. Wean oxygen as tolerated. - Viral PCR: Flu - Sputum culture ordered - Legionella, mycoplasma, and pneumococcal ordered - MRSA negative - Continue scheduled bronchodilators. - Monitor vital signs, I&Os, neuro status and patient is a fall risk - Follow WBC, serum electrolytes, temperature curves and cultures 11/25 ceftriaxone dose is adjsted to 2 gm 11/26 blood cultures no growth today 11/26- wbc worsening. still requiring oxygen. waiting for pulm recommendation but will change antibiotics to cefepime 11/28- continue cefepime. will stop vanc as mRSA negative 11/29- noted antibiotic fell out of mars for some reason- cefepime re ordered. 11/30 patient changes Levaquin (4) Bacteremia: Code(s): R78.81 - Bacteremia Status: Acute Assessment and Plan: positive BC-group A streptococcus discussed with pharm ID- will continue ceftriaxone but increase dose to 2 gm - switched to cefepime , initially vanc was added but stopped as pt mrsa negative continue cefepime-renally dosed per pharmacy Leukocytosis trending down 11/26 blood cultures no growth today (5) SVT (supraventricular tachycardia): Code(s): I47.10 - Supraventricular tachycardia, unspecified Status: Acute Assessment and Plan: Resolved 11/29- last night had sustained episode of rapid heart rate- converted back to NSR with IV metoprolol 5 mg Moved to IMU for close monitoring card was consulted metoprolol added (6) Acute kidney injury: Code(s): N17.9 - Acute kidney failure, unspecified Status: Acute Assessment and Plan: BUN/Cr 32/1.48 on admission, unknown baseline Denies history of kidney disease thus presumably this is an acute kidney injury, likely due to decreased oral intake and dehydration. - BUN/Cr 30/1.45 on am labs - NS 100 ml/hr - Holding losartan-HCTZ for FE, resume when appropriate - Renally dose medications - Avoid nephrotoxic medications - Monitor I/O - lasix was started last night for christo pleural effusion (7) Insulin dependent diabetes mellitus: Status: Acute Assessment and Plan: Patient states that she has not taken her lantus 65 units in over week as she has not been eating. Will decrease her lantus to 30 units and continue to monitor and adjust according to glucose levels. - hypoglycemia protocol - POC blood glucose ACHS - home medication - lantus 65 units, tradjenta 5 mg, metformin 500 mg BID - correct regimen ordered - lantus 30 units, januvia, and SSI - A1C 8.4 (8) Influenza A: Code(s): J10.1 - Influenza due to other identified influenza virus with other respiratory manifestations Status: Acute Assessment and Plan: Viral panel: Flu A Tamiflu 11/23-11/28 completed treatment (9) Hypertension: Code(s): I10 - Essential (primary) hypertension Status: Acute Assessment and Plan: chronic - losartan-HCTZ on hold for FE, resume when appropriate - blood pressures remain stable, continue to monitor (10) Elevated troponin: Code(s): R79.89 - Other specified abnormal findings of blood chemistry Status: Acute Assessment and Plan: see above, likely due to hypoxia (11) Pleural effusion: Code(s): J90 - Pleural effusion, not elsewhere classified Status: Acute Assessment and Plan: ulm edema/effusion vs pneumonia vs chf chest xray was done ct chest 11/27 IMPRESSION: 1. Bilateral pneumonia involving the lower lobes, right upper lobe, middle lobe and lingula. 2. Mediastinal lymphadenopathy. 3. Bilateral pleural effusion. ECho was done on 11/27- EF 55-60%, Summary 1. Complete two-dimensional, color flow and Doppler transthoracic echocardiogram is performed. 2. Mild concentric LVH with preserved systolic function and grade 1 diastolic noncompliance. 3. Mild mitral annular calcification. 4. No valvular dysfunction. 5. Trileaflet aortic valve with mild sclerosis and well maintained leaflet excursion. -added lasix 40 mg IV- monitor closely I/O and kidney function - cardiology following- appreciate recommendations Plan 74 year old female was transferred to IMU from November 28 evening for rapid heart rate. Was admitted 11/27 with bibasilar pneumonia, chest CT Nov 27 confirmed. coughs but is not able to expectorate secretions. Patient's hemoglobin was 6.9 yesterday was transfuse 1 unit RBCs repeat hemoglobin was 7.2, patient has no signs of active bleeding may benefit from a CT scan Patient switch to Levaquin yesterday per pulmonology is recommendations, improvement leukocytosis this morning Patient after a new hemoglobin with stable, no blood seen in urine or stool by SECURITY CONTROL ROOM OFFICER, CT deferred at this time patient stats feeling better not sure why her heart was palpitating now feels better, denies any CP, SOB or palpitation, Discuss with her automotive maintenance technician concerning for persisting anemia without any sign of bleeding or GI concerns, will consult operations manager/coordinator for further recommendation. Plastic Press Molder is treating patient with Levaquin, will continue to monitor. Subjective Date/time seen: 12/03/24 17:38 Interval history: 74 year old female was transferred to IMU from November 28 evening for rapid heart rate. Was admitted 11/27 with bibasilar pneumonia, chest CT Nov 27 confirmed. coughs but is not able to expectorate secretions. Patient's hemoglobin was 6.9 yesterday was transfuse 1 unit RBCs repeat hemoglobin was 7.2, patient has no signs of active bleeding may benefit from a CT scan Patient switch to Levaquin yesterday per pulmonology is recommendations, improvement leukocytosis this morning Patient after a new hemoglobin with stable, no blood seen in urine or stool by SECURITY CONTROL ROOM OFFICER, CT deferred at this time Review of Systems Review of Systems: 12 systems were reviewed and are negative except for as per HPI. All systems reviewed & are unremarkable except as noted in HPI and below Exam Narrative: Elderly frail Patient is comfortable, NAD HEENT: eyes are clear and none icteric LUNGS:CTA HEART: RR S1S2 ABD: BS+, Soft and nontender Lower extremities: no edema SKIN: nonjaundiced Neuro: grossly intact. Objective Data Vital Signs Vital Signs: Vital Signs - 24 hr 12/02/24 18:00 12/02/24 20:00 12/02/24 20:00 Temperature 36.4 C Pulse Rate 75 80 80 Respiratory Rate 18 18 Blood Pressure 131/56 L Pulse Oximetry 93 93 Oxygen Delivery Nasal Cannula Oxygen Flow Rate 2 12/02/24 21:00 12/02/24 21:54 12/02/24 23:45 Temperature 36.9 C Pulse Rate 69 79 75 Respiratory Rate 18 Blood Pressure 121/50 L Pulse Oximetry 94 Oxygen Delivery Oxygen Flow Rate 12/02/24 23:57 12/02/24 23:57 12/03/24 02:00 Temperature Pulse Rate 77 75 67 Respiratory Rate 18 Blood Pressure Pulse Oximetry 96 Oxygen Delivery Nasal Cannula Oxygen Flow Rate 1 12/03/24 03:17 12/03/24 03:18 12/03/24 04:00 Temperature 36.8 C Pulse Rate 71 71 85 Respiratory Rate 18 17 Blood Pressure 148/71 H Pulse Oximetry 96 98 Oxygen Delivery Nasal Cannula Oxygen Flow Rate 1 12/03/24 06:00 12/03/24 07:53 12/03/24 08:00 Temperature 36.8 C Pulse Rate 75 88 77 Respiratory Rate 22 H 22 H Blood Pressure 125/55 L Pulse Oximetry 92 92 Oxygen Delivery Nasal Cannula Oxygen Flow Rate 2 12/03/24 08:00 12/03/24 08:08 12/03/24 08:15 Temperature Pulse Rate 72 77 Respiratory Rate Blood Pressure Pulse Oximetry 96 Oxygen Delivery Room Air Oxygen Flow Rate 12/03/24 10:00 12/03/24 10:34 12/03/24 12:00 Temperature 36.8 C Pulse Rate 79 76 Respiratory Rate 18 Blood Pressure 130/46 L Pulse Oximetry 95 91 Oxygen Delivery Room Air Oxygen Flow Rate 12/03/24 12:00 12/03/24 16:00 12/03/24 16:00 Temperature 37.3 C Pulse Rate 70 76 109 H Respiratory Rate 18 Blood Pressure 133/68 Pulse Oximetry 98 Oxygen Delivery Oxygen Flow Rate Intake/Output Intake/Output: Intake & Output 11/30/24 12/01/24 12/02/24 12/03/24 23:59 23:59 23:59 23:59 Intake Total 1580 2040 1895.0 410 Output Total 1000 1075 3125 Balance 580 965 -1230.0 410 Meds/Results Medications: Active Medications Generic Name Dose Route Start Last Admin Trade Name Freq PRN Reason Stop Dose Admin Acetaminophen 650 mg 11/23/24 16:54 Acetaminophen 325 Mg Tablet PO Q4H PRN Mild Pain (1-3) or Fever Albuterol 2.5 mg 12/01/24 09:10 Albuterol Sulfate Neb 2.5 Mg/3 Ml Inh INHALATION Q6HRT PRN Shortness Of Breath Benzocaine 1 lozenge 11/23/24 21:50 Benzocaine/Menthol (*Bkc) 18 Ea Lozenge PO PRN PRN Sore Throat Dextrose 12.5 gm 11/23/24 22:59 Dextrose 50% 25 Gm/50 Ml Syringe IV PUSH PRN PRN Hypoglycemia Protocol Enoxaparin Sodium 40 mg 11/24/24 09:00 11/30/24 09:00 Enoxaparin 40 Mg/0.4 Ml Syringe SUB-Q 40 mg DAILY SUZI Administration Glucagon 1 mg 11/23/24 22:59 Glucagon For Inj 1 Mg Vial IM PRN PRN Hypoglycemia Protocol Glucose 15 gm 11/23/24 22:59 Glucose Oral Gel 15 Gm Of Glucse In 37.5 Gm Tube PO PRN PRN Hypoglycemia Protocol Guaifenesin/Dextromethorphan 10 ml 12/03/24 13:27 Guaifenesin/Dextromethorphan 10 Ml Udc PO Q4HR PRN Cough Hydrochlorothiazide 25 mg 12/01/24 09:00 12/03/24 08:08 Hydrochlorothiazide 25 Mg Tablet PO 25 mg QAM SUZI Administration Dextrose 1,000 mls @ 100 mls/hr 11/23/24 22:59 Dextrose 5% 1,000 Ml IVPB PRN PRN Hypoglycemia Protocol Cefepime HCl 2 gm in 50 mls @ 100 mls/hr 11/29/24 09:00 12/03/24 16:47 Maxipime 2 Gm/Ns 50 Ml IVPB 12/05/24 21:29 Infused Q12HR SUZI Infusion Levofloxacin/Dextrose 750 mg in 150 mls @ 100 mls/hr 11/30/24 20:00 12/02/24 22:28 Levaquin 750 Mg/D5w 150 Ml IVPB 12/06/24 21:29 Infused Q48H SUZI Infusion Insulin Aspart 3 - 6 units 11/24/24 08:00 12/03/24 16:47 Insulin Aspart (*Bkc) 100 Units/Ml SUB-Q Not Given TIDWM [facility] Protocol Insulin Aspart 1 - 3 units 11/24/24 21:00 12/02/24 20:37 Insulin Aspart (*Bkc) 100 Units/Ml SUB-Q Not Given HS [facility] Protocol Insulin Glargine 30 units 11/24/24 18:00 12/03/24 16:55 Insulin Glargine (*Bkc) 100 Units/Ml SUB-Q 30 units QPM SUZI Administration Ipratropium [place] 0.5 mg 11/30/24 12:19 Ipratropium Br 0.02% Inh Soln 0.5 Mg/2.5 Ml Vial INHALATION Q4HRT PRN Wheezing Levalbuterol HCl 1.25 mg 11/28/24 14:00 Levalbuterol Neb 1.25 Mg/3 Ml INHALATION Q6HRT PRN Wheezing Losartan Potassium 100 mg 12/01/24 09:00 12/03/24 08:08 Losartan Potassium 100 Mg Tablet PO 100 mg DAILY SUZI Administration Lovastatin 40 mg 11/24/24 09:00 12/03/24 08:08 Lovastatin 20 Mg Tablet PO 40 mg DAILY SUZI Administration Metoprolol Succinate 25 mg 11/27/24 09:00 12/03/24 08:08 Metoprolol Succinate Ext Rel 25 Mg Tabcr PO 25 mg QAM SUZI Administration Trazodone HCl 50 mg 11/29/24 18:53 12/01/24 21:52 Trazodone Hcl 50 Mg Tablet PO 50 mg HS PRN Administration Insomnia Radiology Results: ITS Impressions Venous Doppler Study 11/27/24 10:00 IMPRESSION: 1. No deep venous thrombosis. Chest CT 11/27/24 19:14 IMPRESSION: 1. Bilateral pneumonia involving the lower lobes, right upper lobe, middle lobe and lingula. 2. Mediastinal lymphadenopathy. 3. Bilateral pleural effusion. Chest X-Ray 12/01/24 06:21 Impression: Moderate pulmonary edema pattern versus bilateral pneumonia. Small left pleural effusion. Labs Labs: Laboratory Results - last 24 hr 12/03/24 12/03/24 12/03/24 03:48 07:15 11:23 WBC 15.4 H RBC 3.03 L Hgb 8.9 L Hct 28.1 L MCV 92.7 MCH 29.4 MCHC 31.7 L RDW 15.6 H Plt Count 640 H MPV 9.2 Sodium 135 L Potassium 4.3 Chloride 99 Carbon Dioxide 30 Anion Gap 6 BUN 21 H Creatinine 1.53 H Estim Creat Clear Calc 30 Estimated GFR 33 L Glucose 126 H POC Capillary Glucose 132 H 221 H Calcium 9.2 12/03/24 16:28 WBC RBC Hgb Hct MCV MCH MCHC RDW Plt Count MPV Sodium Potassium Chloride Carbon Dioxide Anion Gap BUN Creatinine Estim Creat Clear Calc Estimated GFR Glucose POC Capillary Glucose 155 H Calcium Quality VTE Prophylaxis VTE prophylaxis: pharmacologic ordered
[2024-12-03 20:39] LABS: Glucose Point of Care 193 mg/dl (65-105)
[2024-12-04] VITALS (12 sets, daily range): BP systolic 108–143; BP diastolic 49–58; PULSE 67–92; RESP 14–18; TEMP 36.3–36.8; O2SAT 90–100
[2024-12-04 04:09] LABS: Hemoglobin 9.1 g/dL (12.0-15.0); Mean Corpuscular HGB Conc 31.4 g/dl (32-36); Mean Corpuscular Hemoglobin 29.2 pg (26-34); Mean Corpuscular Volume 92.9 fl (80-100); Mean Platelet Volume 8.8 fl (7.4-10.4); Platelet Count Result 643 k/mm3 (150-375); Red Blood Count 3.12 M/mm3 (4.2-5.4); Red Cell Distribution Width 15.1 % (11.5-14.5); White Blood Count 11.8 K/mm3 (4.5-10.0)
[2024-12-04 04:36] LABS: Anion Gap 8 mmol/L (4-12); Blood Urea Nitrogen 23 mg/dL (7-17); Calcium 9.6 mg/dL (8.4-10.2); Carbon Dioxide 27 mmol/L (22-30); Chloride 102 mmol/L (98-107); Estimated CRCL calculation 29 ml/min; Estimated Glomerular Filt Rate 32; Glucose 90 mg/dL (65-110); Potassium 4.4 mmol/L (3.4-5.0); Sodium 137 mmol/L (137-145)
[2024-12-04 05:18] LABS: CRP 11.8 mg/dL (<1.0)
[2024-12-04] MEDS: hydroCHLOROthiazide 25 MG TABLET PO (08:07)
[2024-12-04] MEDS: LOVASTATIN 20 MG TABLET 40 MG PO (08:07)
[2024-12-04] MEDS: METOPROLOL SUCCINATE EXT REL 25 MG TABCR PO (08:07)
[2024-12-04] MEDS: CEFEPIME 2 GM/NS 50 ML 2 GM/50 ML BAG IVPB ×2 (08:08→20:44)
[2024-12-04] MEDS: LOSARTAN POTASSIUM 100 MG TABLET PO (08:08)
[2024-12-04 08:12] LABS: Glucose Point of Care 96 mg/dl (65-105)
--- NOTE | 2024-12-04 10:12 | P.PNPL_ITS ---
Progress Note: A&P Assessment and Plan (1) Acute hypoxemic respiratory failure: Code(s): J96.01 - Acute respiratory failure with hypoxia Status: Acute Assessment and Plan: This 74-year-old female presented with an acute respiratory illness persisting for several days before hospitalization, diagnosed as influenza A with a possible lower respiratory tract infection, either viral or bacterial in origin. Her chest X-ray shows bilateral infiltrates and small pleural effusions, suggesting possible pulmonary edema. She was recently evaluated by Cardiology Services for supraventricular tachycardia, and her BNP levels have increased since admission. A chest CT reveals bilateral lower lobe consolidation, infiltrate with air bronchograms, and small pleural effusions, indicating bilateral pneumonia more than pulmonary edema. She is on a high-flow nasal cannula and reports no significant complaints such as shortness of breath, fever, chills, hemoptysis, or wheezing, and she does not appear septic. The patient is receiving cefepime and levofloxacin for bilateral pneumonia following influenza infection. Urine testing for pneumococcal and Legionella antigens negative. Mycoplasma testing also negative. Over the past 24 hours, her respiratory status has further improved improved. Currently she is on room air complaining of mild cough with no sputum production. On physical exam she continues to have crackles at bases related to bilateral pneumonia. Chest x-ray showed partial clearing of bilateral infiltrates. CRP trending down, WBC also lower. Plan: Continue with the current regimen. Anticipate discharge once the patient completes 7-8 day treatment with antibiotics. Encourage the patient to get out of bed and sit in a chair. Continue with nebulized short-acting bronchodilators on a p.r.n. basis. I will continue to follow the patient in collaboration with you. (2) Pneumonia: Code(s): J18.9 - Pneumonia, unspecified organism Status: Acute (3) Pleural effusion: Code(s): J90 - Pleural effusion, not elsewhere classified Status: Acute (4) Influenza A: Code(s): J10.1 - Influenza due to other identified influenza virus with other respiratory manifestations Status: Acute Subjective Date/time seen: 12/04/24 10:12 Interval history: Patient stated she is doing better. Cough improved. Has not been coughing up any phlegm. No shortness of breath at rest. No wheezing no fever chills. Currently on room air. Review of Systems Review of Systems: All systems reviewed & are unremarkable except as noted in HPI and below (HPI and below) Exam Narrative: GENERAL APPEARANCE: Well developed, well nourished, alert and cooperative, and appears to be in in mild respiratory distress while on supplemental oxygen SKIN: Inspection of the skin reveals no rashes, ulcerations or petechiae. HEENT: Sclerae anicteric and conjunctivae pink and moist. Extraocular movements were intact and pupils were equal, round, and reactive to light. The oral mucosa, hard and soft palate, tongue and posterior pharynx were normal. NECK: Supple. There was no thyroid enlargement, and no tenderness, or masses were felt. CHEST: Normal AP diameter and normal contour without any kyphoscoliosis. LUNGS: Crackles at bases bilaterally, no wheezing CARDIAC: There was a regular rate and rhythm without any murmurs, gallops, rubs. ABDOMEN: Soft and nontender with normal bowel sounds. There was no organomegaly. LYMPH NODES: No lymphadenopathy was appreciated in the neck EXTREMITIES: No cyanosis, clubbing or edema. NEUROLOGIC: Alert and oriented x 3. Normal affect. Objective Data Vital Signs Vital Signs: Vital Signs - 24 hr 12/03/24 10:34 12/03/24 12:00 12/03/24 12:00 Temperature 36.8 C Pulse Rate 76 70 Respiratory Rate 18 Blood Pressure 130/46 L Pulse Oximetry 95 91 Oxygen Delivery Room Air 12/03/24 16:00 12/03/24 16:00 12/03/24 19:45 Temperature 37.3 C Pulse Rate 76 109 H Respiratory Rate 18 Blood Pressure 133/68 Pulse Oximetry 98 94 Oxygen Delivery Room Air 12/03/24 19:50 12/03/24 19:51 12/03/24 20:09 Temperature 36.7 C Pulse Rate 75 75 78 Respiratory Rate 18 17 Blood Pressure 124/58 L Pulse Oximetry 98 95 Oxygen Delivery Room Air 12/03/24 23:29 12/04/24 00:00 12/04/24 04:00 Temperature 36.9 C Pulse Rate 87 67 80 Respiratory Rate 18 Blood Pressure 130/64 Pulse Oximetry 92 Oxygen Delivery 12/04/24 04:11 12/04/24 07:56 12/04/24 08:00 Temperature 36.8 C 36.3 C L Pulse Rate 79 92 92 Respiratory Rate 17 18 18 Blood Pressure 119/50 L 135/53 L Pulse Oximetry 90 94 94 Oxygen Delivery Room Air 12/04/24 08:00 12/04/24 08:07 Temperature Pulse Rate 90 89 Respiratory Rate Blood Pressure Pulse Oximetry Oxygen Delivery Intake/Output Intake/Output: Intake & Output 12/01/24 12/02/24 12/03/24 12/04/24 23:59 23:59 23:59 23:59 Intake Total 2040 1895.0 700 120 Output Total 1075 3125 600 Balance 965 -1230.0 100 120 Meds/Results Medications: Active Medications Generic Name Dose Route Start Last Admin Trade Name Freq PRN Reason Stop Dose Admin Acetaminophen 650 mg 11/23/24 16:54 Acetaminophen 325 Mg Tablet PO Q4H PRN Mild Pain (1-3) or Fever Albuterol 2.5 mg 12/01/24 09:10 Albuterol Sulfate Neb 2.5 Mg/3 Ml Inh INHALATION Q6HRT PRN Shortness Of Breath Benzocaine 1 lozenge 11/23/24 21:50 Benzocaine/Menthol (*Bkc) 18 Ea Lozenge PO PRN PRN Sore Throat Dextrose 12.5 gm 11/23/24 22:59 Dextrose 50% 25 Gm/50 Ml Syringe IV PUSH PRN PRN Hypoglycemia Protocol Enoxaparin Sodium 40 mg 11/24/24 09:00 11/30/24 09:00 Enoxaparin 40 Mg/0.4 Ml Syringe SUB-Q 40 mg DAILY SUZI Administration Glucagon 1 mg 11/23/24 22:59 Glucagon For Inj 1 Mg Vial IM PRN PRN Hypoglycemia Protocol Glucose 15 gm 11/23/24 22:59 Glucose Oral Gel 15 Gm Of Glucse In 37.5 Gm Tube PO PRN PRN Hypoglycemia Protocol Guaifenesin/Dextromethorphan 10 ml 12/03/24 13:27 Guaifenesin/Dextromethorphan 10 Ml Udc PO Q4HR PRN Cough Hydrochlorothiazide 25 mg 12/01/24 09:00 12/04/24 08:07 Hydrochlorothiazide 25 Mg Tablet PO 25 mg QAM SUZI Administration Dextrose 1,000 mls @ 100 mls/hr 11/23/24 22:59 Dextrose 5% 1,000 Ml IVPB PRN PRN Hypoglycemia Protocol Cefepime HCl 2 gm in 50 mls @ 100 mls/hr 11/29/24 09:00 12/04/24 08:08 Maxipime 2 Gm/Ns 50 Ml IVPB 12/05/24 21:29 100 mls/hr Q12HR SUZI Administration Levofloxacin/Dextrose 750 mg in 150 mls @ 100 mls/hr 11/30/24 20:00 12/02/24 22:28 Levaquin 750 Mg/D5w 150 Ml IVPB 12/06/24 21:29 Infused Q48H SUZI Infusion Insulin Aspart 3 - 6 units 11/24/24 08:00 12/04/24 08:12 Insulin Aspart (*Bkc) 100 Units/Ml SUB-Q Not Given TIDWM [facility] Protocol Insulin Aspart 1 - 3 units 11/24/24 21:00 12/03/24 20:43 Insulin Aspart (*Bkc) 100 Units/Ml SUB-Q Not Given HS [facility] Protocol Insulin Glargine 30 units 11/24/24 18:00 12/03/24 16:55 Insulin Glargine (*Bkc) 100 Units/Ml SUB-Q 30 units QPM SUZI Administration Ipratropium [place] 0.5 mg 11/30/24 12:19 Ipratropium Br 0.02% Inh Soln 0.5 Mg/2.5 Ml Vial INHALATION Q4HRT PRN Wheezing Levalbuterol HCl 1.25 mg 11/28/24 14:00 Levalbuterol Neb 1.25 Mg/3 Ml INHALATION Q6HRT PRN Wheezing Losartan Potassium 100 mg 12/01/24 09:00 12/04/24 08:08 Losartan Potassium 100 Mg Tablet PO 100 mg DAILY SUZI Administration Lovastatin 40 mg 11/24/24 09:00 12/04/24 08:07 Lovastatin 20 Mg Tablet PO 40 mg DAILY SUZI Administration Metoprolol Succinate 25 mg 11/27/24 09:00 12/04/24 08:07 Metoprolol Succinate Ext Rel 25 Mg Tabcr PO 25 mg QAM SUZI Administration Trazodone HCl 50 mg 11/29/24 18:53 12/01/24 21:52 Trazodone Hcl 50 Mg Tablet PO 50 mg HS PRN Administration Insomnia Radiology Results: ITS Impressions Venous Doppler Study 11/27/24 10:00 IMPRESSION: 1. No deep venous thrombosis. Chest CT 11/27/24 19:14 IMPRESSION: 1. Bilateral pneumonia involving the lower lobes, right upper lobe, middle lobe and lingula. 2. Mediastinal lymphadenopathy. 3. Bilateral pleural effusion. Chest X-Ray 12/04/24 06:10 IMPRESSION: 1. Airspace opacities in the mid and lower lung zones with improvement on the left, consistent with pneumonia. Labs Labs: Laboratory Results - last 24 hr 12/03/24 12/03/24 12/03/24 11:23 16:28 20:12 WBC RBC Hgb Hct MCV MCH MCHC RDW Plt Count MPV Sodium Potassium Chloride Carbon Dioxide Anion Gap BUN Creatinine Estim Creat Clear Calc Estimated GFR Glucose POC Capillary Glucose 221 H 155 H 193 H Calcium C-Reactive Protein 12/04/24 12/04/24 03:38 07:25 WBC 11.8 H RBC 3.12 L Hgb 9.1 L Hct 29.0 L MCV 92.9 MCH 29.2 MCHC 31.4 L RDW 15.1 H Plt Count 643 H MPV 8.8 Sodium 137 Potassium 4.4 Chloride 102 Carbon Dioxide 27 Anion Gap 8 BUN 23 H Creatinine 1.59 H Estim Creat Clear Calc 29 Estimated GFR 32 L Glucose 90 POC Capillary Glucose 96 Calcium 9.6 C-Reactive Protein 11.8 H
--- NOTE | 2024-12-04 13:37 | PC.NURSE ---
This patient, Katheryn Barbosa, was transferred to [[facility] ] on 12/04/24 at 1337. Personal belongings sent with patient. Report given to [OPAL Mascorro @ [phone] ]. Appropriate documentation sent with patient.
--- NOTE | 2024-12-04 14:17 | ADMGEN ---
This patient, Katheryn Barbosa, was transferred to [address] [place] [address] Room 320-01. Patient/family oriented to hospital policies and general routines including ID bracelet, bed and alarms, visiting hours, pain management, procedures, bathroom and other care routines, personal items, smoking policy, room service/diet, and visiting hours. Information on how to activate the Rapid Response Team has been discussed. Patient/Family are encouraged to report perceived risks to care and to ask questions if they do not understand what they are told or what they should do.
[2024-12-04 16:28] LABS: Glucose Point of Care 197 mg/dl (65-105)
[2024-12-04 16:50] LABS: Glucose Point of Care 213 mg/dl (65-105)
--- NOTE | 2024-12-04 17:02 | WPDONCCN ---
Assessment and Plan Assessment and plan (1) Anemia: Code(s): D64.9 - Anemia, unspecified Status: Acute Assessment and Plan: This is the 74-year-old female with history of insulin-dependent diabetes and hypertension came into the ER with shortness of breath and hypoxia. She was diagnosed with pneumonia. Her hemoglobin dropped to 6.9. She overall received 3 units of packed red blood cell in the hospital. She denies any bleeding including melena hematochezia. Denies being a vegetarian. There is no previous history of stomach surgeries. Labs showed slightly low iron but normal iron saturation and elevated ferritin. Creatinine was high with GFR of 32% which is likely responsible for her anemia secondary to chronic kidney disease. Platelet count was normal on admission. Elevated WBC count and platelet counts are secondary to reactive process as CRP was elevated. She will follow-up with me in the office for further management. Most likely platelet count will improve with improvement in the underlying infection. If the platelet count remains elevated then we will perform JAK2 mutation testing in the office. She should be discharged home on baby aspirin. HPI Data of Consult Date/Time: 12/04/24 17:02 Requesting Physician: Pradip Reyez MD Primary Care Provider: Feliberto Padilla Consult Narrative Narrative: Katheryn Barbosa is a 74 year old female with history of insulin-dependent diabetes, hypertension and hyperlipidemia came into the ER with shortness of breath and chest x-ray was performed that showed pneumonia. Patient was hypoxic with oxygen saturation of 70% on room air. She tested positive for influenza A. She was started on broad-spectrum antibiotic with azithromycin and Rocephin. She denies any bleeding and bruising. She denies being a vegetarian. Denies any previous history of stomach surgery. Labs showed normal WBC and platelet count with hemoglobin of 9.7 with MCV of 91.8. She received 3 units of packed red blood cells. She denies any bleeding including melena hematochezia. Recent labs showed hemoglobin of 9.1 with platelet count of [id number]. Creatinine was elevated at 1.59 with GFR of 32. Iron level was 34. Saturation of iron was 20%. Vitamin B12 was normal. She is now feeling better. Review of Systems Review of Systems: Review of system as per HPI otherwise negative [facility] Past Medical History Medical History (Updated 03/03/25 @ 12:40 by Anajli Mayen APRN) Hyperlipidemia Hypertension Insulin dependent diabetes mellitus Surgical History Surgical History (Updated 11/23/24 @ 22:56 by Isi Trejo PA-C) History of bilateral cataract extraction Family History Family History Father Colon cancer Mother Cerebrovascular accident Diabetes mellitus Son Hypertension Social History Social History (Updated 11/23/24 @ 22:57 by Isi Trejo PA-C) Social History: Surrogate medical decision maker: Denis Barbosa, olegario ([phone]). Code status: FULL CODE. Smoking status: Former smoker Alcohol intake: never Substance use: never Do You Feel Safe in your Home?: Yes Lack of Transportation: No Lack of Food: Never True Current Housing: I Have Housing Concerned About Future Housing: No Difficulty Paying Gas/Electric Bills: No Difficulty Paying for Meds: No Currently Unemployed: No Education: Bachelor's Degree Difficulty w/ Childcare or Family Care: No Additional living arrangements comments: Lives in her own home in [place]. Additional occupation/education comments: Retired but still works part-time for the [employer] in [place]. Spiritual care concerns: No Meds Home Medications and Allergies Home Medications ?Medication ?Instructions ?Recorded ?Confirmed ?Type ergocalciferol (vitamin D2) 1,250 1,250 mcg PO [id number] 11/23/24 11/23/24 History mcg (50,000 unit) capsule insulin glargine 100 unit/mL 65 unit subcut QPM 11/23/24 11/23/24 History subcutaneous solution (Lantus U-100 Insulin) linagliptin 5 mg tablet (Tradjenta) 5 mg PO QAM 11/23/24 11/23/24 History losartan 100 1 tablet PO DAILY 11/23/24 11/23/24 History mg-hydrochlorothiazide 25 mg tablet (Hyzaar) lovastatin 40 mg tablet 40 mg PO DAILY 11/23/24 11/23/24 History metformin 500 mg tablet 500 mg PO BID 11/23/24 11/23/24 History Allergies Allergy/AdvReac Type Severity Reaction Status Date / Time No Known Allergies Allergy Verified 11/23/24 15:47 Vital Signs Vital Signs - 24 hr 12/03/24 19:45 12/03/24 19:50 12/03/24 19:51 Temperature Pulse Rate 75 75 Respiratory Rate 18 Blood Pressure Pulse Oximetry 94 98 Oxygen Delivery Room Air Room Air 12/03/24 20:09 12/03/24 23:29 12/04/24 00:00 Temperature 36.7 C 36.9 C Pulse Rate 78 87 67 Respiratory Rate 17 18 Blood Pressure 124/58 L 130/64 Pulse Oximetry 95 92 Oxygen Delivery 12/04/24 04:00 12/04/24 04:11 12/04/24 07:56 Temperature 36.8 C 36.3 C L Pulse Rate 80 79 92 Respiratory Rate 17 18 Blood Pressure 119/50 L 135/53 L Pulse Oximetry 90 94 Oxygen Delivery 12/04/24 08:00 12/04/24 08:00 12/04/24 08:07 Temperature Pulse Rate 92 90 89 Respiratory Rate 18 Blood Pressure Pulse Oximetry 94 Oxygen Delivery Room Air 12/04/24 12:00 12/04/24 14:13 12/04/24 14:23 Temperature Pulse Rate 81 Respiratory Rate Blood Pressure Pulse Oximetry 94 Oxygen Delivery Room Air Room Air 12/04/24 16:00 Temperature Pulse Rate 76 Respiratory Rate Blood Pressure Pulse Oximetry Oxygen Delivery Exam Narrative: Lungs are clear to auscultation bilaterally Cardiovascular regular rate rhythm no murmurs Abdomen soft nontender nondistended bowel sounds are positive Extremities no edema Results Labs 12/04/24 03:38 12/04/24 03:38 Labs: Short CBC 12/04/24 Range/Units 03:38 WBC 11.8 H (4.5-10.0) K/mm3 Hgb 9.1 L (12.0-15.0) g/dL Hct 29.0 L (37.0-47.0) % Plt Count 643 H (150-375) k/mm3 BMP 12/04/24 03:38 Sodium 137 Potassium 4.4 Chloride 102 Carbon Dioxide 27 BUN 23 H Creatinine 1.59 H Glucose 90 Calcium 9.6
--- NOTE | 2024-12-04 17:08 | WPDONCCN ---
Assessment and Plan Assessment and plan (1) Liver mass: Code(s): R16.0 - Hepatomegaly, not elsewhere classified Status: Acute Assessment and Plan: This is a pleasant 72-year-old female without any previous history of malignancy and without history of smoking came into the hospital with lightheadedness and dizziness and confusion. Patient had shoulder replacement surgery done on October 23, 2024. She was diagnosed with right lower extremity DVT in October of 2024. According to the patient daughter she had the right lung mass that was biopsied previously in 2021 at [facility] in came back benign. Findings on the CT chest is worrisome for metastatic lung cancer. Liver ultrasound showed liver measures 16.1 cm with ill-defined masses are noted with the largest measures 3.6 x 2.6 x 3.4 cm. I would recommend liver biopsy. She will follow-up with us as an outpatient. I have provided them my office information as well. HPI Data of Consult Date/Time: 12/04/24 17:08 Requesting Physician: Pradip Reyez MD Primary Care Provider: Feliberto Padilla Consult Narrative Narrative: Katheryn Barbosa is a 74 year old female with previous history of lung mass and pancreatic mass has been evaluated by Dr. Curry and Dr. Larios and [facility]. She denies any previous history of smoking. There is element of secondhand smoking exposure. According to patient daughter she had lung biopsy done in 2021 came back negative. She was recently diagnosed with right lower extremity DVT in October 2024. Patient came into the hospital with lightheadedness and dizziness along with blurred vision and confusion after recent shoulder surgery on October 23, 2024. Brain MRI showed subacute and acute infarcts bilaterally. CTA chest showed 5.9 x 2.6 cm mass in the right upper lobe consistent with primary bronchogenic carcinoma with liver masses and mild periportal lymphadenopathy with no evidence of pulmonary embolism. 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 Abdominal ultrasound showed multiple ill-defined hypoechoic masses in the liver. She denies any bone pain. Denies any abdominal pain. Denies any cough and shortness of breath. Denies any weight loss. No previous history of malignancy. Review of Systems Review of Systems: Review of system as per HPI otherwise negative [facility] Past Medical History Medical History (Updated 12/04/24 @ 17:12 by Adriano Torres MD) Hyperlipidemia Hypertension Insulin dependent diabetes mellitus Surgical History Surgical History (Updated 11/23/24 @ 22:56 by Isi Trejo PA-C) History of bilateral cataract extraction Family History Family History Father Colon cancer Mother Cerebrovascular accident Diabetes mellitus Son Hypertension Social History Social History (Updated 11/23/24 @ 22:57 by Isi Trejo PA-C) Social History: Surrogate medical decision maker: Denis Barbosa, son ([phone]). Code status: FULL CODE. Smoking status: Former smoker Alcohol intake: never Substance use: never Do You Feel Safe in your Home?: Yes Lack of Transportation: No Lack of Food: Never True Current Housing: I Have Housing Concerned About Future Housing: No Difficulty Paying Gas/Electric Bills: No Difficulty Paying for Meds: No Currently Unemployed: No Education: Bachelor's Degree Difficulty w/ Childcare or Family Care: No Additional living arrangements comments: Lives in her own home in [place]. Additional occupation/education comments: Retired but still works part-time for [employer] in [place]. Spiritual care concerns: No Meds Home Medications and Allergies Home Medications ?Medication ?Instructions ?Recorded ?Confirmed ?Type ergocalciferol (vitamin D2) 1,250 1,250 mcg PO [id number] 11/23/24 11/23/24 History mcg (50,000 unit) capsule insulin glargine 100 unit/mL 65 unit subcut QPM 11/23/24 11/23/24 History subcutaneous solution (Lantus U-100 Insulin) linagliptin 5 mg tablet (Tradjenta) 5 mg PO QAM 11/23/24 11/23/24 History losartan 100 1 tablet PO DAILY 11/23/24 11/23/24 History mg-hydrochlorothiazide 25 mg tablet (Hyzaar) lovastatin 40 mg tablet 40 mg PO DAILY 11/23/24 11/23/24 History metformin 500 mg tablet 500 mg PO BID 11/23/24 11/23/24 History Allergies Allergy/AdvReac Type Severity Reaction Status Date / Time No Known Allergies Allergy Verified 11/23/24 15:47 Vital Signs Vital Signs - 24 hr 12/03/24 19:45 12/03/24 19:50 12/03/24 19:51 Temperature Pulse Rate 75 75 Respiratory Rate 18 Blood Pressure Pulse Oximetry 94 98 Oxygen Delivery Room Air Room Air 12/03/24 20:09 12/03/24 23:29 12/04/24 00:00 Temperature 36.7 C 36.9 C Pulse Rate 78 87 67 Respiratory Rate 17 18 Blood Pressure 124/58 L 130/64 Pulse Oximetry 95 92 Oxygen Delivery 12/04/24 04:00 12/04/24 04:11 12/04/24 07:56 Temperature 36.8 C 36.3 C L Pulse Rate 80 79 92 Respiratory Rate 17 18 Blood Pressure 119/50 L 135/53 L Pulse Oximetry 90 94 Oxygen Delivery 12/04/24 08:00 12/04/24 08:00 12/04/24 08:07 Temperature Pulse Rate 92 90 89 Respiratory Rate 18 Blood Pressure Pulse Oximetry 94 Oxygen Delivery Room Air 12/04/24 12:00 12/04/24 14:13 12/04/24 14:23 Temperature Pulse Rate 81 Respiratory Rate Blood Pressure Pulse Oximetry 94 Oxygen Delivery Room Air Room Air 12/04/24 16:00 Temperature Pulse Rate 76 Respiratory Rate Blood Pressure Pulse Oximetry Oxygen Delivery Exam Narrative: Lungs are clear to auscultation bilaterally Cardiovascular regular rate rhythm no murmurs Abdomen soft nontender nondistended bowel sounds are positive Extremities no edema Results Labs 12/04/24 03:38 12/04/24 03:38 Labs: Short CBC 12/04/24 Range/Units 03:38 WBC 11.8 H (4.5-10.0) K/mm3 Hgb 9.1 L (12.0-15.0) g/dL Hct 29.0 L (37.0-47.0) % Plt Count 643 H (150-375) k/mm3 BMP 12/04/24 03:38 Sodium 137 Potassium 4.4 Chloride 102 Carbon Dioxide 27 BUN 23 H Creatinine 1.59 H Glucose 90 Calcium 9.6
[2024-12-04] MEDS: INSULIN ASPART (*BKC) 100 UNITS/ML SUB-Q ×2 (18:11→20:50)
[2024-12-04] MEDS: guaiFENesin/DEXTROMETHORPHAN 10 ML UDC PO (18:15)
[2024-12-04] MEDS: INSULIN GLARGINE (*BKC) 100 UNITS/ML 30 UNITS SUB-Q (18:15)
[2024-12-04] MEDS: levoFLOXacin 750 MG/D5W 150 ML 750 MG/150 ML BAG 100 MG IVPB (20:41)
[2024-12-04 21:16] LABS: Glucose Point of Care 257 mg/dl (65-105)
[2024-12-05] VITALS (10 sets, daily range): BP systolic 103–133; BP diastolic 52–70; PULSE 67–87; RESP 16–18; TEMP 36.6–36.8; O2SAT 96–98
[2024-12-05 08:05] LABS: Glucose Point of Care 114 mg/dl (65-105)
[2024-12-05] MEDS: LOSARTAN POTASSIUM 100 MG TABLET PO (09:23)
[2024-12-05] MEDS: hydroCHLOROthiazide 25 MG TABLET PO (09:23)
[2024-12-05] MEDS: METOPROLOL SUCCINATE EXT REL 25 MG TABCR PO (09:23)
[2024-12-05] MEDS: LOVASTATIN 20 MG TABLET 40 MG PO (09:24)
[2024-12-05] MEDS: CEFEPIME 2 GM/NS 50 ML 2 GM/50 ML BAG IVPB ×2 (09:28→20:11)
[2024-12-05] MEDS: guaiFENesin/DEXTROMETHORPHAN 10 ML UDC PO (09:28)
[2024-12-05 11:51] LABS: Glucose Point of Care 207 mg/dl (65-105)
[2024-12-05] MEDS: INSULIN ASPART (*BKC) 100 UNITS/ML SUB-Q ×2 (12:05→20:12)
--- NOTE | 2024-12-05 13:39 | P.PNIM_ITS ---
Progress Note: A&P Assessment and Plan (1) Anemia: Code(s): D64.9 - Anemia, unspecified Status: Acute Assessment and Plan: acute on chronic likely due to CKD No signs of acute bleeding 3/3 transfuse 1 unit RBCs, repeat H&H after Q 12 H&H Transfuse for hemoglobin less than 7 or symptomatic Anemia workup Stool Occult blood pending No known cause at this time for hemoglobin to be trending down (2) Acute hypoxic respiratory failure: Code(s): J96.01 - Acute respiratory failure with hypoxia Status: Acute Assessment and Plan: Improving Patient sent to ED from urgent care for pneumonia with hypoxia spo2 70% on RA. In the ED spo2 93% on 4L NC. baseline RA - ABG on 4L NC showing respiratory alkalosis: pH 7.514, pCO2 31.7, pO2 56.6, HCO3 25 - Chest XR: Segmental left lower lung atelectasis/consolidation, overlying a background of interstitial edema. Blood cultures pending Sputum cultures pending 11/26 consulted pulm for further recommendations. 11/27 chest xray-possible pulm edema CT without contrast was ordered- to r/o pneumonia vs chf 11/28- pulm following. able to titrate oxygen requirements down- 50l, fio2 72%. continue tx. ambulate as able, IS. 11/29 moved to IMU for wide complex tachycardia rate 186 11/30 patient changed to Levaquin 12/01 chest x-ray shows increasing edema versus pneumonia, improving with change in antibiotics (3) Pneumonia: Code(s): J18.9 - Pneumonia, unspecified organism Status: Acute Assessment and Plan: - Chest XR: Segmental left lower lung atelectasis/consolidation, overlying a background of interstitial edema. - WBC WNL however procal 12.8, being treated for bacterial pneumonia - started on CAP tx: azithromycin ceftriaxone - Oxygen supplementation: 4L NC, baseline RA. Wean oxygen as tolerated. - Viral PCR: Flu - Sputum culture ordered - Legionella, mycoplasma, and pneumococcal ordered - MRSA negative - Continue scheduled bronchodilators. - Monitor vital signs, I&Os, neuro status and patient is a fall risk - Follow WBC, serum electrolytes, temperature curves and cultures 11/25 ceftriaxone dose is adjsted to 2 gm 11/26 blood cultures no growth today 11/26- wbc worsening. still requiring oxygen. waiting for pulm recommendation but will change antibiotics to cefepime 11/28- continue cefepime. will stop vanc as mRSA negative 11/29- noted antibiotic fell out of mars for some reason- cefepime re ordered. 11/30 patient changes Levaquin (4) Bacteremia: Code(s): R78.81 - Bacteremia Status: Acute Assessment and Plan: positive BC-group A streptococcus discussed with pharm ID- will continue ceftriaxone but increase dose to 2 gm - switched to cefepime , initially vanc was added but stopped as pt mrsa negative continue cefepime-renally dosed per pharmacy Leukocytosis trending down 11/26 blood cultures no growth today (5) SVT (supraventricular tachycardia): Code(s): I47.10 - Supraventricular tachycardia, unspecified Status: Acute Assessment and Plan: Resolved 11/29- last night had sustained episode of rapid heart rate- converted back to NSR with IV metoprolol 5 mg Moved to IMU for close monitoring card was consulted metoprolol added (6) Acute kidney injury: Code(s): N17.9 - Acute kidney failure, unspecified Status: Acute Assessment and Plan: BUN/Cr 32/1.48 on admission, unknown baseline Denies history of kidney disease thus presumably this is an acute kidney injury, likely due to decreased oral intake and dehydration. - BUN/Cr 30/1.45 on am labs - NS 100 ml/hr - Holding losartan-HCTZ for FE, resume when appropriate - Renally dose medications - Avoid nephrotoxic medications - Monitor I/O - lasix was started last night for christo pleural effusion (7) Insulin dependent diabetes mellitus: Status: Acute Assessment and Plan: Patient states that she has not taken her lantus 65 units in over week as she has not been eating. Will decrease her lantus to 30 units and continue to monitor and adjust according to glucose levels. - hypoglycemia protocol - POC blood glucose ACHS - home medication - lantus 65 units, tradjenta 5 mg, metformin 500 mg BID - correct regimen ordered - lantus 30 units, januvia, and SSI - A1C 8.4 (8) Influenza A: Code(s): J10.1 - Influenza due to other identified influenza virus with other respiratory manifestations Status: Acute Assessment and Plan: Viral panel: Flu A Tamiflu 11/23-11/28 completed treatment (9) Hypertension: Code(s): I10 - Essential (primary) hypertension Status: Acute Assessment and Plan: chronic - losartan-HCTZ on hold for FE, resume when appropriate - blood pressures remain stable, continue to monitor (10) Elevated troponin: Code(s): R79.89 - Other specified abnormal findings of blood chemistry Status: Acute Assessment and Plan: see above, likely due to hypoxia (11) Pleural effusion: Code(s): J90 - Pleural effusion, not elsewhere classified Status: Acute Assessment and Plan: ulm edema/effusion vs pneumonia vs chf chest xray was done ct chest 11/27 IMPRESSION: 1. Bilateral pneumonia involving the lower lobes, right upper lobe, middle lobe and lingula. 2. Mediastinal lymphadenopathy. 3. Bilateral pleural effusion. ECho was done on 11/27- EF 55-60%, Summary 1. Complete two-dimensional, color flow and Doppler transthoracic echocardiogram is performed. 2. Mild concentric LVH with preserved systolic function and grade 1 diastolic noncompliance. 3. Mild mitral annular calcification. 4. No valvular dysfunction. 5. Trileaflet aortic valve with mild sclerosis and well maintained leaflet excursion. -added lasix 40 mg IV- monitor closely I/O and kidney function - cardiology following- appreciate recommendations Plan 74 year old female was transferred to IMU from November 28 evening for rapid heart rate. Was admitted 11/27 with bibasilar pneumonia, chest CT Nov 27 confirmed. coughs but is not able to expectorate secretions. Patient's hemoglobin was 6.9 yesterday was transfuse 1 unit RBCs repeat hemoglobin was 7.2, patient has no signs of active bleeding may benefit from a CT scan Patient switch to Levaquin yesterday per pulmonology is recommendations, improvement leukocytosis this morning Patient after a new hemoglobin with stable, no blood seen in urine or stool by NURSE FIRST AID, CT deferred at this time patient stats feeling better not sure why her heart was palpitating now feels better, denies any CP, SOB or palpitation, Discuss with her quality control industrial engineer concerning for persisting anemia without any sign of bleeding or GI concerns, patient was seen by corrective therapy aide suspect patient anemia is 2/2 to CKD, no noticed several masses on liver US and recommended biopsy Assisted Living Administrator is treating patient with Levaquin, Subjective Date/time seen: 12/04/24 13:39 Interval history: 74 year old female was transferred to IMU from November 28 evening for rapid heart rate. Was admitted 11/27 with bibasilar pneumonia, chest CT Nov 27 confirmed. coughs but is not able to expectorate secretions. Patient's hemoglobin was 6.9 yesterday was transfuse 1 unit RBCs repeat hemoglobin was 7.2, patient has no signs of active bleeding may benefit from a CT scan Patient switch to Levaquin yesterday per pulmonology is recommendations, improvement leukocytosis this morning Patient after a new hemoglobin with stable, no blood seen in urine or stool by NURSE FIRST AID, CT deferred at this time patient stats feeling better not sure why her heart was palpitating now feels better, denies any CP, SOB or palpitation, Discuss with her quality control industrial engineer concerning for persisting anemia without any sign of bleeding or GI concerns, patient was seen by corrective therapy aide suspect patient anemia is 2/2 to CKD, no noticed several masses on liver US and recommended biopsy Assisted Living Administrator is treating patient with Levaquin, Review of Systems Review of Systems: 12 systems were reviewed and are negativ e except for as per HPI. All systems reviewed & are unremarkable except as noted in HPI and below Exam Narrative: Elderly frail Patient is comfortable, NAD HEENT: eyes are clear and none icteric LUNGS:CTA HEART: RR S1S2 ABD: BS+, Soft and nontender Lower extremities: no edema SKIN: nonjaundiced Neuro: grossly intact. Const: General: comfortable Objective Data Vital Signs Vital Signs: Vital Signs - 24 hr 12/04/24 14:13 12/04/24 14:23 12/04/24 16:00 Temperature Pulse Rate 76 Respiratory Rate Blood Pressure Pulse Oximetry 94 Oxygen Delivery Room Air Room Air 12/04/24 16:00 12/04/24 20:02 12/04/24 20:42 Temperature 36.6 C Pulse Rate 77 71 84 Respiratory Rate 18 14 Blood Pressure 108/49 L 143/58 H Pulse Oximetry 100 97 Oxygen Delivery 12/04/24 20:44 12/05/24 00:02 12/05/24 04:02 Temperature Pulse Rate 77 67 Respiratory Rate Blood Pressure Pulse Oximetry 97 Oxygen Delivery Room Air 12/05/24 05:27 12/05/24 09:23 Temperature 36.6 C Pulse Rate 72 72 Respiratory Rate 16 Blood Pressure 103/62 Pulse Oximetry 96 Oxygen Delivery Intake/Output Intake/Output: Intake & Output 12/02/24 12/03/24 12/04/24 12/05/24 23:59 23:59 23:59 23:59 Intake Total 1895.0 700 850 790 Output Total 3125 600 Balance -1230.0 100 850 790 Meds/Results Medications: Active Medications Generic Name Dose Route Start Last Admin Trade Name Freq PRN Reason Stop Dose Admin Acetaminophen 650 mg 11/23/24 16:54 Acetaminophen 325 Mg Tablet PO Q4H PRN Mild Pain (1-3) or Fever Albuterol 2.5 mg 12/01/24 09:10 Albuterol Sulfate Neb 2.5 Mg/3 Ml Inh INHALATION Q6HRT PRN Shortness Of Breath Benzocaine 1 lozenge 11/23/24 21:50 Benzocaine/Menthol (*Bkc) 18 Ea Lozenge PO PRN PRN Sore Throat Dextrose 12.5 gm 11/23/24 22:59 Dextrose 50% 25 Gm/50 Ml Syringe IV PUSH PRN PRN Hypoglycemia Protocol Enoxaparin Sodium 40 mg 11/24/24 09:00 11/30/24 09:00 Enoxaparin 40 Mg/0.4 Ml Syringe SUB-Q 40 mg DAILY SUZI Administration Glucagon 1 mg 11/23/24 22:59 Glucagon For Inj 1 Mg Vial IM PRN PRN Hypoglycemia Protocol Glucose 15 gm 11/23/24 22:59 Glucose Oral Gel 15 Gm Of Glucse In 37.5 Gm Tube PO PRN PRN Hypoglycemia Protocol Guaifenesin/Dextromethorphan 10 ml 12/03/24 13:27 12/05/24 09:28 Guaifenesin/Dextromethorphan 10 Ml Udc PO 10 ml Q4HR PRN Administration Cough Hydrochlorothiazide 25 mg 12/01/24 09:00 12/05/24 09:23 Hydrochlorothiazide 25 Mg Tablet PO 25 mg QAM SUZI Administration Dextrose 1,000 mls @ 100 mls/hr 11/23/24 22:59 Dextrose 5% 1,000 Ml IVPB PRN PRN Hypoglycemia Protocol Cefepime HCl 2 gm in 50 mls @ 100 mls/hr 11/29/24 09:00 12/05/24 09:28 Maxipime 2 Gm/Ns 50 Ml IVPB 12/05/24 21:29 100 mls/hr Q12HR SUZI Administration Levofloxacin/Dextrose 750 mg in 150 mls @ 100 mls/hr 11/30/24 20:00 12/04/24 22:11 Levaquin 750 Mg/D5w 150 Ml IVPB 12/06/24 21:29 Infused Q48H SUZI Infusion Insulin Aspart 3 - 6 units 11/24/24 08:00 12/05/24 12:05 Insulin Aspart (*Bkc) 100 Units/Ml SUB-Q 3 units TIDWM SUZI Administration Protocol Insulin Aspart 1 - 3 units 11/24/24 21:00 12/04/24 20:50 Insulin Aspart (*Bkc) 100 Units/Ml SUB-Q 2 units HS SUZI Administration Protocol Insulin Glargine 30 units 11/24/24 18:00 12/04/24 18:15 Insulin Glargine (*Bkc) 100 Units/Ml SUB-Q 30 units QPM SUZI Administration Ipratropium Apex 0.5 mg 11/30/24 12:19 Ipratropium Br 0.02% Inh Soln 0.5 Mg/2.5 Ml Vial INHALATION Q4HRT PRN Wheezing Levalbuterol HCl 1.25 mg 11/28/24 14:00 Levalbuterol Neb 1.25 Mg/3 Ml INHALATION Q6HRT PRN Wheezing Losartan Potassium 100 mg 12/01/24 09:00 12/05/24 09:23 Losartan Potassium 100 Mg Tablet PO 100 mg DAILY SUZI Administration Lovastatin 40 mg 11/24/24 09:00 12/05/24 09:24 Lovastatin 20 Mg Tablet PO 40 mg DAILY SUZI Administration Metoprolol Succinate 25 mg 11/27/24 09:00 12/05/24 09:23 Metoprolol Succinate Ext Rel 25 Mg Tabcr PO 25 mg QAM SUZI Administration Trazodone HCl 50 mg 11/29/24 18:53 12/01/24 21:52 Trazodone Hcl 50 Mg Tablet PO 50 mg HS PRN Administration Insomnia Radiology Results: ITS Impressions Venous Doppler Study 11/27/24 10:00 IMPRESSION: 1. No deep venous thrombosis. Chest CT 11/27/24 19:14 IMPRESSION: 1. Bilateral pneumonia involving the lower lobes, right upper lobe, middle lobe and lingula. 2. Mediastinal lymphadenopathy. 3. Bilateral pleural effusion. Chest X-Ray 12/04/24 06:10 IMPRESSION: 1. Airspace opacities in the mid and lower lung zones with improvement on the left, consistent with pneumonia. Labs Labs: Laboratory Results - last 24 hr 12/04/24 12/04/24 12/04/24 11:39 16:48 20:45 POC Capillary Glucose 197 H 213 H 257 H 12/05/24 12/05/24 07:57 11:44 POC Capillary Glucose 114 H 207 H Quality VTE Prophylaxis VTE prophylaxis: pharmacologic ordered
[2024-12-05 16:44] LABS: Glucose Point of Care 159 mg/dl (65-105)
[2024-12-05] MEDS: INSULIN GLARGINE (*BKC) 100 UNITS/ML 30 UNITS SUB-Q (17:50)
[2024-12-05] MEDS: ACETAMINOPHEN 325 MG TABLET 650 MG PO (17:51)
[2024-12-05 20:40] LABS: Glucose Point of Care 275 mg/dl (65-105)
[2024-12-06] VITALS (9 sets, daily range): BP systolic 124–146; BP diastolic 57–69; PULSE 69–84; RESP 14–18; TEMP 36.2–36.9; O2SAT 96–99
--- NOTE | 2024-12-06 03:05 | PC.NURSE ---
Daylight Savings Time For Daylight Savings Time Ending in the Fall - Clocks are moved back. For Daylight Savings Time Beginning in the Spring - Clocks are moved ahead. For [facility], the time of change occurs at 0200 hrs. Time is taken from the chief service observer. This entry on the patient's chart recognizes the change in time reflected during documentation. Example: 2 entries for vital signs may be charted for 0200 hrs.
[2024-12-06 06:34] LABS: Hematocrit 30.2 % (37.0-47.0); Hemoglobin 9.2 g/dL (12.0-15.0); Mean Corpuscular HGB Conc 30.5 g/dl (32-36); Mean Corpuscular Hemoglobin 29.2 pg (26-34); Mean Corpuscular Volume 95.9 fl (80-100); Mean Platelet Volume 8.7 fl (7.4-10.4); Platelet Count Result 683 k/mm3 (150-375); Red Blood Count 3.15 M/mm3 (4.2-5.4); Red Cell Distribution Width 14.3 % (11.5-14.5); White Blood Count 9.4 K/mm3 (4.5-10.0)
[2024-12-06 06:42] LABS: Anion Gap 11 mmol/L (4-12); Blood Urea Nitrogen 24 mg/dL (7-17); Calcium 9.8 mg/dL (8.4-10.2); Carbon Dioxide 23 mmol/L (22-30); Chloride 104 mmol/L (98-107); Estimated CRCL calculation 29 ml/min; Estimated Glomerular Filt Rate 31; Glucose 111 mg/dL (65-110); Magnesium 1.9 mg/dL (1.6-2.3); Potassium 4.4 mmol/L (3.4-5.0); Sodium 138 mmol/L (137-145)
[2024-12-06 07:58] LABS: Glucose Point of Care 113 mg/dl (65-105)
[2024-12-06] MEDS: LOVASTATIN 20 MG TABLET 40 MG PO (08:59)
[2024-12-06] MEDS: hydroCHLOROthiazide 25 MG TABLET PO (08:59)
[2024-12-06] MEDS: METOPROLOL SUCCINATE EXT REL 25 MG TABCR PO (09:00)
[2024-12-06] MEDS: LOSARTAN POTASSIUM 100 MG TABLET PO (09:00)
[2024-12-06] MEDS: ACETAMINOPHEN 325 MG TABLET 650 MG PO ×2 (09:08→20:27)
[2024-12-06 11:39] LABS: Glucose Point of Care 185 mg/dl (65-105)
--- NOTE | 2024-12-06 13:35 | PM.IMPN ---
Progress Note: A&P Assessment and Plan (1) Anemia: Code(s): D64.9 - Anemia, unspecified Status: Acute Assessment and Plan: acute on chronic likely due to CKD No signs of acute bleeding 3/3 transfuse 1 unit RBCs, repeat H&H after Q 12 H&H Transfuse for hemoglobin less than 7 or symptomatic Anemia workup Stool Occult blood pending No known cause at this time for hemoglobin to be trending down (2) Acute hypoxic respiratory failure: Code(s): J96.01 - Acute respiratory failure with hypoxia Status: Acute Assessment and Plan: Improving Patient sent to ED from urgent care for pneumonia with hypoxia spo2 70% on RA. In the ED spo2 93% on 4L NC. baseline RA - ABG on 4L NC showing respiratory alkalosis: pH 7.514, pCO2 31.7, pO2 56.6, HCO3 25 - Chest XR: Segmental left lower lung atelectasis/consolidation, overlying a background of interstitial edema. Blood cultures pending Sputum cultures pending 11/26 consulted pulm for further recommendations. 11/27 chest xray-possible pulm edema CT without contrast was ordered- to r/o pneumonia vs chf 11/28- pulm following. able to titrate oxygen requirements down- 50l, fio2 72%. continue tx. ambulate as able, IS. 11/29 moved to IMU for wide complex tachycardia rate 186 11/30 patient changed to Levaquin 12/01 chest x-ray shows increasing edema versus pneumonia, improving with change in antibiotics (3) Pneumonia: Code(s): J18.9 - Pneumonia, unspecified organism Status: Acute Assessment and Plan: - Chest XR: Segmental left lower lung atelectasis/consolidation, overlying a background of interstitial edema. - WBC WNL however procal 12.8, being treated for bacterial pneumonia - started on CAP tx: azithromycin ceftriaxone - Oxygen supplementation: 4L NC, baseline RA. Wean oxygen as tolerated. - Viral PCR: Flu - Sputum culture ordered - Legionella, mycoplasma, and pneumococcal ordered - MRSA negative - Continue scheduled bronchodilators. - Monitor vital signs, I&Os, neuro status and patient is a fall risk - Follow WBC, serum electrolytes, temperature curves and cultures 11/25 ceftriaxone dose is adjsted to 2 gm 11/26 blood cultures no growth today 11/26- wbc worsening. still requiring oxygen. waiting for pulm recommendation but will change antibiotics to cefepime 11/28- continue cefepime. will stop vanc as mRSA negative 11/29- noted antibiotic fell out of mars for some reason- cefepime re ordered. 11/30 patient changes Levaquin (4) Bacteremia: Code(s): R78.81 - Bacteremia Status: Acute Assessment and Plan: positive BC-group A streptococcus discussed with pharm ID- will continue ceftriaxone but increase dose to 2 gm - switched to cefepime , initially vanc was added but stopped as pt mrsa negative continue cefepime-renally dosed per pharmacy Leukocytosis trending down 11/26 blood cultures no growth today (5) SVT (supraventricular tachycardia): Code(s): I47.10 - Supraventricular tachycardia, unspecified Status: Acute Assessment and Plan: Resolved 11/29- last night had sustained episode of rapid heart rate- converted back to NSR with IV metoprolol 5 mg Moved to IMU for close monitoring card was consulted metoprolol added (6) Acute kidney injury: Code(s): N17.9 - Acute kidney failure, unspecified Status: Acute Assessment and Plan: BUN/Cr 32/1.48 on admission, unknown baseline Denies history of kidney disease thus presumably this is an acute kidney injury, likely due to decreased oral intake and dehydration. - BUN/Cr 30/1.45 on am labs - NS 100 ml/hr - Holding losartan-HCTZ for FE, resume when appropriate - Renally dose medications - Avoid nephrotoxic medications - Monitor I/O - lasix was started last night for christo pleural effusion (7) Insulin dependent diabetes mellitus: Status: Acute Assessment and Plan: Patient states that she has not taken her lantus 65 units in over week as she has not been eating. Will decrease her lantus to 30 units and continue to monitor and adjust according to glucose levels. - hypoglycemia protocol - POC blood glucose ACHS - home medication - lantus 65 units, tradjenta 5 mg, metformin 500 mg BID - correct regimen ordered - lantus 30 units, januvia, and SSI - A1C 8.4 (8) Influenza A: Code(s): J10.1 - Influenza due to other identified influenza virus with other respiratory manifestations Status: Acute Assessment and Plan: Viral panel: Flu A Tamiflu 11/23-11/28 completed treatment (9) Hypertension: Code(s): I10 - Essential (primary) hypertension Status: Acute Assessment and Plan: chronic - losartan-HCTZ on hold for FE, resume when appropriate - blood pressures remain stable, continue to monitor (10) Elevated troponin: Code(s): R79.89 - Other specified abnormal findings of blood chemistry Status: Acute Assessment and Plan: see above, likely due to hypoxia (11) Pleural effusion: Code(s): J90 - Pleural effusion, not elsewhere classified Status: Acute Assessment and Plan: ulm edema/effusion vs pneumonia vs chf chest xray was done ct chest 11/27 IMPRESSION: 1. Bilateral pneumonia involving the lower lobes, right upper lobe, middle lobe and lingula. 2. Mediastinal lymphadenopathy. 3. Bilateral pleural effusion. ECho was done on 11/27- EF 55-60%, Summary 1. Complete two-dimensional, color flow and Doppler transthoracic echocardiogram is performed. 2. Mild concentric LVH with preserved systolic function and grade 1 diastolic noncompliance. 3. Mild mitral annular calcification. 4. No valvular dysfunction. 5. Trileaflet aortic valve with mild sclerosis and well maintained leaflet excursion. -added lasix 40 mg IV- monitor closely I/O and kidney function - cardiology following- appreciate recommendations Plan 74 year old female was transferred to IMU from November 1st evening for rapid heart rate. Was admitted 11/27 with bibasilar pneumonia, chest CT Nov 27 confirmed. coughs but is not able to expectorate secretions. Patient's hemoglobin was 6.9 yesterday was transfuse 1 unit RBCs repeat hemoglobin was 7.2, patient has no signs of active bleeding may benefit from a CT scan Patient switch to Levaquin yesterday per pulmonology is recommendations, improvement leukocytosis this morning Patient after a new hemoglobin with stable, no blood seen in urine or stool by TRACTOR TRAILER OPERATOR, CT deferred at this time patient stats feeling better not sure why her heart was palpitating patient was seen by technology teacher, now feels better, denies any CP, SOB or palpitation, Discuss with her ice cream freezer assistant concerning for persisting anemia without any sign of bleeding or GI concerns, patient was seen by assistant education director suspect patient anemia is 2/2 to CKD, also noticed several masses on liver US and recommended biopsy Technical Healthcare Consultant is treating patient with Cefepime completed 12/05 and Levaquin completed, patient will be seen by pulonologist tomorrow, and discharge the patient. Subjective Date/time seen: 12/06/24 13:35 Interval history: 74 year old female was transferred to IMU from November 28 evening for rapid heart rate. Was admitted 11/27 with bibasilar pneumonia, chest CT Nov 27 confirmed. coughs but is not able to expectorate secretions. Patient's hemoglobin was 6.9 yesterday was transfuse 1 unit RBCs repeat hemoglobin was 7.2, patient has no signs of active bleeding may benefit from a CT scan Patient switch to Levaquin yesterday per pulmonology is recommendations, improvement leukocytosis this morning Patient after a new hemoglobin with stable, no blood seen in urine or stool by TRACTOR TRAILER OPERATOR, CT deferred at this time patient stats feeling better not sure why her heart was palpitating patient was seen by technology teacher, now feels better, denies any CP, SOB or palpitation, Discuss with her ice cream freezer assistant concerning for persisting anemia without any sign of bleeding or GI concerns, patient was seen by assistant education director suspect patient anemia is 2/2 to CKD, also noticed several masses on liver US and recommended biopsy Technical Healthcare Consultant is treating patient with Cefepime completed 12/05 and Levaquin completed, patient will be seen by pulonologist tomorrow, and discharge the patient. Review of Systems Review of Systems: 12 systems were reviewed and are negative except for as per HPI. All systems reviewed & are unremarkable except as noted in HPI and below Exam Narrative: Elderly frail Patient is comfortable, NAD HEENT: eyes are clear and none icteric LUNGS:CTA HEART: RR S1S2 ABD: BS+, Soft and nontender Lower extremities: no edema SKIN: nonjaundiced Neuro: grossly intact. Objective Data Vital Signs Vital Signs: Vital Signs - 24 hr 12/05/24 14:00 12/05/24 16:00 12/05/24 20:00 Temperature Pulse Rate 75 79 Respiratory Rate 18 Blood Pressure 124/52 L Pulse Oximetry 97 Oxygen Delivery Room Air 12/05/24 20:00 12/05/24 22:42 12/06/24 00:00 Temperature 36.8 C Pulse Rate 77 79 69 Respiratory Rate 18 Blood Pressure 133/70 Pulse Oximetry 98 Oxygen Delivery 12/06/24 04:00 12/06/24 06:00 12/06/24 08:00 Temperature 36.6 C Pulse Rate 76 75 Respiratory Rate 18 Blood Pressure 132/69 Pulse Oximetry 99 Oxygen Delivery Room Air 12/06/24 08:00 Temperature Pulse Rate 84 Respiratory Rate Blood Pressure Pulse Oximetry Oxygen Delivery Intake/Output Intake/Output: Intake & Output 12/03/24 12/04/24 12/05/24 12/07/24 23:59 23:59 23:59 00:59 Intake Total 747 072 3106 570 Output Total 600 Balance 915 066 2345 570 Meds/Results Medications: Active Medications Generic Name Dose Route Start Last Admin Trade Name Freq PRN Reason Stop Dose Admin Acetaminophen 650 mg 11/23/24 16:54 12/06/24 09:08 Acetaminophen 325 Mg Tablet PO 650 mg Q4H PRN Administration Mild Pain (1-3) or Fever Albuterol 2.5 mg 12/01/24 09:10 Albuterol Sulfate Neb 2.5 Mg/3 Ml Inh INHALATION Q6HRT PRN Shortness Of Breath Benzocaine 1 lozenge 11/23/24 21:50 Benzocaine/Menthol (*Bkc) 18 Ea Lozenge PO PRN PRN Sore Throat Dextrose 12.5 gm 11/23/24 22:59 Dextrose 50% 25 Gm/50 Ml Syringe IV PUSH PRN PRN Hypoglycemia Protocol Enoxaparin Sodium 40 mg 11/24/24 09:00 11/30/24 09:00 Enoxaparin 40 Mg/0.4 Ml Syringe SUB-Q 40 mg DAILY SUZI Administration Glucagon 1 mg 11/23/24 22:59 Glucagon For Inj 1 Mg Vial IM PRN PRN Hypoglycemia Protocol Glucose 15 gm 11/23/24 22:59 Glucose Oral Gel 15 Gm Of Glucse In 37.5 Gm Tube PO PRN PRN Hypoglycemia Protocol Guaifenesin/Dextromethorphan 10 ml 12/03/24 13:27 12/05/24 09:28 Guaifenesin/Dextromethorphan 10 Ml Udc PO 10 ml Q4HR PRN Administration Cough Hydrochlorothiazide 25 mg 12/01/24 09:00 12/06/24 08:59 Hydrochlorothiazide 25 Mg Tablet PO 25 mg QAM SUZI Administration Dextrose 1,000 mls @ 100 mls/hr 11/23/24 22:59 Dextrose 5% 1,000 Ml IVPB PRN PRN Hypoglycemia Protocol Levofloxacin/Dextrose 750 mg in 150 mls @ 100 mls/hr 11/30/24 20:00 12/04/24 22:11 Levaquin 750 Mg/D5w 150 Ml IVPB 12/06/24 21:29 Infused Q48H SUZI Infusion Insulin Aspart 3 - 6 units 11/24/24 08:00 12/06/24 12:10 Insulin Aspart (*Bkc) 100 Units/Ml SUB-Q Not Given TIDWM [facility] Protocol Insulin Aspart 1 - 3 units 11/24/24 21:00 12/05/24 20:12 Insulin Aspart (*Bkc) 100 Units/Ml SUB-Q 2 units HS SUZI Administration Protocol Insulin Glargine 30 units 11/24/24 18:00 12/05/24 17:50 Insulin Glargine (*Bkc) 100 Units/Ml SUB-Q 30 units QPM SUZI Administration Ipratropium [place] 0.5 mg 11/30/24 12:19 Ipratropium Br 0.02% Inh Soln 0.5 Mg/2.5 Ml Vial INHALATION Q4HRT PRN Wheezing Levalbuterol HCl 1.25 mg 11/28/24 14:00 Levalbuterol Neb 1.25 Mg/3 Ml INHALATION Q6HRT PRN Wheezing Losartan Potassium 100 mg 12/01/24 09:00 12/06/24 09:00 Losartan Potassium 100 Mg Tablet PO 100 mg DAILY SUZI Administration Lovastatin 40 mg 11/24/24 09:00 12/06/24 08:59 Lovastatin 20 Mg Tablet PO 40 mg DAILY SUZI Administration Magnesium Oxide 400 mg 12/07/24 09:00 Magnesium Oxide 400 Mg Tablet PO QAM [facility] Metoprolol Succinate 25 mg 11/27/24 09:00 12/06/24 09:00 Metoprolol Succinate Ext Rel 25 Mg Tabcr PO 25 mg QAM [facility] Administration Trazodone HCl 50 mg 11/29/24 18:53 12/01/24 21:52 Trazodone Hcl 50 Mg Tablet PO 50 mg HS PRN Administration Insomnia Radiology Results: ITS Impressions Venous Doppler Study 11/27/24 10:00 IMPRESSION: 1. No deep venous thrombosis. Chest CT 11/27/24 19:14 IMPRESSION: 1. Bilateral pneumonia involving the lower lobes, right upper lobe, middle lobe and lingula. 2. Mediastinal lymphadenopathy. 3. Bilateral pleural effusion. Chest X-Ray 12/04/24 06:10 IMPRESSION: 1. Airspace opacities in the mid and lower lung zones with improvement on the left, consistent with pneumonia. Labs Labs: Laboratory Results - last 24 hr 12/05/24 12/05/24 12/06/24 16:41 20:08 06:18 WBC 9.4 RBC 3.15 L Hgb 9.2 L Hct 30.2 L MCV 95.9 MCH 29.2 MCHC 30.5 L RDW 14.3 Plt Count 683 H MPV 8.7 Sodium 138 Potassium 4.4 Chloride 104 Carbon Dioxide 23 Anion Gap 11 BUN 24 H Creatinine 1.62 H Estim Creat Clear Calc 29 Estimated GFR 31 L Glucose 111 H POC Capillary Glucose 159 H 275 H Calcium 9.8 Magnesium 1.9 12/06/24 12/06/24 07:54 11:27 WBC RBC Hgb Hct MCV MCH MCHC RDW Plt Count MPV Sodium Potassium Chloride Carbon Dioxide Anion Gap BUN Creatinine Estim Creat Clear Calc Estimated GFR Glucose POC Capillary Glucose 113 H 185 H Calcium Magnesium Quality VTE Prophylaxis VTE prophylaxis: pharmacologic ordered
[2024-12-06 16:41] LABS: Glucose Point of Care 144 mg/dl (65-105)
[2024-12-06] MEDS: INSULIN GLARGINE (*BKC) 100 UNITS/ML 30 UNITS SUB-Q (18:07)
[2024-12-06 20:26] LABS: Glucose Point of Care 255 mg/dl (65-105)
[2024-12-06] MEDS: levoFLOXacin 750 MG/D5W 150 ML 750 MG/150 ML BAG 100 MG IVPB (20:28)
[2024-12-06] MEDS: INSULIN ASPART (*BKC) 100 UNITS/ML SUB-Q (21:35)
[2024-12-07] VITALS: PULSE 66
[2024-12-07 04:00] VITALS: PULSE 71
[2024-12-07 05:57] VITALS: BP 143/52; PULSE 78; RESP 13; TEMP 36.2; O2SAT 98
[2024-12-07 06:39] LABS: Hematocrit 29.2 % (37.0-47.0); Hemoglobin 9.1 g/dL (12.0-15.0); Mean Corpuscular HGB Conc 31.2 g/dl (32-36); Mean Corpuscular Hemoglobin 29.6 pg (26-34); Mean Corpuscular Volume 95.1 fl (80-100); Mean Platelet Volume 8.9 fl (7.4-10.4); Platelet Count Result 649 k/mm3 (150-375); Red Blood Count 3.07 M/mm3 (4.2-5.4); Red Cell Distribution Width 14.1 % (11.5-14.5); White Blood Count 8.9 K/mm3 (4.5-10.0)
[2024-12-07 06:44] LABS: Anion Gap 10 mmol/L (4-12); Blood Urea Nitrogen 23 mg/dL (7-17); Carbon Dioxide 22 mmol/L (22-30); Chloride 107 mmol/L (98-107); Estimated CRCL calculation 27 ml/min; Estimated Glomerular Filt Rate 29; Glucose 98 mg/dL (65-110); Magnesium 1.7 mg/dL (1.6-2.3); Potassium 4.3 mmol/L (3.4-5.0); Sodium 139 mmol/L (137-145)
[2024-12-07 08:00] VITALS: PULSE 78; RESP 13; O2SAT 98
[2024-12-07 08:11] LABS: Glucose Point of Care 107 mg/dl (65-105)
--- NOTE | 2024-12-07 09:50 | PM.PNPUL ---
Progress Note: A&P Assessment and Plan (1) Acute hypoxemic respiratory failure: Code(s): J96.01 - Acute respiratory failure with hypoxia Status: Acute Assessment and Plan: This 74-year-old female was admitted with an acute respiratory illness lasting several days prior to hospitalization, diagnosed as influenza A with a potential lower respiratory tract infection, either viral or bacterial. Her chest X-ray revealed bilateral infiltrates and small pleural effusions, initially suggesting possible pulmonary edema. She was recently assessed by Cardiology Services for supraventricular tachycardia, and her BNP levels have increased since admission. A chest CT scan showed bilateral lower lobe consolidation, infiltrates with air bronchograms, and small pleural effusions, indicating bilateral pneumonia rather than pulmonary edema. The patient completed a course of cefepime and levofloxacin and is currently improving, with no cough and breathing room air. The latest development involves the discovery of a liver mass, which the oncologist suspects may be metastatic lung disease. The most recent chest X-ray showed improvement in both bilateral pneumonia and pleural effusions. According to the oncologist, the mediastinal lymphadenopathy observed on the CT scan may not be reactive to pneumonia but instead could be due to metastatic lung malignancy. A repeat chest CT is necessary to document the resolution of bilateral consolidations and to assess the size of the mediastinal lymph nodes. Plan: Await the biopsy results of the liver mass. From a respiratory perspective, the patient is ready for discharge. She will require follow-up studies to confirm the resolution of bilateral consolidations and assess mediastinal lymphadenopathy. We will continue to monitor the patient in collaboration with you. (2) Pneumonia: Code(s): J18.9 - Pneumonia, unspecified organism Status: Acute (3) Pleural effusion: Code(s): J90 - Pleural effusion, not elsewhere classified Status: Acute (4) Influenza A: Code(s): J10.1 - Influenza due to other identified influenza virus with other respiratory manifestations Status: Acute Subjective Date/time seen: 12/07/24 09:50 Interval history: Patient has no new respiratory symptoms currently on room air, off antibiotics. Evaluated by Oncology services over the weekend regarding anemia. She underwent ultrasound of the liver which showed mass. Patient is scheduled to undergo liver biopsy. Review of Systems Review of Systems: All systems reviewed & are unremarkable except as noted in HPI and below (HPI and below.) Exam Narrative: GENERAL APPEARANCE: Well developed, well nourished, alert and cooperative, and appears to be in in mild respiratory distress while on supplemental oxygen SKIN: Inspection of the skin reveals no rashes, ulcerations or petechiae. HEENT: Sclerae anicteric and conjunctivae pink and moist. Extraocular movements were intact and pupils were equal, round, and reactive to light. The oral mucosa, hard and soft palate, tongue and posterior pharynx were normal. NECK: Supple. There was no thyroid enlargement, and no tenderness, or masses were felt. CHEST: Normal AP diameter and normal contour without any kyphoscoliosis. LUNGS: Crackles at bases bilaterally, no wheezing CARDIAC: There was a regular rate and rhythm without any murmurs, gallops, rubs. ABDOMEN: Soft and nontender with normal bowel sounds. There was no organomegaly. LYMPH NODES: No lymphadenopathy was appreciated in the neck EXTREMITIES: No cyanosis, clubbing or edema. NEUROLOGIC: Alert and oriented x 3. Normal affect. Objective Data Vital Signs Vital Signs: Vital Signs - 24 hr 12/06/24 12:00 12/06/24 14:00 12/06/24 16:00 Temperature 36.9 C Pulse Rate 78 81 81 Respiratory Rate 18 Blood Pressure 124/57 L Pulse Oximetry 96 Oxygen Delivery 12/06/24 20:00 12/06/24 20:00 12/06/24 21:14 Temperature 36.2 C L Pulse Rate 74 82 Respiratory Rate 14 Blood Pressure 146/60 H Pulse Oximetry 97 Oxygen Delivery Room Air 12/07/24 00:00 12/07/24 04:00 12/07/24 05:57 Temperature 36.2 C L Pulse Rate 66 71 78 Respiratory Rate 13 Blood Pressure 143/52 H Pulse Oximetry 98 Oxygen Delivery Intake/Output Intake/Output: Intake & Output 12/04/24 12/05/24 12/07/24 12/07/24 23:59 23:59 00:59 23:59 Intake Total 850 1370 1165 200 Balance 850 1370 1165 200 Meds/Results Medications: Active Medications Generic Name Dose Route Start Last Admin Trade Name Freq PRN Reason Stop Dose Admin Acetaminophen 650 mg 11/23/24 16:54 12/06/24 20:27 Acetaminophen 325 Mg Tablet PO 650 mg Q4H PRN Administration Mild Pain (1-3) or Fever Albuterol 2.5 mg 12/01/24 09:10 Albuterol Sulfate Neb 2.5 Mg/3 Ml Inh INHALATION Q6HRT PRN Shortness Of Breath Benzocaine 1 lozenge 11/23/24 21:50 Benzocaine/Menthol (*Bkc) 18 Ea Lozenge PO PRN PRN Sore Throat Dextrose 12.5 gm 11/23/24 22:59 Dextrose 50% 25 Gm/50 Ml Syringe IV PUSH PRN PRN Hypoglycemia Protocol Enoxaparin Sodium 40 mg 11/24/24 09:00 11/30/24 09:00 Enoxaparin 40 Mg/0.4 Ml Syringe SUB-Q 40 mg DAILY SUZI Administration Glucagon 1 mg 11/23/24 22:59 Glucagon For Inj 1 Mg Vial IM PRN PRN Hypoglycemia Protocol Glucose 15 gm 11/23/24 22:59 Glucose Oral Gel 15 Gm Of Glucse In 37.5 Gm Tube PO PRN PRN Hypoglycemia Protocol Guaifenesin/Dextromethorphan 10 ml 12/03/24 13:27 12/05/24 09:28 Guaifenesin/Dextromethorphan 10 Ml Udc PO 10 ml Q4HR PRN Administration Cough Hydrochlorothiazide 25 mg 12/01/24 09:00 12/06/24 08:59 Hydrochlorothiazide 25 Mg Tablet PO 25 mg QAM SUZI Administration Dextrose 1,000 mls @ 100 mls/hr 11/23/24 22:59 Dextrose 5% 1,000 Ml IVPB PRN PRN Hypoglycemia Protocol Insulin Aspart 3 - 6 units 11/24/24 08:00 12/06/24 18:06 Insulin Aspart (*Bkc) 100 Units/Ml SUB-Q Not Given TIDWM [facility] Protocol Insulin Aspart 1 - 3 units 11/24/24 21:00 12/06/24 21:35 Insulin Aspart (*Bkc) 100 Units/Ml SUB-Q 2 units HS SUZI Administration Protocol Insulin Glargine 30 units 11/24/24 18:00 12/06/24 18:07 Insulin Glargine (*Bkc) 100 Units/Ml SUB-Q 30 units QPM SUZI Administration Ipratropium [place] 0.5 mg 11/30/24 12:19 Ipratropium Br 0.02% Inh Soln 0.5 Mg/2.5 Ml Vial INHALATION Q4HRT PRN Wheezing Levalbuterol HCl 1.25 mg 11/28/24 14:00 Levalbuterol Neb 1.25 Mg/3 Ml INHALATION Q6HRT PRN Wheezing Losartan Potassium 100 mg 12/01/24 09:00 12/06/24 09:00 Losartan Potassium 100 Mg Tablet PO 100 mg DAILY SUZI Administration Lovastatin 40 mg 11/24/24 09:00 12/06/24 08:59 Lovastatin 20 Mg Tablet PO 40 mg DAILY SUZI Administration Magnesium Oxide 400 mg 12/07/24 09:00 Magnesium Oxide 400 Mg Tablet PO QAM SUZI Metoprolol Succinate 25 mg 11/27/24 09:00 12/06/24 09:00 Metoprolol Succinate Ext Rel 25 Mg Tabcr PO 25 mg QAM SUZI Administration Trazodone HCl 50 mg 11/29/24 18:53 12/01/24 21:52 Trazodone Hcl 50 Mg Tablet PO 50 mg HS PRN Administration Insomnia Radiology Results: ITS Impressions Venous Doppler Study 11/27/24 10:00 IMPRESSION: 1. No deep venous thrombosis. Chest CT 11/27/24 19:14 IMPRESSION: 1. Bilateral pneumonia involving the lower lobes, right upper lobe, middle lobe and lingula. 2. Mediastinal lymphadenopathy. 3. Bilateral pleural effusion. Chest X-Ray 12/04/24 06:10 IMPRESSION: 1. Airspace opacities in the mid and lower lung zones with improvement on the left, consistent with pneumonia. Labs Labs: Laboratory Results - last 24 hr 12/06/24 12/06/24 12/06/24 11:27 16:34 19:54 WBC RBC Hgb Hct MCV MCH MCHC RDW Plt Count MPV Sodium Potassium Chloride Carbon Dioxide Anion Gap BUN Creatinine Estim Creat Clear Calc Estimated GFR Glucose POC Capillary Glucose 185 H 144 H 255 H Calcium Magnesium 12/07/24 12/07/24 06:18 07:55 WBC 8.9 RBC 3.07 L Hgb 9.1 L Hct 29.2 L MCV 95.1 MCH 29.6 MCHC 31.2 L RDW 14.1 Plt Count 649 H MPV 8.9 Sodium 139 Potassium 4.3 Chloride 107 Carbon Dioxide 22 Anion Gap 10 BUN 23 H Creatinine 1.73 H Estim Creat Clear Calc 27 Estimated GFR 29 L Glucose 98 POC Capillary Glucose 107 H Calcium 10.0 Magnesium 1.7
[2024-12-07] MEDS: LOVASTATIN 20 MG TABLET 40 MG PO (10:02)
[2024-12-07] MEDS: LOSARTAN POTASSIUM 100 MG TABLET PO (10:02)
[2024-12-07] MEDS: hydroCHLOROthiazide 25 MG TABLET PO (10:03)
[2024-12-07] MEDS: METOPROLOL SUCCINATE EXT REL 25 MG TABCR PO (10:03)
[2024-12-07] MEDS: MAGNESIUM OXIDE 400 MG TABLET PO (10:03)
[2024-12-07 11:40] LABS: Glucose Point of Care 102 mg/dl (65-105)
[2024-12-07 14:00] VITALS: BP 110/53; PULSE 77; RESP 18; TEMP 36.7; O2SAT 98
--- NOTE | 2024-12-07 14:08 | PM.DS ---
DS: Admitting Diagnosis Discharge Date 12/07/24 Admitting Diagnosis Shortness of breath and hypoxia. DS: Discharge Diagnosis Discharge Diagnosis (1) Anemia: Code(s): D64.9 - Anemia, unspecified Status: Acute Assessment and Plan: acute on chronic likely due to CKD No signs of acute bleeding 3/ transfuse 1 unit RBCs, repeat H&H after Q 12 H&H Transfuse for hemoglobin less than 7 or symptomatic Anemia workup Stool Occult blood pending No known cause at this time for hemoglobin to be trending down (2) Acute hypoxic respiratory failure: Code(s): J96.01 - Acute respiratory failure with hypoxia Status: Acute Assessment and Plan: Improving Patient sent to ED from urgent care for pneumonia with hypoxia spo2 70% on RA. In the ED spo2 93% on 4L NC. baseline RA - ABG on 4L NC showing respiratory alkalosis: pH 7.514, pCO2 31.7, pO2 56.6, HCO3 25 - Chest XR: Segmental left lower lung atelectasis/consolidation, overlying a background of interstitial edema. Blood cultures pending Sputum cultures pending 11/26 consulted pulm for further recommendations. 11/27 chest xray-possible pulm edema CT without contrast was ordered- to r/o pneumonia vs chf 11/28- pulm following. able to titrate oxygen requirements down- 50l, fio2 72%. continue tx. ambulate as able, IS. 11/29 moved to IMU for wide complex tachycardia rate 186 11/30 patient changed to Levaquin 12/01 chest x-ray shows increasing edema versus pneumonia, improving with change in antibiotics (3) Pneumonia: Code(s): J18.9 - Pneumonia, unspecified organism Status: Acute Assessment and Plan: - Chest XR: Segmental left lower lung atelectasis/consolidation, overlying a background of interstitial edema. - WBC WNL however procal 12.8, being treated for bacterial pneumonia - started on CAP tx: azithromycin ceftriaxone - Oxygen supplementation: 4L NC, baseline RA. Wean oxygen as tolerated. - Viral PCR: Flu - Sputum culture ordered - Legionella, mycoplasma, and pneumococcal ordered - MRSA negative - Continue scheduled bronchodilators. - Monitor vital signs, I&Os, neuro status and patient is a fall risk - Follow WBC, serum electrolytes, temperature curves and cultures 11/25 ceftriaxone dose is adjsted to 2 gm 11/26 blood cultures no growth today 11/26- wbc worsening. still requiring oxygen. waiting for pulm recommendation but will change antibiotics to cefepime 11/28- continue cefepime. will stop vanc as mRSA negative 11/29- noted antibiotic fell out of mars for some reason- cefepime re ordered. 11/30 patient changes Levaquin (4) Bacteremia: Code(s): R78.81 - Bacteremia Status: Acute Assessment and Plan: positive BC-group A streptococcus discussed with pharm ID- will continue ceftriaxone but increase dose to 2 gm - switched to cefepime , initially vanc was added but stopped as pt mrsa negative continue cefepime-renally dosed per pharmacy Leukocytosis trending down 11/26 blood cultures no growth today (5) SVT (supraventricular tachycardia): Code(s): I47.10 - Supraventricular tachycardia, unspecified Status: Acute Assessment and Plan: Resolved 11/29- last night had sustained episode of rapid heart rate- converted back to NSR with IV metoprolol 5 mg Moved to IMU for close monitoring card was consulted metoprolol added (6) Acute kidney injury: Code(s): N17.9 - Acute kidney failure, unspecified Status: Acute Assessment and Plan: BUN/Cr 32/1.48 on admission, unknown baseline Denies history of kidney disease thus presumably this is an acute kidney injury, likely due to decreased oral intake and dehydration. - BUN/Cr 30/1.45 on am labs - NS 100 ml/hr - Holding losartan-HCTZ for FE, resume when appropriate - Renally dose medications - Avoid nephrotoxic medications - Monitor I/O - lasix was started last night for christo pleural effusion (7) Insulin dependent diabetes mellitus: Status: Acute Assessment and Plan: Patient states that she has not taken her lantus 65 units in over week as she has not been eating. Will decrease her lantus to 30 units and continue to monitor and adjust according to glucose levels. - hypoglycemia protocol - POC blood glucose ACHS - home medication - lantus 65 units, tradjenta 5 mg, metformin 500 mg BID - correct regimen ordered - lantus 30 units, januvia, and SSI - A1C 8.4 (8) Influenza A: Code(s): J10.1 - Influenza due to other identified influenza virus with other respiratory manifestations Status: Acute Assessment and Plan: Viral panel: Flu A Tamiflu 11/23-11/28 completed treatment (9) Hypertension: Code(s): I10 - Essential (primary) hypertension Status: Acute Assessment and Plan: chronic - losartan-HCTZ on hold for FE, resume when appropriate - blood pressures remain stable, continue to monitor (10) Elevated troponin: Code(s): R79.89 - Other specified abnormal findings of blood chemistry Status: Acute Assessment and Plan: see above, likely due to hypoxia (11) Pleural effusion: Code(s): J90 - Pleural effusion, not elsewhere classified Status: Acute Assessment and Plan: ulm edema/effusion vs pneumonia vs chf chest xray was done ct chest 11/27 IMPRESSION: 1. Bilateral pneumonia involving the lower lobes, right upper lobe, middle lobe and lingula. 2. Mediastinal lymphadenopathy. 3. Bilateral pleural effusion. ECho was done on 11/27- EF 55-60%, Summary 1. Complete two-dimensional, color flow and Doppler transthoracic echocardiogram is performed. 2. Mild concentric LVH with preserved systolic function and grade 1 diastolic noncompliance. 3. Mild mitral annular calcification. 4. No valvular dysfunction. 5. Trileaflet aortic valve with mild sclerosis and well maintained leaflet excursion. -added lasix 40 mg IV- monitor closely I/O and kidney function - cardiology following- appreciate recommendations DS: Summary Hospital Course Hospital Course: 74 year old female was transferred to IMU from November 1st evening for rapid heart rate. Was admitted 11/27 with bibasilar pneumonia, chest CT Nov 27 confirmed. coughs but is not able to expectorate secretions. Patient's hemoglobin was 6.9 yesterday was transfuse 1 unit RBCs repeat hemoglobin was 7.2, patient has no signs of active bleeding may benefit from a CT scan Patient switch to Levaquin yesterday per pulmonology is recommendations, improvement leukocytosis this morning Patient after a new hemoglobin with stable, no blood seen in urine or stool by MANAGER LSW, CT deferred at this time patient stats feeling better not sure why her heart was palpitating patient was seen by manager chemical, now feels better, denies any CP, SOB or palpitation, Discuss with her leather parts matcher concerning for persisting anemia without any sign of bleeding or GI concerns, patient was seen by peanut picker suspect patient anemia is 2/2 to CKD, Barge Loader is treating patient with Cefepime completed 12/05 and Levaquin completed, patient will be seen by pulonologist tomorrow, and discharge the patient. Today patient is clinically stable and seen by leather parts matcher, will discharge home today. Time Spent with Patient Time attestation: Total time spent providing and/or coordinating discharge services: Exam Narrative: Elderly frail Patient is comfortable, NAD HEENT: eyes are clear and none icteric LUNGS:CTA HEART: RR S1S2 ABD: BS+, Soft and nontender Lower extremities: no edema SKIN: nonjaundiced Neuro: grossly intact. DS: Data Data Completed and Pending Labs on day of discharge: Labs from last 24 hours 12/07/24 12/07/24 12/07/24 11:35 07:55 06:18 WBC 8.9 RBC 3.07 L Hgb 9.1 L Hct 29.2 L MCV 95.1 MCH 29.6 MCHC 31.2 L RDW 14.1 Plt Count 649 H MPV 8.9 Sodium 139 Potassium 4.3 Chloride 107 Carbon Dioxide 22 Anion Gap 10 BUN 23 H Creatinine 1.73 H Estim Creat Clear Calc 27 Estimated GFR 29 L Glucose 98 POC Capillary Glucose 102 107 H Calcium 10.0 Magnesium 1.7 12/06/24 12/06/24 19:54 16:34 WBC RBC Hgb Hct MCV MCH MCHC RDW Plt Count MPV Sodium Potassium Chloride Carbon Dioxide Anion Gap BUN Creatinine Estim Creat Clear Calc Estimated GFR Glucose POC Capillary Glucose 255 H 144 H Calcium Magnesium Discharge Plan Discharge Attending physician on discharge: Pradip Reyez Consulting providers: Jyoti العراقي; Devin Hayden; Trisha Arrieta Syed M.; Isi Trejo; Amy Cueto; Eliseo Mahmood; Aurora Sellers; Feliberto Fink; Surjit Varghese; Elizabeth Calloway; Anjali Mayen; Brissa Mcdaniel; Vito Cisse; Chapito Rosado; Shiela Perez; Erick Bone; Joseph Martínez V.; Waldemar Westfall Discharging Clinician: Alen Rahman Patient Disposition: Home, Self-Care Activity: as tolerated Diet: heart healthy Discharge Instructions: Patient to follow discharge care instruction from her leather parts matcher and follow up as scheduled, patient to follow up with primary care provider as soon as possible, patient is instructed if any symptoms worsen to go to nearest ER. Patient Instructions: Antibiotic Form, Influenza (DC) Patient Language: Marshallese Stand Alone Forms: General Discharge Information Follow-up/Referrals: Valerie,Feliberto Valenzuela [Other] Adriano Torres MD [Physician] - Devin Hayden MD [Physician] - Discharge Medications: New acetaminophen 325 mg Tablet 650 mg PO Q4H PRN (Reason: Mild Pain (1-3) Or Fever) Qty: 60 0RF Chloraseptic Sore Throat 6-10 mg Lozenge 1 raymond PO PRN PRN (Reason: Sore Throat) Qty: 30 0RF trazodone 50 mg Tablet 50 mg PO HS PRN (Reason: Insomnia) Qty: 30 0RF dextrose [Glutose-15] 40 % Gel 15 g PO PRN PRN (Reason: Hypoglycemia) Qty: 112 0RF dextromethorphan-guaifenesin 10-100 mg/5 mL Syrup 10 ml PO Q4HR PRN (Reason: Cough) Qty: 125 0RF metoprolol succinate [Toprol XL] 25 mg Tablet Extended Release 24 Hr 25 mg PO QAM Qty: 30 0RF ipratropium bromide 0.02 % Solution 0.5 mg inhalation Q4HRT PRN (Reason: Wheezing) Qty: 90 0RF albuterol sulfate 90 mcg/actuation aero powdr breath act w/sensor 2 inh inhalation Q4-6H PRN (Reason: shortness of breath or wheezing) Qty: 1 0RF Continued metformin 500 mg tablet 500 mg PO BID insulin glargine [Lantus U-100 Insulin] 100 unit/mL solution 65 unit subcut QPM Tradjenta 5 mg tablet 5 mg PO QAM lovastatin 40 mg tablet 40 mg PO DAILY losartan-hydrochlorothiazide [Hyzaar] 100-25 mg tablet 1 tablet PO DAILY ergocalciferol (vitamin D2) 1,250 mcg (50,000 unit) capsule 1,250 mcg PO [id number] Qty: 30 0RF Rx Instructions: takes on mondays every other week, due to today 11/23/24 Date of admission: 11/24/24 10:32 Primary Care Provider: Valerie,Feliberto Valenzuela Admitting Provider: Pradip Reyez Attending physician on admission: Alen Rahman Condition: Stable
== END 2024-12-07 17:00 | disposition home or self-care (01) | DRG 193 ==
LOC: ANHED 16:56 → ANH3MEDSUR 17:35 → ANH2MED 18:41 → ANHIMU 11-29 02:58 → ANH3MEDSUR 12-07 13:57 → ANH2MED 12-08 10:36 → ANH3MEDSUR 12-08 10:36 → ANHIMU 12-08 10:36
PROVIDERS: Internal Medicine; Internal Medicine Pulmonary Disease; Nurse Practitioner; Nurse Practitioner Gerontology; Physician Assistant; Student in an Organized Health Care Education/Training Program; Admitting Provider Internal Medicine; Emergency Provider Emergency Medicine; Visit Provider Family Medicine
DX: J10.08 Influenza due to other identified influenza virus with other specified pneumonia (principal); J96.01 Acute respiratory failure with hypoxia; R78.81 Bacteremia; N17.9 Acute kidney failure, unspecified; I47.10 Supraventricular tachycardia, unspecified; J90 Pleural effusion, not elsewhere classified; J15.9 Unspecified bacterial pneumonia; B95.0 Streptococcus, group A, as the cause of diseases classified elsewhere; I12.9 Hypertensive chronic kidney disease with stage 1 through stage 4 chronic kidney disease, or unspecified chronic kidney disease; N18.9 Chronic kidney disease, unspecified; D63.1 Anemia in chronic kidney disease; E11.9 Type 2 diabetes mellitus without complications; E78.5 Hyperlipidemia, unspecified; R79.89 Other specified abnormal findings of blood chemistry; Z20.822 Contact with and (suspected) exposure to COVID-19; Z79.4 Long term (current) use of insulin; Z80.0 Family history of malignant neoplasm of digestive organs
CPT/HCPCS: 36415; 36430; 36600; 71045; 71250; 80048; 80053; 80202; 81001; 82607; 82728; 82746; 82805; 82948; 83036; 83540; 83550; 83605; 83735; 83880; 84145; 84439; 84443; 84481; 84484; 85014; 85018; 85025; 85027; 85652; 86140; 86738; 86850; 86900; 86901; 86923; 87040; 87181; 87449; 87637; 87641; 87651; 87899; 93005; 93306; 93970; 94640; 94667; 96365; 96367; 97161; 97165; 99285; A9270; G0378; J0456; J0692; J0696; J1650; J1815; J1940; J1956; J3370; J3475; J7030; J7050; P9016